=== PATIENT | female | born 1950 | race Caucasian/White ===

== ENCOUNTER 2020-07-07 20:28 | Inpatient (IN) | payer MEDICARE, BC, SELFPAY ==
[2020-07-07 20:43] VITALS: BP 140/78; PULSE 61; RESP 16; TEMP 37; O2SAT 95; BMI 26.4
--- NOTE | 2020-07-07 21:45 | ED_ITS ---
HPI - Psych General Chief Complaint: Anxiety Stated Complaint: SI,ETOH Time Seen by Provider: 07/07/20 21:37 Source: patient Mode of arrival: ambulatory Limitations: no limitations History of Present Illness HPI Narrative: Patient comes emergency room complaining of depression. Patient states that she does not want to go back home. Patient states that she is used to living by herself, now she has family staying with her, states she does not feel like she is at home. Patient complaining of vague SI statements, no specific plans. No HI. Patient denies any active medical problems. Patient states she takes sertraline, states he is compliant with her medications Related Data Allergies Allergy/AdvReac Type Severity Reaction Status Date / Time No Known Allergies Allergy Verified 07/07/20 20:51 [No Known Allergies*] Review of Systems Review of Systems: Constitutional : No Weight loss, No Fever, No Chills, No Night Sweats, No Fatigue, No Malaise ENT/Mouth : No Hearing loss, No Ear Pain, No Nasal Congestion, No Sinus Pain, No Hoarseness, No sore throat, No Rhinorrhea, No Swallowing Difficulty Eyes: No Eye Pain, No Swelling, No Redness, No Foreign Body, No Discharge, No Vision Changes Cardiovascular : No Chest Pain, No SOB, No Dyspnea on Exertion, No Orthopnea, No Edema, No Palpitations Respiratory : No Cough, No Sputum, No Wheezing, No Smoke Exposure, No Dyspnea Gastrointestinal : No Nausea, No Vomiting, No Diarrhea, No Constipation, No a bdominal Pain, No Hematochezia, No Melena Genitourinary : no irregular bleeding, No Dysuria, No Urinary Frequency, No Hematuria, No Urinary Incontinence, No Urgency, No Flank Pain, No Urinary Flow Changes, No Hesitancy Musculoskeletal : No joint pain, No Myalgias, No Joint Swelling Skin : No Skin Lesions, No rash Neuro : No Weakness, No Numbness, No Paresthesias, No Loss of Consciousness, No Dizziness, No Headache Psych : No Anxiety/Panic, complaining of depression, vague SI Heme/Lymph: No Bruising, No Bleeding,No Lymphadenopathy Endocrine : No Polyuria, No Polydipsia, No Temperature Intolerance PMFSH Past Medical History Medical History Alcoholism Depression Hypertension Social History Social History Alcohol intake: current Alcohol intake frequency: other Patient Tobacco Use Status: Never used Tobacco Use of substances other than those prescribed or required for medical reasons: No Advance Directives: No Advance Directives Information Provided: No Physical Exam Vital Signs: Vital Signs: Last Vital Signs Temp 98.6 F 07/07/20 20:43 Pulse 61 07/07/20 20:43 Resp 16 07/07/20 20:43 Pulse Ox 95 07/07/20 20:43 Body Mass Index 26.4 Appearance: Alert. Oriented X3. No acute distress. Eyes: Pupils equal, round and reactive to light. ENT: Pharynx normal. Neck: Normal inspection. Neck supple. No lymph nodes noted. No crepitus CVS: Normal heart rate and rhythm. Pulses normal. Normal S1 and S2 Respiratory: No respiratory distress. Breath sounds normal. No Wheezing. No rales Abdomen: Soft and nontender. No rigidity. No distention. good BS x4 Skin: Skin warm and dry. Normal skin color. Normal skin turgor. Extremities: No lower extremity edema. No lower extremity edema. No Lacerations. No Rash Neuro: Oriented X 3. No motor deficit. No sensory deficit. Moving all extermities. No slurred speech Psych: Normal speech,
[2020-07-08] VITALS (7 sets, daily range): BP systolic 119–138; BP diastolic 46–82; PULSE 60–66; RESP 15–16; TEMP 36.4–38.4; O2SAT 96–99
[2020-07-08 00:51] LABS: Glucose Urine UA NEG (NEG); Leukocyte Esterase Urine 2+ (NEG); Nitrite Urine NEG (NEG); UACC Culture Trigger YES; Urine Blood NEG (NEG); Urine Ketones NEG (NEG); Urine Protein NEG (NEG-TRACE)
[2020-07-08 00:56] LABS: Appearance Urine CLEAR; Color Urine YELLOW
[2020-07-08 00:59] LABS: Bacteria Urine 2+ /LPF; Mucus Urine 2+ /LPF; Squamous Epithelial Cell Urine 1+ /LPF
[2020-07-08 01:12] LABS: Amphetamine Screen Urine Not Detected (Not Detect); Barbiturates, Urine Not Detected (Not Detect); Benzodiazepines Screen Urine Not Detected (Not Detect); Cannabinoid Screen Urine Not Detected (Not Detect); Cocaine Screen Urine Not Detected (Not Detect); Opiate Screen Urine Not Detected (Not Detect); Phencyclidine Screen Urine Not Detected (Not Detect)
--- NOTE | 2020-07-08 02:18 | PC.NURSE ---
HAVING ISSUES WITH COMPUTER FAXING TO N, FAXED VIA FAX MACHINE. AWATING TO BE SEEN BY Marely
--- NOTE | 2020-07-08 03:03 | PC.NURSE ---
Patient just got transferred from main ED, ambulatory with no gait deficit, calm and quiet, med rec completed pending provider's approval, N referaal completed via smart-sheet, confirmation in the chart, denied distress, will continue to monitor.
[2020-07-08 04:41] LABS: COVID-19 Test Negative (Negative)
--- NOTE | 2020-07-08 06:58 | PC.NURSE ---
patient appears in no distress this morning appears to remain asleep at present received report from prior RN
[2020-07-08] MEDS: lisinopriL 10 MG TABLET 30 MG PO (09:22)
[2020-07-08] MEDS: Sertraline HCL 50 MG TABLET PO (09:23)
[2020-07-08] MEDS: amLODIPine Besylate 5 MG TABLET PO (09:23)
[2020-07-08] MEDS: Omeprazole 20 MG CAPSULE.DR PO (09:23)
[2020-07-08] MEDS: Magnesium Oxide 400 MG TABLET PO (09:23)
[2020-07-08] MEDS: hydroCHLOROthiazide 12.5 MG TABLET PO (09:23)
[2020-07-08] MEDS: Donepezil HCl 10 MG TABLET PO (09:24)
[2020-07-08 10:29] LABS: MANUAL DIFF FLAG NO
[2020-07-08 10:34] LABS: Basophils Absolute Auto 0.1 X10*3/uL (0.0-0.2); Basophils Percent Auto 0.8 % (0-2); Eosinophils Percent Auto 0.5 % (0-4); Hematocrit 35.6 % (37-47); Hemoglobin 11.5 g/dl (12.0-16.0); Imm Gran Abs Auto 0.03 X10*3/uL (0.00-0.03); Imm Gran Pct Auto 0.4 % (0.0-0.4); Lymphocytes Absolute Auto 1.1 X10*3/uL (1.2-4.9); Lymphocytes Percent Auto 14.2 % (20-40); Mean Corpuscular HGB Conc 32.3 g/dl (31.0-35.0); Mean Corpuscular Hemoglobin 31.8 pg (27.0-33.0); Mean Corpuscular Volume 98.3 fL (80-98); Mean Platelet Volume 8.5 fL (9.4-12.3); Monocytes Absolute Auto 0.5 X10*3/uL (0.1-1.2); Monocytes Percent Auto 6.8 % (2-11); Neutrophils Absolute Auto 6.2 X10*3/uL (2.0-8.3); Neutrophils Percent Auto 77.3 % (45-73); Platelet Count 324 X10*3/uL (160-400); Red Blood Count 3.62 X10*6/uL (4.20-5.50); Red Cell Distribution Width 12.9 % (11.0-16.0)
[2020-07-08] MEDS: Celecoxib 200 MG CAPSULE PO ×2 (10:50→21:33)
[2020-07-08 11:01] LABS: Alanine Aminotransferase 20 U/L (0-31); Albumin Level 4.2 g/dL (3.5-5.0); Alkaline Phosphatase 115 U/L (39-117); Anion Gap 15 (12-20); Aspartate Amino Transferase 24 U/L (5-31); Bilirubin Direct 0.3 mg/dL (0.0-0.5); Bilirubin Total 0.8 mg/dL (0.0-1.0); Blood Urea Nitrogen 24 mg/dL (9-16); Calcium 9.3 mg/dL (8.4-10.2); Carbon Dioxide 26 mmol/L (22-29); Chloride 105 mmol/L (96-108); Creatinine Clr Calc Pharmacy 63.8; Estimated Glomerular Filt Rate > 60; Glucose Random 97 mg/dL (60-115); Magnesium 1.9 mg/dL (1.6-2.6); Potassium 4.6 mmol/L (3.3-5.1); Sodium 141 mmol/L (135-145); Total Protein 7.1 g/dL (6.5-8.0)
--- NOTE | 2020-07-08 20:47 | PC.NURSE ---
nurse to nurse report given to Angelito milian on . pt has been calm and cooperative, skin pink warm and dry, steady gait. very pleasant.
--- NOTE | 2020-07-09 03:09 | PC.NURSE ---
PT presented to geriatric psych unit with complaints of depression and alcohol abuse. PT stated that her 3 years ago and she has since returned to alcoholism, consuming 4-5 alcoholic beverages each day. PT has been increasingly anxious at home as she is currently living with her son and grandchildren. PT stated that there is a lot of noise in the home and she hasn't been able to sleep well or relax. During admission PT denied any SI/HI. PT stated that her goal for going inpatient was to feel better . Mood and behavior was pleasant and outgoing throughout the admission process.
[2020-07-09 06:00] VITALS: BP 130/60; PULSE 55; RESP 16; TEMP 36.7; O2SAT 96
[2020-07-09] MEDS: Omeprazole 20 MG CAPSULE.DR PO (06:29)
[2020-07-09 07:00] VITALS: BMI 26.4
[2020-07-09 07:53] LABS: Cholesterol 149 mg/dL; HDL Cholesterol 76 mg/dL; LDL Cholesterol Calculated 56 mg/dl; Triglycerides 85 mg/dL
[2020-07-09 08:28] VITALS: BP 142/83; PULSE 83
[2020-07-09] MEDS: lisinopriL 10 MG TABLET 30 MG PO (08:28)
[2020-07-09] MEDS: Sertraline HCL 50 MG TABLET PO (08:28)
[2020-07-09] MEDS: hydroCHLOROthiazide 12.5 MG TABLET PO (08:28)
[2020-07-09] MEDS: Donepezil HCl 10 MG TABLET PO (08:28)
[2020-07-09] MEDS: amLODIPine Besylate 5 MG TABLET PO (08:28)
[2020-07-09] MEDS: Celecoxib 200 MG CAPSULE PO ×2 (08:28→21:13)
[2020-07-09] MEDS: Magnesium Oxide 400 MG TABLET PO (08:28)
[2020-07-09 08:39] LABS: Estimated Average Glucose 103 mg/dL; Hemoglobin A1c % 5.2 %
--- NOTE | 2020-07-09 12:44 | PM.GPSYHP ---
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 She reported that she had alcohol problems for several years and recently, since her son's family moved with her, she started drinking in a daily basis and her mood worsened with depressed mood, anhedonia, lack of energy, feelings of hopelesness and suicidal thoughts. During the intake interview, she admitted depression but she was able to contract for safety. We also discussed her alcohol use disorder, and she was open to try Naltrexone. No active suicidal thoughts, able to contract for safety. Geriatric Psychiatry - ROS Review of Systems ROS Unobtainable: All systems reviewed & are unremarkable except as noted in HPI and below Geriatric Psychiatry - Results Labs CBC & Chem 7: 07/08/20 10:25 07/08/20 10:25 Labs: Laboratory Tests 07/08/20 07/08/20 07/08/20 00:42 00:42 04:19 WBC RBC Hgb Hct MCV MCH MCHC RDW Plt Count MPV Immature Gran % (Auto) Neut % (Auto) Lymph % (Auto) Wilson % (Auto) Eos % (Auto) Baso % (Auto) Lymph # (Auto) Wilson # (Auto) Eos # (Auto) Baso # (Auto) Abs Immat Gran (auto) Absolute Neuts (auto) Absolute Nucleated RBC Nucleated RBC % (auto) Sodium Potassium Chloride Carbon Dioxide Anion Gap BUN Creatinine Estim Creat Clear Calc Estimated GFR Random Glucose Estimat Average Glucose Hemoglobin A1c % Calcium Magnesium Total Bilirubin Direct Bilirubin AST ALT Alkaline Phosphatase Total Protein Albumin Triglycerides Cholesterol LDL Cholesterol, Calc HDL Cholesterol Urine Color YELLOW Urine Appearance CLEAR Urine pH 6.0 Ur Specific [place] 1.020 Urine Protein NEG Urine Glucose (UA) NEG Urine Ketones NEG Urine Blood NEG Urine Nitrite NEG Ur Leukocyte Esterase 2+ H Urine RBC 1-4 Urine WBC 10-14 H Ur Squamous Epith Cells 1+ Urine Bacteria 2+ Hyaline Casts 1-4 Urine Mucus 2+ Urine Opiates Screen Not Detected Ur Barbiturates Screen Not Detected Ur Phencyclidine Scrn Not Detected Ur Amphetamines Screen Not Detected U Benzodiazepines Scrn Not Detected Urine Cocaine Screen Not Detected U Marijuana (THC) Screen Not Detected COVID-19 (KEREN) Negative COVID-19 Clin Com See Note 07/08/20 07/08/20 07/09/20 10:25 10:25 06:45 WBC 8.0 RBC 3.62 L Hgb 11.5 L Hct 35.6 L MCV 98.3 H MCH 31.8 MCHC 32.3 RDW 12.9 Plt Count 324 MPV 8.5 L Immature Gran % (Auto) 0.4 Neut % (Auto) 77.3 H Lymph % (Auto) 14.2 L Wilson % (Auto) 6.8 Eos % (Auto) 0.5 Baso % (Auto) 0.8 Lymph # (Auto) 1.1 L Wilson # (Auto) 0.5 Eos # (Auto) 0.0 Baso # (Auto) 0.1 Abs Immat Gran (auto) 0.03 Absolute Neuts (auto) 6.2 Absolute Nucleated RBC 0.000 Nucleated RBC % (auto) 0.0 Sodium 141 Potassium 4.6 Chloride 105 Carbon Dioxide 26 Anion Gap 15 BUN 24 H Creatinine 0.69 Estim Creat Clear Calc 63.8 Estimated GFR > 60 Random Glucose 97 Estimat Average Glucose 103 Hemoglobin A1c % 5.2 Calcium 9.3 Magnesium 1.9 Total Bilirubin 0.8 Direct Bilirubin 0.3 AST 24 ALT 20 Alkaline Phosphatase 115 Total Protein 7.1 Albumin 4.2 Triglycerides Cholesterol LDL Cholesterol, Calc HDL Cholesterol Urine Color Urine Appearance Urine pH Ur Specific [place] Urine Protein Urine Glucose (UA) Urine Ketones Urine Blood Urine Nitrite Ur Leukocyte Esterase Urine RBC Urine WBC Ur Squamous Epith Cells Urine Bacteria Hyaline Casts Urine Mucus Urine Opiates Screen Ur Barbiturates Screen Ur Phencyclidine Scrn Ur Amphetamines Screen U Benzodiazepines Scrn Urine Cocaine Screen U Marijuana (THC) Screen COVID-19 (KEREN) COVID-19 Clin Com 07/09/20 06:45 WBC RBC Hgb Hct MCV MCH MCHC RDW Plt Count MPV Immature Gran % (Auto) Neut % (Auto) Lymph % (Auto) Wilson % (Auto) Eos % (Auto) Baso % (Auto) Lymph # (Auto) Wilson # (Auto) Eos # (Auto) Baso # (Auto) Abs Immat Gran (auto) Absolute Neuts (auto) Absolute Nucleated RBC Nucleated RBC % (auto) Sodium Potassium Chloride Carbon Dioxide Anion Gap BUN Creatinine Estim Creat Clear Calc Estimated GFR Random Glucose Estimat Average Glucose Hemoglobin A1c % Calcium Magnesium Total Bilirubin Direct Bilirubin AST ALT Alkaline Phosphatase Total Protein Albumin Triglycerides 85 Cholesterol 149 LDL Cholesterol, Calc 56 HDL Cholesterol 76 Urine Color Urine Appearance Urine pH Ur Specific [place] Urine Protein Urine Glucose (UA) Urine Ketones Urine Blood Urine Nitrite Ur Leukocyte Esterase Urine RBC Urine WBC Ur Squamous Epith Cells Urine Bacteria Hyaline Casts Urine Mucus Urine Opiates Screen Ur Barbiturates Screen Ur Phencyclidine Scrn Ur Amphetamines Screen U Benzodiazepines Scrn Urine Cocaine Screen U Marijuana (THC) Screen COVID-19 (KEREN) COVID-19 Clin [facility] Geriatric Psychiatry - [facility] Past Medical History Medical History Alcoholism Depression Hypertension Psychiatric History: Psychopharmacology, Substance Abuse History, History of Trauma & Abuse and History of Hospitalization Psychiatric History Narrative: The patient has never been admitted into the hospital before, she had history of alcohol use disorder, with AA meetings and arecovery counselor. Family History Family history: reviewed and not pertinent Social History Social History Household Members: Children Housing: House Do you presently have visiting nurse or other home services: No Alcohol intake: current Alcohol intake frequency: other Patient Tobacco Use Status: Never used Tobacco Use of substances other than those prescribed or required for medical reasons: No Currently Displaying Signs/Symptoms of Drug Intoxication Withdrawal: No Have you been hit, kicked, punched, or otherwise hurt by someone within the past year? If so, by whom?: No Do you feel safe in your current relationship?: Yes Is there a partner from a previous relationship who is making you feel unsafe now?: No Are you made to feel afraid or neglected: No Spiritual Healthcare Practices: NA Presybeterian Healthcare Practices: Yazidi Cultural Healthcare Practices: NA Advance Directives: No Advance Directives Information Provided: No Do you have thoughts of harming others: None Do you have a plan to hurt others: No Plan Recently lost weight without trying: No How much weight loss: Not applicable Eating poorly because of decreased appetite: No Nutrition screen score: 0 Nutrition Risks: No Nutritional Risk Patient : No : No Poor oral hygiene: No Travel History Ebola Risk: Travel/Contact With Anyone From Affected Area/s: No Has Patient Experienced Ebola Symptoms: No History of recent travel: No Geriatric Psychiatry - Meds Home Medications and Allergies Home Medications Medication Instructions Recorded Confirmed Type amlodipine 1 tab PO DAILY 07/08/20 07/08/20 History celecoxib 1 cap PO BID 07/08/20 07/08/20 History donepezil 1 tab PO DAILY 07/08/20 07/08/20 History hydrochlorothiazide 1 cap PO DAILY 07/08/20 07/08/20 History hydroxyzine HCl 1 tab PO Q8H PRN 07/08/20 07/08/20 History lisinopril 1 tab PO DAILY 07/08/20 07/08/20 History omeprazole 1 cap PO DAILY 07/08/20 07/08/20 History sertraline 1 tab PO DAILY 07/08/20 07/08/20 History trazodone 1 tab PO BEDTIME PRN 07/08/20 07/08/20 History Allergies Allergy/AdvReac Type Severity Reaction Status Date / Time No Known Allergies Allergy Verified 07/07/20 20:51 [No Known Allergies*] Geriatric Psychiatry - Exam Vital Signs and I&O: Vital Signs Temp 98.1 F 07/09/20 06:00 Pulse 83 07/09/20 08:28 Resp 16 07/09/20 06:00 BP 142/83 H 07/09/20 08:28 Pulse Ox 96 07/09/20 06:00 Geriatric Psychiatry - A/P Patient Data Legal status: conditional voluntary Assessment and plan (1) Major depressive disorder: Status: Acute Assessment and Plan: Elderly female with MDD and alcohol use disorder, admitted for exacerbation of depressive symptoms with suicidal ideation. Plan:' Continue antidepressants. (2) Alcohol dependence: Status: Acute Assessment and Plan: Plan: Add Naltrexone 50 mg po qhs
[2020-07-09 18:00] VITALS: BP 140/68; PULSE 80; TEMP 36.8; O2SAT 98
[2020-07-09] MEDS: traZODone HCL 50 MG TABLET PO (21:19)
[2020-07-10 06:00] VITALS: BP 167/68; PULSE 52; RESP 16; TEMP 35.6; O2SAT 99
[2020-07-10] MEDS: Omeprazole 20 MG CAPSULE.DR PO (06:16)
[2020-07-10 09:46] VITALS: BP 117/60; PULSE 60
[2020-07-10] MEDS: amLODIPine Besylate 5 MG TABLET PO (09:46)
[2020-07-10 09:47] VITALS: BP 117/60; PULSE 60
[2020-07-10] MEDS: Magnesium Oxide 400 MG TABLET PO (09:47)
[2020-07-10] MEDS: Sertraline HCL 50 MG TABLET PO (09:47)
[2020-07-10] MEDS: lisinopriL 10 MG TABLET 30 MG PO (09:47)
[2020-07-10] MEDS: Celecoxib 200 MG CAPSULE PO ×2 (09:48→21:22)
[2020-07-10] MEDS: Naltrexone HCl 50 MG TABLET PO (09:48)
[2020-07-10] MEDS: hydroCHLOROthiazide 12.5 MG TABLET PO (09:48)
[2020-07-10] MEDS: Donepezil HCl 10 MG TABLET PO (09:48)
--- NOTE | 2020-07-10 12:15 | HO.PSYCHPN ---
Subjective Subjective Date of Service: 07/10/20 Reason For Visit: SI Interim History: The patient reported improvement of her anxiety and dysphoria. No side effects with Naltrexone Mental Status Exam Mental Status Exam Patient Appearance: Well Grooomed Patient Orientation: Person, Place and Time Level of Consciousness: Awake Patient Behavior: Appropriate Mood Description: Withdrawn Affect Description: Constricted Patient Cognition Impaired: No Ability to Follow Directions: Good Speech Pattern: Clear Memory Description: Intact Hallucinations: None Delusions: Not Present Thought Process: Goal Oriented Thought Content: positive for Intact Judgement: Fair Diagnostics Vital Signs (24Hr): Vital Signs - 24 hr 07/09/20 18:00 07/10/20 06:00 07/10/20 09:46 Temperature 98.3 F 96.0 F L Pulse Rate 80 52 60 Respiratory Rate 16 Blood Pressure 140/68 H 167/68 H 117/60 Pulse Oximetry 98 99 07/10/20 09:47 Temperature Pulse Rate 60 Respiratory Rate Blood Pressure 117/60 Pulse Oximetry Body Mass Index 26.4 Labs Results: 07/08/20 10:25 07/08/20 10:25 Labs: Laboratory Results - last 48 hr 07/09/20 07/09/20 06:45 06:45 Estimat Average Glucose 103 Hemoglobin A1c % 5.2 Triglycerides 85 Cholesterol 149 LDL Cholesterol, Calc 56 HDL Cholesterol 76 Medications Medications Current Medications Generic Name Dose Route Start Last Admin Trade Name Freq PRN Reason Stop Dose Admin Acetaminophen 650 mg 07/08/20 22:05 Acetaminophen 325 Mg Tablet PO Q6H PRN Headache/Pain Mild Scale (1-3) Al Hydroxide/Mg Hydroxide 30 ml 07/08/20 22:05 Magnesium Hydrox/Alum Hydrox 30 Ml Oral.Susp PO Q6H PRN Heartburn/Nausea Amlodipine Besylate 5 mg 07/08/20 09:00 07/10/20 09:46 Amlodipine Besylate 5 Mg Tablet PO 5 mg DAILY DREW Administration Protocol Cefuroxime Axetil 250 mg 07/08/20 12:30 07/09/20 23:53 Cefuroxime Axetil 250 Mg Tablet PO 07/15/20 12:29 250 mg Q12H DREW Administration Celecoxib 200 mg 07/08/20 09:00 07/10/20 09:48 Celecoxib 200 Mg Capsule PO 200 mg BID DREW Administration Donepezil HCl 10 mg 07/08/20 09:00 07/10/20 09:48 Donepezil Hcl 10 Mg Tablet PO 10 mg DAILY DREW Administration Hydrochlorothiazide 12.5 mg 07/08/20 09:00 07/10/20 09:48 Hydrochlorothiazide 12.5 Mg Tablet PO 12.5 mg DAILY DREW Administration Protocol Hydroxyzine HCl 25 mg 07/08/20 08:25 Hydroxyzine Hcl 25 Mg Tablet PO Q8H PRN anxiety Hydroxyzine HCl 25 mg 07/08/20 22:05 Hydroxyzine Hcl 25 Mg Tablet PO BEDTIME PRN Anxiety Lisinopril 30 mg 07/08/20 09:00 07/10/20 09:47 Lisinopril 10 Mg Tablet PO 30 mg DAILY DREW Administration Protocol Magnesium Hydroxide 30 ml 07/08/20 22:05 Milk Of Magnesia 30 Ml Oral.Susp PO DAILY PRN Constipation Magnesium Oxide 400 mg 07/08/20 09:00 07/10/20 09:47 Magnesium Oxide 400 Mg Tablet PO 400 mg DAILY DREW Administration Naltrexone HCl 50 mg 07/10/20 09:00 07/10/20 09:48 Naltrexone Hcl 50 Mg Tablet PO 50 mg DAILY DREW Administration Omeprazole 20 mg 07/08/20 09:00 07/10/20 06:16 Omeprazole 20 Mg Capsule.Dr PO 20 mg DAILY@0630 DREW Administration Sertraline HCl 50 mg 07/08/20 09:00 07/10/20 09:47 Sertraline Hcl 50 Mg Tablet PO 50 mg DAILY DREW Administration Trazodone HCl 50 mg 07/08/20 08:25 07/09/20 21:19 Trazodone Hcl 50 Mg Tablet PO 50 mg BEDTIME PRN Administration Insomnia Trazodone HCl 50 mg 07/08/20 22:05 Trazodone Hcl 50 Mg Tablet PO BEDTIME PRN Insomnia Allergies Allergies Allergy/AdvReac Type Severity Reaction Status Date / Time No Known Allergies Allergy Verified 07/07/20 20:51 [No Known Allergies*] Assessment & Plan Assessment & Plan (1) Major depressive disorder: Status: Acute Code(s): F32.9 - Major depressive disorder, single episode, unspecified Assessment and Plan: Elderly female with MDD and alcohol use disorder, admitted for exacerbation of depressive symptoms with suicidal ideation. Plan:' Continue antidepressants. (2) Alcohol dependence: Status: Acute Code(s): F10.20 - Alcohol dependence, uncomplicated Assessment and Plan: Plan: Add Naltrexone 50 mg po qhs REst the same. LFT on Monday. Greater than 50% of the session was spent on counseling and/or coordination of care Reason for contiued inpatient stay Substantial Risk for: harm to self, rapid decompensation and med/psych decompensation
[2020-07-11 06:00] VITALS: BP 112/59; PULSE 52; RESP 16; TEMP 36.5; O2SAT 96
[2020-07-11] MEDS: Omeprazole 20 MG CAPSULE.DR PO (06:12)
[2020-07-11 08:52] VITALS: BP 131/64; PULSE 57
[2020-07-11] MEDS: lisinopriL 10 MG TABLET 30 MG PO (08:52)
[2020-07-11 08:53] VITALS: BP 131/64; PULSE 57
[2020-07-11] MEDS: amLODIPine Besylate 5 MG TABLET PO (08:53)
[2020-07-11] MEDS: hydroCHLOROthiazide 12.5 MG TABLET PO (08:53)
[2020-07-11] MEDS: Celecoxib 200 MG CAPSULE PO ×2 (08:54→21:06)
[2020-07-11] MEDS: Magnesium Oxide 400 MG TABLET PO (08:54)
[2020-07-11] MEDS: Donepezil HCl 10 MG TABLET PO (08:54)
[2020-07-11] MEDS: Naltrexone HCl 50 MG TABLET PO (08:54)
[2020-07-11] MEDS: Sertraline HCL 50 MG TABLET PO (08:54)
[2020-07-11 18:09] VITALS: BP 111/55; PULSE 61; TEMP 36; O2SAT 97
--- NOTE | 2020-07-11 19:39 | HO.PSYCHPN ---
Subjective Subjective Date of Service: 07/11/20 Reason For Visit: SI Interim History: Divina was sitting in the day room and she had no acute concerns. Staff report that she is doing well overall Medication Compliance: Yes Side effects from medications: No Review of Systems Acute medical concerns: No Medical Review of Systems: unchanged Mental Status Exam Mental Status Exam Patient Appearance: Well Grooomed Patient Orientation: Person, Place and Time Level of Consciousness: Awake Patient Behavior: Appropriate Mood Description: Withdrawn Affect Description: Constricted Patient Cognition Impaired: No Ability to Follow Directions: Good Speech Pattern: Clear Memory Description: Intact Hallucinations: None Delusions: Not Present Thought Process: Goal Oriented Thought Content: positive for Intact, negative for Suicidal Ideation and negative for Homicidal Ideation Judgement: Fair Diagnostics Vital Signs (24Hr): Vital Signs - 24 hr 07/11/20 06:00 07/11/20 08:52 07/11/20 08:53 Temperature 97.7 F Pulse Rate 52 57 57 Respiratory Rate 16 Blood Pressure 112/59 L 131/64 131/64 Pulse Oximetry 96 07/11/20 18:09 Temperature 96.8 F Pulse Rate 61 Respiratory Rate Blood Pressure 111/55 L Pulse Oximetry 97 Body Mass Index 26.4 Labs Results: 07/08/20 10:25 07/08/20 10:25 Medications Medications Current Medications Generic Name Dose Route Start Last Admin Trade Name Petersonq PRN Reason Stop Dose Admin Acetaminophen 650 mg 07/08/20 22:05 Acetaminophen 325 Mg Tablet PO Q6H PRN Headache/Pain Mild Scale (1-3) Al Hydroxide/Mg Hydroxide 30 ml 07/08/20 22:05 Magnesium Hydrox/Alum Hydrox 30 Ml Oral.Susp PO Q6H PRN Heartburn/Nausea Amlodipine Besylate 5 mg 07/08/20 09:00 07/11/20 08:53 Amlodipine Besylate 5 Mg Tablet PO 5 mg DAILY DREW Administration Protocol Cefuroxime Axetil 250 mg 07/08/20 12:30 07/11/20 12:49 Cefuroxime Axetil 250 Mg Tablet PO 07/15/20 12:29 250 mg Q12H DREW Administration Celecoxib 200 mg 07/08/20 09:00 07/11/20 08:54 Celecoxib 200 Mg Capsule PO 200 mg BID DREW Administration Donepezil HCl 10 mg 07/08/20 09:00 07/11/20 08:54 Donepezil Hcl 10 Mg Tablet PO 10 mg DAILY DREW Administration Hydrochlorothiazide 12.5 mg 07/08/20 09:00 07/11/20 08:53 Hydrochlorothiazide 12.5 Mg Tablet PO 12.5 mg DAILY DREW Administration Protocol Hydroxyzine HCl 25 mg 07/08/20 08:25 Hydroxyzine Hcl 25 Mg Tablet PO Q8H PRN anxiety Hydroxyzine HCl 25 mg 07/08/20 22:05 Hydroxyzine Hcl 25 Mg Tablet PO BEDTIME PRN Anxiety Lisinopril 30 mg 07/08/20 09:00 07/11/20 08:52 Lisinopril 10 Mg Tablet PO 30 mg DAILY DREW Administration Protocol Magnesium Hydroxide 30 ml 07/08/20 22:05 Milk Of Magnesia 30 Ml Oral.Susp PO DAILY PRN Constipation Magnesium Oxide 400 mg 07/08/20 09:00 07/11/20 08:54 Magnesium Oxide 400 Mg Tablet PO 400 mg DAILY DREW Administration Naltrexone HCl 50 mg 07/10/20 09:00 07/11/20 08:54 Naltrexone Hcl 50 Mg Tablet PO 50 mg DAILY DREW Administration Omeprazole 20 mg 07/08/20 09:00 07/11/20 06:12 Omeprazole 20 Mg Capsule.Dr PO 20 mg DAILY@0630 DREW Administration Sertraline HCl 50 mg 07/08/20 09:00 07/11/20 08:54 Sertraline Hcl 50 Mg Tablet PO 50 mg DAILY DREW Administration Trazodone HCl 50 mg 07/08/20 08:25 07/09/20 21:19 Trazodone Hcl 50 Mg Tablet PO 50 mg BEDTIME PRN Administration Insomnia Trazodone HCl 50 mg 07/08/20 22:05 Trazodone Hcl 50 Mg Tablet PO BEDTIME PRN Insomnia Allergies Allergies Allergy/AdvReac Type Severity Reaction Status Date / Time No Known Allergies Allergy Verified 07/07/20 20:51 [No Known Allergies*] Assessment & Plan Assessment & Plan (1) Major depressive disorder: Status: Acute Code(s): F32.9 - Major depressive disorder, single episode, unspecified (2) Alcohol dependence: Status: Acute Code(s): F10.20 - Alcohol dependence, uncomplicated Assessment and Plan: Elderly female with MDD and alcohol use disorder, admitted for exacerbation of depressive symptoms with suicidal ideation. Plan:' Continue antidepressants. Plan: Add Naltrexone 50 mg po qhs REst the same. LFT on Monday. Greater than 50% of the session was spent on counseling and/or coordination of care Patient educated on: diagnosis and medication risk/benefits Informed Consent: further education needed Reason for contiued inpatient stay Substantial Risk for: med/psych decompensation
[2020-07-12] MEDS: Omeprazole 20 MG CAPSULE.DR PO (05:40)
[2020-07-12 06:00] VITALS: BP 177/74; PULSE 52; RESP 14; TEMP 36.6; O2SAT 98
[2020-07-12 08:16] VITALS: BP 122/58; PULSE 70; RESP 17; TEMP 36.9; O2SAT 97
[2020-07-12 08:18] VITALS: BP 122/58; PULSE 70
[2020-07-12] MEDS: lisinopriL 10 MG TABLET 30 MG PO (08:18)
[2020-07-12] MEDS: Sertraline HCL 50 MG TABLET PO (08:18)
[2020-07-12 08:19] VITALS: BP 122/58; PULSE 70
[2020-07-12] MEDS: Naltrexone HCl 50 MG TABLET PO (08:19)
[2020-07-12] MEDS: amLODIPine Besylate 5 MG TABLET PO (08:19)
[2020-07-12] MEDS: hydroCHLOROthiazide 12.5 MG TABLET PO (08:19)
[2020-07-12] MEDS: Magnesium Oxide 400 MG TABLET PO (08:19)
[2020-07-12] MEDS: Donepezil HCl 10 MG TABLET PO (08:19)
[2020-07-12] MEDS: Celecoxib 200 MG CAPSULE PO ×2 (08:19→20:32)
--- NOTE | 2020-07-12 18:14 | P.PNPSI_ITS ---
Subjective Subjective Date of Service: 07/12/20 Reason For Visit: SI Interim History: Divina reported that she felt a little odd today, but she was not able to be more specific. It seems that she is noticing that she is taking medication and has perhaps mild side effects. She was otherwise quite content. Medication Compliance: Yes Side effects from medications: No Review of Systems Acute medical concerns: No Medical Review of Systems: unchanged Mental Status Exam Mental Status Exam Patient Appearance: Well Grooomed Patient Orientation: Person, Place and Time Level of Consciousness: Awake Patient Behavior: Appropriate Mood Description: Withdrawn Affect Description: Constricted Patient Cognition Impaired: No Ability to Follow Directions: Good Speech Pattern: Clear Memory Description: Intact Hallucinations: None Delusions: Not Present Thought Process: Goal Oriented Thought Content: positive for Intact, negative for Suicidal Ideation and negative for Homicidal Ideation Judgement: Fair Diagnostics Vital Signs (24Hr): Vital Signs - 24 hr 07/12/20 06:00 07/12/20 08:16 07/12/20 08:18 Temperature 97.8 F 98.4 F Pulse Rate 52 70 70 Respiratory Rate 14 17 Blood Pressure 177/74 H 122/58 L 122/58 L Pulse Oximetry 98 97 07/12/20 08:19 Temperature Pulse Rate 70 Respiratory Rate Blood Pressure 122/58 L Pulse Oximetry Body Mass Index 26.4 Labs Results: 07/08/20 10:25 07/08/20 10:25 Medications Medications Current Medications Generic Name Dose Route Start Last Admin Trade Name Freq PRN Reason Stop Dose Admin Acetaminophen 650 mg 07/08/20 22:05 Acetaminophen 325 Mg Tablet PO Q6H PRN Headache/Pain Mild Scale (1-3) Al Hydroxide/Mg Hydroxide 30 ml 07/08/20 22:05 Magnesium Hydrox/Alum Hydrox 30 Ml Oral.Susp PO Q6H PRN Heartburn/Nausea Amlodipine Besylate 5 mg 07/08/20 09:00 07/12/20 08:19 Amlodipine Besylate 5 Mg Tablet PO 5 mg DAILY DREW Administration Protocol Cefuroxime Axetil 250 mg 07/08/20 12:30 07/12/20 13:42 Cefuroxime Axetil 250 Mg Tablet PO 07/15/20 12:29 250 mg Q12H DREW Administration Celecoxib 200 mg 07/08/20 09:00 07/12/20 08:19 Celecoxib 200 Mg Capsule PO 200 mg BID DREW Administration Donepezil HCl 10 mg 07/08/20 09:00 07/12/20 08:19 Donepezil Hcl 10 Mg Tablet PO 10 mg DAILY DREW Administration Hydrochlorothiazide 12.5 mg 07/08/20 09:00 07/12/20 08:19 Hydrochlorothiazide 12.5 Mg Tablet PO 12.5 mg DAILY DREW Administration Protocol Hydroxyzine HCl 25 mg 07/08/20 08:25 Hydroxyzine Hcl 25 Mg Tablet PO Q8H PRN anxiety Hydroxyzine HCl 25 mg 07/08/20 22:05 Hydroxyzine Hcl 25 Mg Tablet PO BEDTIME PRN Anxiety Lisinopril 30 mg 07/08/20 09:00 07/12/20 08:18 Lisinopril 10 Mg Tablet PO 30 mg DAILY DREW Administration Protocol Magnesium Hydroxide 30 ml 07/08/20 22:05 Milk Of Magnesia 30 Ml Oral.Susp PO DAILY PRN Constipation Magnesium Oxide 400 mg 07/08/20 09:00 07/12/20 08:19 Magnesium Oxide 400 Mg Tablet PO 400 mg DAILY DREW Administration Naltrexone HCl 50 mg 07/10/20 09:00 07/12/20 08:19 Naltrexone Hcl 50 Mg Tablet PO 50 mg DAILY DREW Administration Omeprazole 20 mg 07/08/20 09:00 07/12/20 05:40 Omeprazole 20 Mg Capsule.Dr PO 20 mg DAILY@0630 DREW Administration Sertraline HCl 50 mg 07/08/20 09:00 07/12/20 08:18 Sertraline Hcl 50 Mg Tablet PO 50 mg DAILY DREW Administration Trazodone HCl 50 mg 07/08/20 08:25 07/09/20 21:19 Trazodone Hcl 50 Mg Tablet PO 50 mg BEDTIME PRN Administration Insomnia Trazodone HCl 50 mg 07/08/20 22:05 Trazodone Hcl 50 Mg Tablet PO BEDTIME PRN Insomnia Allergies Allergies Allergy/AdvReac Type Severity Reaction Status Date / Time No Known Allergies Allergy Verified 07/07/20 20:51 [No Known Allergies*] Assessment & Plan Assessment & Plan (1) Major depressive disorder: Status: Acute Code(s): F32.9 - Major depressive disorder, single episode, unspecified (2) Alcohol dependence: Status: Acute Code(s): F10.20 - Alcohol dependence, uncomplicated Assessment and Plan: Elderly female with MDD and alcohol use disorder, admitted for exacerbation of depressive symptoms with suicidal ideation. Plan:' Continue antidepressants. Plan: Add Naltrexone 50 mg po qhs Rest the same. LFT on Monday. No change to the above treatment plan Greater than 50% of the session was spent on counseling and/or coordination of c are Patient educated on: diagnosis and medication risk/benefits Informed Consent: further education needed Reason for contiued inpatient stay Substantial Risk for: inability to function
[2020-07-12 22:09] VITALS: BP 136/62; PULSE 58; RESP 20; TEMP 36.8
[2020-07-13] MEDS: Omeprazole 20 MG CAPSULE.DR PO (05:30)
[2020-07-13 06:00] VITALS: BP 100/57; PULSE 56; TEMP 36.1; O2SAT 95
[2020-07-13 08:10] LABS: Alanine Aminotransferase 13 U/L (0-31); Albumin Level 3.7 g/dL (3.5-5.0); Alkaline Phosphatase 93 U/L (39-117); Aspartate Amino Transferase 18 U/L (5-31); Bilirubin Direct 0.2 mg/dL (0.0-0.5); Bilirubin Total 0.7 mg/dL (0.0-1.0); Total Protein 6.3 g/dL (6.5-8.0)
--- NOTE | 2020-07-13 08:26 | HO.PSYCHPN ---
Subjective Subjective Date of Service: 07/13/20 Reason For Visit: SI Interim History: The patient reported improvement of mood, no side effects. f?u of LFT without any major changes. She is future oriented and motivated for sobriety. Medication Compliance: Yes Side effects from medications: No Mental Status Exam Mental Status Exam Patient Appearance: Well Grooomed and Appropriate Patient Orientation: Person, Place, Time and Situation Level of Consciousness: Awake and Appropriate Patient Behavior: Appropriate Mood Description: Calm and Appropriate Affect Description: Constricted Patient Cognition Impaired: No Ability to Follow Directions: Good Speech Pattern: Clear Memory Description: Intact Hallucinations: None Delusions: Not Present Thought Process: Goal Oriented Thought Content: positive for Intact Judgement: Fair Diagnostics Vital Signs (24Hr): Vital Signs - 24 hr 07/12/20 22:09 07/13/20 06:00 Temperature 98.2 F 97.0 F Pulse Rate 58 56 Respiratory Rate 20 Blood Pressure 136/62 100/57 L Pulse Oximetry 95 Body Mass Index 26.4 Labs Results: 07/08/20 10:25 07/08/20 10:25 Labs: Laboratory Results - last 48 hr 07/13/20 07:37 Total Bilirubin 0.7 Direct Bilirubin 0.2 AST 18 ALT 13 Alkaline Phosphatase 93 Total Protein 6.3 L Albumin 3.7 Medications Medications Current Medications Generic Name Dose Route Start Last Admin Trade Name Petersonq PRN Reason Stop Dose Admin Acetaminophen 650 mg 07/08/20 22:05 Acetaminophen 325 Mg Tablet PO Q6H PRN Headache/Pain Mild Scale (1-3) Al Hydroxide/Mg Hydroxide 30 ml 07/08/20 22:05 Magnesium Hydrox/Alum Hydrox 30 Ml Oral.Susp PO Q6H PRN Heartburn/Nausea Amlodipine Besylate 5 mg 07/08/20 09:00 07/12/20 08:19 Amlodipine Besylate 5 Mg Tablet PO 5 mg DAILY DREW Administration Protocol Cefuroxime Axetil 250 mg 07/08/20 12:30 07/13/20 01:45 Cefuroxime Axetil 250 Mg Tablet PO 07/15/20 12:29 250 mg Q12H DREW Administration Celecoxib 200 mg 07/08/20 09:00 07/12/20 20:32 Celecoxib 200 Mg Capsule PO 200 mg BID DREW Administration Donepezil HCl 10 mg 07/08/20 09:00 07/12/20 08:19 Donepezil Hcl 10 Mg Tablet PO 10 mg DAILY DREW Administration Hydrochlorothiazide 12.5 mg 07/08/20 09:00 07/12/20 08:19 Hydrochlorothiazide 12.5 Mg Tablet PO 12.5 mg DAILY DREW Administration Protocol Hydroxyzine HCl 25 mg 07/08/20 08:25 Hydroxyzine Hcl 25 Mg Tablet PO Q8H PRN anxiety Hydroxyzine HCl 25 mg 07/08/20 22:05 Hydroxyzine Hcl 25 Mg Tablet PO BEDTIME PRN Anxiety Lisinopril 30 mg 07/08/20 09:00 07/12/20 08:18 Lisinopril 10 Mg Tablet PO 30 mg DAILY DREW Administration Protocol Magnesium Hydroxide 30 ml 07/08/20 22:05 Milk Of Magnesia 30 Ml Oral.Susp PO DAILY PRN Constipation Magnesium Oxide 400 mg 07/08/20 09:00 07/12/20 08:19 Magnesium Oxide 400 Mg Tablet PO 400 mg DAILY DREW Administration Naltrexone HCl 50 mg 07/10/20 09:00 07/12/20 08:19 Naltrexone Hcl 50 Mg Tablet PO 50 mg DAILY DREW Administration Omeprazole 20 mg 07/08/20 09:00 07/13/20 05:30 Omeprazole 20 Mg Capsule.Dr PO 20 mg DAILY@0630 DREW Administration Sertraline HCl 50 mg 07/08/20 09:00 07/12/20 08:18 Sertraline Hcl 50 Mg Tablet PO 50 mg DAILY DREW Administration Trazodone HCl 50 mg 07/08/20 08:25 07/09/20 21:19 Trazodone Hcl 50 Mg Tablet PO 50 mg BEDTIME PRN Administration Insomnia Trazodone HCl 50 mg 07/08/20 22:05 Trazodone Hcl 50 Mg Tablet PO BEDTIME PRN Insomnia Allergies Allergies Allergy/AdvReac Type Severity Reaction Status Date / Time No Known Allergies Allergy Verified 07/07/20 20:51 [No Known Allergies*] Assessment & Plan Assessment & Plan (1) Major depressive disorder: Status: Acute Code(s): F32.9 - Major depressive disorder, single episode, unspecified (2) Alcohol dependence: Status: Acute Code(s): F10.20 - Alcohol dependence, uncomplicated Assessment and Plan: Elderly female with MDD and alcohol use disorder, admitted for exacerbation of depressive symptoms with suicidal ideation. Plan:' Continue antidepressants and Naltrexone Discusse with team discharge planning soon No change to the above treatment plan Greater than 50% of the session was spent on counseling and/or coordination of care Reason for contiued inpatient stay Substantial Risk for: inability to function, rapid decompensation and med/psych decompensation
[2020-07-13 08:51] VITALS: BP 100/57; PULSE 60
[2020-07-13] MEDS: lisinopriL 10 MG TABLET 30 MG PO (08:51)
[2020-07-13] MEDS: hydroCHLOROthiazide 12.5 MG TABLET PO (08:51)
[2020-07-13] MEDS: Donepezil HCl 10 MG TABLET PO (08:51)
[2020-07-13] MEDS: Magnesium Oxide 400 MG TABLET PO (08:51)
[2020-07-13] MEDS: amLODIPine Besylate 5 MG TABLET PO (08:51)
[2020-07-13] MEDS: Naltrexone HCl 50 MG TABLET PO (08:51)
[2020-07-13] MEDS: Sertraline HCL 50 MG TABLET PO (08:52)
[2020-07-13] MEDS: Celecoxib 200 MG CAPSULE PO (08:52)
[2020-07-13 18:00] VITALS: BP 128/59; PULSE 55; TEMP 36.7; O2SAT 98
[2020-07-14 06:31] VITALS: BP 135/65; PULSE 55; RESP 18; TEMP 36.8; O2SAT 100
[2020-07-14] MEDS: Omeprazole 20 MG CAPSULE.DR PO (06:56)
[2020-07-14] MEDS: Celecoxib 200 MG CAPSULE PO ×2 (09:05→21:10)
[2020-07-14] MEDS: Naltrexone HCl 50 MG TABLET PO (09:05)
[2020-07-14] MEDS: Magnesium Oxide 400 MG TABLET PO (09:05)
[2020-07-14] MEDS: Donepezil HCl 10 MG TABLET PO (09:05)
[2020-07-14] MEDS: amLODIPine Besylate 5 MG TABLET PO (09:05)
[2020-07-14] MEDS: lisinopriL 10 MG TABLET 30 MG PO (09:05)
[2020-07-14] MEDS: hydroCHLOROthiazide 12.5 MG TABLET PO (09:05)
[2020-07-14] MEDS: Sertraline HCL 50 MG TABLET PO (09:06)
--- NOTE | 2020-07-14 11:08 | HO.PSYCHPN ---
Subjective Subjective Date of Service: 07/14/20 Reason For Visit: SI Interim History: The patient reported feeling better, no side effects with Naltrexone. Since she is not suicidal anymore, we discussed discharge planning Medication Compliance: Yes Side effects from medications: No Attending Groups: Yes Mental Status Exam Mental Status Exam Patient Appearance: Well Grooomed Patient Orientation: Person, Place, Time and Situation Level of Consciousness: Awake and Appropriate Patient Behavior: Appropriate and Cooperative Mood Description: Calm Affect Description: Constricted Patient Cognition Impaired: No Ability to Follow Directions: Good Speech Pattern: Clear Memory Description: Intact Hallucinations: None Delusions: Not Present Thought Process: Goal Oriented Thought Content: positive for Intact (denies suicidal or homicidal thoughts.) Judgement: Fair Diagnostics Vital Signs (24Hr): Vital Signs - 24 hr 07/13/20 18:00 07/14/20 06:31 Temperature 98.0 F 98.2 F Pulse Rate 55 55 Respiratory Rate 18 Blood Pressure 128/59 L 135/65 Pulse Oximetry 98 100 Body Mass Index 26.4 Labs Results: 07/08/20 10:25 07/08/20 10:25 Labs: Laboratory Results - last 48 hr 07/13/20 07:37 Total Bilirubin 0.7 Direct Bilirubin 0.2 AST 18 ALT 13 Alkaline Phosphatase 93 Total Protein 6.3 L Albumin 3.7 Medications Medications Current Medications Generic Name Dose Route Start Last Admin Trade Name Petersonq PRN Reason Stop Dose Admin Acetaminophen 650 mg 07/08/20 22:05 Acetaminophen 325 Mg Tablet PO Q6H PRN Headache/Pain Mild Scale (1-3) Al Hydroxide/Mg Hydroxide 30 ml 07/08/20 22:05 Magnesium Hydrox/Alum Hydrox 30 Ml Oral.Susp PO Q6H PRN Heartburn/Nausea Amlodipine Besylate 5 mg 07/08/20 09:00 07/14/20 09:05 Amlodipine Besylate 5 Mg Tablet PO 5 mg DAILY DREW Administration Protocol Cefuroxime Axetil 250 mg 07/08/20 12:30 07/14/20 07:20 Cefuroxime Axetil 250 Mg Tablet PO 07/15/20 12:29 250 mg Q12H DREW Administration Celecoxib 200 mg 07/08/20 09:00 07/14/20 09:05 Celecoxib 200 Mg Capsule PO 200 mg BID DREW Administration Donepezil HCl 10 mg 07/08/20 09:00 07/14/20 09:05 Donepezil Hcl 10 Mg Tablet PO 10 mg DAILY DREW Administration Hydrochlorothiazide 12.5 mg 07/08/20 09:00 07/14/20 09:05 Hydrochlorothiazide 12.5 Mg Tablet PO 12.5 mg DAILY DREW Administration Protocol Hydroxyzine HCl 25 mg 07/08/20 08:25 Hydroxyzine Hcl 25 Mg Tablet PO Q8H PRN anxiety Hydroxyzine HCl 25 mg 07/08/20 22:05 Hydroxyzine Hcl 25 Mg Tablet PO BEDTIME PRN Anxiety Lisinopril 30 mg 07/08/20 09:00 07/14/20 09:05 Lisinopril 10 Mg Tablet PO 30 mg DAILY DREW Administration Protocol Magnesium Hydroxide 30 ml 07/08/20 22:05 Milk Of Magnesia 30 Ml Oral.Susp PO DAILY PRN Constipation Magnesium Oxide 400 mg 07/08/20 09:00 07/14/20 09:05 Magnesium Oxide 400 Mg Tablet PO 400 mg DAILY DREW Administration Naltrexone HCl 50 mg 07/10/20 09:00 07/14/20 09:05 Naltrexone Hcl 50 Mg Tablet PO 50 mg DAILY DREW Administration Omeprazole 20 mg 07/08/20 09:00 07/14/20 06:56 Omeprazole 20 Mg Capsule.Dr PO 20 mg DAILY@0630 DREW Administration Sertraline HCl 50 mg 07/08/20 09:00 07/14/20 09:06 Sertraline Hcl 50 Mg Tablet PO 50 mg DAILY DREW Administration Trazodone HCl 50 mg 07/08/20 08:25 07/09/20 21:19 Trazodone Hcl 50 Mg Tablet PO 50 mg BEDTIME PRN Administration Insomnia Trazodone HCl 50 mg 07/08/20 22:05 Trazodone Hcl 50 Mg Tablet PO BEDTIME PRN Insomnia Allergies Allergies Allergy/AdvReac Type Severity Reaction Status Date / Time No Known Allergies Allergy Verified 07/07/20 20:51 [No Known Allergies*] Assessment & Plan Assessment & Plan (1) Major depressive disorder: Status: Acute Code(s): F32.9 - Major depressive disorder, single episode, unspecified (2) Alcohol dependence: Status: Acute Code(s): F10.20 - Alcohol dependence, uncomplicated Assessment and Plan: Elderly female with MDD and alcohol use disorder, admitted for exacerbation of depressive symptoms with suicidal ideation. Plan:' Continue antidepressants and Naltrexone Discusse with team discharge planning soon No change to the above treatment plan Greater than 50% of the session was spent on counseling and/or coordination of care Reason for contiued inpatient stay Substantial Risk for: rapid decompensation and med/psych decompensation
[2020-07-15] MEDS: Omeprazole 20 MG CAPSULE.DR PO (05:40)
[2020-07-15 06:00] VITALS: BP 133/64; PULSE 58; RESP 14; TEMP 36.5; O2SAT 98
--- NOTE | 2020-07-15 09:05 | PM.PSYDC ---
DS: Providers Provider Date of Service: 07/15/20 Date of admission: 07/08/20 22:04 Date of discharge: 07/15/20 Primary care physician: Derrell Hurst MD Consults: 07/07/20 21:47 Consult to Crisis Stat Reason for consultation: vague si Attending physician on discharge: Eliot Kirkland DS: Diagnosis Discharge Diagnosis (1) Major depressive disorder: Status: Acute (2) Alcohol dependence: Status: Acute DS: Medications Discharge Medications Home Medications: Home Medications Medication Instructions Recorded Confirmed amlodipine 1 tab PO DAILY 07/08/20 07/08/20 celecoxib 1 cap PO BID 07/08/20 07/08/20 donepezil 1 tab PO DAILY 07/08/20 07/08/20 hydrochlorothiazide 1 cap PO DAILY 07/08/20 07/08/20 hydroxyzine HCl 1 tab PO Q8H PRN 07/08/20 07/08/20 lisinopril 1 tab PO DAILY 07/08/20 07/08/20 omeprazole 1 cap PO DAILY 07/08/20 07/08/20 sertraline 1 tab PO DAILY 07/08/20 07/08/20 trazodone 1 tab PO BEDTIME PRN 07/08/20 07/08/20 Discharge Plan Discharge Patient Disposition: Home, Self-Care Discharge Diagnosis: Major depressive disorder recurrent episode without psychosis. Alcohol use disorder, early remission Referrals: Dr. Arias, [facility] [Other] - 07/21/20 10:30 am Psych Prescriber: Dhaval Ureña) [Other] - 08/13/20 9:00 am Derrell Hurst MD [Primary Care Provider] - 1 Week Discharge Medications: New naltrexone 50 mg Tablet 50 mg PO DAILY 30 Days Qty: 30 RF: 0 cefuroxime axetil 250 mg Tablet 250 mg PO Q12H 10 Days Qty: 20 RF: 0 Continued celecoxib 200 mg capsule 1 cap PO BID 30 Days Qty: 60 RF: 0 donepezil 10 mg tablet 1 tab PO DAILY 30 Days Qty: 30 RF: 0 hydrochlorothiazide 12.5 mg capsule 1 cap PO DAILY 30 Days Qty: 30 RF: 0 Changed amlodipine 5 mg tablet 5 mg PO DAILY 30 Days Qty: 30 RF: 0 lisinopril 30 mg tablet 30 mg PO DAILY 30 Days Qty: 30 RF: 0 omeprazole 20 mg capsule,delayed release(DR/EC) 20 mg PO DAILY 30 Days Qty: 30 RF: 0 sertraline 50 mg tablet 50 mg PO DAILY 30 Days Qty: 30 RF: 0 trazodone 50 mg tablet 50 mg PO BEDTIME PRN (Reason: Insomnia) 30 Days Qty: 30 RF: 0 Discontinued hydroxyzine HCl 25 mg tablet 1 tab PO Q8H PRN (Reason: anxiety) RF: 0 Discharge Orders: Discharge Order (Routine); Ordered 07/15/20 Ordered By: Eliot Kirkland Activity on Discharge: As tolerated Stand Alone Forms: Patient Portal Discharge page Care Plan Goals: See Care Plan Health Concerns: Continue with PCP Plan of Treatment: Continue ttreatment in the community Assessment: Elderly female with MDD and alcohol use disorder, relapsed on alcohol recently with worsening depression. Stable now and safe. Mental Status Exam Mental Status Exam Patient Appearance: Well Grooomed Patient Orientation: Person, Place, Time and Situation Level of Consciousness: Awake and Appropriate Patient Behavior: Appropriate and Cooperative Mood Description: Calm and Appropriate Affect Description: Constricted Patient Cognition Impaired: No Ability to Follow Directions: Good Speech Pattern: Clear Memory Description: Intact Hallucinations: None Delusions: Not Present Thought Process: Goal Oriented Thought Content: positive for Intact (no suicidal or homicidal thoughts) Judgement: Fair Data Data Completed and Pending Completed studies during hospitalization [Text1]: 07/08/20 07/08/20 07/09/20 10:25 10:25 06:45 WBC 8.0 RBC 3.62 L Hgb 11.5 L Hct 35.6 L MCV 98.3 H MCH 31.8 MCHC 32.3 RDW 12.9 Plt Count 324 MPV 8.5 L Immature Gran % (Auto) 0.4 Neut % (Auto) 77.3 H Lymph % (Auto) 14.2 L [place] % (Auto) 6.8 Eos % (Auto) 0.5 Baso % (Auto) 0.8 Lymph # (Auto) 1.1 L [place] # (Auto) 0.5 Eos # (Auto) 0.0 Baso # (Auto) 0.1 Abs Immat Gran (auto) 0.03 Absolute Neuts (auto) 6.2 Absolute Nucleated RBC 0.000 Nucleated RBC % (auto) 0.0 Sodium 141 Potassium 4.6 Chloride 105 Carbon Dioxide 26 Anion Gap 15 BUN 24 H Creatinine 0.69 Estim Creat Clear Calc 63.8 Estimated GFR > 60 Random Glucose 97 Estimat Average Glucose 103 Hemoglobin A1c % 5.2 Calcium 9.3 Magnesium 1.9 Total Bilirubin 0.8 Direct Bilirubin 0.3 AST 24 ALT 20 Alkaline Phosphatase 115 Total Protein 7.1 Albumin 4.2 Triglycerides Cholesterol LDL Cholesterol, Calc HDL Cholesterol 07/09/20 07/13/20 06:45 07:37 WBC RBC Hgb Hct MCV MCH MCHC RDW Plt Count MPV Immature Gran % (Auto) Neut % (Auto) Lymph % (Auto) [place] % (Auto) Eos % (Auto) Baso % (Auto) Lymph # (Auto) [place] # (Auto) Eos # (Auto) Baso # (Auto) Abs Immat Gran (auto) Absolute Neuts (auto) Absolute Nucleated RBC Nucleated RBC % (auto) Sodium Potassium Chloride Carbon Dioxide Anion Gap BUN Creatinine Estim Creat Clear Calc Estimated GFR Random Glucose Estimat Average Glucose Hemoglobin A1c % Calcium Magnesium Total Bilirubin 0.7 Direct Bilirubin 0.2 AST 18 ALT 13 Alkaline Phosphatase 93 Total Protein 6.3 L Albumin 3.7 Triglycerides 85 Cholesterol 149 LDL Cholesterol, Calc 56 HDL Cholesterol 76 07/08/20 Unknown Urine clean catch - Clean Catch Midstream Urine Culture - Final DS: Summary Hospital Course Hospital Course: The patient was initially admitted for depressive symptoms elicited by depressed mood, anhedonia, lack of energy and suicidal ideation. She was also abusing alcohol (she carries the diagnosis of alcohol use disorder) more in the last months since her son and son's family moved with her and she felt overwhelmed. On intake, she was dysphoric but able to contract for safety. We discussed her diagnosis and treatment options, and she agreed to continue her antidepressant and add Naltrexone to target her alcohol cravings. She denied any side effects with the current treatment, she was more visible and she was willing to continue treatment as an outpatient. Her dysphoria improved with no suicidal thoughts. Time spent discussing smoking cessation with patient: 3 to 10 minutes Status at Discharge Functional status at discharge: independent ambulation Overall status at discharge: patient is back to baseline Time Spent with Patient Time attestation: Total time spent providing and/or coordinating discharge services: Time spent: Less than 30 minutes
[2020-07-15] MEDS: Celecoxib 200 MG CAPSULE PO (09:19)
[2020-07-15] MEDS: Sertraline HCL 50 MG TABLET PO (09:19)
[2020-07-15] MEDS: Magnesium Oxide 400 MG TABLET PO (09:19)
[2020-07-15] MEDS: Donepezil HCl 10 MG TABLET PO (09:19)
[2020-07-15] MEDS: Naltrexone HCl 50 MG TABLET PO (09:19)
[2020-07-15 09:20] VITALS: BP 133/64; PULSE 98
[2020-07-15] MEDS: lisinopriL 10 MG TABLET 30 MG PO (09:20)
[2020-07-15] MEDS: hydroCHLOROthiazide 12.5 MG TABLET PO (09:22)
[2020-07-15 09:24] VITALS: BP 133/64; PULSE 58
[2020-07-15] MEDS: amLODIPine Besylate 5 MG TABLET PO (09:24)
== END 2020-07-15 15:00 | disposition home or self-care (01) | DRG 885 ==
LOC: HO.ED 07-08 10:51 → HO.PGERI 07-08 22:16
PROVIDERS: Physician Assistant; Admitting Provider Psychiatry & Neurology Psychiatry; Emergency Provider Emergency Medicine; PCP Internal Medicine; Visit Provider Psychiatry & Neurology Psychiatry
DX: F33.9 Major depressive disorder, recurrent, unspecified (principal); R45.851 Suicidal ideations; N39.0 Urinary tract infection, site not specified; F10.20 Alcohol dependence, uncomplicated; F41.9 Anxiety disorder, unspecified; Z20.822 Contact with and (suspected) exposure to COVID-19; Z79.1 Long term (current) use of non-steroidal anti-inflammatories (NSAID); Z79.899 Other long term (current) drug therapy
CPT/HCPCS: 36415; 80048; 80061; 80076; 80307; 81001; 81003; 83036; 83735; 85025; 87086; 87635; 99285

== ENCOUNTER → 2020-07-21 10:19 | Outpatient (BNVA) | payer BC, MEDICARE, SELFPAY | PROVIDERS: PCP Internal Medicine; Visit Provider Internal Medicine ==

== ENCOUNTER 2020-07-23 17:39 | Emergency (ER) | payer BC, MEDICARE, SELFPAY ==
[2020-07-23 17:51] VITALS: BP 114/59; BP 130/50; PULSE 60; PULSE 84; RESP 16; TEMP 36.6; O2SAT 99; BMI 22.8
--- NOTE | 2020-07-23 19:43 | PC.NURSE ---
Patient's ride at the bedside. Provider (Nargis) aware. Preparing for discharge home with sober ride.
--- NOTE | 2020-07-23 19:46 | MHC.RECOVSUP ---
Recovery support o Current location: [address] [place] [address] o Identified substance use concern: Alcohol <del>-</del> <del>Overdose</del> <del>-</del> <del>Withdrawal</del> <del>-</del> <del>Seeking</del> <del>ATS</del> <del>(detox)</del> - Support ? Intervention: <del>o</del> <del>ATS</del> <del>bed</del> <del>search</del> <del>started/completed/in</del> <del>process</del> <del>o</del> <del>MAT</del> <del>started</del> <del>or</del> <del>to</del> <del>be</del> <del>started</del> o Community resources provided o Harm reduction discussion ? Plan: <del>o</del> <del>Referral</del> <del>to</del> <del>[facility]</del> <del>o</del> <del>Bed</del> <del>search</del> <del>in</del> <del>progress</del> <del>to</del> <del>o</del> <del>Follow</del> <del>up</del> <del>tomorrow</del> <del>o</del> <del>Patient</del> <del>awaiting</del> <del>crisis</del> <del>evaluation</del> <del>o</del> <del>Patient</del> <del>to</del> <del>follow</del> <del>up</del> <del>with</del> <del>[facility]</del> <del>after</del> <del>discharge</del> ? Additional information: I was able to briefly speak with pt was declined wanting to go to detox despite having been stopped by police on numerous occasions for DUI. pt is not on MAT, and she stated that she does not have a mental health dx and she lives alone. I was able to provide her with a list of detox and suggested she calls if she ever decides to want to go.
--- NOTE | 2020-07-24 02:43 | ED.ALCOHOL ---
HPI - Alcohol General Chief Complaint: ETOH/Substance Use Stated Complaint: etoh Time Seen by Provider: 07/23/20 18:15 Source: patient Mode of arrival: EMS Limitations: other (Alcohol intoxication) History of Present Illness HPI narrative: 70-year-old female who presents emergency department for evaluation of acute alcohol intoxication. Patient states that she met a new man and went out to lunch. She states that after lunch she but nips of vodka and drink at least 4. She states that she was sitting in her car enjoying the nice day when police knocked on her window, called an ambulance and had her transported to the emergency department. The patient currently has no complaints. She does admit to drinking alcohol and states that she does not want to talk to a crisis counselor in is not interested in getting into a detox program. She denied fever, chills, chest pain, shortness of breath, abdominal pain, nausea, vomiting, change in bowel movements. Related Data Previous Rx's Medication Instructions Recorded amlodipine 5 mg PO DAILY 30 Days #30 tab 07/15/20 cefuroxime axetil 250 mg PO Q12H 10 Days #20 tab 07/15/20 celecoxib 1 cap PO BID 30 Days #60 cap 07/15/20 donepezil 1 tab PO DAILY 30 Days #30 tab 07/15/20 hydrochlorothiazide 1 cap PO DAILY 30 Days #30 cap 07/15/20 lisinopril 30 mg PO DAILY 30 Days #30 tab 07/15/20 naltrexone 50 mg PO DAILY 30 Days #30 tab 07/15/20 omeprazole 20 mg PO DAILY 30 Days #30 cap 07/15/20 sertraline 50 mg PO DAILY 30 Days #30 tab 07/15/20 trazodone 50 mg PO BEDTIME PRN 30 Days #30 07/15/20 tab folic acid 1 mg tablet 1 mg PO DAILY 30 Days #30 tab 07/22/20 thiamine HCl (vitamin B1) 100 mg 100 mg PO DAILY 30 Days #30 tab 07/22/20 tablet Allergies Allergy/AdvReac Type Severity Reaction Status Date / Time No Known Allergies Allergy Verified 07/21/20 10:37 [No Known Allergies*] Review of Systems Review of Systems: Yes all other systems are reviewed and are negative PMFSH Past Medical History Medical History Alcoholism Cognitive impairment Depression Hypertension Neuropathy Surgical History History of bilateral knee replacement History of rotator cuff surgery Hx of gastric bypass (~2011) Social History Social History Household Members: Children Housing: House Do you presently have visiting nurse or other home services: No Alcohol intake: current Alcohol intake frequency: other Patient Tobacco Use Status: Never used Tobacco Advance Directives: No Advance Directives Information Provided: Yes service: No Sexual orientation: Straight/Heterosexual Physical Exam Vital Signs: Vital Signs: Last Vital Signs Temp 97.8 F 07/23/20 17:51 Pulse 60 07/23/20 17:51 Resp 16 07/23/20 17:51 BP 114/59 L 07/23/20 17:51 Pulse Ox 99 07/23/20 17:51 Body Mass Index 22.8 Const: Other: Awake, alert, pleasant, cooperative, does appear to be intoxicated, strong order of alcohol on her breath. HENMT: Head: Yes normal to inspection, Yes normocephalic and Yes atraumatic Ears: external ears normal General nose exam: Normal external nose present Face and sinus: Yes normal facial exam Mouth: Normal oral and palatal mucosa present Throat: Yes posterior oropharynx normal Eyes: Periorbital: periorbital findings normal Eyelids: Yes eyelids normal Conjunctivae: conjunctivae normal Sclerae: sclerae normal Corneas: corneas normal Pupils: Equal, round and reactive pupils present Direct Ophthalmoscopy: normal light reflex Neck: Neck: Yes full ROM, Yes no lymphadenopathy, Yes no meningeal signs, Yes trachea midline and Yes supple Chest: Chest palpation & inspection: normal inspection of the chest and normal palpation of entire chest wall Resp: Effort & Inspection: normal respiratory effort and able to speak in complete sentences Auscultation: clear to auscultation bilaterally Cardio: Rate: regular rate Rhythm: regular rhythm Heart sounds: S1 normal heart sound present, S2 normal heart sound present and no murmurs GI: Inspection: Yes normal to inspection Palpation (GI): Soft to palpation, nontender, no guarding, not rigid and No hepatosplenomegaly present : General: Yes no CVA tenderness Back/Spine/Pelvis: Back: no CVA tenderness Cervical Spine: normal cervical lordosis Thoracic/Lumbar Spine: thoracic and lumbar spine normal to inspection Skin: Lesions: no lesions Rashes: no rashes Wounds: no wounds Neuro: General: no meningeal signs Cranial nerves: Yes CN's II-XII intact bilaterally and Yes Equal, round and reactive pupils present Cognition (Neuro): normal cognition Motor exam (neuro): 5/5 motor strength present throughout Extrem: General: Yes normal to inspection and Yes full ROM Psych: Appearance: well kempt Mental Status: mental status grossly normal Speech and movement: Normal speech and movement present Attitude: cooperative Course Course Course Narrative: 70-year-old female who was brought to the emergency department for evaluation of alcohol intoxication, she was found in her car by police and was transported by EMS. The patient has no complaints. She does appear to be acutely intoxicated. Patient is not interested in getting into detox and does not want to talk to our crisis counselors. The patient will be kept in the emergency department until she can find a sober ride. Discharge Plan Discharge Clinical Impression: Alcohol intoxication Patient Disposition: Home, Self-Care Instructions: Alcohol Use Disorder (ED) Additional Instructions: You should consider getting some counseling and help with your alcohol use disorder. Follow-up with your doctor in 2 days. Please return to the emergency department if your symptoms get worse or if you develop any symptoms that are concerning to you. Prescriptions: No Action cefuroxime axetil 250 mg Tablet 250 mg PO Q12H 10 Days Qty: 20 RF: 0 naltrexone 50 mg Tablet 50 mg PO DAILY 30 Days Qty: 30 RF: 0 celecoxib 200 mg capsule 1 cap PO BID 30 Days Qty: 60 RF: 0 trazodone 50 mg tablet 50 mg PO BEDTIME PRN (Reason: Insomnia) 30 Days Qty: 30 RF: 0 donepezil 10 mg tablet 1 tab PO DAILY 30 Days Qty: 30 RF: 0 amlodipine 5 mg tablet 5 mg PO DAILY 30 Days Qty: 30 RF: 0 hydrochlorothiazide 12.5 mg capsule 1 cap PO DAILY 30 Days Qty: 30 RF: 0 lisinopril 30 mg tablet 30 mg PO DAILY 30 Days Qty: 30 RF: 0 omeprazole 20 mg capsule,delayed release(DR/EC) 20 mg PO DAILY 30 Days Qty: 30 RF: 0 sertraline 50 mg tablet 50 mg PO DAILY 30 Days Qty: 30 RF: 0 folic acid 1 mg tablet 1 mg PO DAILY 30 Days Qty: 30 RF: 11 thiamine HCl (vitamin B1) 100 mg tablet 100 mg PO DAILY 30 Days Qty: 30 RF: 11 Interventions: ED Discharge Assessment Last Done: 07/23/20 19:46 Discharge Date/Time: 07/23/20 19:48
== END 2020-07-23 19:48 | disposition home or self-care (01) ==
PROVIDERS: Emergency Provider Emergency Medicine Emergency Medical Services; PCP Internal Medicine
DX: F10.129 Alcohol abuse with intoxication, unspecified (principal); I10 Essential (primary) hypertension; Z79.899 Other long term (current) drug therapy
CPT/HCPCS: 99283

== ENCOUNTER → 2020-09-08 15:16 | Outpatient (BNVA) | payer BC, MEDICARE, SELFPAY | PROVIDERS: Visit Provider Internal Medicine ==

== ENCOUNTER → 2020-10-20 13:46 | Outpatient (BNVA) | payer BC, SELFPAY | PROVIDERS: Visit Provider Internal Medicine | DX: F10.20 Alcohol dependence, uncomplicated (principal); Z51.81 Encounter for therapeutic drug level monitoring; Z79.899 Other long term (current) drug therapy | CPT/HCPCS: 80305; 99212 ==

== ENCOUNTER 2020-10-27 10:07 | Outpatient (REF) | payer BC, SELFPAY ==
[2020-10-27 10:57] LABS: Prothrombin Time 10.9 SEC (9.9-13.0)
[2020-10-27 11:11] LABS: Alanine Aminotransferase 18 U/L (0-31); Alkaline Phosphatase 112 U/L (39-117); Aspartate Amino Transferase 19 U/L (5-31); Bilirubin Direct 0.2 mg/dL (0.0-0.5); Bilirubin Total 0.3 mg/dL (0.0-1.0); Total Protein 6.8 g/dL (6.5-8.0)
[2020-11-04 19:06] LABS: FIB-ALT 13 U/L (6-29); FIB-Alpha-2-Macroglobulin 316 mg/dL (106-279); FIB-Apolipoprotein A1 188 mg/dL (101-198); FIB-GGT 10 U/L (3-65); FIB-Haptoglobin 106 mg/dL (43-212); FIB-Total Bilirubin 0.3 mg/dL (0.2-1.2); Liver Fibrosis Score 0.21; Liver Fibrosis Stage F0-F1; Nec Inflam Act Grade A0; Nec Inflam Act Score 0.04
== END 2020-10-27 10:08 | disposition home or self-care (01) ==
LOC: HO.LAB 10:07
PROVIDERS: PCP Internal Medicine; Visit Provider Internal Medicine
DX: F10.20 Alcohol dependence, uncomplicated (principal)
CPT/HCPCS: 36415; 80076; 81596; 85610

== ENCOUNTER → 2020-11-17 11:19 | Outpatient (BNVA) | payer BC, SELFPAY | PROVIDERS: Visit Provider Internal Medicine | DX: F10.20 Alcohol dependence, uncomplicated (principal) | CPT/HCPCS: 80305; 99212 ==

== ENCOUNTER → 2020-12-15 13:51 | Outpatient (BNVA) | payer MEDICARE, BC, SELFPAY | PROVIDERS: Visit Provider Internal Medicine | DX: F10.20 Alcohol dependence, uncomplicated (principal); R41.89 Other symptoms and signs involving cognitive functions and awareness | CPT/HCPCS: 99212 ==

== ENCOUNTER 2022-01-29 01:00 | Emergency (ER) | payer BC, SELFPAY ==
[2022-01-29 01:04] VITALS: BP 138/55; PULSE 67; RESP 18; TEMP 37.1; O2SAT 97; BMI 26.0
--- NOTE | 2022-01-29 01:48 | ED.FALL ---
HPI - Fall General Chief Complaint: Fall Stated Complaint: Fall/Knee Lac/head inj Time Seen by Provider: 01/29/22 01:27 Source: patient Mode of arrival: ambulatory Limitations: no limitations History of Present Illness HPI Narrative: Patient otherwise healthy in stable was walking in the house lost balance and fell forward landed on her left forehead and right knee no loss of consciousness no headache no nausea /vomiting not on any blood thinner patient denies alcohol use sees her shoes got stuck and she fell forward came with laceration of the right knee cap with huge hematoma around it. Superficial abrasion laceration on the left forehead denies any headache or neck pain or any other body pain Related Data Home Medications Medication Instructions Recorded Confirmed magnesium chloride 70 mg 400 mg PO DAILY 12/15/20 (magnesium chloride) tablet,delayed release Previous Rx's Medication Instructions Recorded amlodipine 5 mg tablet 5 mg PO DAILY 30 days #30 tabs 07/15/20 cefuroxime axetil 250 mg tablet 250 mg PO Q12H 10 days #20 tabs 07/15/20 celecoxib 200 mg capsule 1 cap PO BID 30 days #60 caps 07/15/20 donepezil 10 mg tablet 1 tab PO DAILY 30 days #30 tabs 07/15/20 hydrochlorothiazide 12.5 mg capsule 1 cap PO DAILY 30 days #30 caps 07/15/20 lisinopril 30 mg tablet 30 mg PO DAILY 30 days #30 tabs 07/15/20 omeprazole 20 mg capsule,delayed 20 mg PO DAILY 30 days #30 caps 07/15/20 release sertraline 50 mg tablet 50 mg PO DAILY 30 days #30 tabs 07/15/20 trazodone 50 mg tablet 50 mg PO BEDTIME PRN Insomnia 30 07/15/20 days #30 tabs folic acid 1 mg tablet 1 mg PO DAILY 30 days #30 tabs 07/22/20 thiamine HCl (vitamin B1) 100 mg 100 mg PO DAILY 30 days #30 tabs 07/22/20 tablet naltrexone 50 mg tablet 50 mg PO DAILY 30 days #30 tabs 11/17/20 Allergies Allergy/AdvReac Type Severity Reaction Status Date / Time No Known Allergies Allergy Verified 12/15/20 13:58 [No Known Allergies*] Review of Systems Review of Systems: Yes all other systems are reviewed and are negative PMFSH Past Medical History Medical History Alcoholism Cognitive impairment Depression Hypertension Neuropathy Surgical History History of bilateral knee replacement History of rotator cuff surgery Hx of gastric bypass (~2011) Social History Social History Household Members: Family and Children Housing: House Do you presently have visiting nurse or other home services: No Alcohol intake: current Alcohol intake frequency: does not drink Patient Tobacco Use Status: Former Tobacco user Advance Directives: Yes Advance Directives Information Provided: No Advance Directives on File: No service: No Sexual orientation: Straight/Heterosexual Physical Exam Vital Signs: Vital Signs: Last Vital Signs Temp 98.1 F 01/29/22 04:46 Pulse 61 01/29/22 04:46 Resp 12 01/29/22 04:46 BP 128/51 L 01/29/22 04:46 Pulse Ox 94 01/29/22 04:46 O2 Del Method 01/29/22 04:46 BMI result Body Mass Index 26.0 Appearance: Alert. Oriented X3. No acute distress. Eyes: PERRLA, No Nystagmus superficial abrasion laceration left forehead with hematoma ENT: Pharynx normal. Oral Mucosa moist Neck: Normal inspection. Neck supple. CVS: Normal heart rate and rhythm. Pulses normal. Respiratory: No respiratory distress. Equal air entry bilateral, no wheezing/rales/rhonchi Abdomen: Soft and nontender. Bowel sounds are present, no mass palpable, no CVA tenderness Skin: Skin warm and dry. Normal skin color. Normal skin turgor. Extremities: No lower extremity edema. No calf tenderness 6 cm deep laceration right knee with hematoma around it Neuro: Oriented X 3. No motor deficit. No sensory deficit.No cerebellar signs , cranial nerves II-XII intact Extrem: Knee images: 1. 10 cm deep laceration neurovascular intact 2. Moderate size hematoma Procedures Laceration Laceration 1: Site: lower extremity (Right knee) Side (If applicable): right Size (cm): 8 Description: linear Depth: simple, single layer Local Anesthetic: lidocaine 1% Amount of anesthesia used (mL): 15 Skin layer closed with: nylon Size (cm): 4-0 Number of sutures: 10 Technique: simple, interrupted and horizontal mattress Subcutaneous layer closed with: vicryl Size: 3-0 Number of sutures: 6 Technique: simple, interrupted Medical Decision Making Medical Decision Making [facility] Narrative: Patient's CT scan of the head C-spine right knee negative for fracture shows hematoma on the right knee. Patient able to ambulate laceration sutured patient discharged home advised to the come back to ER to recheck the wound in 2 days Lab Data [facility] Lab Attestation statement: I reviewed the patient's lab results. Result Diagrams: 01/29/22 02:23 01/29/22 02:23 Labs: Lab Results 01/29/22 01/29/22 01/29/22 Range/Units 02:23 02:23 02:23 WBC 5.1 (4.8-10.8) X10*3/uL RBC 3.21 L (4.20-5.50) X10*6/uL Hgb 10.0 L (12.0-16.0) g/dl Hct 30.5 L (37.0-47.0) % MCV 95.0 (80.0-98.0) fL MCH 31.2 (27.0-33.0) pg MCHC 32.8 (31.0-35.0) g/dl RDW 14.1 (11.0-16.0) % Plt Count 251 (160-400) X10*3/uL MPV 7.9 L (9.4-12.3) fL Immature Gran % (Auto) 0.4 (0.0-0.4) % Neut % (Auto) 70.3 (45-73) % Lymph % (Auto) 17.7 L (20-40) % [place] % (Auto) 9.4 (2-11) % Eos % (Auto) 1.2 (0-4) % Baso % (Auto) 1.0 (0-2) % Lymph # (Auto) 0.9 L (1.2-4.9) X10*3/uL [place] # (Auto) 0.5 (0.1-1.2) X10*3/uL Eos # (Auto) 0.1 (0.0-0.4) X10*3/uL Baso # (Auto) 0.1 (0.0-0.2) X10*3/uL Abs Immat Gran (auto) 0.02 (0.00-0.03) X10*3/uL Absolute Neuts (auto) 3.6 (2.0-8.3) x10*3/uL Absolute Nucleated RBC 0.000 (0.0-0.012) X10*3/uL Nucleated RBC % (auto) 0.0 (0.0-0.2) /100WBC PT 10.5 (10.0-13.1) SEC INR 0.9 (0.9-1.1) Sodium 136 (135-145) mmol/L Potassium 4.2 (3.3-5.1) mmol/L Chloride 101 (96-108) mmol/L Carbon Dioxide 24 (22-29) mmol/L Anion Gap 15 (12-20) BUN 17 H (9-16) mg/dL Creatinine 0.82 (0.5-1.4) mg/dL Estim Creat Clear Calc 52.5 Estimated GFR > 60 Random Glucose 99 (60-115) mg/dL Calcium 8.8 (8.4-10.2) mg/dL Magnesium 1.7 (1.6-2.6) mg/dL Total Bilirubin 0.3 (0.0-1.0) mg/dL AST 26 (5-31) U/L ALT 18 (0-31) U/L Alkaline Phosphatase 78 (39-117) U/L Total Protein 6.3 L (6.5-8.0) g/dL Albumin 3.8 (3.5-5.0) g/dL Ethyl Alcohol 76 mg/dL Discharge Plan Discharge Clinical Impression: Laceration of knee, Fall Patient Disposition: Home, Self-Care Instructions: Laceration (ED), Fall Prevention (ED) Additional Instructions: Care as advised Mendez wrap to the right knee Come back to ER for wound recheck in 2 days Suture removal in 2 weeks Prescriptions: No Action cefuroxime axetil 250 mg Tablet 250 mg PO Q12H 10 Days Qty: 20 0RF celecoxib 200 mg capsule 1 cap PO BID 30 Days Qty: 60 0RF trazodone 50 mg tablet 50 mg PO BEDTIME PRN (Reason: Insomnia) 30 Days Qty: 30 0RF donepezil 10 mg tablet 1 tab PO DAILY 30 Days Qty: 30 0RF amlodipine 5 mg tablet 5 mg PO DAILY 30 Days Qty: 30 0RF hydrochlorothiazide 12.5 mg capsule 1 cap PO DAILY 30 Days Qty: 30 0RF lisinopril 30 mg tablet 30 mg PO DAILY 30 Days Qty: 30 0RF omeprazole 20 mg capsule,delayed release(DR/EC) 20 mg PO DAILY 30 Days Qty: 30 0RF sertraline 50 mg tablet 50 mg PO DAILY 30 Days Qty: 30 0RF folic acid 1 mg tablet 1 mg PO DAILY 30 Days Qty: 30 11RF thiamine HCl (vitamin B1) 100 mg tablet 100 mg PO DAILY 30 Days Qty: 30 11RF naltrexone 50 mg tablet 50 mg PO DAILY 30 Days Qty: 30 5RF magnesium chloride 70 mg tablet,delayed release (DR/EC) 400 mg PO DAILY Interventions: ED Discharge Assessment Last Done: 01/29/22 05:07 Discharge Date/Time: 01/29/22 05:10
[2022-01-29 02:19] VITALS: BP 143/60; PULSE 63; RESP 16; TEMP 36.8; O2SAT 95
[2022-01-29 02:30] LABS: Basophils Absolute Auto 0.1 X10*3/uL (0.0-0.2); Eosinophils Absolute Auto 0.1 X10*3/uL (0.0-0.4); Eosinophils Percent Auto 1.2 % (0-4); Hematocrit 30.5 % (37.0-47.0); Imm Gran Abs Auto 0.02 X10*3/uL (0.00-0.03); Imm Gran Pct Auto 0.4 % (0.0-0.4); Lymphocytes Absolute Auto 0.9 X10*3/uL (1.2-4.9); Lymphocytes Percent Auto 17.7 % (20-40); MANUAL DIFF FLAG NO; Mean Corpuscular HGB Conc 32.8 g/dl (31.0-35.0); Mean Corpuscular Hemoglobin 31.2 pg (27.0-33.0); Mean Platelet Volume 7.9 fL (9.4-12.3); Monocytes Absolute Auto 0.5 X10*3/uL (0.1-1.2); Monocytes Percent Auto 9.4 % (2-11); Neutrophils Absolute Auto 3.6 x10*3/uL (2.0-8.3); Neutrophils Percent Auto 70.3 % (45-73); Platelet Count 251 X10*3/uL (160-400); Red Blood Count 3.21 X10*6/uL (4.20-5.50); Red Cell Distribution Width 14.1 % (11.0-16.0); White Blood Count 5.1 X10*3/uL (4.8-10.8)
[2022-01-29 02:47] LABS: Alanine Aminotransferase 18 U/L (0-31); Albumin Level 3.8 g/dL (3.5-5.0); Alkaline Phosphatase 78 U/L (39-117); Anion Gap 15 (12-20); Aspartate Amino Transferase 26 U/L (5-31); Bilirubin Total 0.3 mg/dL (0.0-1.0); Blood Urea Nitrogen 17 mg/dL (9-16); Calcium 8.8 mg/dL (8.4-10.2); Carbon Dioxide 24 mmol/L (22-29); Chloride 101 mmol/L (96-108); Creatinine Clr Calc Pharmacy 52.5; Estimated Glomerular Filt Rate > 60; Ethanol 76 mg/dL; Glucose Random 99 mg/dL (60-115); Magnesium 1.7 mg/dL (1.6-2.6); Potassium 4.2 mmol/L (3.3-5.1); Sodium 136 mmol/L (135-145); Total Protein 6.3 g/dL (6.5-8.0)
[2022-01-29 02:48] LABS: INTERNATIONAL NORM RATIO 0.9 (0.9-1.1); Prothrombin Time 10.5 SEC (10.0-13.1)
--- NOTE | 2022-01-29 03:45 | MHC.EDTECH ---
Mendez bandage applied to left knee per providers request. Cleaned up forehead skin tear.
[2022-01-29 04:46] VITALS: BP 128/51; PULSE 61; RESP 12; TEMP 36.7; O2SAT 94
== END 2022-01-29 05:10 | disposition home or self-care (01) ==
PROVIDERS: Emergency Provider Internal Medicine; PCP Internal Medicine
DX: S81.011A Laceration without foreign body, right knee, initial encounter (principal); S00.81XA Abrasion of other part of head, initial encounter; W01.0XXA Fall on same level from slipping, tripping and stumbling without subsequent striking against object, initial encounter; Y93.9 Activity, unspecified; Y92.019 Unspecified place in single-family (private) house as the place of occurrence of the external cause; Y99.9 Unspecified external cause status
CPT/HCPCS: 12034; 36415; 70450; 72125; 73700; 80053; 82077; 83735; 85025; 85610; 99283; 99284

== ENCOUNTER 2022-01-30 12:06 | Emergency (ER) | payer BC, SELFPAY ==
[2022-01-30 12:14] VITALS: BP 152/78; PULSE 80; RESP 16; TEMP 36.7; O2SAT 97; BMI 34.2
--- NOTE | 2022-01-30 12:44 | ED.WOUNDLAC ---
HPI - Wound/Laceration General Chief Complaint: Wound/Laceration Stated Complaint: Suture Removal Time Seen by Provider: 01/30/22 12:18 Source: patient Mode of arrival: ambulatory History of Present Illness HPI narrative: 71-year-old female with a past medical history of ETOH abuse, cognitive impairment, depression, HTN, neuropathy, presenting to the ED for wound check to right knee s/p fall yesterday, patient was evaluated in our ED had internal and external sutures placed. Reports overall symptomatic improvement, denies drainage from area, fever, chills, inability to ambulate. CTs showing hematoma to knee, otherwise unremarkable Onset (ago): day(s) Related Data Home Medications Medication Instructions Recorded Confirmed magnesium chloride 70 mg 400 mg PO DAILY 12/15/20 (magnesium chloride) tablet,delayed release Previous Rx's Medication Instructions Recorded amlodipine 5 mg tablet 5 mg PO DAILY 30 days #30 tabs 07/15/20 cefuroxime axetil 250 mg tablet 250 mg PO Q12H 10 days #20 tabs 07/15/20 celecoxib 200 mg capsule 1 cap PO BID 30 days #60 caps 07/15/20 donepezil 10 mg tablet 1 tab PO DAILY 30 days #30 tabs 07/15/20 hydrochlorothiazide 12.5 mg capsule 1 cap PO DAILY 30 days #30 caps 07/15/20 lisinopril 30 mg tablet 30 mg PO DAILY 30 days #30 tabs 07/15/20 omeprazole 20 mg capsule,delayed 20 mg PO DAILY 30 days #30 caps 07/15/20 release sertraline 50 mg tablet 50 mg PO DAILY 30 days #30 tabs 07/15/20 trazodone 50 mg tablet 50 mg PO BEDTIME PRN Insomnia 30 07/15/20 days #30 tabs folic acid 1 mg tablet 1 mg PO DAILY 30 days #30 tabs 07/22/20 thiamine HCl (vitamin B1) 100 mg 100 mg PO DAILY 30 days #30 tabs 07/22/20 tablet naltrexone 50 mg tablet 50 mg PO DAILY 30 days #30 tabs 11/17/20 bacitracin 500 unit/gram topical 1 appl topical BID #30 grams 01/30/22 ointment Allergies Allergy/AdvReac Type Severity Reaction Status Date / Time No Known Allergies Allergy Verified 12/15/20 13:58 [No Known Allergies*] Review of Systems Review of Systems: Constitutional: No Fever, No Chills ENT/Mouth: No Ear Pain, No Nasal Congestion, No sore throat, No Rhinorrhea, No Swallowing Difficulty Cardiovascular: No Chest Pain, No SOB Respiratory: No Cough, No Sputum, No Wheezing Gastrointestinal: No Nausea, No Vomiting, No Diarrhea, No Constipation, No Abdominal pain Genitourinary: No Dysuria, No Urinary Frequency, No Hematuria, No Flank Pain Musculoskeletal: No joint pain, No Myalgias, No Joint Swelling Skin: + Skin Lesions, No rash Neuro: No Weakness, No Numbness, No Paresthesias Yes all other systems are reviewed and are negative Constitutional: Constitutional: Reports as per [facility] Past Medical History Attestation statement: The following information was validated with the patient. Medical History Alcoholism Cognitive impairment Depression Hypertension Neuropathy Surgical History History of bilateral knee replacement History of rotator cuff surgery Hx of gastric bypass (~2011) Social History Social History Household Members: Family and Children Housing: House Do you presently have visiting nurse or other home services: No Alcohol intake: current Alcohol intake frequency: does not drink Patient Tobacco Use Status: Former Tobacco user Advance Directives: No service: No Sexual orientation: Straight/Heterosexual Physical Exam Vital Signs: Vital Signs: Last Vital Signs Temp 98.1 F 01/30/22 12:14 Pulse 80 01/30/22 12:14 Resp 16 01/30/22 12:14 BP 152/78 H 01/30/22 12:14 Pulse Ox 97 01/30/22 12:14 O2 Del Method 01/30/22 12:14 BMI result Body Mass Index 34.2 Const: General: cooperative, healthy appearing and no acute distress Orientation/consciousness: patient oriented x3 Limitations: no limitations HEENT: Other: Healing ecchymosis to left periorbital area and forehead Head: Yes normal to inspection Ears: hearing grossly normal bilaterally General nose exam: Normal external nose present Face and sinus: Yes normal facial exam Eyes: General: appearance normal, both eyes and all related structures EOM: EOMs intact bilaterally Neck: Neck: Yes normal visual inspection and Yes no meningeal signs Resp: Effort & Inspection: normal respiratory effort and no respiratory distress Cardio: Rate: regular rate Heart sounds: S1 normal heart sound present and S2 normal heart sound present Peripheral pulses: Peripheral pulses 2+ throughout GI: Inspection: Yes normal to inspection Skin: Rashes: no rashes Neuro: General: patient oriented x3, tone normal and no meningeal signs Gait exam (Neuro): Normal gait present Extrem: Other: Right knee with notable wound with 6 sutures intact. No active bleeding/drainage, no surrounding cellulitis or warmth. + ecchymosis/hematoma noted. Neurovascular intact distally. No fluctuance/induration or bogginess Medical Decision Making Medical Decision Making MDM Narrative: 71-year-old female with a past medical history of ETOH abuse, cognitive impairment, depression, HTN, neuropathy, presenting to the ED for wound check to right knee s/p fall yesterday, patient was evaluated in our ED had internal and external sutures placed. On exam vital signs stable, NAD, nontoxic appearing, physical exam as above with appropriately healing wound to right knee. No surrounding cellulitis or active drainage. Ambulating with steady gait. Wound cleaned, dressing reapplied with Mendez wrap Results discussed with patient including worrisome signs and symptoms and strict return precautions, and when to return to the emergency department. They verbalized understanding and feel safe for discharge at this time. Differential Diagnosis Differential Diagnoses: The differential diagnosis associated with the presentation includes Discharge Plan Discharge Clinical Impression: Visit for wound check Patient Disposition: Home, Self-Care Instructions: Laceration (ED) Additional Instructions: Keep dry and clean. You need to return to any emergency department, urgent care, or your PCPs office in 10-14 days for suture removal Apply bacitracin and or Neosporin daily Once sutures are removed apply anti scar cream like Mederma If area begins look infected, is red, there is drainage, streaking, or you have fever please return to the emergency department Prescriptions: New bacitracin 500 unit/gram ointment 1 appl topical BID Qty: 30 0RF No Action cefuroxime axetil 250 mg Tablet 250 mg PO Q12H 10 Days Qty: 20 0RF celecoxib 200 mg capsule 1 cap PO BID 30 Days Qty: 60 0RF trazodone 50 mg tablet 50 mg PO BEDTIME PRN (Reason: Insomnia) 30 Days Qty: 30 0RF donepezil 10 mg tablet 1 tab PO DAILY 30 Days Qty: 30 0RF amlodipine 5 mg tablet 5 mg PO DAILY 30 Days Qty: 30 0RF hydrochlorothiazide 12.5 mg capsule 1 cap PO DAILY 30 Days Qty: 30 0RF lisinopril 30 mg tablet 30 mg PO DAILY 30 Days Qty: 30 0RF omeprazole 20 mg capsule,delayed release(DR/EC) 20 mg PO DAILY 30 Days Qty: 30 0RF sertraline 50 mg tablet 50 mg PO DAILY 30 Days Qty: 30 0RF folic acid 1 mg tablet 1 mg PO DAILY 30 Days Qty: 30 11RF thiamine HCl (vitamin B1) 100 mg tablet 100 mg PO DAILY 30 Days Qty: 30 11RF naltrexone 50 mg tablet 50 mg PO DAILY 30 Days Qty: 30 5RF magnesium chloride 70 mg tablet,delayed release (DR/EC) 400 mg PO DAILY Referrals: Glory Almaguer MD [Primary Care Provider] - 10 days (10-14 days from suture placement for suture removal)
--- NOTE | 2022-01-30 13:07 | PC.NURSE ---
pt a&ox3, ambulating independently with a steady gait, dressing changed by provider/star wrapped, pt denied pain/discomfort, discharge to home.
== END 2022-01-30 13:09 | disposition home or self-care (01) ==
PROVIDERS: Emergency Provider Student in an Organized Health Care Education/Training Program; PCP Internal Medicine
DX: Z48.02 Encounter for removal of sutures (principal); F33.1 Major depressive disorder, recurrent, moderate; Z79.899 Other long term (current) drug therapy
CPT/HCPCS: 99282

== ENCOUNTER 2022-10-06 12:01 | Emergency (ER) | payer BC, SELFPAY ==
--- NOTE | ~2022-10-06 | US_ITS ---
EXAMINATION: US VENOUS ULTRASOUND WITH DOPPLER LOWER EXTREMITY, RIGHT CLINICAL INFORMATION: Right leg swelling COMPARISON: None available. TECHNIQUE: Ultrasound of the deep veins is performed from the hip to the calf with compression sonography and color and pulse Doppler assessment. Spectral analysis with color-flow imaging is performed. FINDINGS: There is normal venous compression and respiratory variation and augmented flow. The visualized common femoral vein, superficial femoral vein, profunda femoral vein, popliteal vein, and the trifurcation region shows no evidence of deep venous thrombosis. There is no significant popliteal fossa cyst. Lymph node noted in the right groin measuring 7 mm in short axis with slight loss of fatty hilum. Soft tissue edema overlying the calf. If the patient's symptoms persist, followup ultrasound in 5 days 7 days might be of value to exclude proximal propagation from a non-visualized calf vein. US/US venous duplex LE RT IMPRESSION: 1. No DVT demonstrated in the right lower extremity. 2. Lymph node noted in the right groin measuring 7 mm in short axis with slight loss of fatty hilum. 3. Soft tissue edema overlying the calf.
--- NOTE | ~2022-10-06 | XR_ITS ---
EXAMINATION: XR TIBIA AND FIBULA, RIGHT CLINICAL INFORMATION: Right leg redness and swelling, rule out osteomyelitis. COMPARISON: None available. TECHNIQUE: AP and lateral views of the right tibia and fibula were obtained. FINDINGS: The patient is status post right knee arthroplasty showing good anatomic alignment and no evidence for hardware malfunction. There is no acute fracture or dislocation. No overt cortical erosive changes are seen. Mild to moderate soft tissue swelling is seen proximally in the calf. XR/XR tibia fibula RT 2V IMPRESSION: 1. Mild moderate soft tissue swelling proximally in the calf without acute underlying osseous abnormality. No overt evidence for osteomyelitis. 2. No hardware abnormality.
[2022-10-06 12:24] VITALS: BP 167/76; PULSE 75; RESP 18; TEMP 36.4; O2SAT 97; BMI 29.3
--- NOTE | 2022-10-06 12:28 | ED.GENADULT ---
HPI - General Adult General Chief complaint: Extremity Problem Stated complaint: R leg pain Time Seen by Provider: 10/06/22 13:26 Source: patient Mode of arrival: ambulatory History of Present Illness HPI narrative: 72-year-old female arrives with known venous insufficiency and reports that she has had right lateral leg discomfort with some swelling and warmth to the area. She reports that she has been started on doxycycline recently and had made an appointment with her primary care provider but decided come into the emergency room for evaluation. She denies any fever, chills, shortness of breath, heart palpitations. Related Data Home Medications Medication Instructions Recorded Confirmed magnesium chloride 70 mg 400 mg PO DAILY 12/15/20 (magnesium chloride) tablet,delayed release Previous Rx's Medication Instructions Recorded amlodipine 5 mg tablet 5 mg PO DAILY 30 days #30 tabs 07/15/20 cefuroxime axetil 250 mg tablet 250 mg PO Q12H 10 days #20 tabs 07/15/20 celecoxib 200 mg capsule 1 cap PO BID 30 days #60 caps 07/15/20 donepezil 10 mg tablet 1 tab PO DAILY 30 days #30 tabs 07/15/20 hydrochlorothiazide 12.5 mg capsule 1 cap PO DAILY 30 days #30 caps 07/15/20 lisinopril 30 mg tablet 30 mg PO DAILY 30 days #30 tabs 07/15/20 omeprazole 20 mg capsule,delayed 20 mg PO DAILY 30 days #30 caps 07/15/20 release sertraline 50 mg tablet 50 mg PO DAILY 30 days #30 tabs 07/15/20 trazodone 50 mg tablet 50 mg PO BEDTIME PRN Insomnia 30 07/15/20 days #30 tabs folic acid 1 mg tablet 1 mg PO DAILY 30 days #30 tabs 07/22/20 thiamine HCl (vitamin B1) 100 mg 100 mg PO DAILY 30 days #30 tabs 07/22/20 tablet naltrexone 50 mg tablet 50 mg PO DAILY 30 days #30 tabs 11/17/20 bacitracin 500 unit/gram topical 1 appl topical BID #30 grams 01/30/22 ointment Allergies Allergy/AdvReac Type Severity Reaction Status Date / Time No Known Allergies Allergy Verified 12/15/20 13:58 [No Known Allergies*] Review of Systems Review of Systems: Pertinent positives and negatives as stated in HPI [facility] Past Medical History Source: nursing notes reviewed Medical History Alcoholism Cognitive impairment Depression Hypertension Neuropathy Surgical History History of bilateral knee replacement History of rotator cuff surgery Hx of gastric bypass (~2011) Social History Social History Household Members: Family and Children Housing: House Do you presently have visiting nurse or other home services: No Alcohol intake: current Alcohol intake frequency: holidays/special occasions only Patient Tobacco Use Status: Former Tobacco user Smoked in Last 30 Days: No Use of substances other than those prescribed or required for medical reasons: No Advance Directives: Yes Advance Directives Information Provided: No Advance Directives on File: No service: No Sexual orientation: Straight/Heterosexual Physical Exam ED Vital Signs: Vital Signs - 24 hr 10/06/22 12:24 Temperature 97.6 F Pulse Rate 75 Respiratory Rate 18 Blood Pressure 167/76 H Pulse Oximetry 97 Oxygen Delivery Method Room Air BMI result Body Mass Index 29.3 VITAL SIGNS: Reviewed. GENERAL: Well developed, well nourished, in no acute distress. HEAD: Normocephalic/atraumatic EYES: PERRLA, EOMI EARS: Ext canals without abnormality LUNGS: Normal breath sounds. No adventitious sounds or accessory muscle use. SpO2<97> CARDIOVASCULAR: Regular rate and rhythm without noted murmurs, no JVD or lower extremity edema. ABDOMEN: Soft, non-tender, non-distended with bowel sounds. MUSCULOSKELETAL: No tenderness, deformities, or effusions noted on gross inspection. EXTREMITIES: No cyanosis, clubbing or edema. RLE: No erythema or induration, there is a mild swelling to the right lateral aspect of the proximal lower leg, no fluctuance noted there are venous insufficiency wounds noted distal to that on the anterior aspect with some clear drainage but they do not appear to be infected. LLE: Patient is currently going to wound care clinic. Erythema and induration noted to the proximal portion of the lower leg with healing wounds. SKIN: Inspection of the skin reveals no rashes NEUROLOGIC: Alert and oriented x 4. Strength and sensation to light touch were grossly intact x 4. Course Course Course Narrative: RME: 72 yold female with pmh of PVD and venous ulcers presents to the ED for right leg swelling, redness, and hardness for the past couple of days. patient states no fever or chills. Right leg is warm to to touch. left leg has chronic venous ulcer and rednass as per patient. left leg is not swollen. labs, US, and xray ordered. Medical Decision Making Medical Decision Making [facility] Narrative: 72-year-old female with venous insufficiency and complaints of possible swelling in the right lower ext, DDX: DVT, infection, the low clinical suspicion for CHF component as patient has no shortness of breath/there is no lower extremity pitting edema and no pulmonary findings. I reviewed all investigations, on hematologic indices these appear to be chronically stable without leukocytosis but there is of mild left shift, normocytic anemia is chronically stable and there is no thrombocytopenia. Coagulation studies are grossly within normal limits. Chemistry indices are grossly within normal limits without electrolyte derangement or ORAL. There is no liver enzyme abnormalities, and although the BNP is elevated patient has no respiratory clinical findings to suggest CHF exacerbation. CRP is within normal limits, but ESR is noted to be mildly elevated but this is likely reflective of her ongoing inflammatory state of poor healing of venous insufficiency leg ulcers to bilateral lower extremities. Ultrasound without evidence of DVT and otherwise my interpretation is in agreement with radiology's impression. X-rays negative for fracture, otherwise my interpretation is in agreement with radiology's impression. My interpretation is that right lower extremity is combination of patient's chronic venous insufficiency with nonhealing leg ulcers and she has already been started on doxycycline and is instructed to follow-up with her primary care doctor. There is no evidence of DVT or bone fracture, inflammatory markers are within normal limits. Patient received an Mendez wrap compression dressing to the right lower extremity to assist in swelling and wound healing. Differential Diagnosis Differential Diagnoses: The differential diagnosis associated with the presentation includes Please see the discussion above Admission/Observation Consideration of admission/observation: Escalation of care including admission/observation considered Please see the discussion above Lab Data [facility] Lab Attestation statement: I reviewed the patient's lab results. Please see the discussion above 10/06/22 12:44 10/06/22 12:44 Labs: Lab Results 10/06/22 10/06/22 10/06/22 Range/Units 12:44 12:44 12:44 WBC 10.3 (4.8-10.8) X10*3/uL RBC 3.70 L (4.20-5.50) X10*6/uL Hgb 11.4 L (12.0-16.0) g/dl Hct 35.0 L (37.0-47.0) % MCV 94.6 (80.0-98.0) fL MCH 30.8 (27.0-33.0) pg MCHC 32.6 (31.0-35.0) g/dl RDW 13.3 (11.0-16.0) % Plt Count 356 D (160-400) X10*3/uL MPV 8.0 L (9.4-12.3) fL Immature Gran % (Auto) 0.4 (0.0-0.4) % Neut % (Auto) 80.6 H (45-73) % Lymph % (Auto) 10.8 L (20-40) % [place] % (Auto) 6.3 (2-11) % Eos % (Auto) 1.1 (0-4) % Baso % (Auto) 0.8 (0-2) % Lymph # (Auto) 1.1 L (1.2-4.9) X10*3/uL [place] # (Auto) 0.7 (0.1-1.2) X10*3/uL Eos # (Auto) 0.1 (0.0-0.4) X10*3/uL Baso # (Auto) 0.1 (0.0-0.2) X10*3/uL Abs Immat Gran (auto) 0.04 H (0.00-0.03) X10*3/uL Absolute Neuts (auto) 8.3 (2.0-8.3) x10*3/uL Absolute Nucleated RBC 0.000 (0.0-0.012) X10*3/uL Nucleated RBC % (auto) 0.0 (0.0-0.2) /100WBC ESR 34 H (0-20) MM/HR PT 10.5 L (11.1-13.3) SEC INR 0.9 (0.9-1.1) APTT 30.9 (26.0-36.4) SEC Sodium (135-145) mmol/L Potassium (3.3-5.1) mmol/L Chloride (96-108) mmol/L Carbon Dioxide (22-29) mmol/L Anion Gap (12-20) BUN (9-16) mg/dL Creatinine (0.5-1.4) mg/dL Estim Creat Clear Calc Estimated GFR Random Glucose (60-115) mg/dL Calcium (8.4-10.2) mg/dL Total Bilirubin (0.0-1.0) mg/dL AST (5-31) U/L ALT (0-31) U/L Alkaline Phosphatase (39-117) U/L C-Reactive Protein (< or = 0.50) mg/dL B-Natriuretic Peptide (<100) pg/mL Total Protein (6.5-8.0) g/dL Albumin (3.5-5.0) g/dL 10/06/22 10/06/22 Range/Units 12:44 12:44 WBC (4.8-10.8) X10*3/uL RBC (4.20-5.50) X10*6/uL Hgb (12.0-16.0) g/dl Hct (37.0-47.0) % MCV (80.0-98.0) fL MCH (27.0-33.0) pg MCHC (31.0-35.0) g/dl RDW (11.0-16.0) % Plt Count (160-400) X10*3/uL MPV (9.4-12.3) fL Immature Gran % (Auto) (0.0-0.4) % Neut % (Auto) (45-73) % Lymph % (Auto) (20-40) % [place] % (Auto) (2-11) % Eos % (Auto) (0-4) % Baso % (Auto) (0-2) % Lymph # (Auto) (1.2-4.9) X10*3/uL [place] # (Auto) (0.1-1.2) X10*3/uL Eos # (Auto) (0.0-0.4) X10*3/uL Baso # (Auto) (0.0-0.2) X10*3/uL Abs Immat Gran (auto) (0.00-0.03) X10*3/uL Absolute Neuts (auto) (2.0-8.3) x10*3/uL Absolute Nucleated RBC (0.0-0.012) X10*3/uL Nucleated RBC % (auto) (0.0-0.2) /100WBC ESR (0-20) MM/HR PT (11.1-13.3) SEC INR (0.9-1.1) APTT (26.0-36.4) SEC Sodium 141 (135-145) mmol/L Potassium 4.7 (3.3-5.1) mmol/L Chloride 103 (96-108) mmol/L Carbon Dioxide 31 H (22-29) mmol/L Anion Gap 12 (12-20) BUN 19 H (9-16) mg/dL Creatinine 0.70 (0.5-1.4) mg/dL Estim Creat Clear Calc 64.2 Estimated GFR > 60 Random Glucose 103 (60-115) mg/dL Calcium 9.7 D (8.4-10.2) mg/dL Total Bilirubin 0.4 (0.0-1.0) mg/dL AST 26 (5-31) U/L ALT 18 (0-31) U/L Alkaline Phosphatase 112 (39-117) U/L C-Reactive Protein 0.22 (< or = 0.50) mg/dL B-Natriuretic Peptide 157 H (<100) pg/mL Total Protein 7.5 (6.5-8.0) g/dL Albumin 4.0 (3.5-5.0) g/dL Radiology Impression Discussion of test interpretation with radiology: I have reviewed the radiologist's reading. Radiologist Impression: Please see the discussion above Chronic Conditions Patient?s care impacted by: Hypertension Discharge Plan Discharge Clinical Impression: Ulcer of extremity due to chronic venous insufficiency, Venous insufficiency Patient Disposition: Home, Self-Care Instructions: Venous Insufficiency (DC), Chronic Wounds (ED) Additional Instructions: 1. Resume all home medications as prescribed. 2. Follow-up with your primary care provider and recommend that you continue with the Mendez wrap explore the possibility of the compression stockings that have a zipper. Return to the ER for any worsening symptoms. Prescriptions: No Action cefuroxime axetil 250 mg Tablet 250 mg PO Q12H 10 Days Qty: 20 0RF celecoxib 200 mg capsule 1 cap PO BID 30 Days Qty: 60 0RF trazodone 50 mg tablet 50 mg PO BEDTIME PRN (Reason: Insomnia) 30 Days Qty: 30 0RF donepezil 10 mg tablet 1 tab PO DAILY 30 Days Qty: 30 0RF amlodipine 5 mg tablet 5 mg PO DAILY 30 Days Qty: 30 0RF hydrochlorothiazide 12.5 mg capsule 1 cap PO DAILY 30 Days Qty: 30 0RF lisinopril 30 mg tablet 30 mg PO DAILY 30 Days Qty: 30 0RF omeprazole 20 mg capsule,delayed release(DR/EC) 20 mg PO DAILY 30 Days Qty: 30 0RF sertraline 50 mg tablet 50 mg PO DAILY 30 Days Qty: 30 0RF bacitracin 500 unit/gram ointment 1 appl topical BID Qty: 30 0RF folic acid 1 mg tablet 1 mg PO DAILY 30 Days Qty: 30 11RF thiamine HCl (vitamin B1) 100 mg tablet 100 mg PO DAILY 30 Days Qty: 30 11RF naltrexone 50 mg tablet 50 mg PO DAILY 30 Days Qty: 30 5RF magnesium chloride 70 mg tablet,delayed release (DR/EC) 400 mg PO DAILY Referrals: Glory Almaguer MD [Primary Care Provider] - Interventions: ED Discharge Assessment Last Done: 10/06/22 15:31 Discharge Date/Time: 10/06/22 15:32
[2022-10-06 12:49] LABS: MANUAL DIFF FLAG NO
[2022-10-06 12:51] LABS: Basophils Absolute Auto 0.1 X10*3/uL (0.0-0.2); Basophils Percent Auto 0.8 % (0-2); Eosinophils Absolute Auto 0.1 X10*3/uL (0.0-0.4); Eosinophils Percent Auto 1.1 % (0-4); Hemoglobin 11.4 g/dl (12.0-16.0); Imm Gran Abs Auto 0.04 X10*3/uL (0.00-0.03); Imm Gran Pct Auto 0.4 % (0.0-0.4); Lymphocytes Absolute Auto 1.1 X10*3/uL (1.2-4.9); Lymphocytes Percent Auto 10.8 % (20-40); Mean Corpuscular HGB Conc 32.6 g/dl (31.0-35.0); Mean Corpuscular Hemoglobin 30.8 pg (27.0-33.0); Mean Corpuscular Volume 94.6 fL (80.0-98.0); Monocytes Absolute Auto 0.7 X10*3/uL (0.1-1.2); Monocytes Percent Auto 6.3 % (2-11); Neutrophils Absolute Auto 8.3 x10*3/uL (2.0-8.3); Neutrophils Percent Auto 80.6 % (45-73); Platelet Count 356 X10*3/uL (160-400); Red Cell Distribution Width 13.3 % (11.0-16.0); White Blood Count 10.3 X10*3/uL (4.8-10.8)
[2022-10-06 12:59] LABS: INTERNATIONAL NORM RATIO 0.9 (0.9-1.1); Prothrombin Time 10.5 SEC (11.1-13.3)
[2022-10-06 13:01] LABS: Partial Thromboplastin Time 30.9 SEC (26.0-36.4)
[2022-10-06 13:05] LABS: Alanine Aminotransferase 18 U/L (0-31); Alkaline Phosphatase 112 U/L (39-117); Anion Gap 12 (12-20); Aspartate Amino Transferase 26 U/L (5-31); Bilirubin Total 0.4 mg/dL (0.0-1.0); Blood Urea Nitrogen 19 mg/dL (9-16); C Reactive Protein 0.22 mg/dL (< or = 0.50); Calcium 9.7 mg/dL (8.4-10.2); Carbon Dioxide 31 mmol/L (22-29); Chloride 103 mmol/L (96-108); Creatinine Clr Calc Pharmacy 64.2; Estimated Glomerular Filt Rate > 60; Glucose Random 103 mg/dL (60-115); Potassium 4.7 mmol/L (3.3-5.1); Sodium 141 mmol/L (135-145); Total Protein 7.5 g/dL (6.5-8.0)
[2022-10-06 13:11] LABS: B Type Natriuretic Peptide 157 pg/mL (<100)
[2022-10-06 14:22] LABS: Erythrocyte Sedimentation Rate 34 MM/HR (0-20)
== END 2022-10-06 15:32 | disposition home or self-care (01) ==
PROVIDERS: Physician Assistant; Emergency Provider Student in an Organized Health Care Education/Training Program; PCP Internal Medicine
DX: I83.218 Varicose veins of right lower extremity with both ulcer of other part of lower extremity and inflammation (principal); M79.604 Pain in right leg; Z79.899 Other long term (current) drug therapy; Z87.891 Personal history of nicotine dependence
CPT/HCPCS: 36415; 73590; 80053; 83880; 85025; 85610; 85652; 85730; 86140; 93971; 99284

== ENCOUNTER 2022-11-11 10:17 | Emergency (ER) | payer BC, SELFPAY ==
[2022-11-11 10:22] VITALS: BP 140/80; PULSE 86; O2SAT 96
[2022-11-11 10:34] VITALS: BP 97/61; PULSE 75; RESP 16; TEMP 36.7; O2SAT 98; BMI 27.3
--- NOTE | 2022-11-11 11:27 | ED.EXTPRO ---
HPI - Extremity Problem General Chief complaint: Extremity Problem Stated complaint: LEG PAIN ULCERS ON BOTH LOWER LEGS Time Seen by Provider: 11/11/22 10:49 Source: patient and old records reviewed Mode of arrival: ambulatory Limitations: no limitations History of Present Illness HPI Narrative: 72 yo female with history of PVD with chronic ulcers on bilateral lower extremities, ETOH dependence on Campral, neuropathy, cognitive impairment who presents to the ER for evaluation of acute on chronic pain in her bilateral lower legs from her ulcers. She states the pain got acutely worse last night in both of her legs where the ulcers are as well as her heels. She is on levofloxacin 750 mg for the last 4 days and has 2 days left. She [facility] with [facility] in [place] and gets debrided weekly, last time was on Monday. She denies any fever, chills. She reports the pain is 10/10 and is limiting her mobility at home. MD Complaint: extremity pain Onset (ago): day(s) Pain Consistency: constant Location: left, right and lower extremity Quality: burning, aching and sharp Radiation: proximal Relieving factors: rest Exacerbating factors: weight bearing, walking and palpation Associated symptoms: denies other symptoms Related Data Home Medications Medication Instructions Recorded Confirmed magnesium chloride 70 mg 400 mg PO DAILY 12/15/20 11/11/22 (magnesium chloride) tablet,delayed release amlodipine 5 mg tablet 10 mg PO DAILY 11/11/22 11/11/22 biotin 1 tab PO DAILY 11/11/22 11/11/22 ferrous sulfate 325 mg (65 mg 325 mg PO DAILY 11/11/22 11/11/22 iron) tablet gabapentin 100 mg capsule 200 mg PO TID 11/11/22 11/11/22 multivitamin 1 tab PO DAILY 11/11/22 11/11/22 Previous Rx's Medication Instructions Recorded celecoxib 200 mg capsule 1 cap PO BID 30 days #60 caps 07/15/20 donepezil 10 mg tablet 1 tab PO DAILY 30 days #30 tabs 07/15/20 hydrochlorothiazide 12.5 mg capsule 1 cap PO DAILY 30 days #30 caps 07/15/20 omeprazole 20 mg capsule,delayed 20 mg PO DAILY 30 days #30 caps 07/15/20 release sertraline 50 mg tablet 50 mg PO DAILY 30 days #30 tabs 07/15/20 Allergies Allergy/AdvReac Type Severity Reaction Status Date / Time No Known Allergies Allergy Verified 12/15/20 13:58 [No Known Allergies*] Review of Systems Review of Systems: Yes all other systems are reviewed and are negative [facility] Past Medical History Medical History Alcoholism Cognitive impairment Depression Hypertension Neuropathy Surgical History History of bilateral knee replacement History of rotator cuff surgery Hx of gastric bypass (~2011) Social History Social History Household Members: Family and Children Housing: House Do you presently have visiting nurse or other home services: No Alcohol intake: current Alcohol intake frequency: holidays/special occasions only Patient Tobacco Use Status: Former Tobacco user Advance Directives: Yes Advance Directives Information Provided: Yes Advance Directives on File: Yes Advance Directives Date on File: 11/11/22 service: No Sexual orientation: Straight/Heterosexual Physical Exam Vital Signs: Vital Signs: Last Vital Signs Temp 98.1 F 11/11/22 10:34 Pulse 77 11/11/22 17:39 Resp 18 11/11/22 17:39 BP 136/53 L 11/11/22 17:39 Pulse Ox 95 11/11/22 17:39 O2 Del Method Room Air 11/11/22 17:39 BMI result Body Mass Index 27.3 Appearance: Alert. Oriented X3. No acute distress. Head: normocephalic, atraumatic. Eyes: Pupils equal, round and reactive to light. ENT: Pharynx normal. No tonsillar swelling or exudate. Neck: Normal inspection. Neck supple. CVS: Normal heart rate and rhythm. Pulses normal. Respiratory: No respiratory distress. Breath sounds normal. Abdomen: Soft and nontender. +BS x4 Skin: Skin warm and dry. Normal skin color. Normal skin turgor. No rashes. Extremities: Neuro/psych: Oriented X 3. Course Reevaluation(s) Reevaluation #1: brief, slight improvement in pain after norco. still unable to safely ambulate. not safe for d/c home alone PT evaluation ordered who is recommending short term rehab for the patient. case management consulted. home meds and PO diet ordered. will continue to monitor. Time: 18:12 Medications Administered Discontinued Medications Generic Name Dose Route Start Last Admin Trade Name Adenike PRN Reason Stop Dose Admin Hydrocodone Bitart/Acetaminophen 1 tab 11/11/22 11:43 11/11/22 11:53 Hydrocodone Bit/Acetam 5/325 Tablet PO 11/11/22 11:44 1 tab ONCE ONE Administration Hydrocodone Bitart/Acetaminophen 1 tab 11/11/22 13:35 11/11/22 13:38 Hydrocodone Bit/Acetam 5/325 Tablet PO 11/11/22 13:36 1 tab ONCE ONE Administration Medical Decision Making Medical Decision Making MDM Narrative: 72 yo female with history of PVD and associated chronic, nonhealing ulcers of bilateral LE here with acutely worsening pain. 2+ periperal pulses. doubt arterial occlusion. She is on levaquin already. no evidence of acute superimposed bacterial infection. WBC 10.9, mild-mod elevation of ESR and CRP. no fevers She has significantly limited mobility due to pain. Physician observation started at 1pm Patient placed in physician observation because patient is awaiting PT team evaluation for the possible need of short term rehab. At the time observation was started patient's vital signs were stable. Patient is alert and oriented. Neuro exam is non-focal. CV: RRR and lungs are clear. Will continue to monitor. Differential Diagnosis Differential Diagnoses: The differential diagnosis associated with the presentation includes acute on chronic pain syndrome, nonhealing vascular ulcers, diabetic ulcers, acute infection of the ulcers, neuropathy, DVT Admission/Observation Consideration of admission/observation: Escalation of care including admission/observation considered Lab Data [facility] Lab Attestation statement: I reviewed the patient's lab results. mild leukocytosis 11/11/22 11:47 11/11/22 11:47 Labs: Lab Results 11/11/22 Range/Units 11:47 WBC 10.9 H (4.8-10.8) X10*3/uL RBC 4.00 L (4.20-5.50) X10*6/uL Hgb 11.8 L (12.0-16.0) g/dl Hct 35.8 L (37.0-47.0) % MCV 89.5 (80.0-98.0) fL MCH 29.5 (27.0-33.0) pg MCHC 33.0 (31.0-35.0) g/dl RDW 12.4 (11.0-16.0) % Plt Count 391 (160-400) X10*3/uL MPV 8.2 L (9.4-12.3) fL Immature Gran % (Auto) 0.4 (0.0-0.4) % Neut % (Auto) 83.8 H (45-73) % Lymph % (Auto) 7.4 L (20-40) % [place] % (Auto) 7.3 (2-11) % Eos % (Auto) 0.5 (0-4) % Baso % (Auto) 0.6 (0-2) % Lymph # (Auto) 0.8 L (1.2-4.9) X10*3/uL [place] # (Auto) 0.8 (0.1-1.2) X10*3/uL Eos # (Auto) 0.1 (0.0-0.4) X10*3/uL Baso # (Auto) 0.1 (0.0-0.2) X10*3/uL Abs Immat Gran (auto) 0.04 H (0.00-0.03) X10*3/uL Absolute Neuts (auto) 9.1 H (2.0-8.3) x10*3/uL Absolute Nucleated RBC 0.000 (0.0-0.012) X10*3/uL Nucleated RBC % (auto) 0.0 (0.0-0.2) /100WBC ESR 44 H (0-20) MM/HR Sodium 137 (135-145) mmol/L Potassium 3.8 (3.3-5.1) mmol/L Chloride 97 (96-108) mmol/L Carbon Dioxide 27 (22-29) mmol/L Anion Gap 17 (12-20) BUN 14 (9-16) mg/dL Creatinine 0.70 (0.5-1.4) mg/dL Estim Creat Clear Calc 59.5 Estimated GFR > 60 Random Glucose 94 (60-115) mg/dL Calcium 9.2 (8.4-10.2) mg/dL Magnesium 1.7 (1.6-2.6) mg/dL Total Bilirubin 0.5 (0.0-1.0) mg/dL Direct Bilirubin 0.2 (0.0-0.5) mg/dL AST 20 (5-31) U/L ALT 13 (0-31) U/L Alkaline Phosphatase 105 (39-117) U/L C-Reactive Protein 0.71 H (< or = 0.50) mg/dL Total Protein 7.3 (6.5-8.0) g/dL Albumin 3.7 (3.5-5.0) g/dL External Record Review External record reviewed: Office record, Outpatient record, Prior outpatient labs and Prior outpatient radiology Tests considered The following testing was considered but not selected: considered DVT and arterial testing but no clinically indicated at this time. Prescription Management I considered prescription management with: Pain Medication and Antibiotic Chronic Conditions Patient?s care impacted by: Other (PVD) Critical Care Time Critical Care Time Critical Care Time: No Discharge Plan Discharge Clinical Impression: Chronic ulcer of right leg, Chronic ulcer of left leg Patient Disposition: Still a Patient Prescriptions: No Action celecoxib 200 mg capsule 1 cap PO BID 30 Days Qty: 60 0RF donepezil 10 mg tablet 1 tab PO DAILY 30 Days Qty: 30 0RF hydrochlorothiazide 12.5 mg capsule 1 cap PO DAILY 30 Days Qty: 30 0RF omeprazole 20 mg capsule,delayed release(DR/EC) 20 mg PO DAILY 30 Days Qty: 30 0RF sertraline 50 mg tablet 50 mg PO DAILY 30 Days Qty: 30 0RF amlodipine 5 mg tablet 10 mg PO DAILY gabapentin 100 mg Capsule 200 mg PO TID multivitamin [Multiple Vitamin] Tablet 1 tab PO DAILY ferrous sulfate 325 mg (65 mg iron) Tablet 325 mg PO DAILY magnesium chloride 70 mg tablet,delayed release (DR/EC) 400 mg PO DAILY
--- NOTE | 2022-11-11 11:54 | PC.NURSE ---
pt medicated per provider order.
[2022-11-11 12:21] LABS: Alanine Aminotransferase 13 U/L (0-31); Albumin Level 3.7 g/dL (3.5-5.0); Alkaline Phosphatase 105 U/L (39-117); Anion Gap 17 (12-20); Aspartate Amino Transferase 20 U/L (5-31); Bilirubin Direct 0.2 mg/dL (0.0-0.5); Bilirubin Total 0.5 mg/dL (0.0-1.0); Blood Urea Nitrogen 14 mg/dL (9-16); C Reactive Protein 0.71 mg/dL (< or = 0.50); Calcium 9.2 mg/dL (8.4-10.2); Carbon Dioxide 27 mmol/L (22-29); Chloride 97 mmol/L (96-108); Creatinine Clr Calc Pharmacy 59.5; Estimated Glomerular Filt Rate > 60; Glucose Random 94 mg/dL (60-115); Magnesium 1.7 mg/dL (1.6-2.6); Potassium 3.8 mmol/L (3.3-5.1); Sodium 137 mmol/L (135-145); Total Protein 7.3 g/dL (6.5-8.0)
--- NOTE | 2022-11-11 13:00 | PC.NURSE ---
this RN and tech removed bandages from bilateral lower extremities that were applied by wound clinic in [place]. provider bedside taking pictures of wounds. wounds now open to room air.
--- NOTE | 2022-11-11 13:14 | PC.NURSE ---
PT currently bedside w/ pt.
[2022-11-11 13:25] VITALS: BP 97/61; PULSE 75; O2SAT 98
--- NOTE | 2022-11-11 13:39 | PC.NURSE ---
pt speaking w/ case management.
--- NOTE | 2022-11-11 14:03 | MHC.CM.PN ---
Received CM consult from CAROLINA Lee. Pt came to ER for BLE pain r/t ulcers, seen at wound clinic in [place] weekly for debridement, last seen on 11/07. Lives in a condo alone, no services, uses walker outside [employer]. Describes difficulty paying for food at times, receives $66/month in food stamps and utilizes food pantry PRN. Will provide resource guide. PCP: Dr. Derrell Hurst at [facility]. HCP updated with pt, [facility] identified as HCP. DP: PT is recommending rehab. Referrals placed, awaiting response. Will require BLS transport. CM will continue to follow.
--- NOTE | 2022-11-11 14:39 | PC.NURSE ---
pt's pain level reassessed. pt states that pain level hasn't decreased since medication administration.
--- NOTE | 2022-11-11 17:08 | PC.NURSE ---
pt currently resting comfortably in no apparent distress. respirations even and unlabored.
[2022-11-11 17:39] VITALS: BP 136/53; PULSE 77; RESP 18; O2SAT 95
--- NOTE | 2022-11-11 18:09 | PHA.MEDREC ---
Pharmacy Consult ? Medication Reconciliation Pharmacy has completed the medication reconciliation.Spoke to patient and verified medication list. Patient seems to adjust her gabapentin dose depends on severity of pain. Patient said she took 400mg this morning (11/11/22) and another 200mg a few hours later due to pain. Direction of gabapentin in med rec is according to patient's pharmacy's direction.
--- NOTE | 2022-11-11 18:11 | PC.NURSE ---
This RN gave report to Jodi PARK in overflow at this time. Transport aware.
--- NOTE | 2022-11-11 18:32 | PC.NURSE ---
PT TRANSFERRED FROM [facility] BED 1 TO OVERFLOW BED 3
--- NOTE | 2022-11-11 19:40 | PC.NURSE ---
Pt requested the tv turned on and lights turned off. Pt resting in bed comfortably. Plan of care ongoing.
[2022-11-11 20:29] VITALS: BP 133/60; PULSE 76; RESP 20; TEMP 36.7; O2SAT 97
--- NOTE | 2022-11-11 20:30 | PC.NURSE ---
Pt ca&ox4 requested pain meds. Pt reports 10/10 leg pain. pt medicated per apr. plan of care ongoing.
[2022-11-11 23:12] VITALS: BP 120/55; PULSE 68; RESP 18; TEMP 36.8; O2SAT 96
--- NOTE | 2022-11-12 05:13 | PC.NURSE ---
Patient c/o of lower abdominal pain, unable to void, bladder scan showed 843ml, ED provider notified, before any intervention patient was able to void on the bedpan, close to 300 in the bedpan more on the bed - unable to measure, patient reports feeling more comfortable and no abdominal pressure. Still c/o of 10/10 pain bilateral legs, PRN medication not available in the pyxis, ED charge nurse notified,
[2022-11-12 06:00] VITALS: BP 140/61; PULSE 69; RESP 18; TEMP 36.5; O2SAT 97
[2022-11-12 14:00] VITALS: BP 138/72; PULSE 65; RESP 18; TEMP 36.7; O2SAT 96
--- NOTE | 2022-11-12 14:41 | MHC.CM.PN ---
CM MET WITH PT AT BEDSIDE TO UPDATE. [facility] CAN FOLLOW THROUGH THE WEEKEND BUT CANNOT OFFER TODAY DUE TO STAFFING. PT IS AGREEABLE TO THIS PLAN AND WILL UPDATE HER FAMILY. NO OTHER AR FACILITIES ARE ABLE TO OFFER AT THIS TIME. PER PT, SHE IS UNABLE TO PP FOR A STR STAY. CM WILL CONTINUE TO FOLLOW FOR ANY CHANGE IN DC PLAN/NEEDS.
--- NOTE | 2022-11-12 19:18 | PC.NURSE ---
This RN assumed care at 191. Patient in bed watching TV at this time, able to make needs known, plan of care ongoing.
--- NOTE | 2022-11-13 01:25 | MHC.EDTECH ---
PATIENT WAS ASSISTED UNTO BED PAL[place]IA ,VOID LG AMOUNT OF URINE .
--- NOTE | 2022-11-13 03:20 | PC.NURSE ---
Patient medicated per APR and was given a warm blanket
[2022-11-13 05:43] VITALS: BP 121/58; PULSE 64; RESP 16; TEMP 36.2; O2SAT 97
[2022-11-13 07:35] VITALS: BP 145/71; PULSE 68; RESP 16; TEMP 36.7; O2SAT 96
--- NOTE | 2022-11-13 08:30 | PC.NURSE ---
report received from overnight RN, first rounds pt offering no complaints. salesforce administrator per APR. Pt c/o pain to her ankles, dressing removed, pt tolerated poorly c/o severe pain to area. Heels elevated on pillows, pt requesting time before new dressing is applied. safety precautions remain in place, call sapp within reach.
--- NOTE | 2022-11-13 11:40 | PC.NURSE ---
assumed care of pt at 1100, pt resting quietly, reporting some improvement in pain after PRN medication this morning, dressing changed by prior RN - clean and intact. pt's feet elevated on pillow. safety precautions in place, call sapp at bedside. pt pending wound consult. no new orders at this time.
[2022-11-13 14:00] VITALS: BP 131/54; PULSE 70; RESP 16; TEMP 36.8; O2SAT 93
--- NOTE | 2022-11-13 15:11 | PC.NURSE ---
pt medicated per APR for 8/10 left foot pain.
--- NOTE | 2022-11-13 17:22 | MHC.EDTECH ---
pt resting watching tv. Call sapp within reach and bed alarm on
[2022-11-14 06:00] VITALS: BP 142/66; PULSE 64; RESP 19; TEMP 36.5; O2SAT 95
[2022-11-14 09:12] VITALS: BP 139/85
[2022-11-14 14:00] VITALS: BP 135/64; PULSE 95; RESP 20; TEMP 36.5; O2SAT 95
--- NOTE | 2022-11-14 15:56 | MHC.CM.ED ---
Addendum entered by Trinh Tillman 11/14/22 15:58: [facility] able [facility] accept patient. Patient agreeable. Original Note: [facility] remains in ER overflow[facility] because they do not feel patient is acute rehab level of care. Met with patient to discuss d/c planning. Patient does not have the means to privately pay for SNF. Patient is agreeable to returning home with [facility] for jail and physical therapy. Patient's sister will transport her home tomorrow. Referral made in [facility] to see which [facility] is able to accept patient. Continue to monitor for d/c needs.
--- NOTE | 2022-11-14 18:05 | PC.NURSE ---
Patient c/o leg pain, has been getting PRN pain medication with good result throughout the day until about 1600 when patient started crying and yelling out c/o of severe pain asking for more pain medication. Msg sent to covering provider with patient's request. Patient has not been getting up stating it is too painful. Had bowel movement using bedpan. Patient was advised that she will be discharged as soon as she can get a ride home. She informed me she will have a ride home tomorrow afternoon, CM notified.
--- NOTE | 2022-11-14 18:08 | PC.NURSE ---
Patient has been c/o that his external catheter keeps falling off, BEEF SPLITTER tried few times to secure it with no good result. Patient was educated on the use of urinal instead. Patient was compliant with medication and meals. Patient refused to get out of bed stating he is too weak to do so. Patient was repositioned in bed when requested.
[2022-11-14 20:33] VITALS: BP 130/53; PULSE 77; RESP 18; TEMP 36.5; O2SAT 95
[2022-11-15 05:18] VITALS: BP 178/54; PULSE 64; RESP 18; TEMP 36.4; O2SAT 97
[2022-11-15 09:30] VITALS: BP 178/54; PULSE 64; O2SAT 97
--- NOTE | 2022-11-15 13:52 | MHC.CM.ED ---
Addendum entered by Trinh Tillman 11/15/22 15:59: Recevied return telephone call from patient's son, Al. Clinical findings, PT eval and preadmission HINN explained. Al verbalized understanding and will wait to hear from [facility] about appeal. Addendum entered by Trinh Tillman 11/15/22 14:06: Received notification from office that patient's son, Anthony is requesting return telephone call. Patient verified it was ok to speak with Anthony. Attempted to speak with Anthony via telephone at [phone]. Left message requesting return telehone call. Original Note: Patient was supposed to d/c home with [facility]. Patient decided she wants to appeal her discharge. Preadmission HINN provided and signed by patient. Patient will call [facility] to appeal. Varsha Garcia aware. Continue to monitor for d/c needs.
[2022-11-15 13:55] VITALS: BP 119/56; PULSE 64; RESP 16; TEMP 36.7; O2SAT 94
--- NOTE | 2022-11-15 15:19 | HO.WOUND ---
Wound Consult - Initial 72yr old female admitted to [facility] for Bilateral Leg pain with known and documented PVD. Pt reports she follows with [facility] weekly for treatment - she is unable to recall the current treatments they are using - she recalls Zinc and a Blue dressing suspect hydropherablue - see H&P for detailed history. Wound Location: Bilateral Lower Legs Wound Etiology: Venous Wounds - Secondary to PVD Wound Bed: Left Lower Leg: marbled wound bed with red moist tissue and yellow slough - no odor noted with moderate amount of yellow clear drainage Right Lower Leg: clustered wound beds - superior site clean pink moist tissue inferior site with dry lifting scab. No drainage noted no odor noted. Periwound with pink blanchable tissue dry scaling epidermal layers and Hemosiderin staining. No induration no fluctuance and no warmth noted - no s/s of infection at this time. Goals of care - Left: Hydrofiber for exudate management and moist wound healing Right: Xeroform for moist wound healing Topical Recommendations: Left Leg: Cleanse with saline, apply Triad to periwound cover wound bed with Durafiber AG, cover with ABD pad, gauze wrap. Change Daily. Right Leg: Cleanse with saline. Apply double layer xeroform, cover over with ABD pad, gauze wrap. Change Daily Continue follow up with your [facility] for continued care at time of discharge. TT to provider with topical recommendations listed above.
[2022-11-15 21:54] VITALS: BP 114/53; PULSE 60; RESP 18; TEMP 36.2; O2SAT 95
[2022-11-15 22:00] VITALS: RESP 18
[2022-11-16 06:15] VITALS: BP 180/59; PULSE 55; RESP 18; TEMP 36.7; O2SAT 100
--- NOTE | 2022-11-16 09:03 | PC.NURSE ---
Pt is alert/oriented. Reports decreased pain level to 8/10 s/o meds given on prior shift. Dsg to b/l legs intact. Pt continues to state she feels unsafe to be discharged as she has trouble ambulating at his time. Pending CM dispo. Ate breakfast. Assisted to bedpan x 2
--- NOTE | 2022-11-16 12:28 | MHC.EDTECH ---
Assisted pt with bedpan.
--- NOTE | 2022-11-16 13:54 | PC.NURSE ---
Dsg change completed per wound care recommendations. Pt yelling out in pain after dsg changes, medicated as charted. Repositioned with additional pillows.
[2022-11-16 14:00] VITALS: BP 162/90; PULSE 67; RESP 20; TEMP 36.3; O2SAT 95
--- NOTE | 2022-11-16 17:41 | MHC.EDTECH ---
Took patient off bed almanza. Changed bed pad. Repositioned patient.
--- NOTE | 2022-11-16 17:48 | PC.NURSE ---
Pt reports more comfortable now and last PRN. Ate dinner, cleaned and repositioned again. Call sapp within reach
[2022-11-16] MEDS: Gabapentin 100 MG CAPSULE 200 MG PO (20:12)
[2022-11-16] MEDS: Docusate Sodium 100 MG CAPSULE PO (20:12)
[2022-11-16] MEDS: HYDROcodone Bit/Acetam 5/325 TABLET 1 TAB PO (20:24)
--- NOTE | 2022-11-16 20:25 | PC.NURSE ---
Pt medicated per apr. Pt ca&ox3, no signs of distress. Plan of care ongoing.
[2022-11-16 20:58] VITALS: BP 137/87; PULSE 106; RESP 18; TEMP 36.1; O2SAT 95
[2022-11-16 21:05] VITALS: BP 143/53; PULSE 61; RESP 16; TEMP 36.5; O2SAT 95
--- NOTE | 2022-11-16 21:38 | MHC.EDTECH ---
Brought patient a pitcher of ice water.
--- NOTE | 2022-11-16 23:40 | PC.NURSE ---
Pt a&o, watching tv. Pt repositioned in bed for comfort. Plan of care ongoing.
[2022-11-16] MEDS: LORazepam 1 MG TABLET PO (23:48)
[2022-11-17] MEDS: Omeprazole 20 MG CAPSULE.DR PO (06:23)
--- NOTE | 2022-11-17 06:30 | PC.NURSE ---
Pt medicated per apr. Plan of care ongoing.
[2022-11-17 07:24] VITALS: BP 144/75; PULSE 62; TEMP 36.4; O2SAT 95
[2022-11-17] MEDS: Ferrous Sulfate 324 MG TABLET.DR PO (07:57)
[2022-11-17] MEDS: Donepezil HCl 10 MG TABLET PO (07:57)
[2022-11-17] MEDS: HYDROcodone Bit/Acetam 5/325 TABLET 1 TAB PO (07:57)
[2022-11-17] MEDS: Multivitamin TABLET 1 TAB PO (07:57)
[2022-11-17] MEDS: amLODIPine Besylate 10 MG TABLET PO (07:57)
[2022-11-17] MEDS: Magnesium Oxide 400 MG TABLET PO (07:57)
[2022-11-17] MEDS: Gabapentin 100 MG CAPSULE 200 MG PO (07:57)
[2022-11-17] MEDS: Docusate Sodium 100 MG CAPSULE PO (07:57)
[2022-11-17] MEDS: Sertraline HCL 50 MG TABLET PO (07:57)
--- NOTE | 2022-11-17 09:30 | MHC.CM.ED ---
Patient remains in ER overflow. Received notification from [employer] that patient's appeal was denied and patient will be self pay as of noon today. Spoke with patient via telephone. Patient very upset because she thought she won her appeal. T/W verified appeal was denied and patient would be self pay as of noon today. [facility] has already been arranged for patient. Patient very upset and states she doesn't know how she will get home. T/W offered to arrange BLS transportation. Patient declined. Patient is unsure if she will be able to get her sister to transport her. T/W explained it was only 915am and hopefully her sister would be available by 12pm. Other explained private pay options if she was to remain in the ER or private pay options for short term rehab. Patient hung up on T/W. Voicemail left for patient's son, Al, explaining denial and start of private pay. Continue to monitor for d/c needs.
--- NOTE | 2022-11-17 10:28 | PC.NURSE ---
report recieved from overnight RN, media center specialist per APR. Pt with one episode of incontinence and also assisted to bedpan. C/o pain to her legs, medicated per APR with some effect per pt. Pt due to discharge today, discharge education given, pt verbalized understanding. Pt states sister will pick her up. Safety precautions remain in place, call sapp within reach.
== END 2022-11-17 11:41 | disposition home or self-care (01) ==
PROVIDERS: Physician Assistant; Emergency Provider Emergency Medicine; PCP Internal Medicine
DX: L97.829 Non-pressure chronic ulcer of other part of left lower leg with unspecified severity (principal); L97.819 Non-pressure chronic ulcer of other part of right lower leg with unspecified severity; M79.605 Pain in left leg; M79.604 Pain in right leg; R41.89 Other symptoms and signs involving cognitive functions and awareness; F32.9 Major depressive disorder, single episode, unspecified; Z87.891 Personal history of nicotine dependence; Z79.899 Other long term (current) drug therapy
CPT/HCPCS: 36415; 80048; 80076; 83735; 85025; 85652; 86140; 97162; 97530; 99285

== ENCOUNTER 2023-06-23 13:42 | Emergency (ER) | payer BC, SELFPAY ==
--- NOTE | ~2023-06-23 | CT_ITS ---
EXAMINATION: CT HEAD WITHOUT CONTRAST CT CERVICAL SPINE WITHOUT CONTRAST CLINICAL INFORMATION: Head trauma. Neck trauma. COMPARISON: CT head and cervical spine January 29, 2022 TECHNIQUE: Imaging was performed from the skull base to vertex without intravenous administration of contrast. In addition, helical noncontrast CT imaging was acquired through the cervical spine and source images were reviewed along with axial reconstructions and sagittal and coronal MPRs. [This CT examination was performed using dose optimization techniques as appropriate, variously including the following: *Automated exposure control *Adjustment of mA and/or kV according to patient size (this includes techniques or standardized protocols for targeted exams where dose is matched to indication/reason for exam; i.e. extremities or head) *Use of iterative reconstruction technique] DLP: 964 mGy-cm FINDINGS: HEAD: No intracranial mass, hemorrhage, or midline shift is visualized. There is generalized global volume loss. There is mild prominence of the ventricles and the sulci . There are vascular calcifications of the internal carotid arteries bilaterally. No extra-axial collections are identified. The paranasal sinuses and mastoid air cells are well aerated. CERVICAL SPINE: [place] artifact through the neck and lower cervical spine from right shoulder orthopedic prosthesis. There is no evidence of acute cervical spine fracture. Vertebral bodies remain normal in height. Cervical vertebrae have normal alignment. There is advanced multilevel degenerative spondylosis of the cervical spine with disc height narrowing and endplate spurs and facet joint arthrosis Redemonstration of the 1.5 cm hypodense left lobe thyroid nodule which remains unchanged since CAT scan January 29, 2022. Nonemergent thyroid ultrasound recommended if not already performed. CT/CT cervical spine wo IV con IMPRESSION: 1. No acute intracranial pathology. 2. No CT evidence of acute cervical spine fracture or traumatic subluxation. 3. Redemonstration of the 1.5 cm hypodense left lobe thyroid nodule which remains unchanged since CAT scan January 29, 2022. Nonemergent thyroid ultrasound recommended if not already performed.
--- NOTE | ~2023-06-23 | CT_ITS ---
EXAMINATION: CT HEAD WITHOUT CONTRAST CT CERVICAL SPINE WITHOUT CONTRAST CLINICAL INFORMATION: Head trauma. Neck trauma. COMPARISON: CT head and cervical spine January 29, 2022 TECHNIQUE: Imaging was performed from the skull base to vertex without intravenous administration of contrast. In addition, helical noncontrast CT imaging was acquired through the cervical spine and source images were reviewed along with axial reconstructions and sagittal and coronal MPRs. [This CT examination was performed using dose optimization techniques as appropriate, variously including the following: *Automated exposure control *Adjustment of mA and/or kV according to patient size (this includes techniques or standardized protocols for targeted exams where dose is matched to indication/reason for exam; i.e. extremities or head) *Use of iterative reconstruction technique] DLP: 964 mGy-cm FINDINGS: HEAD: No intracranial mass, hemorrhage, or midline shift is visualized. There is generalized global volume loss. There is mild prominence of the ventricles and the sulci . There are vascular calcifications of the internal carotid arteries bilaterally. No extra-axial collections are identified. The paranasal sinuses and mastoid air cells are well aerated. CERVICAL SPINE: [place] artifact through the neck and lower cervical spine from right shoulder orthopedic prosthesis. There is no evidence of acute cervical spine fracture. Vertebral bodies remain normal in height. Cervical vertebrae have normal alignment. There is advanced multilevel degenerative spondylosis of the cervical spine with disc height narrowing and endplate spurs and facet joint arthrosis Redemonstration of the 1.5 cm hypodense left lobe thyroid nodule which remains unchanged since CAT scan January 29, 2022. Nonemergent thyroid ultrasound recommended if not already performed. CT/CT head/brain wo IV con IMPRESSION: 1. No acute intracranial pathology. 2. No CT evidence of acute cervical spine fracture or traumatic subluxation. 3. Redemonstration of the 1.5 cm hypodense left lobe thyroid nodule which remains unchanged since CAT scan January 29, 2022. Nonemergent thyroid ultrasound recommended if not already performed.
--- NOTE | 2023-06-23 13:52 | ECG_ITS ---
Test Reason : FALL Blood Pressure : / mmHG Vent. Rate : 052 BPM Atrial Rate : 052 BPM P-R Int : 170 ms QRS Dur : 086 ms QT Int : 462 ms P-R-T Axes : 001 050 -20 degrees QTc Int : 429 ms Sinus bradycardia Abnormal QRS-T angle, consider primary T wave abnormality Abnormal ECG When compared with ECG of 06-NOV-2016 17:22, ST no longer elevated in Inferior leads T wave inversion now evident in Inferior leads Nonspecific T wave abnormality no longer evident in Lateral leads Referred By: Tracie Sheikh Electronically Signed By:KOKO BRADLEY MD
[2023-06-23 14:03] VITALS: BP 172/68; PULSE 52; RESP 16; TEMP 36.8; O2SAT 96; BMI 30.9
--- NOTE | 2023-06-23 14:19 | ED_ITS ---
HPI - Alcohol General Chief Complaint: Fall Stated Complaint: ETOH Time Seen by Provider: 06/23/23 13:47 Source: patient and old records reviewed Mode of arrival: EMS Limitations: no limitations History of Present Illness HPI narrative: 73 yo female with PMH of ETOH abuse, depression, cognitive impairment, neuropathy, HTN, chronic lower extremity ulcers and non healing wounds on LLE treated by [facility] here with c/o recurrent falls today no headstrike or LOC but admits to ETOH use. MD complaint: alcohol intoxication (falls) Last drink: Hours (ago) Chronic alcohol use: Yes Previous visits for alcohol intoxication: Yes Recent trauma: Yes Associated symptoms: other (states she falls and cannot get up) Treatments prior to arrival: none Related Data Home Medications ?Medication ?Instructions ?Recorded ?Confirmed magnesium chloride 70 mg 400 mg PO DAILY 12/15/20 11/11/22 (magnesium chloride) tablet,delayed release amlodipine 5 mg tablet 10 mg PO DAILY 11/11/22 11/11/22 biotin 1 tab PO DAILY 11/11/22 11/11/22 ferrous sulfate 325 mg (65 mg 325 mg PO DAILY 11/11/22 11/11/22 iron) tablet gabapentin 100 mg capsule 200 mg PO TID 11/11/22 11/11/22 multivitamin 1 tab PO DAILY 11/11/22 11/11/22 Previous Rx's ?Medication ?Instructions ?Recorded celecoxib 200 mg capsule 1 cap PO BID 30 days #60 caps 07/15/20 donepezil 10 mg tablet 1 tab PO DAILY 30 days #30 tabs 07/15/20 hydrochlorothiazide 12.5 mg capsule 1 cap PO DAILY 30 days #30 caps 07/15/20 omeprazole 20 mg capsule,delayed 20 mg PO DAILY 30 days #30 caps 07/15/20 release sertraline 50 mg tablet 50 mg PO DAILY 30 days #30 tabs 07/15/20 oxycodone-acetaminophen 5 mg-325 1 tab PO Q8H PRN severe pain 11/17/22 mg tablet (Percocet) (scale score 7-10) #9 tabs Allergies Allergy/AdvReac Type Severity Reaction Status Date / Time No Known Allergies Allergy Verified 06/23/23 14:11 [No Known Allergies*] Review of Systems 2 Review of Systems: Constitutional : No Fever, No Chills, No Fatigue ENT/Mouth : No sore throat, No Rhinorrhea Eyes: No Eye Pain, No Swelling, No Redness Cardiovascular : No Chest Pain, No SOB, No Dyspnea on Exertion Respiratory : No Cough, No Sputum Gastrointestinal : No Nausea, No Vomiting, No Diarrhea, No abdominal Pain Genitourinary : No Dysuria, No Urinary Frequency, No Hematuria, Musculoskeletal : No joint pain, No Myalgias, No Joint Swelling Skin : No Skin Lesions, No rash Neuro : No Weakness, No Numbness, No Dizziness, no Headache Psych : No Anxiety/Panic, No Depression All other systems reviewed and are negative [facility] Past Medical History Attestation statement: The following information was validated with the patient. Source: old records reviewed Medical History Neuropathy Cognitive impairment Hypertension Depression Alcoholism Surgical History History of rotator cuff surgery History of bilateral knee replacement Hx of gastric bypass (~2011) Social History Social History Household Members: Family and Children Housing: House Do you presently have visiting nurse or other home services: No Alcohol intake: current Alcohol intake frequency: holidays/special occasions only Comment: pt going to [place] [id number] psy unit Patient Tobacco Use Status: Former Tobacco user Advance Directives: Yes Advance Directives on File: Yes Advance Directives Date on File: 11/11/22 Do you have a plan to hurt others: No Plan service: No Sexual orientation: Straight/Heterosexual Physical Exam ED Vital Signs: Vital Signs - 24 hr 06/23/23 14:03 Temperature 98.2 F Pulse Rate 52 Respiratory Rate 16 Blood Pressure 172/68 H Pulse Oximetry 96 Oxygen Delivery Method Room Air BMI result Body Mass Index 30.9 Appearance: Alert. Oriented X3. No acute distress. ETOH odor slurred speech Eyes: Pupils equal, round and reactive to light. ENT: Pharynx normal. atraumatic Neck: Normal inspection. Neck supple. CVS: Normal heart rate and rhythm. Pulses normal. Respiratory: No respiratory distress. Breath sounds normal. Abdomen: Soft and nontender. Skin: Skin warm and dry. Normal skin color. Normal skin turgor. Extremities: 1+ pitting bilateral LE, LLE wrapped in dressings Neuro: Oriented X 3. No motor deficit. No sensory deficit. Course Course Course Narrative: signed out to Dr. Werner pending metabolization and CT scan reads Medical Decision Making Medical Decision Making [facility] Narrative: 73 yo female with PMH of ETOH abuse, depression, cognitive impairment, neuropathy, HTN, chronic lower extremity ulcers and non healing wounds on LLE treated by [facility] here with c/o ETOH use today and recurrent falls denies trauma but states she just cannot walk well today. At this time labs, CT scans ordered, will allow metabolize to freedom. Differential Diagnosis Differential Diagnoses: The differential diagnosis associated with the presentation includes ETOH intoxication, falls Admission/Observation Consideration of admission/observation: Escalation of care including admission/observation considered observe until clinically sober Lab Data [facility] Lab Attestation statement: I reviewed the patient's lab results. 06/23/23 14:39 06/23/23 14:39 Labs: Lab Results 06/23/23 Range/Units 14:39 WBC 5.6 (4.8-10.8) X10*3/uL RBC 3.72 L (4.20-5.50) X10*6/uL Hgb 11.8 L (12.0-16.0) g/dl Hct 35.5 L (37.0-47.0) % MCV 95.4 (80.0-98.0) fL MCH 31.7 (27.0-33.0) pg MCHC 33.2 (31.0-35.0) g/dl RDW 13.9 (11.0-16.0) % Plt Count 318 (160-400) X10*3/uL MPV 8.3 L (9.4-12.3) fL Immature Gran % (Auto) 0.4 (0.0-0.4) % Neut % (Auto) 61.3 (45-73) % Lymph % (Auto) 29.6 (20-40) % [place] % (Auto) 5.7 (2-11) % Eos % (Auto) 1.4 (0-4) % Baso % (Auto) 1.6 (0-2) % Lymph # (Auto) 1.7 (1.2-4.9) X10*3/uL [place] # (Auto) 0.3 (0.1-1.2) X10*3/uL Eos # (Auto) 0.1 (0.0-0.4) X10*3/uL Baso # (Auto) 0.1 (0.0-0.2) X10*3/uL Abs Immat Gran (auto) 0.02 (0.00-0.03) X10*3/uL Absolute Neuts (auto) 3.4 (2.0-8.3) x10*3/uL Absolute Nucleated RBC 0.000 (0.0-0.012) X10*3/uL Nucleated RBC % (auto) 0.0 (0.0-0.2) /100WBC Sodium 145 (135-145) mmol/L Potassium 3.8 (3.3-5.1) mmol/L Chloride 111 H (96-108) mmol/L Carbon Dioxide 23 (22-29) mmol/L Anion Gap 15 (12-20) BUN 19 H (9-16) mg/dL Creatinine 0.70 (0.5-1.4) mg/dL Estim Creat Clear Calc 72.8 Estimated GFR > 60 Random Glucose 89 (60-115) mg/dL Calcium 8.6 D (8.4-10.2) mg/dL Magnesium 2.0 (1.6-2.6) mg/dL Total Bilirubin 0.2 (0.0-1.0) mg/dL Direct Bilirubin < 0.2 (0.0-0.5) mg/dL AST 31 (5-31) U/L ALT 18 (0-31) U/L Alkaline Phosphatase 100 (39-117) U/L Total Protein 7.7 (6.5-8.0) g/dL Albumin 4.0 (3.5-5.0) g/dL Ethyl Alcohol 285 mg/dL Independent Interpretation I performed an independent interpretation of an: CT Scan Independent Historian Clinical information obtained from an independent historian. History obtained from or confirmed by: EMS External Record Review External record reviewed: Inpatient record Discharge Plan Discharge Clinical Impression: At high risk for falls Alcohol dependence Qualifiers: Substance use status: with intoxication Complication of substance-induced condition: with unspecified complication Qualified Code(s): F10.229 - Alcohol dependence with intoxication, unspecified Patient Disposition: Still a Patient Instructions: Fall Prevention (ED), Alcohol Dependence (ED) Prescriptions: No Action celecoxib 200 mg capsule 1 cap PO BID 30 Days Qty: 60 0RF donepezil 10 mg tablet 1 tab PO DAILY 30 Days Qty: 30 0RF hydrochlorothiazide 12.5 mg capsule 1 cap PO DAILY 30 Days Qty: 30 0RF omeprazole 20 mg capsule,delayed release(DR/EC) 20 mg PO DAILY 30 Days Qty: 30 0RF sertraline 50 mg tablet 50 mg PO DAILY 30 Days Qty: 30 0RF amlodipine 5 mg tablet 10 mg PO DAILY gabapentin 100 mg Capsule 200 mg PO TID multivitamin [Multiple Vitamin] Tablet 1 tab PO DAILY ferrous sulfate 325 mg (65 mg iron) Tablet 325 mg PO DAILY biotin 1 tab PO DAILY oxycodone-acetaminophen [Percocet] 5-325 mg tablet 1 tab PO Q8H PRN (Reason: severe pain (scale score 7-10)) Qty: 9 0RF Rx Instructions: Partial Fill upon patient request. magnesium chloride 70 mg tablet,delayed release (DR/EC) 400 mg PO DAILY Print Language: Uruguayan
[2023-06-23 14:42] LABS: MANUAL DIFF FLAG NO
[2023-06-23 14:45] LABS: Basophils Absolute Auto 0.1 X10*3/uL (0.0-0.2); Basophils Percent Auto 1.6 % (0-2); Eosinophils Absolute Auto 0.1 X10*3/uL (0.0-0.4); Eosinophils Percent Auto 1.4 % (0-4); Hematocrit 35.5 % (37.0-47.0); Hemoglobin 11.8 g/dl (12.0-16.0); Imm Gran Abs Auto 0.02 X10*3/uL (0.00-0.03); Imm Gran Pct Auto 0.4 % (0.0-0.4); Lymphocytes Absolute Auto 1.7 X10*3/uL (1.2-4.9); Lymphocytes Percent Auto 29.6 % (20-40); Mean Corpuscular HGB Conc 33.2 g/dl (31.0-35.0); Mean Corpuscular Hemoglobin 31.7 pg (27.0-33.0); Mean Corpuscular Volume 95.4 fL (80.0-98.0); Mean Platelet Volume 8.3 fL (9.4-12.3); Monocytes Absolute Auto 0.3 X10*3/uL (0.1-1.2); Monocytes Percent Auto 5.7 % (2-11); Neutrophils Absolute Auto 3.4 x10*3/uL (2.0-8.3); Neutrophils Percent Auto 61.3 % (45-73); Platelet Count 318 X10*3/uL (160-400); Red Blood Count 3.72 X10*6/uL (4.20-5.50); Red Cell Distribution Width 13.9 % (11.0-16.0); White Blood Count 5.6 X10*3/uL (4.8-10.8)
[2023-06-23 15:00] LABS: Alanine Aminotransferase 18 U/L (0-31); Alkaline Phosphatase 100 U/L (39-117); Anion Gap 15 (12-20); Aspartate Amino Transferase 31 U/L (5-31); Bilirubin Direct < 0.2 mg/dL (0.0-0.5); Bilirubin Total 0.2 mg/dL (0.0-1.0); Blood Urea Nitrogen 19 mg/dL (9-16); Calcium 8.6 mg/dL (8.4-10.2); Carbon Dioxide 23 mmol/L (22-29); Chloride 111 mmol/L (96-108); Creatinine Clr Calc Pharmacy 72.8; Estimated Glomerular Filt Rate > 60; Ethanol 285 mg/dL; Glucose Random 89 mg/dL (60-115); Potassium 3.8 mmol/L (3.3-5.1); Sodium 145 mmol/L (135-145); Total Protein 7.7 g/dL (6.5-8.0)
--- NOTE | 2023-06-23 16:36 | PC.NURSE ---
states she usually ambulates at home with a walker, ambulated to the bathroom with one assist. patient incontinent of urine, provided with new fatoumata pants and mesh undergarment/pad. ambulated back to bed, resting quietly at this time on the phone. awaiting dispo
[2023-06-23 17:55] VITALS: BP 159/55; PULSE 66; RESP 18; TEMP 36.7; O2SAT 97
[2023-06-23 18:25] VITALS: BP 159/55; PULSE 66; RESP 16; TEMP 36.7; O2SAT 97
== END 2023-06-23 18:26 | disposition home or self-care (01) ==
PROVIDERS: Emergency Provider Emergency Medicine; PCP Internal Medicine
DX: F10.229 Alcohol dependence with intoxication, unspecified (principal); Z91.81 History of falling; I10 Essential (primary) hypertension; G31.84 Mild cognitive impairment of uncertain or unknown etiology; F32.A Depression, unspecified; Z79.899 Other long term (current) drug therapy
CPT/HCPCS: 36415; 70450; 72125; 80048; 80076; 80307; 83735; 85025; 93005; 99283; 99284

== ENCOUNTER → 2023-06-23 13:52 | Outpatient (BNV) | payer BC, MEDICARE, SELFPAY | PROVIDERS: Emergency Provider Emergency Medicine; PCP Internal Medicine; Visit Provider Internal Medicine Cardiovascular Disease | DX: R94.31 Abnormal electrocardiogram [ECG] [EKG] (principal) | CPT/HCPCS: 93010 ==

== ENCOUNTER 2023-11-16 11:31 | Outpatient (REF) | payer MEDICARE, SELFPAY ==
--- NOTE | ~2023-11-16 | US_ITS ---
EXAMINATION: US TRIPLEX LOWER EXTREMITY, LEFT CLINICAL INFORMATION: Left leg edema. Evaluate for deep vein thrombosis. COMPARISON: None available. TECHNIQUE: Color-flow triplex imaging with spectral analysis and compression Doppler were performed on the left lower extremity. FINDINGS: Respiratory variation, normal compression and augmented flow are noted throughout the left lower extremity. The visualized common femoral vein, superficial femoral vein, profunda femoral vein, popliteal vein and midcalf peroneal and posterior tibial venous segments show no evidence of deep venous thrombosis. There is no Swann's cyst. US/US venous duplex LE LT IMPRESSION: No evidence of deep venous thrombosis involving the left lower extremity. Electronically signed by: Shree Khan MD 11/16/2023 12:47 PM EDT
== END 2023-11-16 11:32 | disposition home or self-care (01) ==
LOC: HO.US 11:31
PROVIDERS: PCP Internal Medicine; Visit Provider Surgery
DX: R60.0 Localized edema (principal)
CPT/HCPCS: 93971

== ENCOUNTER 2023-11-29 10:11 | Outpatient (REF) | payer BC, SELFPAY ==
--- NOTE | ~2023-11-29 | US_ITS ---
EXAMINATION: US NONINVASIVE ASSESSMENT OF THE LEFT LOWER EXTREMITY WITH ARTERIAL DUPLEX CLINICAL INFORMATION: Left leg PAD COMPARISON: None available. TECHNIQUE: Duplex Doppler techniques with waveform analysis and measurement of velocities in the common femoral, profunda femoris, superficial femoral, popliteal and tibial arteries were performed. In addition, ankle pulse volume recordings, ankle pressure measurements and ankle brachial indices were obtained of the left lower extremity arterial system. The study was performed only at rest. FINDINGS: NONINVASIVE ASSESSMENT OF THE ARTERIES OF BILATERAL LOWER EXTREMITIES: LEFT LOWER EXTREMITY DUPLEX ULTRASOUND: Common femoral artery: 131 cm/s. Diastolic flow reversal: Present Profunda femoris artery: 89 cm/s. Diastolic flow reversal: Absent Superficial femoral artery (proximal): 107 cm/s. Diastolic flow reversal: Present Superficial femoral artery (mid): 106 cm/s. Diastolic flow reversal: Present Superficial femoral artery (distal): 108 cm/s. Diastolic flow reversal: Present Popliteal artery: 120 cm/s Diastolic flow reversal: Present Posterior tibial artery: 99 cm/s Diastolic flow reversal: Absent Prominent left inguinal lymph nodes US/US arterial duplex LE LT IMPRESSION: No significant plaque or stenosis. Electronically signed by: Cade Benton MD 12/07/2023 11:59 AM EDT
== END 2023-11-29 10:12 | disposition home or self-care (01) ==
LOC: HO.US 10:11
PROVIDERS: PCP Internal Medicine; Visit Provider Radiology Vascular & Interventional Radiology
DX: I73.9 Peripheral vascular disease, unspecified (principal)
CPT/HCPCS: 93926

== ENCOUNTER 2023-12-06 10:07 | Inpatient (IN) | payer MEDICARE, BC, SELFPAY ==
--- NOTE | ~2023-12-06 | US_ITS ---
EXAMINATION: US TRIPLEX LOWER EXTREMITY, LEFT CLINICAL INFORMATION: Left leg pain COMPARISON: November 16, 2023. TECHNIQUE: Color-flow triplex imaging with spectral analysis and compression Doppler were performed on the left lower extremity. FINDINGS: Respiratory variation, normal compression and augmented flow are noted throughout the left lower extremity. The visualized common femoral vein, superficial femoral vein, profunda femoral vein, popliteal vein and midcalf peroneal and posterior tibial venous segments show no evidence of deep venous thrombosis. There is no Swann's cyst. Calf edema seen. There is a left groin node at 1.1 x 0.8 cm. US/US venous duplex LE IMPRESSION: No evidence of deep venous thrombosis involving the left lower extremity. Electronically signed by: Joseph Colón MD 12/06/2023 01:54 PM EDT
[2023-12-06 10:26] VITALS: BP 175/75; PULSE 73; RESP 17; TEMP 36.9; O2SAT 96; BMI 29.7
[2023-12-06 10:59] LABS: MANUAL DIFF FLAG NO
[2023-12-06 11:12] LABS: Basophils Absolute Auto 0.1 X10*3/uL (0.0-0.2); Basophils Percent Auto 1.1 % (0-2); Eosinophils Percent Auto 0.5 % (0-4); Hematocrit 32.6 % (37.0-47.0); Hemoglobin 10.9 g/dl (12.0-16.0); Imm Gran Abs Auto 0.03 X10*3/uL (0.00-0.03); Imm Gran Pct Auto 0.3 % (0.0-0.4); Lymphocytes Absolute Auto 0.7 X10*3/uL (1.2-4.9); Lymphocytes Percent Auto 8.2 % (20-40); Mean Corpuscular HGB Conc 33.4 g/dl (31.0-35.0); Mean Corpuscular Hemoglobin 31.3 pg (27.0-33.0); Mean Corpuscular Volume 93.7 fL (80.0-98.0); Mean Platelet Volume 8.1 fL (9.4-12.3); Monocytes Absolute Auto 0.7 X10*3/uL (0.1-1.2); Monocytes Percent Auto 7.7 % (2-11); Neutrophils Absolute Auto 7.2 x10*3/uL (2.0-8.3); Neutrophils Percent Auto 82.2 % (45-73); Platelet Count 356 X10*3/uL (160-400); Red Blood Count 3.48 X10*6/uL (4.20-5.50); Red Cell Distribution Width 14.1 % (11.0-16.0); White Blood Count 8.8 X10*3/uL (4.8-10.8)
[2023-12-06 11:15] LABS: Lactic Acid 1.2 mmol/L (0.5-2.0)
[2023-12-06 11:20] LABS: Anion Gap 14 (12-20); Blood Urea Nitrogen 15 mg/dL (9-16); Calcium 9.4 mg/dL (8.4-10.2); Carbon Dioxide 26 mmol/L (22-29); Chloride 96 mmol/L (96-108); Estimated Glomerular Filt Rate > 60; Glucose Random 105 mg/dL (60-115); Potassium 4.3 mmol/L (3.3-5.1); Sodium 132 mmol/L (135-145)
--- NOTE | 2023-12-06 12:18 | ED.SKABFB ---
HPI - Skin/Abscess/Foreign Bdy General Chief complaint: Skin/Abscess/Foreign Body Stated complaint: l leg pain Time Seen by Provider: 12/06/23 12:12 History of Present Illness HPI narrative: Patient is a 73-year-old female presents today with having chronic wounds to the left lower extremity been followed by the wound care nurse in clinic. Seen today by the wound care nurse. Noted to have an increase in redness to the leg. Also noted fever at home of up to 101. There is no coughing no congestion or upper respiratory symptoms. No urinary symptoms. Patient was sent in for further evaluation. Related Data Home Medications ?Medication ?Instructions ?Recorded ?Confirmed magnesium chloride 70 mg 400 mg PO DAILY 12/15/20 12/06/23 (magnesium chloride) tablet,delayed release amlodipine 5 mg tablet 10 mg PO DAILY 11/11/22 12/06/23 ferrous sulfate 325 mg (65 mg 325 mg PO DAILY 11/11/22 12/06/23 iron) tablet multivitamin 1 tab PO DAILY 11/11/22 12/06/23 betamethasone dipropionate 0.05 % 1 appl topical DAILY PRN Itching 12/06/23 12/06/23 topical cream calcium carbonate 600 mg-vitamin 1 tab PO DAILY 12/06/23 12/06/23 D3 5 mcg (200 unit) tablet hydroxyzine HCl 25 mg tablet 25 mg PO DAILY PRN anxiety 12/06/23 12/06/23 lisinopril 5 mg tablet 5 mg PO DAILY 12/06/23 12/06/23 Previous Rx's ?Medication ?Instructions ?Recorded donepezil 10 mg tablet 1 tab PO DAILY 30 days #30 tabs 07/15/20 hydrochlorothiazide 12.5 mg capsule 1 cap PO DAILY 30 days #30 caps 07/15/20 omeprazole 20 mg capsule,delayed 20 mg PO DAILY 30 days #30 caps 07/15/20 release sertraline 50 mg tablet 50 mg PO DAILY 30 days #30 tabs 07/15/20 Allergies Allergy/AdvReac Type Severity Reaction Status Date / Time No Known Allergies Allergy Verified 12/06/23 10:35 [No Known Allergies*] Review of Systems Review of Systems: Positive redness swelling to the left lower extremity Yes all other systems are reviewed and are negative PMFSH Past Medical History Attestation statement: The following information was validated with the patient. Medical History Neuropathy Cognitive impairment Hypertension Depression Alcoholism Surgical History History of rotator cuff surgery History of bilateral knee replacement Hx of gastric bypass (~2011) Social History Social History Household Members: Family and Children Housing: House Do you presently have visiting nurse or other home services: No Alcohol intake: current Alcohol intake frequency: holidays/special occasions only Comment: pt going to [place] [id number] psy unit Patient Tobacco Use Status: Former Tobacco user Smoked in Last 30 Days: No Use of substances other than those prescribed or required for medical reasons: No Advance Directives: Yes Advance Directives on File: Yes Advance Directives Date on File: 11/11/22 Do you have a plan to hurt others: No Plan service: No Sexual orientation: Straight/Heterosexual Physical Exam Vital Signs: Vital Signs: Last Vital Signs Temp 98.5 F 12/06/23 12:38 Pulse 81 12/06/23 12:38 Resp 16 12/06/23 12:38 BP 164/67 H 12/06/23 12:38 Pulse Ox 93 12/06/23 12:38 O2 Del Method Room Air 12/06/23 12:38 BMI result Body Mass Index 29.7 Appearance: Alert. Oriented X3. No acute distress. Eyes: Pupils equal, round and reactive to light. ENT: Pharynx normal. Neck: Normal inspection. Neck supple. No lymph nodes noted. No crepitus CVS: Normal heart rate and rhythm. Pulses normal. Normal S1 and S2 Respiratory: No respiratory distress. Breath sounds normal. No Wheezing. No rales Abdomen: Soft and nontender. No rigidity. No distention. good BS x4 Skin: Skin warm and dry. Normal skin color. Normal skin turgor. Extremities: Positive redness to the left lower extremity. Warm to touch which is circumferential at the level of the distal leg just above the ankle there is 2 ulcers that seems to be healing. No pain on movement of the ankle. Distal pulses intact although there is clear edema noted in the left lower extremity Neuro: Oriented X 3. No motor deficit. No sensory deficit. Moving all extermities. No slurred speech Medications Administered Generic Name Dose Route Start Last Admin Trade Name Freq PRN Reason Stop Dose Admin Acetaminophen 650 mg 12/06/23 15:04 12/06/23 19:17 Acetaminophen 325 Mg Tablet PO 650 mg Q6H PRN Administration Pain, Mild (Pain Scale 1-3), fever or headache Enoxaparin Sodium 40 mg 12/06/23 15:15 12/06/23 15:29 Enoxaparin Sodium 40 Mg/0.4 Ml Syringe SUBCUT 40 mg Q24H DREW Administration Doxycycline Hyclate 100 mg/ 250 mls @ 166.67 mls/hr 12/06/23 19:00 12/06/23 19:16 Sodium Chloride IV 166.67 mls/hr Q12H DREW Administration Sodium Chloride 3 ml 12/06/23 16:00 12/06/23 15:30 0.9 % Sodium Chloride Flush 3 Ml Syringe IVFLUSH 3 ml QSHIFT DREW Administration Discontinued Medications Generic Name Dose Route Start Last Admin Trade Name Freq PRN Reason Stop Dose Admin Cefazolin Sodium 1 gm 12/06/23 12:19 12/06/23 12:35 Cefazolin Sodium 1 Gm Vial IVPUSH 12/06/23 12:20 1 gm ONCE ONE Administration Medical Decision Making Medical Decision Making [facility] Narrative: Patient likely have cellulitis of the left leg. Lactate was normal white count is normal but patient had fever. Been followed on an outpatient basis gotten much worse. Will require admission for further evaluation. Differential Diagnosis Differential Diagnoses: The differential diagnosis associated with the presentation includes Cellulitis, DVT Admission/Observation Consideration of admission/observation: Escalation of care including admission/observation considered Consult Healthcare Provider Management of the patient was discussed with: Hospitalist Lab Data [facility] Lab Attestation statement: I reviewed the patient's lab results. 12/06/23 10:52 12/06/23 10:52 Labs: Lab Results 12/06/23 12/06/23 Range/Units 10:52 12:31 WBC 8.8 (4.8-10.8) X10*3/uL RBC 3.48 L (4.20-5.50) X10*6/uL Hgb 10.9 L (12.0-16.0) g/dl Hct 32.6 L (37.0-47.0) % MCV 93.7 (80.0-98.0) fL MCH 31.3 (27.0-33.0) pg MCHC 33.4 (31.0-35.0) g/dl RDW 14.1 (11.0-16.0) % Plt Count 356 (160-400) X10*3/uL MPV 8.1 L (9.4-12.3) fL Immature Gran % (Auto) 0.3 (0.0-0.4) % Neut % (Auto) 82.2 H (45-73) % Lymph % (Auto) 8.2 L (20-40) % [place] % (Auto) 7.7 (2-11) % Eos % (Auto) 0.5 (0-4) % Baso % (Auto) 1.1 (0-2) % Lymph # (Auto) 0.7 L (1.2-4.9) X10*3/uL [place] # (Auto) 0.7 (0.1-1.2) X10*3/uL Eos # (Auto) 0.0 (0.0-0.4) X10*3/uL Baso # (Auto) 0.1 (0.0-0.2) X10*3/uL Abs Immat Gran (auto) 0.03 (0.00-0.03) X10*3/uL Absolute Neuts (auto) 7.2 (2.0-8.3) x10*3/uL Absolute Nucleated RBC 0.000 (0.0-0.012) X10*3/uL Nucleated RBC % (auto) 0.0 (0.0-0.2) /100WBC Sodium 132 L (135-145) mmol/L Potassium 4.3 (3.3-5.1) mmol/L Chloride 96 (96-108) mmol/L Carbon Dioxide 26 (22-29) mmol/L Anion Gap 14 (12-20) BUN 15 (9-16) mg/dL Creatinine 0.70 (0.5-1.4) mg/dL Estim Creat Clear Calc 61.0 Estimated GFR > 60 Random Glucose 105 (60-115) mg/dL Lactic Acid 1.2 1.3 (0.5-2.0) mmol/L Calcium 9.4 D (8.4-10.2) mg/dL External Record Review External record reviewed: Inpatient record Chronic Conditions History of chronic wounds on the leg. History of alcohol use Social Determinants Patient?s care significantly limited by Social Determinants of Health including: Problems related to primary support group Discharge Plan Discharge Clinical Impression: Cellulitis Patient Disposition: Admitted As Inpatient Print Language: Kyrgyz
[2023-12-06] MEDS: ceFAZolin Sodium 1 GM VIAL IVPUSH ×2 (12:35→21:02)
[2023-12-06 12:38] VITALS: BP 164/67; PULSE 81; RESP 16; TEMP 36.9; O2SAT 93
--- NOTE | 2023-12-06 12:39 | PC.NURSE ---
vss and up to date aside from being slightly hypertensive. 20gIV placed in the left AC - labs obtained/sent to lab. abx administered per provider order. no sob/wob noted. respirations even/unlabored. plan of care ongoing. call sapp placed within reach.
--- NOTE | 2023-12-06 12:51 | PC.NURSE ---
ultrasound being completed at this time. plan of care ongoing.
[2023-12-06 12:56] LABS: Lactic Acid 1.3 mmol/L (0.5-2.0)
--- NOTE | 2023-12-06 14:44 | PC.NURSE ---
report given to XAVIER Resendiz in overflow. transport notified/aware at this time.
--- NOTE | 2023-12-06 15:07 | PHA.MEDREC ---
Addendum entered by Virginia Sanford RPh 12/06/23 15:19: Reviewed by [facility] Original Note: Pharmacy Consult ? Medication Reconciliation Pharmacy has completed the medication reconciliation. Confirmed medications with patient. Patient stated she ran out of refills of the Celecoxib 200mg tab a few months ago and has been waiting for the Dr to fill it. She also confirmed she is still taking Hydrochlorothiazide 12.5mg tab 1 daily and states she is taking it consistently and ran out this past week, looking in claims I couldn't find that medication and I called patient pharmacy to confirm and they state she has not filled that in any of their locations since 10/2022. She also confirmed she is still taking Hydroxyzine 25mg tabs once daily as needed for her anxiety and states it only one tab daily not TID and looking in claims that was last filled 08/28 for 30 days and that matched what her pharmacy has in their claims. She could not remember taking her morning medications this morning but states she took all her medications yesterday.
--- NOTE | 2023-12-06 15:12 | PM.IMHP ---
History of Present Illness Date of Service: 12/06/23 Chief Complaint: Cellulitis, open wounds A 73 years old lady with PMH of alcohol abuse, neuropathy, depression and Hx chronic ulceration in LEs presenting from Wound care clinic for worsening ulcer and cellulitis. The patient reports having bilateral lower extremities open wounds for 1.5 years now. the right leg ulcer healed but left leg one did not and has been getting worse with more drainage and increase surrounding erythema. Today she was noted to be febrile at 101 at home with increase pain and redness in her LLE. Will be admitted for further evaluation and treatment. Review of Systems Review of Systems: LLE pain and drainage Yes all other systems are reviewed and are negative [facility] Medical History Neuropathy Cognitive impairment Hypertension Depression Alcoholism Surgical History History of rotator cuff surgery History of bilateral knee replacement Hx of gastric bypass (~2011) Social History Household Members: Family and Children Housing: House Do you presently have visiting nurse or other home services: No Alcohol intake: current Alcohol intake frequency: holidays/special occasions only Comment: pt going to [place] [id number] [place] unit Patient Tobacco Use Status: Former Tobacco user Smoked in Last 30 Days: No Use of substances other than those prescribed or required for medical reasons: No Advance Directives: Yes Advance Directives on File: Yes Advance Directives Date on File: 11/11/22 Do you have a plan to hurt others: No Plan service: No Sexual orientation: Straight/Heterosexual Meds Allergies Allergy/AdvReac Type Severity Reaction Status Date / Time No Known Allergies Allergy Verified 12/06/23 10:35 [No Known Allergies*] Active Medications: Current Medications Acetaminophen (Acetaminophen 325 Mg Tablet) 650 mg PO Q6H PRN PRN Reason: Pain, Mild (Pain Scale 1-3), fever or headache Amlodipine Besylate (Amlodipine Besylate 10 Mg Tablet) 10 mg PO DAILY [facility]; Protocol Calcium Carbonate (Calcium Carbonate 750 Mg Tab.Chew) 750 mg PO Q4H PRN PRN Reason: Heartburn Cefazolin Sodium (Cefazolin Sodium 1 Gm Vial) 1 gm IVPUSH Q8H [facility] Donepezil HCl (Donepezil Hcl 10 Mg Tablet) 10 mg PO DAILY [facility] Enoxaparin Sodium (Enoxaparin Sodium 40 Mg/0.4 Ml Syringe) 40 mg SUBCUT Q24H [facility] Hydrochlorothiazide (Hydrochlorothiazide 12.5 Mg Tablet) 12.5 mg PO DAILY [facility]; Protocol Hydroxyzine HCl (Hydroxyzine Hcl 25 Mg Tablet) 25 mg PO DAILY PRN PRN Reason: anxiety Doxycycline Hyclate 100 mg/ (Sodium Chloride) 250 mls @ 166.67 mls/hr IV Q12H [facility] Lisinopril (Lisinopril 5 Mg Tablet) 5 mg PO DAILY [facility]; Protocol Magnesium Hydroxide (Milk Of Magnesia 30 Ml Oral.Susp) 30 ml PO DAILY PRN PRN Reason: Constipation Melatonin (Melatonin 3 Mg Tablet) 6 mg PO BEDTIME PRN PRN Reason: Insomnia Multivitamins/Vitamin C (Multivitamin Tablet) 1 tab PO DAILY [facility] Non-Formulary Medication (Ferrous Sulfate) 325 mg PO DAILY [facility] Omeprazole (Omeprazole 20 Mg Capsule.Dr) 20 mg PO DAILY [facility] Ondansetron HCl (Ondansetron Hcl 4 Mg/2 Ml Vial) 4 mg IVPUSH Q8H PRN PRN Reason: Nausea and Vomiting Sertraline HCl (Sertraline Hcl 50 Mg Tablet) 50 mg PO DAILY [facility] Sodium Chloride (0.9 % Sodium Chloride Flush 3 Ml Syringe) 3 ml IVFLUSH QSHIFT [facility] Home Medications ?Medication ?Instructions ?Recorded ?Confirmed ?Last Taken ?Type magnesium chloride 70 mg 400 mg PO DAILY 12/15/20 12/06/23 1 Day Ago History (magnesium chloride) ~12/05/23 tablet,delayed release amlodipine 5 mg tablet 10 mg PO DAILY 11/11/22 12/06/23 1 Day Ago History ~12/05/23 ferrous sulfate 325 mg (65 mg 325 mg PO DAILY 11/11/22 12/06/23 1 Day Ago History iron) tablet ~12/05/23 multivitamin 1 tab PO DAILY 11/11/22 12/06/23 1 Day Ago History ~12/05/23 betamethasone dipropionate 0.05 % 1 appl topical DAILY PRN Itching 12/06/23 12/06/23 Unknown History topical cream calcium carbonate 600 mg-vitamin 1 tab PO DAILY 12/06/23 12/06/23 Unknown History D3 5 mcg (200 unit) tablet hydroxyzine HCl 25 mg tablet 25 mg PO DAILY PRN anxiety 12/06/23 12/06/23 1 Day Ago History ~12/05/23 lisinopril 5 mg tablet 5 mg PO DAILY 12/06/23 12/06/23 1 Day Ago History ~12/05/23 Physical Exam Vital Signs and Narrative: Vital Signs: Last Vital Signs Temp 98.5 F 12/06/23 12:38 Pulse 81 12/06/23 12:38 Resp 16 12/06/23 12:38 BP 164/67 H 12/06/23 12:38 Pulse Ox 93 12/06/23 12:38 O2 Del Method Room Air 12/06/23 12:38 BMI result Body Mass Index 29.7 Const: Other: Constitutional : Awake, interactive, not in distress Neck : Normal inspection, Supple Cardiovascular : RRR, no JVP, no lower extremity edema Respiratory : good bilateral air entry, no crackles, wheezes or rhonchi Gastrointestinal: soft, lax, Normal bowel sounds, Non tender Skin : Warm, Dry, LLE erythema and tenderness with mild edema, has 2 ulcers draining clear secretions, distal pulses can be felt Neurological : Alert & oriented x3, No focal deficit Results Labs 12/06/23 10:52 12/06/23 10:52 Labs: Laboratory Results - last 24 hr 12/06/23 12/06/23 10:52 12:31 MCV 93.7 MCH 31.3 MCHC 33.4 RDW 14.1 Plt Count 356 MPV 8.1 L Immature Gran % (Auto) 0.3 Neut % (Auto) 82.2 H Lymph % (Auto) 8.2 L [place] % (Auto) 7.7 Eos % (Auto) 0.5 Baso % (Auto) 1.1 Lymph # (Auto) 0.7 L [place] # (Auto) 0.7 Eos # (Auto) 0.0 Baso # (Auto) 0.1 Abs Immat Gran (auto) 0.03 Absolute Neuts (auto) 7.2 Absolute Nucleated RBC 0.000 Nucleated RBC % (auto) 0.0 Anion Gap 14 Estim Creat Clear Calc 61.0 Estimated GFR > 60 Random Glucose 105 Lactic Acid 1.2 1.3 Calcium 9.4 D Imaging Radiologist's Impressions: Impressions Venous Duplex 12/06/23 12:46 IMPRESSION: No evidence of deep venous thrombosis involving the left lower extremity. Electronically signed by: Joseph Colón MD 12/06/2023 01:54 PM EDT RP Assessment and Plan (1) Cellulitis: Status: Acute (2) Ulcer of lower extremity: Status: Acute Plan A 73 years old lady with PMH of alcohol abuse, neuropathy, depression and Hx chronic ulceration in LEs presenting from Wound care clinic for worsening ulcer and cellulitis. LLE cellulitis with open ulcers Not septic Doppler US negative for DVT Pending cultures MRSA screen Start Doxycycline and Cefazolin Vascular surgery eval Hx Alcohol abuse CIWA protocol HTN Amlodipine, Lisinopril and HCT GERD Omeprazole DVT PPx Lovenox The patient will need 2 overnight hospital stay for treatment of LLE cellulitis with IV antibiotics pending surgical evaluation Quality Stroke Does the patient have a stroke diagnosis?: No VTE Prior VTE?: No VTE Risk Level:: Medical - moderate - high VTE Device Contraindication: Treatment Not Indicated VTE Drug Contraindication: N/A - Med Ordered
[2023-12-06] MEDS: Enoxaparin Sodium 40 MG/0.4 ML SYRINGE SUBCUT (15:29)
[2023-12-06] MEDS: 0.9 % Sodium Chloride Flush 3 ML SYRINGE IVFLUSH (15:30)
[2023-12-06] MEDS: Doxycycline Hyclate 100 MG in 0.9 % Sodium Chloride 250 ML 166.67 MG IV (19:16)
[2023-12-06] MEDS: Acetaminophen 325 MG TABLET 650 MG PO (19:17)
[2023-12-06] MEDS: hydrOXYzine HCL 25 MG TABLET PO (21:02)
[2023-12-06] MEDS: Melatonin 3 MG TABLET 6 MG PO (21:02)
[2023-12-06 21:17] VITALS: BP 162/68; PULSE 74; RESP 20; TEMP 37.2; O2SAT 92
--- NOTE | 2023-12-07 00:06 | PC.NURSE ---
pt asleep at this time
[2023-12-07] MEDS: 0.9 % Sodium Chloride Flush 3 ML SYRINGE IVFLUSH ×3 (00:31→21:21)
[2023-12-07 00:37] VITALS: BP 167/71; PULSE 60; RESP 16; TEMP 36.9; O2SAT 97
[2023-12-07] MEDS: ceFAZolin Sodium 1 GM VIAL IVPUSH ×3 (05:28→19:45)
[2023-12-07] MEDS: Acetaminophen 325 MG TABLET 650 MG PO (05:28)
[2023-12-07 05:31] VITALS: BP 196/84; PULSE 70; RESP 16; TEMP 36.8; O2SAT 94
[2023-12-07] MEDS: Omeprazole 20 MG CAPSULE.DR PO (05:33)
[2023-12-07 05:55] LABS: Hematocrit 34.9 % (37.0-47.0); Hemoglobin 11.7 g/dl (12.0-16.0); Mean Corpuscular HGB Conc 33.5 g/dl (31.0-35.0); Mean Corpuscular Hemoglobin 31.8 pg (27.0-33.0); Mean Corpuscular Volume 94.8 fL (80.0-98.0); Mean Platelet Volume 8.3 fL (9.4-12.3); Platelet Count 318 X10*3/uL (160-400); Red Blood Count 3.68 X10*6/uL (4.20-5.50); Red Cell Distribution Width 14.1 % (11.0-16.0); White Blood Count 6.2 X10*3/uL (4.8-10.8)
[2023-12-07 06:11] LABS: Anion Gap 16 (12-20); Blood Urea Nitrogen 16 mg/dL (9-16); Calcium 9.2 mg/dL (8.4-10.2); Carbon Dioxide 25 mmol/L (22-29); Chloride 101 mmol/L (96-108); Creatinine Clr Calc Pharmacy 61.9; Estimated Glomerular Filt Rate > 60; Glucose Random 124 mg/dL (60-115); Potassium 4.9 mmol/L (3.3-5.1); Sodium 137 mmol/L (135-145)
[2023-12-07] MEDS: Ketorolac Tromethamine 30 MG/ML VIAL IVPUSH (06:26)
[2023-12-07] MEDS: Doxycycline Hyclate 100 MG in 0.9 % Sodium Chloride 250 ML 166.67 MG IV ×2 (06:27→19:43)
[2023-12-07] MEDS: amLODIPine Besylate 10 MG TABLET PO (07:43)
[2023-12-07] MEDS: Ferrous Sulfate 324 MG TABLET.DR PO (07:43)
[2023-12-07] MEDS: Sertraline HCL 50 MG TABLET PO (07:43)
[2023-12-07] MEDS: lisinopriL 5 MG TABLET PO (07:43)
[2023-12-07] MEDS: Multivitamin TABLET 1 TAB PO (07:44)
[2023-12-07] MEDS: Donepezil HCl 10 MG TABLET PO (07:44)
[2023-12-07 08:00] VITALS: BP 172/80; PULSE 70; RESP 16; TEMP 37; O2SAT 97
--- NOTE | 2023-12-07 08:00 | PC.NURSE ---
pt took meds whole. Report given to XAVIER Mcduffie on s3
[2023-12-07 08:40] VITALS: BP 183/79; PULSE 57; RESP 20; TEMP 36.5; O2SAT 91
[2023-12-07 10:00] VITALS: BMI 25.6
[2023-12-07] MEDS: oxyCODONE HCl Immed Release 5 MG TABLET PO ×2 (10:02→21:20)
[2023-12-07] MEDS: hydroCHLOROthiazide 12.5 MG TABLET PO (10:03)
[2023-12-07 11:20] LABS: MRSA Nasal PCR NEGATIVE (Negative); SA Nasal PCR NEGATIVE (Negative)
--- NOTE | 2023-12-07 12:42 | P.CONGS_ITS ---
<Statement entered by Iftikhar Hernandez MD - 12/07/23 14:01> I have seen and evaluated the patient and agree with history, findings, assessment and plan documented by Cydney Capellan PA-c. Patient has previous established care with Dr. Dean. She can follow up with us as an outpatient if she desires to change vascular care. Thank you for allowing us to participate in her care. History of Present Illness Consult details Consult date: 12/07/23 Narrative: We are consulted for Divina, a pleasant 73-year-old female patient, presenting with left lower extremity cellulitis and open ulcers that she states has been going on for a year and a half now. She is followed by [place] [facility], where she goes weekly. She has a history of right lower extremity wounds as well but states they have healed, but after an extensive period of time. She states her left lower extremity is painful and very warm to the touch. She states she is followed by [facility] and has recently had an ultrasound on the at our facility, where she states ?they found nothing. She also had a venous duplex on the of this month which revealed no DVT. She is a nonsmoker and a nondiabetic. She does have a history of alcohol use disorder. Review of Systems 2 Constitutional: Constitutional: Reports as per HPI and Denies weakness ENT: Reports Normal hearing present and Denies dizziness Cardiovascular: Cardiovascular: Reports as per HPI, Denies chest pain, Denies chest pain at rest, Denies chest pain with activity, Denies dyspnea and Denies dyspnea on exertion Respiratory: Respiratory: Reports as per HPI, Denies cough, Denies dyspnea and Denies dyspnea on exertion Gastrointestinal: Gastrointestinal: Reports as per HPI, Denies abdominal pain, Denies nausea and Denies vomiting Musculoskeletal: Musculoskeletal: Denies numbness Integumentary/Breasts: Skin/Breast: Reports as per HPI, Denies erythema and Denies wounds Neurologic: Reports Normal hearing present, Denies dizziness, Denies numbness, Denies Sensory deficit (Neuro) and Denies weakness Psychiatric: Psychiatric: Reports no additional psychiatric complaints Endocrine: Endocrine: Reports no additional endocrine complaints [facility] Past Medical History Medical History Neuropathy Cognitive impairment Hypertension Depression Alcoholism Surgical History Surgical History History of rotator cuff surgery History of bilateral knee replacement Hx of gastric bypass (~2011) Social History Social History Household Members: None Housing: Condominium Do you presently have visiting nurse or other home services: Yes Alcohol intake: current Alcohol intake frequency: holidays/special occasions only Comment: pt going to [place] [id number] [place] unit Patient Tobacco Use Status: Former Tobacco user Smoked in Last 30 Days: No Use of substances other than those prescribed or required for medical reasons: No Have you been hit, kicked, punched, or otherwise hurt by someone within the past year? If so, by whom?: No Do you feel safe in your current relationship?: Yes Is there a partner from a previous relationship who is making you feel unsafe now?: No Are you made to feel afraid or neglected: No Advance Directives: Yes Advance Directives on File: Yes Advance Directives Date on File: 11/11/22 Do you have a plan to hurt others: No Plan Recently lost weight without trying: No Nutrition Risks: No Nutritional Risk Patient : No : No Poor oral hygiene: No service: No Sexual orientation: Straight/Heterosexual Meds Allergies Allergy/AdvReac Type Severity Reaction Status Date / Time No Known Allergies Allergy Verified 12/06/23 10:35 [No Known Allergies*] Active Medications: Current Medications Acetaminophen (Acetaminophen 325 Mg Tablet) 650 mg PO Q6H PRN PRN Reason: Pain, Mild (Pain Scale 1-3), fever or headache Last Admin: 12/07/23 05:28 Dose: 650 mg Amlodipine Besylate (Amlodipine Besylate 10 Mg Tablet) 10 mg PO DAILY [facility]; Protocol Last Admin: 12/07/23 07:43 Dose: 10 mg Calcium Carbonate (Calcium Carbonate 750 Mg Tab.Chew) 750 mg PO Q4H PRN PRN Reason: Heartburn Cefazolin Sodium (Cefazolin Sodium 1 Gm Vial) 1 gm IVPUSH Q8H [facility] Last Admin: 12/07/23 05:28 Dose: 1 gm Donepezil HCl (Donepezil Hcl 10 Mg Tablet) 10 mg PO DAILY [facility] Last Admin: 12/07/23 07:44 Dose: 10 mg Enoxaparin Sodium (Enoxaparin Sodium 40 Mg/0.4 Ml Syringe) 40 mg SUBCUT Q24H [facility] Last Admin: 12/06/23 15:29 Dose: 40 mg Ferrous Sulfate (Ferrous Sulfate 324 Mg Tablet.) 324 mg PO DAILY [facility] Last Admin: 12/07/23 07:43 Dose: 324 mg Hydrochlorothiazide (Hydrochlorothiazide 12.5 Mg Tablet) 12.5 mg PO DAILY [facility]; Protocol Last Admin: 12/07/23 10:03 Dose: 12.5 mg Hydroxyzine HCl (Hydroxyzine Hcl 25 Mg Tablet) 25 mg PO DAILY PRN PRN Reason: anxiety Last Admin: 12/06/23 21:02 Dose: 25 mg Doxycycline Hyclate 100 mg/ (Sodium Chloride) 250 mls @ 166.67 mls/hr IV Q12H [facility] Last Infusion: 12/07/23 08:00 Dose: Infused Lisinopril (Lisinopril 5 Mg Tablet) 5 mg PO DAILY [facility]; Protocol Last Admin: 12/07/23 07:43 Dose: 5 mg Magnesium Hydroxide (Milk Of Magnesia 30 Ml Oral.Susp) 30 ml PO DAILY PRN PRN Reason: Constipation Melatonin (Melatonin 3 Mg Tablet) 6 mg PO BEDTIME PRN PRN Reason: Insomnia Last Admin: 12/06/23 21:02 Dose: 6 mg Multivitamins/Vitamin C (Multivitamin Tablet) 1 tab PO DAILY [facility] Last Admin: 12/07/23 07:44 Dose: 1 tab Omeprazole (Omeprazole 20 Mg Capsule.) 20 mg PO DAILY@0630 [facility] Last Admin: 12/07/23 05:33 Dose: 20 mg Ondansetron HCl (Ondansetron Hcl 4 Mg/2 Ml Vial) 4 mg IVPUSH Q8H PRN PRN Reason: Nausea and Vomiting Sertraline HCl (Sertraline Hcl 50 Mg Tablet) 50 mg PO DAILY [facility] Last Admin: 12/07/23 07:43 Dose: 50 mg Sodium Chloride (0.9 % Sodium Chloride Flush 3 Ml Syringe) 3 ml IVFLUSH QSHIFT [facility] Last Admin: 12/07/23 07:44 Dose: Not Given Home Medications ?Medication ?Instructions ?Recorded ?Confirmed ?Last Taken ?Type magnesium chloride 70 mg 400 mg PO DAILY 12/15/20 12/06/23 1 Day Ago History (magnesium chloride) ~12/05/23 tablet,delayed release amlodipine 5 mg tablet 10 mg PO DAILY 11/11/22 12/06/23 1 Day Ago History ~12/05/23 ferrous sulfate 325 mg (65 mg 325 mg PO DAILY 11/11/22 12/06/23 1 Day Ago History iron) tablet ~12/05/23 multivitamin 1 tab PO DAILY 11/11/22 12/06/23 1 Day Ago History ~12/05/23 betamethasone dipropionate 0.05 % 1 appl topical DAILY PRN Itching 12/06/23 12/06/23 Unknown History topical cream calcium carbonate 600 mg-vitamin 1 tab PO DAILY 12/06/23 12/06/23 Unknown History D3 5 mcg (200 unit) tablet hydroxyzine HCl 25 mg tablet 25 mg PO DAILY PRN anxiety 12/06/23 12/06/23 1 Day Ago History ~12/05/23 lisinopril 5 mg tablet 5 mg PO DAILY 12/06/23 12/06/23 1 Day Ago History ~12/05/23 Physical Exam 2 Vital Signs: Vital Signs: Last Vital Signs Temp 97.7 F 12/07/23 08:40 Pulse 57 12/07/23 08:40 Resp 20 12/07/23 08:40 BP 183/79 H 12/07/23 08:40 Pulse Ox 91 L 12/07/23 08:40 O2 Del Method Room Air 12/07/23 08:40 BMI result Body Mass Index 25.6 Const: General: comfortable and no acute distress O rientation/consciousness: patient oriented x3 HEENT: Ears: hearing grossly normal bilaterally Resp: Effort & Inspection: normal respiratory effort and able to speak in complete sentences Auscultation: clear to auscultation bilaterally Cardio: Rate: regular rate Rhythm: regular rhythm Heart sounds: S1 normal heart sound present and S2 normal heart sound present Bruits: no abdominal aortic bruits, no carotid bruits, no femoral bruits and no renal bruits GI: Palpation (GI): No Abdominal aortic bruit present Neuro: General: patient oriented x3 Cranial nerves: Yes Normal hearing present Sensory Exam: No Sensory deficit (Neuro) Extrem: Other: Left lower extremity: Erythema extending from just below the knee to the toes with swelling and pain. Wound is wrapped up with Kerlix, did not take down. Palpable DP pulses. Right lower extremity: Venous stasis dermatitis changes, no wounds noted. Palpable DP pulses. CEAP: C - 6 E - primary A - superficial P - reflux Results Labs 12/07/23 05:43 12/07/23 05:43 Labs: Abnormal lab results 12/07/23 Range/Units 05:43 RBC 3.68 L (4.20-5.50) X10*6/uL Hgb 11.7 L (12.0-16.0) g/dl Hct 34.9 L (37.0-47.0) % MPV 8.3 L (9.4-12.3) fL Random Glucose 124 H (60-115) mg/dL Short CBC 12/07/23 Range/Units 05:43 WBC 6.2 (4.8-10.8) X10*3/uL Hgb 11.7 L (12.0-16.0) g/dl Hct 34.9 L (37.0-47.0) % Plt Count 318 (160-400) X10*3/uL BMP 12/07/23 05:43 Sodium 137 Potassium 4.9 Chloride 101 Carbon Dioxide 25 BUN 16 Creatinine 0.69 Calcium 9.2 All other labs normal. Assessment and Plan (1) Ulcer of lower extremity: Qualifiers: Laterality: left Non-pressure ulcer stage: with fat layer exposed Q ualified Code(s): L97.922 - Non-pressure chronic ulcer of unspecified part of left lower leg with fat layer exposed Status: Acute Plan We are consulted for Divina, a pleasant 73 year female, for ongoing bilateral lower extremity swelling, pain, and ulcers on the left lower extremity. She has a history of ulcers in the right lower extremity which have now healed. She is being followed by wound care once weekly. She has had an arterial duplex which was negative. She has also had several venous duplexes this month which were also negative for any DVTs. She established care at [facility] with Dr. Dean earlier this month; however, due to closer proximity she will be switching to us. We suggest continue with the wound care as recommended by the wound care clinic. Also continue antibiotics for the cellulitis. At this point, there is no acute surgical intervention needed. We will have her follow up with us outpatient. We will continue to follow. Thank you for the consult. There are any questions or concerns, please do not hesitate to reach out to us. Procedures Date of Service Date of Service: 12/07/23
--- NOTE | 2023-12-07 12:59 | MHC.CM.PN ---
CM MET WITH PT AT BEDSIDE. PT LIVES ALONE WITH CAT. USES ROLLATOR FOR LONG DISTANCE AND HAS MODIFIED BR. PT IS ACTIVE WITH [facility] FOR SN AND HAS SERVICES WITH [facility] 3X/WK. ACTIVE WITH [facility] 1X/WK +HCP ON FILE PCP DR. CHAVEZ DP: HOME WITH RESUMPTION OF SERVICES. PT WILL NEED [facility] SHUTTLE ON DC. CM WILL CONTINUE TO FOLLOW FOR ANY CHANGE TO DC PLAN/NEEDS.
--- NOTE | 2023-12-07 13:44 | HO.PM.IMPN ---
Subjective Subjective Date of Service: 12/07/23 Interval History: seen and evaluated feels better overall pain and erythema improving Review of Systems Review of Systems: Yes all other systems are reviewed and are negative Physical Exam Vital Signs: Vital Signs: Last Vital Signs Temp 97.7 F 12/07/23 08:40 Pulse 57 12/07/23 08:40 Resp 20 12/07/23 08:40 BP 183/79 H 12/07/23 08:40 Pulse Ox 91 L 12/07/23 08:40 O2 Del Method Room Air 12/07/23 08:40 BMI result Body Mass Index 25.6 Const: Other: Constitutional : Awake, interactive, not in distress Neck : Normal inspection, Supple Cardiovascular : RRR, no JVP, no lower extremity edema Respiratory : good bilateral air entry, no crackles, wheezes or rhonchi Gastrointestinal: soft, lax, Normal bowel sounds, Non tender Skin : Warm, Dry, LLE erythema and tenderness with mild edema, has 2 ulcers draining clear secretions, distal pulses can be felt Neurological : Alert & oriented x3, No focal deficit Objective Data Active Medications Acetaminophen (Acetaminophen 325 Mg Tablet) 650 mg PO Q6H PRN PRN Reason: Pain, Mild (Pain Scale 1-3), fever or headache Last Admin: 12/07/23 05:28 Dose: 650 mg Documented By: HELIO Amlodipine Besylate (Amlodipine Besylate 10 Mg Tablet) 10 mg PO DAILY [facility]; Protocol Last Admin: 12/07/23 07:43 Dose: 10 mg Documented By: MARS Calcium Carbonate (Calcium Carbonate 750 Mg Tab.Chew) 750 mg PO Q4H PRN PRN Reason: Heartburn Cefazolin Sodium (Cefazolin Sodium 1 Gm Vial) 1 gm IVPUSH Q8H [facility] Last Admin: 12/07/23 05:28 Dose: 1 gm Documented By: HELIO Donepezil HCl (Donepezil Hcl 10 Mg Tablet) 10 mg PO DAILY [facility] Last Admin: 12/07/23 07:44 Dose: 10 mg Documented By: MARS Enoxaparin Sodium (Enoxaparin Sodium 40 Mg/0.4 Ml Syringe) 40 mg SUBCUT Q24H [facility] Last Admin: 12/06/23 15:29 Dose: 40 mg Documented By: JOSE LUIS Ferrous Sulfate (Ferrous Sulfate 324 Mg Tablet.) 324 mg PO DAILY [facility] Last Admin: 12/07/23 07:43 Dose: 324 mg Documented By: MARS Hydrochlorothiazide (Hydrochlorothiazide 12.5 Mg Tablet) 12.5 mg PO DAILY [facility]; Protocol Last Admin: 12/07/23 10:03 Dose: 12.5 mg Documented By: DABCarol Hydroxyzine HCl (Hydroxyzine Hcl 25 Mg Tablet) 25 mg PO DAILY PRN PRN Reason: anxiety Last Admin: 12/06/23 21:02 Dose: 25 mg Documented By: HELIO Doxycycline Hyclate 100 mg/ (Sodium Chloride) 250 mls @ 166.67 mls/hr IV Q12H [facility] Last Infusion: 12/07/23 08:00 Dose: Infused Documented By: MARS Lisinopril (Lisinopril 5 Mg Tablet) 5 mg PO DAILY [facility]; Protocol Last Admin: 12/07/23 07:43 Dose: 5 mg Documented By: MARS Magnesium Hydroxide (Milk Of Magnesia 30 Ml Oral.Susp) 30 ml PO DAILY PRN PRN Reason: Constipation Melatonin (Melatonin 3 Mg Tablet) 6 mg PO BEDTIME PRN PRN Reason: Insomnia Last Admin: 12/06/23 21:02 Dose: 6 mg Documented By: HELIO Multivitamins/Vitamin C (Multivitamin Tablet) 1 tab PO DAILY [facility] Last Admin: 12/07/23 07:44 Dose: 1 tab Documented By: MARS Omeprazole (Omeprazole 20 Mg Capsule.) 20 mg PO DAILY@0630 [facility] Last Admin: 12/07/23 05:33 Dose: 20 mg Documented By: HELIO Ondansetron HCl (Ondansetron Hcl 4 Mg/2 Ml Vial) 4 mg IVPUSH Q8H PRN PRN Reason: Nausea and Vomiting Sertraline HCl (Sertraline Hcl 50 Mg Tablet) 50 mg PO DAILY [facility] Last Admin: 12/07/23 07:43 Dose: 50 mg Documented By: MARS Sodium Chloride (0.9 % Sodium Chloride Flush 3 Ml Syringe) 3 ml IVFLUSH QSHIFT [facility] Last Admin: 12/07/23 07:44 Dose: Not Given Documented By: MARS Non-Admin Reason: IV Running Labs 12/07/23 05:43 12/07/23 05:43 Labs: Laboratory Results - last 24 hr 12/06/23 12/07/23 22:14 05:43 MCV 94.8 MCH 31.8 MCHC 33.5 RDW 14.1 Plt Count 318 MPV 8.3 L Absolute Nucleated RBC 0.000 Nucleated RBC % (auto) 0.0 Anion Gap 16 Estim Creat Clear Calc 61.9 Estimated GFR > 60 Random Glucose 124 H Calcium 9.2 Nasal Screen MRSA (PCR) NEGATIVE Nasal S. aureus Screen NEGATIVE Nasal MRSA/S.aureus Interp SEE NOTE Microbiology Microbiology Results: Microbiology 12/06/23 10:52 Blood Culture - Preliminary Blood - Venous No growth after 24 hours. 12/06/23 10:52 Blood Culture - Preliminary Blood - Venous No growth after 24 hours. Assessment and Plan (1) Cellulitis: Status: Acute (2) Ulcer of lower extremity: Status: Acute Plan A 73 years old lady with PMH of alcohol abuse, neuropathy, depression and Hx chronic ulceration in LEs presenting from Wound care clinic for worsening ulcer and cellulitis. LLE cellulitis with open ulcers Not septic Doppler US negative for DVT Pending cultures MRSA screen continue Doxycycline and Cefazolin Vascular surgery rec outpatient follow up for arterial studies , continue antibiotics Hx Alcohol abuse CIWA protocol HTN Amlodipine, Lisinopril and HCT GERD Omeprazole DVT PPx Lovenox The patient will need overnight hospital stay for treatment of LLE cellulitis with IV antibiotics pending surgical evaluation Quality Stroke Does the patient have a stroke diagnosis?: No VTE Prior VTE?: No VTE Risk Level:: Medical - moderate - high VTE Device Contraindication: Treatment Not Indicated VTE Drug Contraindication: N/A - Med Ordered
[2023-12-07] MEDS: Enoxaparin Sodium 40 MG/0.4 ML SYRINGE SUBCUT (14:40)
--- NOTE | 2023-12-07 15:22 | HO.SKINPHOTO ---
Location:LLE Category: vascular ulcer w cellulitis external aspect Location:LLE Category:vascular ulcer w cellulitis. internal aspect
[2023-12-07 15:53] VITALS: BMI 25.6
[2023-12-07 16:00] VITALS: BP 160/70; PULSE 65; RESP 16; TEMP 37; O2SAT 94
[2023-12-07 20:00] VITALS: BP 146/63; PULSE 63; RESP 14; TEMP 37.1; O2SAT 95
[2023-12-07] MEDS: Melatonin 3 MG TABLET 6 MG PO (21:19)
[2023-12-07] MEDS: hydrOXYzine HCL 25 MG TABLET PO (21:19)
[2023-12-08 02:33] VITALS: BP 148/70; PULSE 63; RESP 16; TEMP 36.6; O2SAT 94
[2023-12-08] MEDS: ceFAZolin Sodium 1 GM VIAL IVPUSH ×2 (04:19→11:16)
[2023-12-08] MEDS: Doxycycline Hyclate 100 MG in 0.9 % Sodium Chloride 250 ML 166.67 MG IV (06:09)
[2023-12-08] MEDS: Omeprazole 20 MG CAPSULE.DR PO (06:09)
[2023-12-08 07:47] VITALS: BP 149/67; PULSE 58; RESP 19; TEMP 37; O2SAT 95
[2023-12-08 08:41] VITALS: BP 149/67
[2023-12-08] MEDS: amLODIPine Besylate 10 MG TABLET PO (08:41)
[2023-12-08] MEDS: Donepezil HCl 10 MG TABLET PO (08:43)
[2023-12-08] MEDS: Ferrous Sulfate 324 MG TABLET.DR PO (08:43)
[2023-12-08 08:44] VITALS: BP 149/67
[2023-12-08] MEDS: hydroCHLOROthiazide 12.5 MG TABLET PO (08:44)
[2023-12-08 08:45] VITALS: BP 149/67
[2023-12-08] MEDS: lisinopriL 5 MG TABLET PO (08:45)
[2023-12-08] MEDS: Multivitamin TABLET 1 TAB PO (08:46)
[2023-12-08] MEDS: Sertraline HCL 50 MG TABLET PO (08:47)
--- NOTE | 2023-12-08 11:14 | MHC.CM.PN ---
Patient medically cleared for dc home w/ resumption of [facility]POINT[facility] and [facility] services. Will be transported home via [facility] shuttle. RN aware.
--- NOTE | 2023-12-08 11:48 | P.DS_ITS ---
DS: Providers Provider Date of Service: 12/08/23 Date of admission: 12/06/23 15:04 Date of discharge: 12/08/23 Primary care physician: Derrell Hurst MD Consults: 12/06/23 15:04 Consult to Vascular Surgery Routine Consulting Provider: [facility] Reason for consultation: non-healing Ulcers LLE with cellulitis 12/07/23 15:46 Consult to Wound Care Routine Reason for consultation: vascular ulceration LLE DS: Diagnosis Discharge Diagnosis (1) Cellulitis: Status: Acute (2) Ulcer of lower extremity: Status: Acute DS: Summary Hospital Course Hospital Course: Admission note HPI A 73 years old lady with PMH of alcohol abuse, neuropathy, depression and Hx chronic ulceration in LEs presenting from Wound care clinic for worsening ulcer and cellulitis. The patient reports having bilateral lower extremities open wounds for 1.5 years now. the right leg ulcer healed but left leg one did not and has been getting worse with more drainage and increase surrounding erythema. Today she was noted to be febrile at 101 at home with increase pain and redness in her LLE. Will be admitted for further evaluation and treatment. Hospital course The patient was left lower extremity cellulitis with open ulcers that was treated with IV antibiotics of Doxyucycline and Cefazolin with good response over the course of hospital stay as erythema and pain improved significantly. Doppler US negative for DVT and blood cultures remained negative. Evaluated by Vascular surgery who recommended outpatient follow up for further studies after treating the infection. will be dischaged home on Doxycycline and Augmentin for 1 more week and followed by VNA for wound care and wound care clinic visit. Discharge plan Continue antibiotics for 1 more week Wound care at home Follow with Vascular team as outpatient; Dr Hernandez Left Leg: Cleanse with saline, apply Triad to periwound cover wound bed with Durafiber AG, cover with ABD pad, gauze wrap. Change every 1-2 days as possible. Time Attestation Discharge Coordination Time (in mins): 38 Quality: Safe Use of Opioids Does Pt have an Active Cancer Diagnosis on the Problem List?: No Quality: Stroke Does the patient have a stroke diagnosis?: No Physical Exam Vital Signs: Vital Signs: Last Vital Signs Temp 98.6 F 12/08/23 07:47 Pulse 58 12/08/23 07:47 Resp 19 12/08/23 07:47 BP 149/67 H 12/08/23 08:45 Pulse Ox 95 12/08/23 07:47 O2 Del Method Room Air 12/08/23 07:47 BMI result Body Mass Index 25.6 Const: Other: Constitutional : Awake, interactive, not in distress Neck : Normal inspection, Supple Cardiovascular : RRR, no JVP, no lower extremity edema Respiratory : good bilateral air entry, no crackles, wheezes or rhonchi Gastrointestinal: soft, lax, Normal bowel sounds, Non tender Skin : Warm, Dry, LLE erythema and tendernessresolving with decreased, has 2 ulcers draining clear secretions covered with dressing, distal pulses can be felt Neurological : Alert & oriented x3, No focal deficit DS: Data Data Completed and Pending Labs on day of discharge: Preliminary micro results at discharge 12/06/23 10:52 Blood Culture - Preliminary Blood - Venous No growth after 24 hours. 12/06/23 10:52 Blood Culture - Preliminary Blood - Venous No growth after 24 hours. Imaging Chest x-ray: Radiologist's impression: ITS Impressions Venous Duplex 12/06/23 12:46 IMPRESSION: No evidence of deep venous thrombosis involving the left lower extremity. Electronically signed by: Joseph Colón MD 12/06/2023 01:54 PM EDT RP Discharge Plan Discharge Anticipated Discharge Date/Time: 12/08/23 11:28 Patient Disposition: Home Health Service Discharge Diagnosis: Cellulitis , open ulcers Peripheral vascular disease Referrals: [facility] [Outside] - 3-5 Days (resume services) [facility] [Outside] - 1 Week (Call wound clinic to schedule follow up) Derrell Hurst MD [Primary Care Provider] - 1 Week Discharge Medications: New doxycycline monohydrate 100 mg capsule 100 mg PO BID Qty: 14 0RF amoxicillin-pot clavulanate 875-125 mg tablet 1 tab PO BID Qty: 14 0RF oxycodone 5 mg tablet 5 mg PO Q6H PRN (Reason: pain (scale score 7-10)) Qty: 20 0RF Rx Instructions: Partial Fill upon patient request. Continued donepezil 10 mg tablet 1 tab PO DAILY 30 Days Qty: 30 0RF hydrochlorothiazide 12.5 mg capsule 1 cap PO DAILY 30 Days Qty: 30 0RF omeprazole 20 mg capsule,delayed release(DR/EC) 20 mg PO DAILY 30 Days Qty: 30 0RF sertraline 50 mg tablet 50 mg PO DAILY 30 Days Qty: 30 0RF lisinopril 5 mg tablet 5 mg PO DAILY hydroxyzine HCl 25 mg tablet 25 mg PO DAILY PRN (Reason: anxiety) betamethasone dipropionate 0.05 % cream 1 appl topical DAILY PRN (Reason: Itching) calcium carbonate-vitamin D3 600 mg-5 mcg (200 unit) Tablet 1 tab PO DAILY amlodipine 5 mg tablet 10 mg PO DAILY multivitamin Tablet 1 tab PO DAILY ferrous sulfate 325 mg (65 mg iron) Tablet 325 mg PO DAILY magnesium chloride 70 mg tablet,delayed release (DR/EC) 400 mg PO DAILY Discharge Orders: Discharge Order (Routine); Ordered 12/08/23 Ordered By: Estevan Jackson Diet: Advance to usual diet Activity on Discharge: As tolerated Stand Alone Forms: Patient Portal Discharge page Print Language: Chinese Care Plan Goals: Continue antibiotics for 1 more week Wound care at home Follow with Vascular team as outpatient; Dr Hernandez Health Concerns: Cellulitis Plan of Treatment: Antibiotics Assessment: as above
--- NOTE | 2023-12-08 12:10 | HO.VASCPN ---
Subjective Subjective Date of Service: 12/08/23 Interval history: Divina is doing well today. She is eating, sleeping and drinking well. She is getting discharged home today. She states her leg feels a little bit better. She denies any fevers, chills, and body aches. Physical Exam Vital Signs: Vital Signs: Last Vital Signs Temp 98.6 F 12/08/23 07:47 Pulse 58 12/08/23 07:47 Resp 19 12/08/23 07:47 BP 149/67 H 12/08/23 08:45 Pulse Ox 95 12/08/23 07:47 O2 Del Method Room Air 12/08/23 07:47 BMI result Body Mass Index 25.6 Const: General: comfortable and no acute distress Orientation/consciousness: patient oriented x3 HEENT: Ears: hearing grossly normal bilaterally Resp: Effort & Inspection: normal respiratory effort and able to speak in complete sentences Auscultation: clear to auscultation bilaterally Cardio: Rate: regular rate Rhythm: regular rhythm Heart sounds: S1 normal heart sound present and S2 normal heart sound present Bruits: no abdominal aortic bruits, no carotid bruits, no femoral bruits and no renal bruits GI: Palpation (GI): No Abdominal aortic bruit present Neuro: General: patient oriented x3 Cranial nerves: Yes CN's II-XII intact bilaterally Extrem: Other: Left lower extremity: Wound is wrapped up with Kerlix, we did not take it down. The surrounding areas are less erythematous. Palpable DP pulses. Progress Note: A&P Assessment and plan (1) Ulcer of lower extremity: Status: Acute Plan Divina is doing much better and will be getting discharged today. She will continue on antibiotics for the next week. She does have VNA services at home which was once a week but it may increase to 3 times a week per patient. She does have her wound care follow up next Monday. She states she would like to follow up with us and not Dr. Dean, so we will reach out to her with a follow up appointment after discharge. We discussed continuing dressing changes and keeping the area clean and dry. Thank you for the consult. There are any questions or concerns, please do not hesitate to reach out to us. Time Spent With Patient Time: Total time managing care of this patient today __25__ minutes. Procedures Date of Service Date of Service: 12/08/23 Quality Stroke Does the patient have a stroke diagnosis?: No VTE Prior VTE?: No VTE Risk Level:: Medical - moderate - high VTE Device Contraindication: Treatment Not Indicated VTE Drug Contraindication: N/A - Med Ordered
== END 2023-12-08 12:21 | disposition home health service (06) | DRG 603 ==
LOC: HO.ED 15:18 → HO.EDOVER 22:05 → HO.S3 12-07 07:25
PROVIDERS: Admitting Provider Student in an Organized Health Care Education/Training Program; Emergency Provider Emergency Medicine Emergency Medical Services; PCP Internal Medicine; Visit Provider Student in an Organized Health Care Education/Training Program
DX: L03.116 Cellulitis of left lower limb (principal); L97.929 Non-pressure chronic ulcer of unspecified part of left lower leg with unspecified severity; I10 Essential (primary) hypertension; K21.9 Gastro-esophageal reflux disease without esophagitis; I87.2 Venous insufficiency (chronic) (peripheral); G62.9 Polyneuropathy, unspecified; F10.21 Alcohol dependence, in remission; Z79.899 Other long term (current) drug therapy
CPT/HCPCS: 36415; 80048; 83605; 85025; 85027; 87040; 87640; 87641; 93971; 99285; J0690; J1650; J1885

== ENCOUNTER → 2023-12-06 10:46 | Outpatient (BNV) | payer BC, SELFPAY | PROVIDERS: Emergency Provider Emergency Medicine Emergency Medical Services; PCP Internal Medicine; Visit Provider Student in an Organized Health Care Education/Training Program | DX: L97.922 Non-pressure chronic ulcer of unspecified part of left lower leg with fat layer exposed (principal); L03.116 Cellulitis of left lower limb | CPT/HCPCS: 99223; 99232; 99239 ==

== ENCOUNTER → 2023-12-06 15:04 | Outpatient (BNV) | payer MEDICARE, BC, SELFPAY | PROVIDERS: Admitting Provider Student in an Organized Health Care Education/Training Program; Emergency Provider Emergency Medicine Emergency Medical Services; PCP Internal Medicine; Visit Provider Physician Assistant Surgical | DX: L97.922 Non-pressure chronic ulcer of unspecified part of left lower leg with fat layer exposed (principal) | CPT/HCPCS: 99222; 99232 ==

== ENCOUNTER 2024-01-02 14:14 | Outpatient (AMB) | payer MEDICARE, BC, SELFPAY ==
--- NOTE | 2024-01-02 14:18 | MHC.OFFVIS ---
Intake Visit Reasons: Hospital Follow up non-healing ulcers/cellulitis Intake Note: Patient presents for hospital follow up. Patient states she has had an ulcer on her left leg that has not healed in almost 2 years. Patient goes to wound care weekly. Changing to biweekly. Upon removing bandages , patient had a half dollar sized amount of yellow/bloody discharge, odorous and flaky. Allergies No Known Allergies [No Known Allergies*] Allergy (Verified 01/02/24 14:23) HPI HPI Hospital Follow up non-healing ulcers/cellulitis: Details: Divina, a pleasant 73-year-old female patient, is presenting for follow-up from a hospitalization for nonhealing wound ulcers in her left lower extremity as well as cellulitis. She states she has been going on for over 3 years now this 1 particularly over 1-1/2 years. She sees [place] wound care initially every week, this has been changed to every 2 weeks. She does have VNA services the come to her house 3 times a week for dressing changes. She does endorse significant pain to the area. She is frustrated because no one is able to give her pain medications for this. She was sent home with 1 week of more of antibiotics and has completed them. [facility] Medical History Ulcer of lower extremity Neuropathy Cognitive impairment Hypertension Depression Alcoholism Surgical History History of rotator cuff surgery History of bilateral knee replacement Hx of gastric bypass (~2011) Social History Household Members: None Housing: Condominium Do you presently have visiting nurse or other home services: Yes Alcohol intake: current Alcohol intake frequency: holidays/special occasions only Comment: pt going to [place] [id number] psy unit Patient Tobacco Use Status: Former Tobacco user Advance Directives Date on File: 11/11/22 service: No Sexual orientation: Straight/Heterosexual Review of Systems Const Reports as per HPI and Denies weakness ENT Reports Normal hearing present and Denies dizziness Card Reports as per HPI, Denies chest pain, Denies chest pain at rest, Denies chest pain with activity, Denies dyspnea and Denies dyspnea on exertion Resp Reports as per HPI, Denies cough, Denies dyspnea and Denies dyspnea on exertion GI Reports as per HPI, Denies abdominal pain, Denies nausea and Denies vomiting Musc Denies numbness Skin/Breast Reports as per HPI, Denies erythema and Denies wounds Neuro Reports Normal hearing present, Denies dizziness, Denies numbness, Denies Sensory deficit (Neuro) and Denies weakness Psych Reports no additional complaints Endo Reports no additional complaints Physical Exam Const General: healthy appearing and no acute distress Orientation/consciousness: patient oriented x3 HEENT Head: Yes normal to inspection Ears: hearing grossly normal bilaterally Mouth: Normal oral and palatal mucosa present Resp Effort & Inspection: normal respiratory effort and able to speak in complete sentences Auscultation: clear to auscultation bilaterally Cardio Jugular venous distension: no JVD Rate: regular rate Rhythm: regular rhythm Heart sounds: S1 normal heart sound present and S2 normal heart sound present Bruits: no abdominal aortic bruits, no carotid bruits, no femoral bruits and no renal bruits Peripheral pulses: Peripheral pulses 2+ throughout GI Inspection: Yes normal to inspection Palpation (GI): No Abdominal aortic bruit present Skin General skin exam: no rashes or lesions noted Wounds: no wounds Hair: normal Neuro General: patient oriented x3 Cranial nerves: Yes Normal hearing present Cognition (Neuro): normal cognition Gait exam (Neuro): Normal gait present Motor exam (neuro): 5/5 motor strength present throughout Sensory Exam: No Sensory deficit (Neuro) Extrem Other: Left lower extremity wound: Periwound is pink. Triad is in the surrounding area of the wound. Erythema has lessened in the lower extremity. She does have discoloration noted from mid tolliver to her ankles. Plus two peripheral edema noted. Wound bed reveals pink granulation tissue. General: Yes normal to inspection, Yes full ROM, Yes capillary refill normal and Yes normal gait Assessment & Plan Assessment & Plan (1) Nonhealing ulcer of left lower extremity: Code(s): L97.929 - Non-pressure chronic ulcer of unspecified part of left lower leg with unspecified severity Category: Medical Plan: Jana is presenting today as a follow up to recent hospitalization for a nonhealing left lower extremity ulcer. She has had multiple imaging over the last couple of months with Dr. Dean including a rule out DVT as well as arterial duplex which was negative. She continues to endorse frustrations about the wounds not healing. She is also frustrated because she is having significant pain and no one has been able to give her any pain medications, including her PCP. We discussed that we do not do pain medications here but we will refer her to pain management. We discussed to continue with the current wound care treatment including triad around the wound, alginate dressing on the wound itself, covering with 4x4s and ABD pad, then Kerlix wrap. We have ordered venous insufficiency ultrasound to rule out any possible venous insufficiency to prevent healing. We will have her follow up with us once the ultrasound is completed. There are any questions or concerns, please do not hesitate to reach out to us. Orders: Orders US venous duplex LE BI 1 Week L97.929 - Non-pressure chronic ulcer of unspecified part of left lower leg with unspecified severity Referrals Pain Management Referral L97.929 - Non-pressure chronic ulcer of unspecified part of left lower leg with unspecified severity Coding Level of Care Code Est Pt Level 4 (49063) Diagnoses Nonhealing ulcer of left lower extremity L97.929 Comment Wound care, review of hospital records and diagnostics
== END 2024-01-02 14:48 | disposition home or self-care (01) ==
PROVIDERS: PCP Internal Medicine; Visit Provider Physician Assistant Surgical
DX: L97.929 Non-pressure chronic ulcer of unspecified part of left lower leg with unspecified severity (principal)
CPT/HCPCS: 99214

== ENCOUNTER → 2024-01-02 14:14 | Outpatient (BNVA) | payer MEDICARE, BC, SELFPAY | PROVIDERS: PCP Internal Medicine; Visit Provider Physician Assistant Surgical | DX: L97.929 Non-pressure chronic ulcer of unspecified part of left lower leg with unspecified severity (principal) | CPT/HCPCS: 99212 ==

== ENCOUNTER 2024-01-18 08:40 | Outpatient (AMB) | payer MEDICARE, BC, SELFPAY ==
--- OUTSIDE RECORDS SUMMARY | 2024-01-18 08:55 | XMS_ITS | Continuity of Care Document ---
Author Organization [facility] Address [address] [place] [address] Phone Care Team Providers Care Director Of Health Care Marketing Name Role Phone Parminder MELGAR, RASHAWN, JORDAN, [...] Providers Copied on Encounter [facility], [address] [place] [address] Dr Freeman [address], [id number], [place] tel:[phone] CVR - [place] No Information 4 Parminder MELGAR, RVT, VI Paulino. [address], [address], [place], [id number] , [place]. tel:[phone] Office/Outpt E&M Established 15 Mins [facility], [address] [place] [address] Dr Freeman [address], [id number], [place] tel:[phone] CVR - [facility] Chronic venous htn w oth comp of bilateral low extrmNon-pressu re chronic ulcer of left ankle with unsp severity 3 Aleks MELGAR FACS T [facility] Amber Barber. [address], [place] [address], [place], [address], [place]. [phone] Referring Provider: Amber Fink MD FACS T [facility], [facility], [facility] [address] [facility] Suite [facility], [place], [address]. tel:[phone] Office/Outpt E&M Established 15 Mins [facility], [address] [place] [address] Dr Freeman [address], [id number], [place] tel:[phone] CVR - [facility] Postproc hemor/hemtom of skin, subcu following oth procedureChroni c venous htn w oth comp of bilateral low extrm 3 Kiana Bradley . [address], [address], [facility] [place], [id number] , [place]. tel:[phone] Referring Provider: Amber Fink MD FACS RVT [facility], [address] [place] [address] [address], [place], [address]. tel:[phone] [facility], [address] [place] [address] Dr Freeman [address], [id number], [place] tel:[phone] CVR - [facility] Encntr for f/u exam aft trtmt for cond oth than malig neoplmVenous insufficiency (chronic) (peripheral) 3 Aleks MELGAR FACS RVT [facility] Amber Barber. [address], [address], [facility] [place] [place], [address], [place]. [phone] Referring Provider: Amber Fink MD FACS RVT [facility], [facility], [facility] [address], [facility] [place] [place], [address]. 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 [address], [address], [facility] [place], [place], [id number] , [place]. tel:[phone] Referring Provider: Amber Fink MD FACS RVT [facility], [facility], [facility] [address], [facility] [place] [place], [address]. tel:[phone] [facility], [address] [place] [address] [address], [place], [id number], [place] tel:[phone] [place] - [place] Venous insufficiency (chronic) (peripheral) 3 Aleks MELGAR FACS RVT VI Amber Barber. [facility], [facility] [address], [address], [place], [address], [place]. [phone] Referring Provider: Amber Fink MD FACS RVT RP, [facility] [address] [facility] [address], [facility] [place] [place], [address]. tel:[phone] [facility], [address] [place] [address] [address], [id number], [place] tel:[phone] [place] - [place] Venous insufficiency (chronic) (peripheral) 3 Aleks MELGAR FACS RVT VI Amber Barber. [address], [address], [facility] [place], [address], [place]. tel:[phone] Referring Provider: Amber Fink MD FACS [facility] RP, [address] [place] [address] [address], [place], [address]. tel:[phone] Office/Outpt E&M Established 15 Mins [facility], [address] [place] [address] Dr [address], [place], [id number], [place] tel:[phone] CVR - [facility] Encounter for other preprocedural examination 3 Aleks MELGAR FACS RVT [facility] Amber Sunil. [address] [place] [address], [address], [facility] [place], [address], [place]. tel:[phone] Referring Provider: Amber Fink MD FACS RVT RP, [address] [place] [address] Suite [facility], [place], [address]. tel:[phone] Office/Outpt E&M Established 25 Mins [facility], [address] [place] [address] Dr [address], [place], [id number], [place] tel:[phone] CVR - [facility] Chronic venous htn w inflammation of bilateral low extrm 3 Aleks MELGAR FACS RVT [facility] Amber Sunil. [address] [place] [address], Suite [facility], [facility] [place] [place], [address], [place]. [phone] Referring Provider: Amber Fink MD FACS RVT [facility], [address] [place] [address] Suite [facility], [place], [address]. tel:[phone] [place] [facility], [address] [place] [address] Dr [address], [place], [id number], [place] tel:[phone] CVR - [facility] Non-pressure chronic ulcer of left calf w fat layer exposedChronic venous htn w ulcer and inflam of bilateral low extrm Fe 3 Aleks MELGAR FACS RVT [facility] Amber Sunil. [facility], [facility] [address] [facility], [address], [place], [address], [place]. [phone] Referring Provider: Amber Fink MD FACS RVT RP, [address] [place] [address] Suite [facility], [place], [address]. tel:[phone] Office/Outpt E&M Established 15 Mins [facility], [address] [place] [address] [address], [place], [id number], tel:[phone] CV[place] - [place] Body mass index (BMI) 27.0-27.9, adultChronic venous hypertension w/o comp of bilateral low extrmNon-pressu re chronic ulcer of left calf with unsp severityVaricos e veins of right lower extremity w ulcer of unsp siteChronic venous hypertension w/o comp of r low extremNon-press ure chronic ulcer of right calf with unsp severity 3 Aleks MELGAR FACS T JORDAN Barber. [address] [place] [address], [place] [address], [place], [address], [place]. tel:[phone] Referring Provider: Amber Fink MD, FACS [facility], [address] [place] [address], [place], [address]. tel:[phone] [facility], [address] [place] [address] [address], [place], [id number], [place] tel:[phone] CV[place] - [place] Venous insufficiency (chronic) (peripheral) 3 Aleks MELGAR FACS Kristy Barber. [address] [place] [address], [place], [address], [place]. tel:[phone] Referring Provider: Amber Fink MD FACS [facility], [address] [place] [address], [place], [address]. tel:[phone] Office/Outpt E&M Established 15 Mins [facility], [address] [place] [address] [address], [place], [id number], [place] tel:[phone] CVR - [place] Body mass index (BMI) 26.0-26.9, adultChronic venous htn w inflammation of bilateral low extrmCramp and spasmType 2 diabetes mellitus without complications 3 Aleks MELGAR FACS Kristy Barber. [address] [place] [address], [place] [address], [place], [address], [place]. tel:[phone] Referring Provider: Amber Fink MD FACS RVT VI, [address], [facility] [place], [address]. tel:[phone] Family History Family Member Type Diagnosis Age At Onset No Information Payers Payer name Insurance type Covered alliance party ID Authoriza tion(s) No Information Social [...]
[2024-01-18 09:24] VITALS: BP 138/91; PULSE 92; O2SAT 96
--- NOTE | 2024-01-18 09:24 | A.OFFVIS_ITS ---
Vital Signs 01/18/24 09:24 Weight 138 lb BP 138/91 H Blood Pressure Location Lt brachial Position Sitting Pulse 92 Pulse Source Pulse Oximeter Pulse Oximetry (%) 96 Oxygen Delivery Method Room Air Intake Visit Reasons: Non-pressure chronic ulcer/ Lt leg Allergies No Known Allergies [No Known Allergies*] Allergy (Verified 01/18/24 09:25) Medication List - Last Reconciled 01/18/24 by Haritha Rosa, [employer]ER amoxicillin-pot clavulanate 875-125 mg 1 tab PO BID betamethasone dipropionate 0.05% 1 appl topical DAILY PRN calcium carbonate-vitamin D3 600 mg-5 mcg (200 unit) 1 tab PO DAILY donepezil 1 tab PO DAILY 30 days doxycycline monohydrate 100 mg PO BID ferrous sulfate 325 mg PO DAILY hydrochlorothiazide 1 cap PO DAILY 30 days hydroxyzine HCl 25 mg PO DAILY PRN lisinopril 10 mg PO DAILY magnesium chloride 400 mg PO DAILY multivitamin 1 tab PO DAILY omeprazole 20 mg PO DAILY 30 days oxycodone 5 mg PO Q6H PRN sertraline 50 mg PO DAILY 30 days HPI Comments Details: Divina is very pleasant 73 years old female who presents in my office with complains on pain in the left lower extremity. She reports that pain is related to stasis ulcer on the lateral as well as medial surface of the ankle. She reports that this ulcer exists for 2 years. She reports pain in this lower extremity 10/10 today. She reports that she is having dressing changes every other day by visiting nurses. She reported that she never tried hyperbaric oxygen to treat this wound. She never tried Unna boot to treat this wound. She was referred to Dr. Hernandez and now she is scheduled for CT scan of the lower extremity venous images to decide if any surgical intervention will help her condition. Because of her pain she can not sleep normally, can not do activities of daily living, she can take care of herself, she can not function normally. He is retired individual. The most severe pain during the day and night she reports less severe pain in the afternoon as 6/10. In terms of tissue damage he reports her pain as pulsing, throbbing, pounding, tiring, exhausting, sickening and suffocating, fearful fried full terrifying, she had prolonged history of treatment of this wounds with our wound care center. She had some images including ultrasound evaluating vascular beds of the left lower extremity. Her primary care physician prescribes her oxycodone 5 mg q.d. and she reports that this medication does not help her pain. Her past medical history significant for hypertension alcohol addiction, she was under care of Dr. Rosenda Arias in 2020 for alcohol addiction, she was on naltrexone however due to poor adherence to the schedules and due to urine drug screen positive for oxycodone she was discharged. She continues to drink up to a glass of vodka a day, she denies other recreational drugs. Other past medical history includes arthritis and history of gastric bypass. Surgical history significant for in 81 appendectomy in 89 total knee replacement in 2018 and rotator cuff surgery in 2019 as well as gastric bypass surgery. She stopped smoking cigarettes 24 years ago she drinks coffee and caffeinated beverages per cups of coffee a day she denies other recreational drugs. [facility] Medical History Ulcer of lower extremity Neuropathy Cognitive impairment Hypertension Depression Alcoholism Surgical History History of rotator cuff surgery History of bilateral knee replacement Hx of gastric bypass (~2011) Social History Household Members: None Housing: Condominium Do you presently have visiting nurse or other home services: Yes Alcohol intake: current Alcohol intake frequency: holidays/special occasions only Comment: pt going to [place] [id number] psy unit Patient Tobacco Use Status: Former Tobacco user Advance Directives Date on File: 11/11/22 service: No Sexual orientation: Straight/Heterosexual Review of Systems Const Reports as per HPI and Denies weakness ENT Reports Normal hearing present Card Denies chest pain, Denies chest pain at rest, Denies chest pain with activity, Denies dyspnea and Denies dyspnea on exertion Resp Denies cough, Denies dyspnea and Denies dyspnea on exertion GI Denies abdominal pain Skin/Breast Reports as per HPI, Denies erythema and Denies wounds Neuro Reports Normal hearing present, Denies Abnormal speech present, Denies confusion, Denies Sensory deficit (Neuro) and Denies weakness Psych Reports no additional complaints and Denies confusion Endo Reports no additional complaints Physical Exam Vital Signs: Last Vital Signs Pulse 92 01/18/24 09:24 BP 138/91 H 01/18/24 09:24 Pulse Ox 96 01/18/24 09:24 Oxygen Delivery Method Room Air 01/18/24 09:24 Const General: no acute distress; No confusion Orientation/consciousness: patient oriented x3 and No confusion Eyes General: appearance normal, both eyes and all related structures Pupils: Equal, round and reactive pupils present EOM: EOMs intact bilaterally Neck Neck: Yes full ROM Chest Chest palpation & inspection: normal inspection of the chest Resp Effort & Inspection: normal respiratory effort, able to speak in complete sentences, normal respiratory pattern, no audible wheezes and no cough Cardio Jugular venous distension: no JVD GI Inspection: Yes normal to inspection Neuro General: patient oriented x3, gait normal and No confusion Cranial nerves: Yes CN's II-XII intact bilaterally, Yes Equal, round and reactive pupils present, Yes Normal hearing present and Yes Ability to bilaterally elevate shoulders present Speech: No Abnormal speech present Gait exam (Neuro): Normal gait present Motor exam (neuro): 5/5 motor strength present throughout Sensory Exam: No Sensory deficit (Neuro) Extrem General: No pedal edema Psych Speech and movement: Normal speech and movement present Affect: normal affect Attitude: cooperative Thought process: Normal thought process present Thought content: Normal thought content present Insight: Good insight present (Psych) Judgement: Good judgement present (Psych) Assessment & Plan Assessment & Plan (1) Alcohol dependence: Code(s): F10.20 - Alcohol dependence, uncomplicated Category: Medical Qualifiers: Complication of substance-induced condition: with unspecified complication Substance use status: with intoxication Qualified Code(s): F10.229 - Alcohol dependence with intoxication, unspecified (2) Chronic pain syndrome: Code(s): G89.4 - Chronic pain syndrome Category: Medical Plan This patient is chronic alcoholic and continues to drink about a glass of vodka a day. She tried treatment for sobriety with Dr. Arias. She was discharged from the treatment secondary to non adherence to the regimens and presence of opioids in the urine. She therefore is very poor candidate for the chronic opioid therapy. She is prescribed minimal doses of the opioid by her primary care physician oxycodone 5 mg q.d. I offered this patient to start on gabapentin 300 mg t.i.d. to help her pain. I also discussed with her possibility of starting her on Celebrex with escalation of the doses . However for this medication I need a clearance from bariatric surgery office. I requested the patient to provide me bariatric surgery clearance note next time she is in my office in a we will start her on Celebrex and attempts escalating the medication until side effects are seen or until maximum pain relief effect is done. Next appointment with me in 2 months. Medications: New gabapentin 300 mg PO TID 30 days 90 caps 8RF Coding Level of Care Code New Pt Level 3 (06762) Diagnoses Alcohol dependence F10.229 Complication of substance-induced condition: with unspecified complication Substance use status: with intoxication Chronic pain syndrome G89.4
== END 2024-01-18 10:39 | disposition home or self-care (01) ==
PROVIDERS: PCP Internal Medicine; Visit Provider Anesthesiology
DX: F10.229 Alcohol dependence with intoxication, unspecified (principal); G89.4 Chronic pain syndrome
CPT/HCPCS: 99203

== ENCOUNTER → 2024-01-18 08:40 | Outpatient (BNVA) | payer MEDICARE, BC, SELFPAY | PROVIDERS: PCP Internal Medicine; Visit Provider Anesthesiology | DX: F10.229 Alcohol dependence with intoxication, unspecified (principal); G89.4 Chronic pain syndrome | CPT/HCPCS: 99202 ==

== ENCOUNTER 2024-01-26 12:25 | Outpatient (REF) | payer MEDICARE, BC, SELFPAY ==
--- NOTE | ~2024-01-26 | US_ITS ---
EXAMINATION: US LOWER EXTREMITY VENOUS (REFLUX EXAM), BILATERAL CLINICAL INFORMATION: Non-pressure chronic ulcer of left lower extremity. COMPARISON: Prior venous ultrasound examinations, most recently 12/06/2023. TECHNIQUE: Color flow triplex imaging and compression Doppler was performed to evaluate both the deep and the superficial systems bilaterally. To evaluate the superficial system, the examination was performed in the upright position. Color-flow Doppler ultrasound and compression ultrasound were utilized. In addition, maneuvers were utilized to demonstrate reflux. FINDINGS: 1. DEEP VENOUS ULTRASOUND OF THE RIGHT LOWER EXTREMITY: Common Femoral Vein: Compressible, normal respiratory variation and augmented flow. Femoral Vein: Compressible, normal color flow and augmentation. Popliteal Vein: Compressible, normal augmentation. Deep Reflux: There is no evidence of reflux in the deep system in either the common femoral vein, superficial femoral or the popliteal vein. There is no evidence of a Swann's cyst. 2. SUPERFICIAL ULTRASOUND WITH DOPPLER OF RIGHT LOWER EXTREMITY: GREAT SAPHENOUS VEIN: Saphenofemoral Junction: 0.6 cm; Reflux: 0 ms Proximal Thigh: 0.5 cm; Reflux: 0 ms Mid Thigh: Not visualized Distal Thigh: Not visualized At Knee: Not visualized Proximal Calf: Not visualized Mid Calf: Not visualized Distal Calf: 0.2 cm; Reflux: 0 ms DUPLICATED MEDIAL GREAT SAPHENOUS VEIN: Diameter: None imaged Reflux: NA DUPLICATED LATERAL GREAT SAPHENOUS VEIN: Location: Saphenofemoral Junction Diameter: 0.4 cm Reflux: 0 ms SMALL SAPHENOUS VEIN: Saphenopopliteal Junction: 0.2 cm; Reflux: 0 ms Proximal: 0.2 cm; Reflux: 0 ms Distal: 0.2 cm; Reflux: 0 ms VEIN OF GIACOMINI: Size: NA Reflux: NA PERFORATORS: Location: Mid thigh Size: 0.1 cm Reflux: 0 ms Location: Distal thigh Size: 0.1 cm Reflux: 0 ms Location: At knee Size: 0.1 cm Reflux: 0 ms Location: Distal calf Size: 0.2 cm Reflux: 0 ms VARICOSITIES: Location: None imaged. Size: NA Reflux: NA 3. DEEP VENOUS ULTRASOUND OF THE LEFT LOWER EXTREMITY: Common Femoral Vein: Compressible, normal respiratory variation and augmented flow. Femoral Vein: Compressible, normal color flow and augmentation. Popliteal Vein: Compressible, normal augmentation. Deep Reflux: There is no evidence of reflux in the deep system in either the common femoral vein, superficial femoral or the popliteal vein. There is no evidence of a Swann's cyst. 4. SUPERFICIAL ULTRASOUND WITH DOPPLER OF LEFT LOWER EXTREMITY: GREAT SAPHENOUS VEIN: Saphenofemoral Junction: 0.6 cm; Reflux: 0 ms Proximal Thigh: 0.4 cm; Reflux: 0 ms Mid Thigh: Not seen Distal Thigh: Not seen At Knee: Not seen Proximal Calf: Not seen Mid Calf: Not seen Distal Calf: Not seen DUPLICATED MEDIAL GREAT SAPHENOUS VEIN: Diameter: None imaged Reflux: NA DUPLICATED LATERAL GREAT SAPHENOUS VEIN: Diameter: None imaged. Reflux: NA SMALL SAPHENOUS VEIN: Saphenopopliteal Junction: 0.2 cm; Reflux: 0 ms Proximal: 0.2 cm; Reflux: 0 ms Distal: 0.2 cm; Reflux: 0 ms VEIN OF GIACOMINI: Size: 0.2 cm Reflux: 0 ms PERFORATORS: Location: Proximal thigh Size: 0.1 cm Reflux: 0 ms Location: Distal thigh Size: 0.2 cm Reflux: 0 ms VARICOSITIES: Location: Proximal calf Size: 0.3 cm Reflux: 0 ms Location: Distal calf Size: 0.4 cm Reflux: 0 ms US/US venous duplex LE BI IMPRESSION: Right: No hemodynamically significant reflux is seen within the right lower extremity. Left: No hemodynamically significant reflux is seen within the left lower extremity. Electronically signed by: Raul Caceres MD 03/06/2024 05:01 PM [facility]
== END 2024-01-26 12:26 | disposition home or self-care (01) ==
LOC: HO.US 12:25
PROVIDERS: PCP Internal Medicine; Visit Provider Physician Assistant Surgical
DX: L97.929 Non-pressure chronic ulcer of unspecified part of left lower leg with unspecified severity (principal)
CPT/HCPCS: 93970

== ENCOUNTER 2024-02-02 17:58 | Emergency (ER) | payer MEDICARE, BC, SELFPAY ==
--- NOTE | ~2024-02-02 | XR_ITS ---
CLINICAL HISTORY: infection 3 view left ankle Comparison: None Findings: Soft tissue swelling is nonspecific multiple multifocal opacities concerning for superficial soft tissue foreign bodies and/or retained bandage related opacities. Remodeling of the imaged ankle with dedtjnzj-hh-zmugff osteoarthritis. Low bone mineralization suggested. No bony destructive changes of the advanced osteoarthritis. Effusion and soft tissue swelling is nonspecific including imaged ankle and imaged foot. No displaced fracture. No dislocation. Lucencies of the medial malleolus appear old with sclerosis adjacent. IMPRESSION: 1. Soft tissue swelling with effusion of the ankle. 2. Superficial opacities concern for foreign bodies and/or retained bandage of the superficial soft tissues. 3. Squigbil-ln-hrrpzj osteoarthritis of the imaged ankle. This document has been electronically signed by: Dilshad Orellana MD on 02/02/2024 20:40:04
--- NOTE | ~2024-02-02 | XR_ITS ---
CLINICAL HISTORY: infection 2 view left tibia-fibula Comparison: None Findings No definite hardware loosening of the partially imaged left knee arthroplasty. No displaced fracture of the imaged tibia or imaged fibula. Moderate to severe osteoarthritis of the imaged ankle. Superficial opacities concerning for foreign bodies particularly involving the distal soft tissues. Proximal soft tissue swelling as can be seen with cellulitis and venous stasis. No definite bony destructive changes of the advanced osteomyelitis at this time. IMPRESSION: 1. Soft tissue swelling with likely cellulitis. 2. No definite hardware loosening of the left knee arthroplasty in the [id number]. This document has been electronically signed by: Dilshad Orellana MD on 02/02/2024 20:41:00
[2024-02-02 18:15] VITALS: BP 160/78; BP 170/90; PULSE 82; PULSE 90; RESP 16; TEMP 36.7; O2SAT 96; O2SAT 98; BMI 29.6
--- NOTE | 2024-02-02 19:43 | ED_ITS ---
HPI - Wound/Laceration General Chief Complaint: Wound/Laceration Stated Complaint: ulcers in L ankle, swelling from ankle to knee Time Seen by Provider: 02/02/24 19:19 Source: patient Limitations: no limitations History of Present Illness ED Provider: Debbie Montemayor PA-C HPI narrative: 73-year-old female with a history of alcohol abuse, chronic nonhealing ulcer of left lower extremity, chronic pain admits pain management, depression, cognitive impairment, presents with left lower extremity pain. States she developed acute onset discomfort today. She saw wound care this morning, the wound was assessed and dressed. Denies fever. Patient states she uses gabapentin for her discomfort, she states ?this is the only thing they give me, it does not work?. Patient states she drinks 5 vodka drinks a day, denies prior withdrawal symptoms. Related Data Home Medications ?Medication ?Instructions ?Recorded ?Confirmed magnesium chloride 70 mg 400 mg PO DAILY 12/15/20 01/18/24 (magnesium chloride) tablet,delayed release ferrous sulfate 325 mg (65 mg 325 mg PO DAILY 11/11/22 01/18/24 iron) tablet multivitamin 1 tab PO DAILY 11/11/22 01/18/24 betamethasone dipropionate 0.05 % 1 appl topical DAILY PRN Itching 12/06/23 01/18/24 topical cream calcium 600 mg (as 1 tab PO DAILY 12/06/23 01/18/24 carbonate)-vitamin D3 5 mcg (200 unit) tablet hydroxyzine HCl 25 mg tablet 25 mg PO DAILY PRN anxiety 12/06/23 01/18/24 lisinopril 5 mg tablet 10 mg PO DAILY 01/02/24 01/18/24 Previous Rx's ?Medication ?Instructions ?Recorded donepezil 10 mg tablet 1 tab PO DAILY 30 days #30 tabs 07/15/20 hydrochlorothiazide 12.5 mg capsule 1 cap PO DAILY 30 days #30 caps 07/15/20 omeprazole 20 mg capsule,delayed 20 mg PO DAILY 30 days #30 caps 07/15/20 release sertraline 50 mg tablet 50 mg PO DAILY 30 days #30 tabs 07/15/20 amoxicillin 875 mg-potassium 1 tab PO BID #14 tabs 12/08/23 clavulanate 125 mg tablet doxycycline monohydrate 100 mg 100 mg PO BID #14 caps 12/08/23 capsule oxycodone 5 mg tablet 5 mg PO Q6H PRN pain (scale score 12/08/23 7-10) #20 tabs gabapentin 300 mg capsule 300 mg PO TID 30 days #90 caps 01/19/24 doxycycline hyclate 100 mg capsule 100 mg PO BID #14 caps 02/02/24 Allergies Allergy/AdvReac Type Severity Reaction Status Date / Time No Known Allergies Allergy Verified 02/02/24 18:20 [No Known Allergies*] Review of Systems 2 Review of Systems: Yes all other systems are reviewed and are negative Constitutional: Constitutional: Denies fatigue and Denies fever(s) Cardiovascular: Cardiovascular: Denies chest pain and Denies dyspnea Respiratory: Respiratory: Denies cough and Denies dyspnea Gastrointestinal: Gastrointestinal: Denies abdominal pain, Denies nausea and Denies vomiting Musculoskeletal: Musculoskeletal: Reports arthralgias, Reports joint swelling, Denies numbness and Denies tingling Neurologic: Denies numbness and Denies tingling Endocrine: Endocrine: Denies fatigue PMFSH Past Medical History Attestation statement: The following information was validated with the patient. Medical History Ulcer of lower extremity Neuropathy Cognitive impairment Hypertension Depression Alcoholism Surgical History History of rotator cuff surgery History of bilateral knee replacement Hx of gastric bypass (~2011) Social History Social History Household Members: None Housing: Condominium Do you presently have visiting nurse or other home services: Yes Alcohol intake: current Alcohol intake frequency: holidays/special occasions only Comment: pt going to [place] [id number] psy unit Patient Tobacco Use Status: Former Tobacco user Advance Directives: Yes Advance Directives on File: Yes Advance Directives Date on File: 11/11/22 service: No Sexual orientation: Straight/Heterosexual Physical Exam 2 Vital Signs: Vital Signs: Last Vital Signs Temp 98.6 F 02/02/24 20:17 Pulse 86 02/02/24 20:17 Resp 22 H 02/02/24 20:17 BP 171/75 H 02/02/24 20:52 Pulse Ox 95 02/02/24 20:17 O2 Del Method Room Air 02/02/24 20:17 BMI result Body Mass Index 29.6 Const: Other: Awake, pretending to cry, but yet there are no tears. With distraction and asking the patient questions, she will stop this behavior and speak normally, then resume her ?crying?. Orientation/consciousness: patient oriented x3 Resp: Effort & Inspection: normal respiratory effort Cardio: Other: both lower extremities the skin is thickened, dry with hyperpigmentation suggestive of peripheral vascular disease/venous insufficiency. There is a large erythematous ulceration medial left lower extremity, covered with an ointment. There was no purulence from the site. Skin: Other: Warm dry no rash Neuro: General: patient oriented x3, no focal motor deficits and CN's II-XI intact bilaterally Psych: Other: Dramatic, we will be cooperative with distraction Course Reevaluation(s) Reevaluation #1: We will be placing the patient on doxy, she can continue to follow up with Wound Care, there was nothing acute about her ongoing ulceration today. I also explained to the patient that the reason why she is on gabapentin alone is for her ongoing alcohol abuse, it would not be safe to place her on an opiate. I told her she needs to continue her care with wound care and pain management. Time: 22:04 Medications Administered Discontinued Medications Generic Name Dose Route Start Last Admin Trade Name Adenike PRN Reason Stop Dose Admin Hydrochlorothiazide 50 mg 02/02/24 20:28 02/02/24 20:52 Hydrochlorothiazide 50 Mg Tablet PO 02/02/24 20:29 50 mg ONCE ONE Administration Protocol Lisinopril 10 mg 02/02/24 20:28 02/02/24 20:35 Lisinopril 10 Mg Tablet PO 02/02/24 20:29 10 mg ONCE ONE Administration Protocol Morphine Sulfate 4 mg 02/02/24 19:43 02/02/24 20:26 Morphine Sulfate 4 Mg/Ml Cartridge IVPUSH 02/02/24 19:44 4 mg ONCE ONE Administration Protocol Ondansetron HCl 4 mg 02/02/24 19:43 02/02/24 20:26 Ondansetron Hcl 4 Mg/2 Ml Vial IVPUSH 02/02/24 19:44 4 mg ONCE ONE Administration Medical Decision Making Medical Decision Making MDM Narrative: 73-year-old female with a history of alcohol abuse, chronic nonhealing ulcer of left lower extremity, chronic pain admits pain management, depression, cognitive impairment, presents with left lower extremity pain. States she developed acute onset discomfort today. She saw wound care this morning, the wound was assessed and dressed. Denies fever. Patient states she uses gabapentin for her discomfort, she states ?this is the only thing they give me, it does not work?. Patient states she drinks 5 vodka drinks a day, denies prior withdrawal symptoms. Problem: Chronic wound, cognitive impairment, chronic pain, alcohol abuse History: Per patient I have considered the following differential diagnoses: Medication seeking behavior, alcohol intoxication, osteomyelitis, cellulitis, purulent cellulitis Plan: Screening labs including inflammatory markers were obtained from triage. I am adding an x-ray of tib-fib in addition to the ankle x-ray that is pending. I will objectively treat her discomfort, while of the diagnostics are pending to rule in for an acute process. We will be giving a 1 time dose of morphine. I am suspicious she may be intoxicated, I am adding a serum ethanol. I am also suspicious for medication seeking behaviors given the behavior I have exhibited with her false tears. We will also place a CIWA scale in the event that the patient requires admission. To note, and chart reviewed the patient was just placed on Augmentin and completed the course the 28 of January. I have independently reviewed the following tests: Labs: No leukocytosis, not anemic, no electrolyte abnormality, ESR 49 barely elevated, CRP not elevated, ethanol 167 X-ray tib-fib:MPRESSION: 1. Soft tissue swelling with likely cellulitis. 2. No definite hardware loosening of the left knee arthroplasty in the [id number]. This document has been electronically signed by: Dilshad Orellana MD on 02/02/2024 20:41:00 X-ray ankle: IMPRESSION: 1. Soft tissue swelling with effusion of the ankle. 2. Superficial opacities concern for foreign bodies and/or retained bandage of the superficial soft tissues. 3. Aaztphef-ng-ygitsa osteoarthritis of the imaged ankle. This document has been electronically signed by: Dilshad Orellana MD on 02/02/2024 20:40:04 Lab Data 02/02/24 19:45 02/02/24 19:45 Labs: Lab Results 02/02/24 Range/Units 19:45 WBC 7.8 (4.8-10.8) X10*3/uL RBC 3.59 L (4.20-5.50) X10*6/uL Hgb 11.7 L (12.0-16.0) g/dl Hct 34.8 L (37.0-47.0) % MCV 96.9 (80.0-98.0) fL MCH 32.6 (27.0-33.0) pg MCHC 33.6 (31.0-35.0) g/dl RDW 14.1 (11.0-16.0) % Plt Count 437 H D (160-400) X10*3/uL MPV 8.4 L (9.4-12.3) fL Immature Gran % (Auto) 0.4 (0.0-0.4) % Neut % (Auto) 70.6 (45-73) % Lymph % (Auto) 20.7 (20-40) % [place] % (Auto) 6.5 (2-11) % Eos % (Auto) 0.9 (0-4) % Baso % (Auto) 0.9 (0-2) % Lymph # (Auto) 1.6 (1.2-4.9) X10*3/uL [place] # (Auto) 0.5 (0.1-1.2) X10*3/uL Eos # (Auto) 0.1 (0.0-0.4) X10*3/uL Baso # (Auto) 0.1 (0.0-0.2) X10*3/uL Abs Immat Gran (auto) 0.03 (0.00-0.03) X10*3/uL Absolute Neuts (auto) 5.5 (2.0-8.3) x10*3/uL Absolute Nucleated RBC 0.000 (0.0-0.012) X10*3/uL Nucleated RBC % (auto) 0.0 (0.0-0.2) /100WBC ESR 49 H (0-20) MM/HR Sodium 143 (135-145) mmol/L Potassium 3.9 D (3.3-5.1) mmol/L Chloride 106 (96-108) mmol/L Carbon Dioxide 23 (22-29) mmol/L Anion Gap 18 (12-20) BUN 14 (9-16) mg/dL Creatinine 0.64 (0.5-1.4) mg/dL Estim Creat Clear Calc 69.4 Estimated GFR > 60 Random Glucose 86 (60-115) mg/dL Lactic Acid 1.5 (0.5-2.0) mmol/L Calcium 8.9 (8.4-10.2) mg/dL Magnesium 1.6 (1.6-2.6) mg/dL Total Bilirubin 0.2 (0.0-1.0) mg/dL AST 32 H (5-31) U/L ALT 22 (0-31) U/L Alkaline Phosphatase 83 (39-117) U/L C-Reactive Protein 0.44 (< or = 0.50) mg/dL Total Protein 7.9 (6.5-8.0) g/dL Albumin 4.0 (3.5-5.0) g/dL Ethyl Alcohol 167 mg/dL Discharge Plan Discharge Clinical Impression: Nonhealing ulcer of left lower extremity, Chronic pain syndrome, Drug-seeking behavior Patient Disposition: Home, Self-Care Additional Instructions: All of your screening labs were normal, there were no acute abnormalities with the x-rays. Your chronic wound is at baseline, with the acute on chronic cellulitis. We are place you on a course of doxycycline. You need to continue following up with your wound care service and pain management. Prescriptions: New doxycycline hyclate 100 mg capsule 100 mg PO BID Qty: 14 0RF No Action gabapentin 300 mg capsule 300 mg PO TID 30 Days Qty: 90 8RF donepezil 10 mg tablet 1 tab PO DAILY 30 Days Qty: 30 0RF hydrochlorothiazide 12.5 mg capsule 1 cap PO DAILY 30 Days Qty: 30 0RF omeprazole 20 mg capsule,delayed release(DR/EC) 20 mg PO DAILY 30 Days Qty: 30 0RF sertraline 50 mg tablet 50 mg PO DAILY 30 Days Qty: 30 0RF hydroxyzine HCl 25 mg tablet 25 mg PO DAILY PRN (Reason: anxiety) betamethasone dipropionate 0.05 % cream 1 appl topical DAILY PRN (Reason: Itching) calcium carbonate-vitamin D3 600 mg-5 mcg (200 unit) Tablet 1 tab PO DAILY doxycycline monohydrate 100 mg capsule 100 mg PO BID Qty: 14 0RF amoxicillin-pot clavulanate 875-125 mg tablet 1 tab PO BID Qty: 14 0RF oxycodone 5 mg tablet 5 mg PO Q6H PRN (Reason: pain (scale score 7-10)) Qty: 20 0RF Rx Instructions: Partial Fill upon patient request. lisinopril 5 mg tablet 10 mg PO DAILY multivitamin Tablet 1 tab PO DAILY ferrous sulfate 325 mg (65 mg iron) Tablet 325 mg PO DAILY magnesium chloride 70 mg tablet,delayed release (DR/EC) 400 mg PO DAILY Print Language: Irish
[2024-02-02 19:57] LABS: MANUAL DIFF FLAG NO
[2024-02-02 20:00] LABS: Basophils Absolute Auto 0.1 X10*3/uL (0.0-0.2); Basophils Percent Auto 0.9 % (0-2); Eosinophils Absolute Auto 0.1 X10*3/uL (0.0-0.4); Eosinophils Percent Auto 0.9 % (0-4); Hematocrit 34.8 % (37.0-47.0); Hemoglobin 11.7 g/dl (12.0-16.0); Imm Gran Abs Auto 0.03 X10*3/uL (0.00-0.03); Imm Gran Pct Auto 0.4 % (0.0-0.4); Lymphocytes Absolute Auto 1.6 X10*3/uL (1.2-4.9); Lymphocytes Percent Auto 20.7 % (20-40); Mean Corpuscular HGB Conc 33.6 g/dl (31.0-35.0); Mean Corpuscular Hemoglobin 32.6 pg (27.0-33.0); Mean Corpuscular Volume 96.9 fL (80.0-98.0); Mean Platelet Volume 8.4 fL (9.4-12.3); Monocytes Absolute Auto 0.5 X10*3/uL (0.1-1.2); Monocytes Percent Auto 6.5 % (2-11); Neutrophils Absolute Auto 5.5 x10*3/uL (2.0-8.3); Neutrophils Percent Auto 70.6 % (45-73); Platelet Count 437 X10*3/uL (160-400); Red Blood Count 3.59 X10*6/uL (4.20-5.50); Red Cell Distribution Width 14.1 % (11.0-16.0); White Blood Count 7.8 X10*3/uL (4.8-10.8)
[2024-02-02 20:14] LABS: Lactic Acid 1.5 mmol/L (0.5-2.0); Magnesium 1.6 mg/dL (1.6-2.6)
[2024-02-02 20:15] LABS: Alanine Aminotransferase 22 U/L (0-31); Alkaline Phosphatase 83 U/L (39-117); Anion Gap 18 (12-20); Aspartate Amino Transferase 32 U/L (5-31); Bilirubin Total 0.2 mg/dL (0.0-1.0); Blood Urea Nitrogen 14 mg/dL (9-16); C Reactive Protein 0.44 mg/dL (< or = 0.50); Calcium 8.9 mg/dL (8.4-10.2); Carbon Dioxide 23 mmol/L (22-29); Chloride 106 mmol/L (96-108); Creatinine Clr Calc Pharmacy 69.4; Estimated Glomerular Filt Rate > 60; Glucose Random 86 mg/dL (60-115); Potassium 3.9 mmol/L (3.3-5.1); Sodium 143 mmol/L (135-145); Total Protein 7.9 g/dL (6.5-8.0)
[2024-02-02 20:17] VITALS: BP 180/90; PULSE 86; RESP 22; TEMP 37; O2SAT 95
[2024-02-02] MEDS: ondansetron HCL 4 MG/2 ML VIAL IVPUSH (20:26)
[2024-02-02] MEDS: Morphine Sulfate 4 MG/ML CARTRIDGE IVPUSH (20:26)
[2024-02-02 20:35] VITALS: BP 182/76
[2024-02-02] MEDS: lisinopriL 10 MG TABLET PO (20:35)
--- NOTE | 2024-02-02 20:37 | PC.NURSE ---
PT doesn't want sister to know she is here. state sister is her power of research attorney and she will disown her if she finds out she is here.
[2024-02-02 20:39] LABS: Ethanol 167 mg/dL
[2024-02-02 20:52] VITALS: BP 171/75
[2024-02-02] MEDS: hydroCHLOROthiazide 50 MG TABLET PO (20:52)
[2024-02-02 20:58] LABS: Erythrocyte Sedimentation Rate 49 MM/HR (0-20)
--- NOTE | 2024-02-02 20:58 | PC.NURSE ---
PT a/ox4, reporting 10/10 Left lower leg pain. pt has a large wound to her left calf/ankle area that has been going on for two years. PT reports she often loses sleep at night from the pain. [facility] today. PT endorses daily drinking5 vodka drinks a day. PT crying loudly but when talking with tw, she is softly spoken and appears comfortable. PT medicated as per MAR- for pain, nausea and hypertension . CIWA 1. Plan of care ongoing
[2024-02-02 23:07] VITALS: BP 164/70; PULSE 83; RESP 20; TEMP 36.9; O2SAT 94
[2024-02-02] MEDS: Doxycycline Monohydrate 100 MG CAPSULE PO (23:15)
[2024-02-02 23:18] VITALS: BP 164/70; PULSE 83; RESP 20; TEMP 36.9; O2SAT 94
== END 2024-02-02 23:33 | disposition home or self-care (01) ==
PROVIDERS: Physician Assistant Medical; Emergency Provider Emergency Medicine; PCP Internal Medicine
DX: L97.929 Non-pressure chronic ulcer of unspecified part of left lower leg with unspecified severity (principal); G89.4 Chronic pain syndrome; M79.605 Pain in left leg; F10.129 Alcohol abuse with intoxication, unspecified; Y90.6 Blood alcohol level of 120-199 mg/100 ml; Z87.891 Personal history of nicotine dependence; Z79.899 Other long term (current) drug therapy; Z71.41 Alcohol abuse counseling and surveillance of alcoholic
CPT/HCPCS: 36415; 73590; 73610; 80053; 80307; 83605; 83735; 85025; 85652; 86140; 87040; 96374; 96375; 99283; 99284; J2270; J2405

== ENCOUNTER → 2024-02-02 19:21 | Outpatient (BNV) | payer MEDICARE, BC, SELFPAY | PROVIDERS: Emergency Provider Emergency Medicine; PCP Internal Medicine; Visit Provider Radiology Neuroradiology | DX: M25.472 Effusion, left ankle (principal); R22.42 Localized swelling, mass and lump, left lower limb | CPT/HCPCS: 73590; 73610 ==

== ENCOUNTER 2024-02-06 09:14 | Outpatient (AMB) | payer MEDICARE, BC, SELFPAY ==
--- NOTE | 2024-02-06 09:26 | MHC.OFFVIS ---
Intake Visit Reasons: follow up US w/ wound Intake Note: follow up US 01/26/24 w/ non-healing ulcers on her left Leg. Pt states she was in the ED last [place] night for increased LE pain. They gave her an Abx, states she does go to pain [facility]ane. Pt has woundcare 1 x per week and VNA twice per week. Pt states they are using triad cream on the wound Accompanied by: Self / Same As Patient Allergies No Known Allergies [No Known Allergies*] Allergy (Verified 02/06/24 09:32) HPI HPI follow up US w/ wound: Details: Divina is presenting today for a follow up to an ongoing left lower extremity wound as well as venous insufficiency ultrasound, performed on 01/26/2024. She continues to endorse significant pain at the site of the wound. She does see the wound care clinic at [facility] once a week, she has VNA services at home twice a week, and she is followed by pain management. She states she has had this wound for 2-3 years now and it has not gotten any better. She does have a wound care clinic appointment after this appointment today. [facility] Medical History Ulcer of lower extremity Neuropathy Cognitive impairment Hypertension Depression Alcoholism Surgical History History of rotator cuff surgery History of bilateral knee replacement Hx of gastric bypass (~2011) Social History Household Members: None Housing: Condominium Do you presently have visiting nurse or other home services: Yes Alcohol intake: current Alcohol intake frequency: holidays/special occasions only Comment: pt going to [place] [id number] psy unit Patient Tobacco Use Status: Former Tobacco user Advance Directives Date on File: 11/11/22 service: No Sexual orientation: Straight/Heterosexual Review of Systems Const Reports as per HPI and Denies weakness ENT Reports Normal hearing present and Denies dizziness Card Reports as per HPI, Denies chest pain, Denies chest pain at rest, Denies chest pain with activity, Denies dyspnea and Denies dyspnea on exertion Resp Reports as per HPI, Denies cough, Denies dyspnea and Denies dyspnea on exertion GI Reports as per HPI, Denies abdominal pain, Denies nausea and Denies vomiting Musc Denies numbness Skin/Breast Reports as per HPI, Denies erythema and Denies wounds Neuro Reports Normal hearing present, Denies dizziness, Denies numbness, Denies Sensory deficit (Neuro) and Denies weakness Psych Reports no additional complaints Endo Reports no additional complaints Physical Exam Const General: healthy appearing and no acute distress Orientation/consciousness: patient oriented x3 HEENT Head: Yes normal to inspection Ears: hearing grossly normal bilaterally Mouth: Normal oral and palatal mucosa present Resp Effort & Inspection: normal respiratory effort and able to speak in complete sentences Auscultation: clear to auscultation bilaterally Cardio Jugular venous distension: no JVD Rate: regular rate Rhythm: regular rhythm Heart sounds: S1 normal heart sound present and S2 normal heart sound present Bruits: no abdominal aortic bruits, no carotid bruits, no femoral bruits and no renal bruits Peripheral pulses: Peripheral pulses 2+ throughout GI Inspection: Yes normal to inspection Palpation (GI): No Abdominal aortic bruit present Skin General skin exam: no rashes or lesions noted Wounds: no wounds Hair: normal Neuro General: patient oriented x3 Cranial nerves: Yes Normal hearing present Cognition (Neuro): normal cognition Gait exam (Neuro): Normal gait present Motor exam (neuro): 5/5 motor strength present throughout Sensory Exam: No Sensory deficit (Neuro) Extrem Other: Left lower extremity: dressing not taken down this morning due to appt at [facility] after this appt. +2 edema noted. Right foot appears erythematous/discolored. General: Yes normal to inspection, Yes full ROM, Yes capillary refill normal and Yes normal gait Results Reviewed Results Reviewed: Brief summary of venous insufficiency testing is as follows: right great saphenous vein: negative right small saphenous vein: negative right accessory vein: none present left great saphenous vein: negative left small saphenous vein: negative left accessory vein: none present Please note there is no evidence of any venous aneurysms or significant tortuosity RLE: not seen below mid-thigh (has hx of vein procedures in past). Assessment & Plan Assessment & Plan (1) Nonhealing ulcer of left lower extremity: Code(s): L97.929 - Non-pressure chronic ulcer of unspecified part of left lower leg with unspecified severity Category: Medical Qualifiers: Non-pressure ulcer stage: with fat layer exposed Qualified Code(s): L97.922 - Non-pressure chronic ulcer of unspecified part of left lower leg with fat layer exposed Plan: Divina is presenting today for a follow up to her venous insufficiency ultrasound, performed on 01/26/2024. There was no venous insufficiency found. She does continue with wound care once a week at [facility], she has VNA services twice a week at home, and she is followed by [facility] pain management. She endorses that she continues with increased pain of her lower extremity at the site of the wound. She is frustrated that the wound has not been healing and that no one appears to be doing anything for her. She states she will likely seek out wound care at [facility], she has a upcoming appointment with them. We discussed we could see her at our Wound Care Clinic, but that is only once a month. We discussed that she can reach out to us at any point and we would put her on our schedule for the wound care clinic. We discussed at this point there is no vascular surgical intervention and that we will follow her as needed. We discussed continuing with elevating her legs as well as physical activity. If there are any questions or concerns, please do not hesitate to reach out to us. Coding Level of Care Code Est Pt Level 4 (25264) Diagnoses Nonhealing ulcer of left lower extremity with fat layer exposed L97.922 Non-pressure ulcer stage: with fat layer exposed Comment Review of venous insufficiency ultrasound
== END 2024-02-06 10:05 | disposition home or self-care (01) ==
PROVIDERS: PCP Internal Medicine; Visit Provider Physician Assistant Surgical
DX: L97.922 Non-pressure chronic ulcer of unspecified part of left lower leg with fat layer exposed (principal)
CPT/HCPCS: 99214

== ENCOUNTER → 2024-02-06 09:14 | Outpatient (BNVA) | payer MEDICARE, BC, SELFPAY | PROVIDERS: PCP Internal Medicine; Visit Provider Physician Assistant Surgical | DX: L97.922 Non-pressure chronic ulcer of unspecified part of left lower leg with fat layer exposed (principal) | CPT/HCPCS: 99212 ==

== ENCOUNTER 2024-02-14 13:35 | Outpatient (AMB) | payer MEDICARE, BC, SELFPAY ==
--- OUTSIDE RECORDS SUMMARY | 2024-02-14 13:38 | XMS_ITS | Clinical Summary ---
Author Organization Unknown Care Team Providers Care Warhead Maintenance Specialist Name Role Phone DEMARCO MELGAR, TONY Unavailable Unavailab charly DEL CID RN, AMOS Unavailable Unavailable Payers Payer Name Policy Type Policy Number Effective Date Expira tion Date MEDICARE - NGS [place] - PDGM [id number] SELF PAY Problems Condition Name Condition Details Condition Category Status Onset Date Resolution Date Last Treatment Date Treating Clinician Comments ENCOUNTER FOR CHANGE OR REMOVAL OF NONSURG WOUND DRESSING Active 02-06 00:00: 00 TYPE 2 DIABETES W DIABETIC PERIPHERAL ANGIOPATH W/O GANGRENE Active 02-06 00:00: 00 VENOUS INSUFFICIENC Y (CHRONIC) (PERIPHERAL) Active 02-06 00:00: 00 NON-PRESSURE 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 Active 02-06 00:00: 00 ASYMPTOMATIC VARICOSE VEINS OF RIGHT LOWER EXTREMITY Active 02-06 00:00: 00 TYPE 2 DIABETES MELLITUS WITH DIABETIC CATARACT Active 02-06 00:00: 00 TYPE 2 DIABETES MELLITUS WITH DIABETIC POLYNEUROPAT HY Active 02-06 00:00: 00 SJOGREN SYNDROME, UNSPECIFIED Active 02-06 00:00: 00 MORBID (SEVERE) OBESITY DUE TO EXCESS CALORIES Active 02-06 00:00: 00 BODY MASS INDEX [BMI] 23.0-23.9, ADULT Active 02-06 00:00: 00 UNSPECIFIED DEMENTIA, MILD, WITH ANXIETY Active 02-06 00:00: 00 UNSPECIFIED DEMENTIA, MILD, WITH MOOD DISTURBANCE Active 02-06 00:00: 00 DEPRESSION, UNSPECIFIED Active 02-06 00:00: 00 ANEMIA, UNSPECIFIED Active 02-06 00:00: 00 NONRHEUMATIC AORTIC (VALVE) STENOSIS Active 02-06 00:00: 00 ACTINIC KERATOSIS Active 02-06 00:00: 00 ESSENTIAL (PRIMARY) HYPERTENSION Active 02-06 00:00: 00 PERSONAL HISTORY OF OTHER MALIGNANT NEOPLASM OF SKIN Active 02-06 00:00: 00 PRESENCE OF ARTIFICIAL KNEE JOINT, BILATERAL Active 02-06 00:00: 00 PERSONAL HISTORY OF NICOTINE DEPENDENCE Active 02-06 00:00: 00 Allergies, Adverse Reactions, Alerts Allergy Name Allergy Type Status Severity Reaction(s) Onset Date Inactive Date Treating Clinician Comments RELAFEN Propensity to adverse reactions Active 02-09 15:12: 29 PREDNISONE Propensity to adverse reactions Active 02-09 15:12: 00 Medications Ordered Medication Name Filled Medication Name Start Date Stop Date Current Medication? Ordering Clinician Indication Dosage Frequency Signature (SIG) Comments Components levofloxaci n 750 mg tablet 2022-02 00:00: 00 11-14 23:59 :00 No [id number] Per instruc tions EVERY DAY FOR 7 DAYS Per instructio ns EVERY DAY FOR 7 DAYS (route: oral) Med Classific ation: Anti-Infe ctive Agents hydrochloro thiazide 12.5 mg capsule 10-28 00:00: 00 02-09 23:59 :00 No [id number] Per instruc tions EVERY Per instructio ns EVERY (route: oral) Med Classific ation: Cardiovas cular Therapy Agents gabapentin 100 mg capsule 10-17 00:00: 00 08-06 23:59 :00 No [id number] Per instruc tions THREE TIMES A DAY Per instructio ns THREE TIMES A DAY (route: oral) Med Classific ation: Central Nervous System Agents hydrocodone 5 mg-acetamin ophen 300 mg tablet 2022-02 00:00: 00 02-09 00:00 :00 No [id number] 1-2 tablet NEEDED 1-2 tablet NEEDED (route: oral) Med Classific ation: Analgesic , Anti-infl ammatory or Antipyret ic amlodipine 10 mg tablet 02-09 00:00: 00 12-19 23:59 :00 No [id number] 1 tablet DAILY 1 tablet DAILY (route: oral) Med Classific ation: Cardiovas cular Therapy Agents Celebrex 200 mg capsule 02-09 00:00: 00 12-24 23:59 :00 No [id number] 1 capsule DAILY 1 capsule DAILY (route: oral) Med Classific ation: Analgesic , Anti-infl ammatory or Antipyret ic cyanocobala min (vit B-12) 1,000 mcg tablet 02-09 00:00: 00 Yes [id number] 1 tablet DAILY 1 tablet DAILY (route: oral) Med Classific ation: Electroly te Balance-N utritiona l Products donepezil 10 mg tablet 02-09 00:00: 00 Yes [id number] 1 tablet DAILY 1 tablet DAILY (route: oral) Med Classific ation: Cognitive Disorder Therapy magnesium 250 mg tablet 02-09 00:00: 00 Yes [id number] 1 tablet DAILY 1 tablet DAILY (route: oral) Med Classific ation: Electroly te Balance-N utritiona l Products multivitami n tablet 02-09 00:00: 00 Yes [id number] 1 tablet DAILY 1 tablet DAILY (route: oral) Med Classific ation: Electroly te Balance-N utritiona l Products omeprazole 20 mg capsule,del ayed release 02-09 00:00: 00 Yes [id number] 1 capsule DAILY 1 capsule DAILY (route: oral) Med Classific ation: Gastroint estinal Therapy Agents oxycodone 5 mg tablet 02-09 00:00: 00 Yes [id number] 1 tablet EVERY 8 HOURS 1 tablet EVERY 8 HOURS (route: oral) Med Classific ation: Analgesic , Anti-infl ammatory or Antipyret ic sertraline 50 mg tablet 02-09 00:00: 00 08-06 23:59 :00 No [id number] 1 tablet DAILY 1 tablet DAILY (route: oral) Med Classific ation: Central Nervous System Agents trazodone 50 mg tablet 02-09 00:00: 00 Yes [id number] 25 mg BEDTIME 25 mg BEDTIME (route: oral) Med Classific ation: Central Nervous System Agents sertraline 100 mg tablet - 00:00: 00 Yes [id number] 1 tablet DAILY 1 tablet DAILY (route: oral) Med Classific ation: Central Nervous System Agents lisinopril 5 mg tablet 7-14 00:00: 00 12-24 23:59 :00 No [id number] 1 tablet DAILY 1 tablet DAILY (route: oral) Med Classific ation: Cardiovas cular Therapy Agents betamethaso ne valerate 0.1 % topical cream 2023-02 0- 00:00: 00 Yes [id number] Per instruc tions 2 TIMES A WEEK Per instructio ns 2 TIMES A WEEK (route: topical) Med Classific ation: Dermatolo gical amoxicillin 875 mg-potassiu m clavulanate 125 mg tablet 2023-02 00:00: 00 12-15 23:59 :00 No [id number] 1 tablet 2 TIMES DAILY 1 tablet 2 TIMES DAILY (route: oral) Med Classific ation: Anti-Infe ctive Agents doxycycline monohydrate 100 mg capsule 2023-02 00:00: 00 12-15 23:59 :00 No [id number] 1 capsule 2 TIMES DAILY 1 capsule 2 TIMES DAILY (route: oral) Med Classific ation: Anti-Infe ctive Agents lisinopril 10 mg tablet 2023-02 00:00: 00 Yes [id number] 1 tablet DAILY 1 tablet DAILY (route: oral) Med Classific ation: Cardiovas cular Therapy Agents Augmentin 500 mg-125 mg tablet 2023-02-17 00:00: 00 01-29 23:59 :00 No [id number] 1 tablet EVERY 12 HOURS 1 tablet EVERY 12 HOURS (route: oral) Med Classific ation: Anti-Infe ctive Agents gabapentin 100 mg capsule 2023-02-13 00:00: 00 Yes [id number] 1 capsule 3 TIMES DAILY 1 capsule 3 TIMES DAILY (route: oral) Med Classific ation: Central Nervous System Agents Vital Signs Vital Name Observation Time Observation Value Commen ts Temperature 2024 08:12:00.000 97.6 [degF] Temperature 2024-02-08 09:26:00.000 98.3 [degF] Temperature 2024-02-05 16:03:00.000 98 [degF] Pulse 2024 08:12:00.000 92 /min Pulse 2024-02-08 09:26:00.000 93 /min Pulse 2024-02-05 16:03:00.000 70 /min O2 Saturation (%) 2024 08:12:00.000 98 % O2 Saturation (%) 2024-02-08 09:26:00.000 95 % O2 Saturation (%) 2024-02-05 16:03:00.000 97 % Respirations 2024-02-08 09:26:00.000 16 /min Respirations 2024-02-05 16:03:00.000 18 /min Systolic Blood Pressure 2024 08:12:00.000 152 mm [Hg] Systolic Blood Pressure 2024-02-08 09:26:00.000 112 mm [Hg] Systolic Blood Pressure 2024-02-05 16:03:00.000 134 mm [Hg] Diastolic Blood Pressure 2024 08:12:00.000 70 mm [Hg] Diastolic Blood Pressure 2024-02-08 09::00.000 78 mm [Hg] Diastolic Blood Pressure 2024-02-05 16:03:00.000 74 mm [Hg] Plan of Treatment Planned Activity Planned Date Details Comments Future Scheduled Test SKILLED NU RSE TO EVALUATE PATIENT, IDENTIFY PRIMARY AND CO-MORBID CONDITIONS CODED PER CODING GUIDELINES, AND DEVELOP PATIENT SPECIFIC PLAN OF CARE THAT INCLUDES PATIENT GOAL FOR HOME HEALTH. [code = SKILLED NURSE TO EVALUATE PATIENT, IDENTIFY PRIMARY AND CO-MORBID CONDITIONS CODED PER CODING GUIDELINES, AND DEVELOP PATIENT SPECIFIC PLAN OF CARE THAT INCLUDES PATIENT GOAL FOR HOME HEALTH.] Future Scheduled Test SKILLED NU RSE TO REVIEW PATIENT MEDICATIONS. INSTRUCT PATIENT/CAREGIVER ON MONITORING OF EFFECTIVENESS, ADVERSE DRUG REACTIONS, SIDE EFFECTS OF ALL MEDICATIONS (PRESCRIPTION/-OTC), AND HOW AND WHEN TO REPORT PROBLEMS. [code = SKILLED NURSE TO REVIEW PATIENT MEDICATIONS. INSTRUCT PATIENT/CAREGIVER ON MONITORING OF EFFECTIVENESS, ADVERSE DRUG REACTIONS, SIDE EFFECTS OF ALL MEDICATIONS (PRESCRIPTION/-OTC), AND HOW AND WHEN TO REPORT PROBLEMS. ] Future Scheduled Test SKILLED NU RSE TO ASSESS ANXIETY AND PROVIDE ASSISTANCE TO PATIENT FOR UNDERSTANDING AND MANAGEMENT OF FEELINGS. [code = SKILLED NURSE TO ASSESS ANXIETY AND PROVIDE ASSISTANCE TO PATIENT FOR UNDERSTANDING AND MANAGEMENT OF FEELINGS.] Future Scheduled Test NEED FOR S KILLED TEACHING AND INTERVENTION RELATED TO NON PRESSURE ULCER TO L LOWER EXTREMITY PER WOUND CLINIC CLEANSE WITH NORMAL SALINE PAT DRY APPLY TRIAD CREAM COVER WITH DRY CLEAN DSG THEN TUBI OVEN HEATER HELPER 3X/WEEK BY OR THE CLINIC AND PRN WHEN LOOSE OR SOILED WOUND CARE WILL BE PERFORMED BY TRAINED CAREGIVER ON DAYS WHEN SKILLED NURSE IS NOT SCHEDULED FOR A VISIT. DISCONTINUE WOUND CARE/SUPPLIES ONCE WOUND IS HEALED. [code = NEED FOR SKILLED TEACHING AND INTERVENTION RELATED TO NON PRESSURE ULCER TO L LOWER EXTREMITY PER WOUND CLINIC CLEANSE WITH NORMAL SALINE PAT DRY APPLY TRIAD CREAM COVER WITH DRY CLEAN DSG THEN TUBI OVEN HEATER HELPER 3X/WEEK BY OR THE CLINIC AND PRN WHEN LOOSE OR SOILED WOUND CARE WILL BE PERFORMED BY TRAINED CAREGIVER ON DAYS WHEN SKILLED NURSE IS NOT SCHEDULED FOR A VISIT. DISCONTINUE WOUND CARE/SUPPLIES ONCE WOUND IS HEALED.] Future Scheduled Test SKILLED NU RSE TO PERFORM AND RECORD BLOOD SUGAR READING PRN FOR SIGNS AND SYMPTOMS OF HYPO/HYPERGLYCEMIA. [code = SKILLED NURSE TO PERFORM AND RECORD BLOOD SUGAR READING PRN FOR SIGNS AND SYMPTOMS OF HYPO/HYPERGLYCEMIA.] Future Scheduled Test SKILLED NU RSE FOR O/A AND SKILLED TEACHING IN MANAGEMENT OF VARICOSE VEINS CIRCULATORY/VASCULAR DISEASE. [code = SKILLED NURSE FOR O/A AND SKILLED TEACHING IN MANAGEMENT OF VARICOSE VEINS CIRCULATORY/VASCULAR DISEASE.] Future Scheduled Test SKILLED NU RSE TO PROVIDE TEACHING ON SIGNS AND SYMPTOMS AND MANAGEMENT OF HYPERTENSION. [code = SKILLED NURSE TO PROVIDE TEACHING ON SIGNS AND SYMPTOMS AND MANAGEMENT OF HYPERTENSION.] Future Scheduled Test SKILLED NU RSE FOR OBSERVATION AND ASSESSMENT TO IDENTIFY CHANGES ASSOCIATED WITH DEMENTIA AND TEACHING RELATED TO SAFETY MEASURES TO PREVENT INJURY, ELOPEMENT RISKS, BEHAVIOR CHANGES, ACTIVITIES, AND ENVIRONMENTAL CHANGES ALL SECONDARY TO IMPAIRED COGNITIVE STATUS. [code = SKILLED NURSE FOR OBSERVATION AND ASSESSMENT TO IDENTIFY CHANGES ASSOCIATED WITH DEMENTIA AND TEACHING RELATED TO SAFETY MEASURES TO PREVENT INJURY, ELOPEMENT RISKS, BEHAVIOR CHANGES, ACTIVITIES, AND ENVIRONMENTAL CHANGES ALL SECONDARY TO IMPAIRED COGNITIVE STATUS. ] Future Scheduled Test SKILLED NU RSE FOR O/A AND SKILLED TEACHING RELATED TO SIGNS AND SYMPTOMS AND MANAGEMENT OF ANEMIA. [code = SKILLED NURSE FOR O/A AND SKILLED TEACHING RELATED TO SIGNS AND SYMPTOMS AND MANAGEMENT OF ANEMIA.] Future Scheduled Test SKILLED NU RSE FOR O/A AND TEACHING OF DIABETIC MANAGEMENT INCLUDING BLOOD SUGAR MONITORING/USE OF GLUCOMETER, DIABETIC DIET, LOWER EXTREMITY SKIN INSPECTION, PROPER SKIN/FOOT CARE, AND SIGNS AND SYMPTOMS HYPO/HYPERGLYCEMIA TO REPORT. [code = SKILLED NURSE FOR O/A AND TEACHING OF DIABETIC MANAGEMENT INCLUDING BLOOD SUGAR MONITORING/USE OF GLUCOMETER, DIABETIC DIET, LOWER EXTREMITY SKIN INSPECTION, PROPER SKIN/FOOT CARE, AND SIGNS AND SYMPTOMS HYPO/HYPERGLYCEMIA TO REPORT.] Future Scheduled Test PATIENT [place]FT[place] S A RISK OF HOSPITALIZATION AND ED USE. SKILLED NURSE TO ESTABLISH SUPPORT MEASURES TO MINIMIZE RISK OF HOSPITALIZATION AND ED USE, AND INSTRUCT PATIENT/CAREGIVER ON METHODS TO REDUCE AVOIDABLE HOSPITALIZATION AND ED USE. [code = PATIENT HAS A RISK OF HOSPITALIZATION AND ED USE. SKILLED NURSE TO ESTABLISH SUPPORT MEASURES TO MINIMIZE RISK OF HOSPITALIZATION AND ED USE, AND INSTRUCT PATIENT/CAREGIVER ON METHODS TO REDUCE AVOIDABLE HOSPITALIZATION AND ED USE.] Future Scheduled Test SKILLED NU RSE TO PROVIDE INSTRUCTION TO PATIENT/CAREGIVER RELATED TO DISCHARGE PLANNING. [code = SKILLED NURSE TO PROVIDE INSTRUCTION TO PATIENT/CAREGIVER RELATED TO DISCHARGE PLANNING.] Future Scheduled Test SKILLED NU RSE TO PERFORM ENVIRONMENTAL SAFETY RISK ASSESSMENT AND FALL RISK ASSESSMENT AND PROVIDE INSTRUCTION TO IMPLEMENT ENVIRONMENTAL SAFETY AND FALL PREVENTION STRATEGIES THROUGHOUT THE CERTIFICATION PERIOD. SKILLED NURSE WILL MAINTAIN SITUATIONAL AWARENESS AND WILL NOTIFY CLINICAL OPHTHALMIC ASST AND PHYSICIAN/PROVIDER WITH ANY CHANGE IN CONDITION. [code = SKILLED NURSE TO PERFORM ENVIRONMENTAL SAFETY RISK ASSESSMENT AND FALL RISK ASSESSMENT AND PROVIDE INSTRUCTION TO IMPLEMENT ENVIRONMENTAL SAFETY AND FALL PREVENTION STRATEGIES THROUGHOUT THE CERTIFICATION PERIOD. SKILLED NURSE WILL MAINTAIN SITUATIONAL AWARENESS AND WILL NOTIFY CLINICAL OPHTHALMIC ASST AND PHYSICIAN/PROVIDER WITH ANY CHANGE IN CONDITION.] Future Scheduled Test SKILLED NU RSE FOR OBSERVATION AND ASSESSMENT OF PATIENTS PAIN LEVEL AND EFFECTIVENESS OF PAIN MANAGEMENT REGIMEN. SKILLED NURSE TO INSTRUCT PATIENT/CAREGIVER REGARDING PHARMACOLOGIC AND NON-PHARMACOLOGIC PAIN CONTROL MEASURES. SKILLED NURSE TO REPORT TO PHYSICIAN IF PAIN IS UNCONTROLLED WITH CURRENT PAIN MANAGEMENT REGIMEN. [code = SKILLED NURSE FOR OBSERVATION AND ASSESSMENT OF PATIENTS PAIN LEVEL AND EFFECTIVENESS OF PAIN MANAGEMENT REGIMEN. SKILLED NURSE TO INSTRUCT PATIENT/CAREGIVER REGARDING PHARMACOLOGIC AND NON-PHARMACOLOGIC PAIN CONTROL MEASURES. SKILLED NURSE TO REPORT TO PHYSICIAN IF PAIN IS UNCONTROLLED WITH CURRENT PAIN MANAGEMENT REGIMEN.] Future Scheduled Test SKILLED NU RSE TO ASSESS PATIENT'S SKIN INTEGRITY AND INSTRUCT PATIENT/CAREGIVER ON MEASURES TO PREVENT PRESSURE ULCERS. [code = SKILLED NURSE TO ASSESS PATIENT'S SKIN INTEGRITY AND INSTRUCT PATIENT/CAREGIVER ON MEASURES TO PREVENT PRESSURE ULCERS.] Future Scheduled Test SKILLED NU RSE TO PROVIDE ASSESSMENT AND TEACHING/REINFORCEMENT OF MANAGEMENT OF DEPRESSION INCLUDING DISEASE PROCESS, MEDICATION MANAGEMENT, COPING SKILLS AND IDENTIFY CHANGES ASSOCIATED WITH DEPRESSIVE DISORDERS FOR EARLY INTERVENTION. [code = SKILLED NURSE TO PROVIDE ASSESSMENT AND TEACHING/REINFORCEMENT OF MANAGEMENT OF DEPRESSION INCLUDING DISEASE PROCESS, MEDICATION MANAGEMENT, COPING SKILLS AND IDENTIFY CHANGES ASSOCIATED WITH DEPRESSIVE DISORDERS FOR EARLY INTERVENTION. ] Future Scheduled Test SKILLED NU RSE TO INSTRUCT PATIENT/CAREGIVER ON S/S OF NEUROPATHY AND METHODS TO MANAGE. [code = SKILLED NURSE TO INSTRUCT PATIENT/CAREGIVER ON S/S OF NEUROPATHY AND METHODS TO MANAGE.] Goal 2023-04-06 Patient Goal - WOUNDS TO HEA L Goal 2023-12-09 Patient Goal - WOUNDS TO HEA L Goal Patient Goal - WOUNDS TO HEA L Goal 2023-06-05 Patient Goal - WOUNDS TO HEA L Goal 2023-08-07 Patient Goal - WOUNDS TO HEA L Goal 2023-10-02 Patient Goal - WOUNDS TO HEA L Goal 2023-12-04 Patient Goal - WOUNDS TO HEA L Goal 2024-02-02 Patient Goal - WOUNDS TO HEA L Goal Provider Goal - A PLAN OF CARE WILL BE ESTABLISHED THAT MEETS PATIENT'S SNF NEEDS AND INCLUDES PATIENT GOAL FOR HOME HEALTH. Goal Provider Goal - PATIENT/CAREGIVER WILL VERBALIZE UNDERSTANDING OF EDUCATION PROVIDED ON MEDICATIONS BY THE END OF THE CERTIFICATION PERIOD. Goal Provider Goal - SYMPTOMS OF ANXIETY ARE IDENTIFIED AND INTERVENTIONS INITIATED TO ENABLE PATIENT TO UNDERSTAND AND MANAGE FEELINGS THROUGHOUT EPISODE. Goal Provider Goal - WOUND CARE WILL BE COMPLETED AND PATIENT WILL HAVE IMPROVED WOUND STATUS EVIDENCED BY NO SIGNS AND SYMPTOMS OF INFECTION, DECREASED WOUND SIZE, AND/OR NO COMPLICATIONS BY THE END OF THE CERTIFICATION PERIOD. Goal Provider Goal - BLOOD SUGAR READING WILL BE OBTAINED ORDERED THROUGHOUT CERTIFICATION PERIOD. Goal Provider Goal - PATIENT/CAREGIVER WILL VERBALIZE/DEMONSTRATE THE ABILITY TO MANAGE CIRCULATORY DISEASE PROCESS AND EXACERBATIONS WILL BE IDENTIFIED FOR EARLY INTERVENTION THROUGHOUT THE CERTIFICATION PERIOD. Goal Provider Goal - PATIENT/CAREGIVER WILL VERBALIZE SIGNS AND SYMPTOMS OF HYPERTENSION AND WILL BE ABLE TO DEMONSTRATE ABILITY TO MANAGE EXACERBATION BY END OF THE EPISODE. Goal Provider Goal - PATIENT/CAREGIVER WILL VERBALIZE /DEMONSTRATE APPROPRIATE ENVIRONMENTAL/SAFETY MODIFICATIONS IN RESPONSE TO BEHAVIOR/COGNITIVE CHANGES ASSOCIATED WITH DEMENTIA DIAGNOSIS THROUGHOUT THE CERTIFICATION PERIOD. Goal Provider Goal - PATIENT/CARGIVER WILL VERBALIZE UNDERSTANDING OF ANEMIA INCLUDING SIGNS AND SYMPTOMS, MANAGEMENT OF COMPLICATIONS, AND PRESCRIBED TREATMENT REGIMEN BY END OF EPISODE. Goal Provider Goal - PATIENT/CAREGIVER WILL VERBALIZE/DEMONSTRATE KNOWLEDGE OF DIABETIC MANAGEMENT. CHANGES IN DIABETIC STATUS WILL BE IDENTIFIED AND REPORTED TO PHYSICIAN FOR PROMPT INTERVENTION THROUGHOUT THE CERTIFICATION PERIOD. Goal Provider Goal - PATIENT WILL HAVE SUPPORT MEASURES ESTABLISHED TO PREVENT HOSPITALIZATION AND ED USE AND PATIENT/CAREGIVER WILL VERBALIZE/DEMONSTRATE METHODS TO REDUCE AVOIDABLE HOSPITALIZATION AND ED USE BY END OF EPISODE. Goal Provider Goal - PATIENT/CAREGIVER WILL VERBALIZE UNDERSTANDING OF DISCHARGE PLANNING INSTRUCTIONS BY DATE OF DISCHARGE. Goal Provider Goal - PATIENT/CAREGIVER WILL VERBALIZE/DEMONSTRATE EFFECTIVE ENVIRONMENTAL SAFETY AND FALL PREVENTION STRATEGIES, WILL REMAIN SAFE IN THE COMMUNITY, AND WILL BE FREE OF DANGER TO SELF AND OTHERS THROUGHOUT THE CERTIFICATION PERIOD. Goal Provider Goal - PATIENT/CAREGIVER WILL DEMONSTRATE UNDERSTANDING OF PHARMACOLOGIC AND NONPHARMACOLOGIC PAIN CONTROL MEASURES AND PATIENT WILL HAVE IMPROVEMENT IN PAIN INTERFERING WITH ACTIVITY EVIDENCED BY PAIN CONTROLLED AT LEVEL OF 7 OR LESS BY END OF CERTIFICATION PERIOD. Goal Provider Goal - PATIENT/CAREGIVER WILL VERBALIZE UNDERSTANDING OF PRESSURE ULCER PREVENTION BY END OF THE EPISODE. Goal Provider Goal - PATIENT/CAREGIVER WILL VERBALIZE/DEMONSTRATE UNDERSTANDING OF THE MANAGEMENT OF DEPRESSION THROUGHOUT THE CERTIFICATION PERIOD AND SYMPTOMS ARE IDENTIFIED AND MANAGED TO MAINTAIN PATIENT SAFETY IN THE HOME. Goal Provider Goal - PATIENT/CAREGIVER WILL VERBALIZE S/S OF NEUROPATHY AND METHODS TO MANAGE BY END OF CERTIFICATION PERIOD. Progress Notes Progress Notes <paragraph>[Visit Date: 2024 by DEISY CARRERA LPN]:</paragraph><paragraph>SNV FEB 09 ABNORMAL VITALS: WITHIN PARAMETERS FALLS: NO FALLS MEDICATION CHANGES: NO CHANGES OBSERVATION AND ASSESSMENT PROVIDED: PT ALERT ORIENTED COOPERATIVE DURING VISIT. PT COMPLAINS OF PAIN LLE, GABAPENTIN PT REPORTS IS NOT WORKING, HAS APPT WITH PAIN CLINIC NEXT WEEK. PT SOAKED FOOT/WOUND IN WATER YESTERDAY B/C IT WAS SO ITCHY , REVIEWED INFECTION PREVENTION PROTOCOLS AT [facility] WITH PT. PERIWOUND IS RED, PT STATES HAS ONE MORE DAY OF DOXY LEFT, ENCOURAGED TO COMPLETE REGIMEN, PT WILL TAKE ABX WITH AM MEDS MEDS NOT TAKEN YET. VSS, LS CLEAR, +1 EDEMA LEFT CALF. WOUND CARE PROVIDED. WOUND STALLED. MODERATE AMT OF SEROUS DRAINAGE. PT TOLERATED WELL. NO ISSUE WITH BOWELS OR BLADDER. APPETITE ADEQUATE. EDUCATION: OFFLOADING, INFECTION PREVENTION. INTERVENTIONS NEEDED AT NEXT VISIT: WOUNDCARE, ASSESSMENT NEXT MD APPOINTMENT: 02/13 WOUND CLINIC PT AND CAREGIVER INSTRUCTED TO CALL [facility] WITH ANY QUESTIONS OR CONCERNS AND/OR CHANGES IN CONDITION, STATE UNDERSTANDING</paragraph> <paragraph>[Visit Date: 2024 by HUBER GILMAN RN]:</paragraph><paragraph>SNV MM/DD ABNORMAL VITALS: NONE FALLS: NONE REPORTED PHYSICAL ASSESSMENT FINDINGS: ALERT AND ORIENTED. SPEAKING IN FULL SENTENCES. STEADY GAIT WITH USE OF WALKER. LLE WOUNDS DOCUMENTED IN DISLA. WOUND CARE PROVIDED. VITAL SIGNS STABLE. MURMUR ON EXAM CONSISTENT WITH KNOWN AORTIC STENOSIS. IRREGULAR HEART RHYTHM NOTED ON EXAM, REPRESENTS CHANGE FROM BASELINE. CONTACTED PCP AND LEFT MESSAGE TO NOTIFY OF FINDING. MEDICATION CHANGES: NONE EDUCATION: (EDUCATION PROVIDED AT VISIT, HOW EDUCATION WAS RECEIVED, LEVEL OF UNDERSTANDING AND ANY REINFORCEMENT NEEDED AT SUBSEQUENT VISITS, AND RETENTION OF EDUCATION RECEIVED AT PREVIOUS VISIT(S)) INTERVENTIONS NEEDED AT NEXT VISIT: WOUND CARE COMMUNICATION WITH MD: CONTACTED MD AND LEFT MESSAGE WITH MOBILE LOUNGE DRIVER TO NOTIFY PCP DR. CHAVEZ OF IRREGULAR HEART RHYTHM NEXT MD APPOINTMENT: WOUND CARE APPT NEXT WEEK. PCP VISIT SCHEDULED IN APRIL. PT AND CAREGIVER INSTRUCTED TO CALL [facility] WITH ANY QUESTIONS OR CONCERNS AND/OR CHANGES IN CONDITION, STATE UNDERSTANDING ORDERED MORE TRIAD CREAM THROUGH MEDLINE, TO BE SENT TO PT DIRECTLY</paragraph> Encounters Start Date/Time End Date/Time Encounter Type Admission Type Attending [facility] Facility Care Department Encounter ID Discharge Date Discharge Status Discharge Condition Discharge Reason Percent Goals Met 2023-02-09 00:00:00 2024-04-03 00:00:00 Outpatient RECERTIFIC ATION [facility] [id number] 15.15
--- OUTSIDE RECORDS SUMMARY | 2024-02-14 13:38 | XMS_ITS | Continuity of Care Document ---
Author Organization [facility] oration [facility] Address [address] [place] [id number] Phone Care Team Providers Care Telecom Coordinator Name Role Phone Parminder MELGAR, RASHAWN, JORDAN, [...] Providers Copied on Encounter [facility], [address] [place] [address] Dr Freeman [address], [id number], [place] tel:[phone] [facility] - [place] No Information 4 Parminder MELGAR, RVT, VI Paulino. [address], [address], [place], [id number] , [place]. tel:[phone] Office/Outpt E&M Established 15 Mins [facility], [address] [place] [address] Dr Freeman [address], [id number], [place] tel:[phone] CVR - [facility] Chronic venous htn w oth comp of bilateral low extrmNon-pressu re chronic ulcer of left ankle with unsp severity 3 Aleks MELGAR FACS T [facility] Amber Barber. [address], [place] [address], [place], [address], [place]. [phone] Referring Provider: Amber Fink MD FACS T [facility], [facility] [facility] [address] Suite [facility], [place], [address]. tel:[phone] Office/Outpt E&M Established 15 Mins [facility], [address] [place] [address] Dr Freeman [address], [id number], [place] tel:[phone] CVR - [facility] Postproc hemor/hemtom of skin, subcu following oth procedureChroni c venous htn w oth comp of bilateral low extrm 3 Kiana Bradley . [address], [address], [facility] [place], [id number] , [place]. tel:[phone] Referring Provider: Amber Fink MD FACS RVT [facility], [address] [place] [address] [address], [place], [address]. tel:[phone] [facility], [address] [place] [address] Dr Freeman [address], [id number], [place] tel:[phone] CVR - [facility] Encntr for f/u exam aft trtmt for cond oth than malig neoplmVenous insufficiency (chronic) (peripheral) 3 Aleks MELGAR FACS [facility] Amber Barber. [address], [address], [facility] [place], [address], [place]. [phone] Referring Provider: Amber Fink MD FACS RVT [facility], [facility] [address], [facility] [place], [address]. 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 [address], [address], [facility] [place], [place], [id number] , [place]. tel:[phone] Referring Provider: Amber Fink MD FACS RVT [facility], [facility] [address], [place], [address]. tel:[phone] [facility], [address] [place] [address] [address], [place], [id number], [place] tel:[phone] [facility] [place] Venous insufficiency (chronic) (peripheral) 3 Aleks MELGAR FACS RVT VI Amber Barber. [facility] [address] [facility], [address], [place], [address], [place]. [phone] Referring Provider: Amber Fink MD FACS RVT RP, [facility] [facility] [address] [facility] [address], [place] [place], [address]. tel:[phone] [facility], [address] [place] [address] [address], [id number], [place] tel:[phone] [facility] - [place] Venous insufficiency (chronic) (peripheral) 3 Aleks MELGAR FACS RVT VI Amber Barber. [address], [address], [facility] [place], [address], [place]. tel:[phone] Referring Provider: Amber Fink MD FACS RVT RP, [address] [place] [address] [address], [place], [address]. tel:[phone] Office/Outpt E&M Established 15 Mins [facility], [address] [place] [address] Dr [address], [place], [id number], [place] tel:[phone] CVR - [facility] Encounter for other preprocedural examination 3 Aleks MELGAR FACS RVT [facility]I Amber Sunil. [address] [place] [address], [address], [facility] [place], [address], [place]. tel:[phone] Referring Provider: Amber Fink MD FACS RVT RP, [address] [place] [address] Suite [facility], [place], [address]. tel:[phone] Office/Outpt E&M Established 25 Mins [facility], [address] [place] [address] Dr [address], [place], [id number], [place] tel:[phone] CVR - [facility] Chronic venous htn w inflammation of bilateral low extrm 3 Aleks MELGAR FACS RVT [facility] Amber Sunil. [address] [place] [address], Suite [facility], [facility] [place], [address], [place]. [phone] Referring Provider: Amber Fink MD FACS RVT [facility], [address] [place] [address] Suite [facility], [place], [address]. tel:[phone] [facility], [address] [place] [address] Dr [address], [place], [id number], [place] tel:[phone] CVR - [facility] Non-pressure chronic ulcer of left calf w fat layer exposedChronic venous htn w ulcer and inflam of bilateral low extrm Fe 3 Aleks MELGAR FACS RVT [facility] Amber Sunil. [facility]0 [facility], [address], [place], [address], [place]. [phone] Referring Provider: Amber Fink MD FACS RVT RP, [address] [place] [address] Suite [facility], [place], [address]. tel:[phone] Office/Outpt E&M Established 15 Mins [facility], [address] [place] [address] [address], [place], [id number], tel:[phone] [facility] - [place] Body mass index (BMI) 27.0-27.9, adultChronic venous hypertension w/o comp of bilateral low extrmNon-pressu re chronic ulcer of left calf with unsp severityVaricos e veins of right lower extremity w ulcer of unsp siteChronic venous hypertension w/o comp of r low extremNon-press ure chronic ulcer of right calf with unsp severity 3 Aleks MELGAR FACS T JORDAN Barber. [address] [place] [address], [place] [address], [place], [address], [place]. tel:[phone] Referring Provider: Amber Fink MD, FACS [facility], [address] [place] [address], [place], [address]. tel:[phone] [facility], [address] [place] [address] [address], [place], [id number], [place] tel:[phone] [facility] - [place] Venous insufficiency (chronic) (peripheral) 3 Aleks MELGAR FACS Kristy Barber. [address] [place] [address], [place], [address], [place]. tel:[phone] Referring Provider: Amber Fink MD FACS [facility], [address] [place] [address], [place], [address]. tel:[phone] Office/Outpt E&M Established 15 Mins [facility], [address] [place] [address] [address], [place], [id number], [place] tel:[phone] [facility] - [place] Body mass index (BMI) 26.0-26.9, adultChronic venous htn w inflammation of bilateral low extrmCramp and spasmType 2 diabetes mellitus without complications 3 Aleks MELGAR FACS Kristy Barber. [address] [place] [address], [place] [address], [place], [address], [place]. tel:[phone] Referring Provider: Amber Fink MD FACS RVT VI, [address], [facility] [place], [address]. tel:[phone] Family History Family Member Type Diagnosis Age [...]
--- NOTE | 2024-02-14 13:39 | MHC.OFFVIS ---
Vital Signs 02/14/24 13:40 Height 5 ft 1 in Weight 143 lb BMI 27.0 BP 146/70 H Blood Pressure Location Lt brachial Position Sitting Respiration 15 Pulse 62 Pulse Source Pulse Oximeter Pulse Oximetry (%) 93 Oxygen Delivery Method Room Air Intake Visit Reasons: Follow Up Re: Gabapentin, Ongoing Pain in (L) Leg Allergies No Known Allergies [No Known Allergies*] Allergy (Verified 02/14/24 13:41) Medication List - Last Reconciled 02/14/24 by Minoo Wyatt LPN amoxicillin-pot clavulanate 500-125 mg 1 tab PO BID betamethasone dipropionate 0.05% 1 appl topical DAILY PRN calcium carbonate-vitamin D3 600 mg-5 mcg (200 unit) 1 tab PO DAILY donepezil 1 tab PO DAILY 30 days ferrous sulfate 325 mg PO DAILY gabapentin 300 mg PO TID 30 days hydrochlorothiazide 1 cap PO DAILY 30 days hydroxyzine HCl 25 mg PO DAILY PRN lisinopril 10 mg PO DAILY magnesium chloride 400 mg PO DAILY multivitamin 1 tab PO DAILY omeprazole 20 mg PO DAILY 30 days oxycodone 5 mg PO Q6H PRN sertraline 100 mg PO DAILY HPI Comments Details: Divina is back in my office with request to increase gabapentin doses. Last time she was evaluated in this office with complains on pain in the left lower extremity where there is nonhealing ulcers. She went to Dr. Hernandez and no vascular insufficiency was found. Patient currently receiving gabapentin 300 t.i.d.. She denies side effects of the medication. She reports moderate pain improvement with gabapentin. She requests me to increase the dose. I will increase the dose of the medication to 400 mg t.i.d.. Prior: Pain in the left lower extremity related to nonhealing ulcer on the lateral as well as medial surface of the ankle for the past 2 years. she is having dressing changes every other day by visiting nurses. She never tried hyperbaric oxygen to treat this wound. She never tried Unna boot to treat this wound. She was referred to Dr. Hernandez and now she is scheduled for CT scan of the lower extremity venous images to decide if any surgical intervention will help her condition.Her primary care physician prescribes her oxycodone 5 mg q.d. and she reports that this medication does not help her pain. Her past medical history significant for hypertension alcohol addiction, she was under care of Dr. Rosenda Arias in 2020 for alcohol addiction, she was on naltrexone however due to poor adherence to the schedules and due to urine drug screen positive for oxycodone she was discharged. She continues to drink up to a glass of vodka a day, she denies other recreational drugs. Other past medical history includes arthritis and history of gastric bypass. Surgical history significant for in 82 appendectomy in 91 total knee replacement in 2019 and rotator cuff surgery in 2019 as well as gastric bypass surgery. [facility] Medical History Ulcer of lower extremity Neuropathy Cognitive impairment Hypertension Depression Alcoholism Surgical History History of rotator cuff surgery History of bilateral knee replacement Hx of gastric bypass (~2011) Social History Household Members: None Housing: Condominium Do you presently have visiting nurse or other home services: Yes Alcohol intake: current Alcohol intake frequency: holidays/special occasions only Comment: pt going to [place] [address] psy unit Patient Tobacco Use Status: Former Tobacco user Advance Directives Date on File: 11/11/22 service: No Sexual orientation: Straight/Heterosexual Review of Systems Const All systems reviewed & are unremarkable except as noted in HPI and below ENT Reports Normal hearing present Neuro Reports Normal hearing present, Denies Abnormal speech present, Denies confusion and Denies Sensory deficit (Neuro) Psych Denies confusion Physical Exam Vital Signs: Last Vital Signs Pulse 62 02/14/24 13:40 Resp 15 02/14/24 13:40 BP 146/70 H 02/14/24 13:40 Pulse Ox 93 02/14/24 13:40 Oxygen Delivery Method Room Air 02/14/24 13:40 BMI result Body Mass Index 27.0 Const General: no acute distress; No confusion Orientation/consciousness: patient oriented x3 and No confusion Eyes General: appearance normal, both eyes and all related structures Pupils: Equal, round and reactive pupils present EOM: EOMs intact bilaterally Neck Neck: Yes full ROM Chest Chest palpation & inspection: normal inspection of the chest Resp Effort & Inspection: normal respiratory effort, able to speak in complete sentences, normal respiratory pattern, no audible wheezes and no cough Cardio Jugular venous distension: no JVD GI Inspection: Yes normal to inspection Neuro General: patient oriented x3, gait normal and No confusion Cranial nerves: Yes CN's II-XII intact bilaterally, Yes Equal, round and reactive pupils present, Yes Normal hearing present and Yes Ability to bilaterally elevate shoulders present Speech: No Abnormal speech present Gait exam (Neuro): Normal gait present Motor exam (neuro): 5/5 motor strength present throughout Sensory Exam: No Sensory deficit (Neuro) Extrem General: No pedal edema Psych Speech and movement: Normal speech and movement present Affect: normal affect Attitude: cooperative Thought process: Normal thought process present Thought content: Normal thought content present Insight: Good insight present (Psych) Judgement: Good judgement present (Psych) Assessment & Plan Assessment & Plan (1) Alcohol dependence: Code(s): F10.20 - Alcohol dependence, uncomplicated Category: Medical Qualifiers: Complication of substance-induced condition: with unspecified complication Substance use status: with intoxication Qualified Code(s): F10.229 - Alcohol dependence with intoxication, unspecified (2) Chronic pain syndrome: Code(s): G89.4 - Chronic pain syndrome Category: Medical Plan This patient is chronic alcoholic and continues to drink about a glass of vodka a day. She tried treatment for sobriety with Dr. Arias. She was discharged from the treatment secondary to non adherence to the regimens and presence of opioids in the urine. She therefore is very poor candidate for the chronic opioid therapy. She is prescribed minimal doses of the opioid by her primary care physician oxycodone 5 mg q.d. she reported no pain improvement. I started her on gabapentin 300 mg last time on her. She reports minimal to moderate pain improvement without side effects. She requests the escalation of the dose. I will increase the gabapentin to 400 mg t.i.d.. Next appointment as needed. Medications: New gabapentin 400 mg PO TID 30 days 90 caps 8RF Discontinued gabapentin Discontinued Reason: Doctor's Order 300 mg PO TID 30 days 90 caps 8RF Coding Level of Care Code Est Pt Level 3 (55546) Diagnoses Alcohol dependence F10.229 Complication of substance-induced condition: with unspecified complication Substance use status: with intoxication Chronic pain syndrome G89.4
[2024-02-14 13:40] VITALS: BP 146/70; PULSE 62; RESP 15; O2SAT 93; BMI 27.0
== END 2024-02-14 14:04 | disposition home or self-care (01) ==
PROVIDERS: PCP Internal Medicine; Visit Provider Anesthesiology
DX: F10.229 Alcohol dependence with intoxication, unspecified (principal); G89.4 Chronic pain syndrome
CPT/HCPCS: 99213

== ENCOUNTER → 2024-02-14 13:35 | Outpatient (BNVA) | payer MEDICARE, BC, SELFPAY | PROVIDERS: PCP Internal Medicine; Visit Provider Anesthesiology | DX: F10.229 Alcohol dependence with intoxication, unspecified (principal); G89.4 Chronic pain syndrome; Z79.899 Other long term (current) drug therapy; Z79.891 Long term (current) use of opiate analgesic | CPT/HCPCS: 99212 ==

== ENCOUNTER 2024-02-15 10:45 | Outpatient (RCR) | payer BC, MEDICARE, SELFPAY | END 2024-04-01 13:45 | disposition other institution (70) | LOC: HO.WCC 10:45 | PROVIDERS: PCP Internal Medicine; Visit Provider Surgery | DX: I87.312 Chronic venous hypertension (idiopathic) with ulcer of left lower extremity (principal); L97.822 Non-pressure chronic ulcer of other part of left lower leg with fat layer exposed; L24.9 Irritant contact dermatitis, unspecified cause | CPT/HCPCS: 11042; 11045; 97597; 97598; 97602; 99212; 99213 ==

== ENCOUNTER 2024-03-28 09:49 | Outpatient (AMB) | payer MEDICARE, BC, SELFPAY ==
[2024-03-28 09:52] VITALS: BP 161/71; PULSE 68; O2SAT 96; BMI 28.3
--- NOTE | 2024-03-28 09:52 | MHC.OFFVIS ---
Vital Signs 03/28/24 09:52 Height 5 ft 1 in Weight 150 lb BMI 28.3 BP 161/71 H Blood Pressure Location Lt brachial Position Sitting Pulse 68 Pulse Source Pulse Oximeter Pulse Oximetry (%) 96 Oxygen Delivery Method Room Air Intake Visit Reasons: Leg pain FU Allergies No Known Allergies [No Known Allergies*] Allergy (Verified 03/28/24 09:53) HPI Comments Details: Divina is back in my office again with complains on severe pain in the left lower extremity. She reports that wounds are not healed. She continues to were the dressing on her left ankle and there is seeping exudate coming through the dressing. She reports pain today 4/10. However she stated that yesterday her pain was so severe she was screaming because of the pain. Unfortunately gabapentin is the only medication which moderately helps her pain. Opioids would be contraindicated for this patient see as below. With the presence of infected open wound any neuromodulation would be contraindicated for this patient. Ideally hyperbaric oxygenation would be possible option to heal her wounds on the left lower extremity. However her insurance would not cover the cost of this procedure. We agreed that I will increase her gabapentin to 600 mg t.i.d.. Prior: Pain in the left lower extremity related to nonhealing ulcer on the lateral as well as medial surface of the ankle for the past 2 years. she is having dressing changes every other day by visiting nurses. She never tried hyperbaric oxygen to treat this wound. She never tried Unna boot to treat this wound. She was referred to Dr. Hernandez and now she is scheduled for CT scan of the lower extremity venous images to decide if any surgical intervention will help her condition.Her primary care physician prescribes her oxycodone 5 mg q.d. and she reports that this medication does not help her pain. Her past medical history significant for hypertension alcohol addiction, she was under care of Dr. Rosenda Arias in 2020 for alcohol addiction, she was on naltrexone however due to poor adherence to the schedules and due to urine drug screen positive for oxycodone she was discharged. She continues to drink up to a glass of vodka a day, she denies other recreational drugs. Other past medical history includes arthritis and history of gastric bypass. Surgical history significant for in 82 appendectomy in 91 total knee replacement in 2018 and rotator cuff surgery in 2019 as well as gastric bypass surgery. [facility] Medical History Ulcer of lower extremity Neuropathy Cognitive impairment Hypertension Depression Alcoholism Surgical History History of rotator cuff surgery History of bilateral knee replacement Hx of gastric bypass (~2011) Social History Household Members: None Housing: Condominium Do you presently have visiting nurse or other home services: Yes Alcohol intake: current Alcohol intake frequency: holidays/special occasions only Comment: pt going to [place] [id number] psy unit Patient Tobacco Use Status: Former Tobacco user Advance Directives Date on File: 11/11/22 service: No Sexual orientation: Straight/Heterosexual Review of Systems Const All systems reviewed & are unremarkable except as noted in HPI and below ENT Reports Normal hearing present Neuro Reports Normal hearing present, Denies Abnormal speech present, Denies confusion and Denies Sensory deficit (Neuro) Psych Denies confusion Physical Exam Vital Signs: Last Vital Signs Pulse 68 03/28/24 09:52 BP 161/71 H 03/28/24 09:52 Pulse Ox 96 03/28/24 09:52 Oxygen Delivery Method Room Air 03/28/24 09:52 BMI result Body Mass Index 28.3 Const General: no acute distress; No confusion Orientation/consciousness: patient oriented x3 and No confusion Eyes General: appearance normal, both eyes and all related structures Pupils: Equal, round and reactive pupils present EOM: EOMs intact bilaterally Neck Neck: Yes full ROM Chest Chest palpation & inspection: normal inspection of the chest Resp Effort & Inspection: normal respiratory effort, able to speak in complete sentences, normal respiratory pattern, no audible wheezes and no cough Cardio Jugular venous distension: no JVD GI Inspection: Yes normal to inspection Neuro General: patient oriented x3, gait normal and No confusion Cranial nerves: Yes CN's II-XII intact bilaterally, Yes Equal, round and reactive pupils present, Yes Normal hearing present and Yes Ability to bilaterally elevate shoulders present Speech: No Abnormal speech present Gait exam (Neuro): Normal gait present Motor exam (neuro): 5/5 motor strength present throughout Sensory Exam: No Sensory deficit (Neuro) Extrem General: No pedal edema Psych Speech and movement: Normal speech and movement present Affect: normal affect Attitude: cooperative Thought process: Normal thought process present Thought content: Normal thought content present Insight: Good insight present (Psych) Judgement: Good judgement present (Psych) Assessment & Plan Assessment & Plan (1) Alcohol dependence: Code(s): F10.20 - Alcohol dependence, uncomplicated Category: Medical Qualifiers: Complication of substance-induced condition: with unspecified complication Substance use status: with intoxication Qualified Code(s): F10.229 - Alcohol dependence with intoxication, unspecified (2) Chronic pain syndrome: Code(s): G89.4 - Chronic pain syndrome Category: Medical Plan This patient is chronic alcoholic and continues to drink about a glass of vodka a day. She tried treatment for sobriety with Dr. Arias. She was discharged from the treatment secondary to non adherence to the regimens and presence of opioids in the urine. She therefore is very poor candidate for the chronic opioid therapy. She denies side effects of gabapentin. I will increase gabapentin to 600 mg t.i.d.. Hyperbaric oxygenation would be a good idea to try for this patient however her insurance company most likely will not cover the cost of this procedure. Medications: New gabapentin 600 mg PO TID 90 tabs 8RF 30 days Discontinued gabapentin Discontinued Reason: Doctor's Order 400 mg PO TID 30 days 90 caps 8RF Coding Level of Care Code Est Pt Level 3 (66361) Diagnoses Alcohol dependence F10.229 Complication of substance-induced condition: with unspecified complication Substance use status: with intoxication Chronic pain syndrome G89.4
--- OUTSIDE RECORDS SUMMARY | 2024-03-28 10:38 | XMS_ITS | Encounter Summary ---
Author Organization [facility] Address [address] [place] [address] Care Team Providers Care Cane Flume Chute Operator Name Role Phone Josette Crandall MD Primary Care Provider [phone] [facility], Pcp Primary Care Provider [facility] Encounter Details Date Type Department Care Team Description 05/16/2023 Stone Driller Helper Report Medical Records [address] [place] [address] Adrian Mott Social History Tobacco Use Types Packs/Day Years Used Date Smoking Tobacco: Former Smokeless Tobacco: Never Comments:27 years Alcohol Use Standard Drinks/Week Comments No 0 (1 standard drink = 0.6 oz pur e alcohol) Sex Assigned at Date Recorded Not on file Job Start Date Occupation Industry Not on file Not on file Not on file documented as of this encounter Plan of Treatment Not on file documented as of this encounter Visit Diagnoses Not on filedocumented in this encounter Care Teams Cane Flume Chute Operator Relationship Specialty Start Date End Date Josette Crandall MD [address] [place], [place] [id number] PCP - General Internal Medicine 03/29/23 07/25/23 [facility], Pcp [address] [place], [place] [id number] PCP - General Internal Medicine 07/26/23 documented as of this encounter
--- OUTSIDE RECORDS SUMMARY | 2024-03-28 10:38 | XMS_ITS | Encounter Summary ---
Author Organization [facility] Address [address] [place] [address] Care Team Providers Care Home Care Companion Name Role Phone Josette Crandall MD Primary Care Provider [phone] [facility], Pcp Primary Care Provider Unavailabl e Reason for Visit * Reason Onset Date Comments TEST RESULTS 03/29/2023 Encounter Details Date Type Department Care Team Description 03/29/2023 Telephone Adult Medicine [address] [address] Josette Crandall MD [address] [place] [id number] TEST RESULTS Social History Tobacco Use Types Packs/Day Years Used Date Smoking Tobacco: Former Smokeless Tobacco: Never Comments:27 years Alcohol Use Standard Drinks/Week Comments No 0 (1 standard drink = 0.6 oz pur e alcohol) Sex Assigned at Date Recorded Not on file Job Start Date Occupation Industry Not on file Not on file Not on file documented as of this encounter Miscellaneous Notes * Telephone Encounter - Keeley Squires M.A. - 03/29/2023 2:26 PM EST I tried calling pt back, a male answered and advised me that pt was not in at this time In reviewed medical record there is a urine result done at [facility] labs 03/27/23 result states labswere ordered by Dr. Hurst Please clearify with pt who ordered these labs * Telephone Encounter - Marylin Daniel - 03/29/2023 2:15 PM EST Caller requesting call back from provider: Is the caller the patient? YES If caller is not the patient, what is the callers name? N/A Callers relationship to patient? N/A If person calling is not the patient themselves, is there a verbal release in FYI or permanent comments for this person: YES Reason for call back: Patient says she had urine sample dropped off last week and is looking for results Caller offered to speak with the nurse for assistance: YES Response: Patient offered to speak with nurse for assistance and patient agreed. Message forwardedto nurse. documented in this encounter Plan of Treatment Not on file documented as of this encounter Visit Diagnoses Not on filedocumented in this encounter Care Teams Home Care Companion Relationship Specialty Start Date End Date Josette Crandall MD [address] [place] [address] PCP - General Internal Medicine 03/29/23 07/25/23 [facility], [address] [place] [address] PCP - General Internal Medicine 07/26/23 documented as of this encounter
--- OUTSIDE RECORDS SUMMARY | 2024-03-28 10:38 | XMS_ITS | Encounter Summary ---
Author Organization [facility] Address [address] [place] [address] Care Team Providers Care Finish Carpenter Name Role Phone Community, Pcp Primary Care Provider Josette Bowser MD Primary Care Provider [phone] [facility], Pcp Primary Care Provider Jamar leigh Encounter Details Date Type Department Care Team Description 11/07/2022 Blender Conveyor Operator Report Medical Records [address] [place] [address] Abstract, Provider Social History Tobacco Use Types Packs/Day Years [...] on filedocumented in this encounter Care Teams Finish Carpenter Relationship Specialty Start Date End Date Community, Pcp PCP - General Internal Medicine 09/16/22 03/28/23 Josette Crandall MD [address] [place] [address] PCP - General Internal Medicine 03/29/23 07/25/23 [facility], Pcp PCP - General Internal Medicine 07/26/23 documented as of this encounter
--- OUTSIDE RECORDS SUMMARY | 2024-03-28 10:38 | XMS_ITS | Encounter Summary ---
Author Organization [facility] Address [address] [place] [address] Care Team Providers Care Catering And Events Manager Name Role Phone Derrell Hurst MD Primary Care Provider Derrell Schulte MD Primary Care Provider Glory Ho MD Primary Care Prov ider [facility], Pcp Primary Care Provider Josette Bowser MD Primary Care Provider [phone] [facility], Pcp Primary Care Provider Jamar leigh Encounter Details Date Type Department Care Team Description 08/24/2018 Hospital Medical Records [address] [place], [place] [id number] Chanel Crandall Social History Tobacco Use Types Packs/Day Years [...] on filedocumented in this encounter Care Teams Catering And Events Manager Relationship Specialty Start Date End Date Derrell Hurst MD PCP - General 10/03/07 06/24/21 Derrell Hurst MD PCP - General Internal Medicine 06/25/21 09/05/21 Glory Almaguer MD [address] [place] [address] PCP - General Internal Medicine 09/06/21 09/15/22 [facility], Pcp [address] [place] [address] PCP - General Internal Medicine 09/16/22 03/28/23 Josette Crandall MD [address] [place] [address] PCP - General Internal Medicine 03/29/23 07/25/23 [facility], Pcp [address] [place] [address] PCP - General Internal Medicine 07/26/23 documented as of this encounter
--- OUTSIDE RECORDS SUMMARY | 2024-03-28 10:38 | XMS_ITS | Encounter Summary ---
Author Organization [facility] Address [address] [place] [address] Care Team Providers Care Management Coordinator Name Role Phone Josette Crandall MD Primary Care Provider [phone] [facility], Pcp [facility] Encounter Details Date Type Department Care Team Description 04/09/2023 Home Health Certification Medical Records [address] [place] [address] Adrian Mott Social History Tobacco Use Types [...] on filedocumented in this encounter Care Teams Management Coordinator Relationship Specialty Start Date End Date Josette Crandall MD [address] [place] [phone] PCP - General Internal Medicine 03/29/23 07/25/23 [facility], Pcp [address] [place], [place] [phone] PCP - General Internal Medicine 07/26/23 documented as of this encounter
--- OUTSIDE RECORDS SUMMARY | 2024-03-28 10:38 | XMS_ITS | Encounter Summary ---
Author Organization [facility] Address [address] [place] [address] Care Team Providers Care Health Promotion Coordinator Name Role Phone Derrell Hurst MD Primary Care Provider Derrell Schulte MD Primary Care Provider Glory Ho MD Primary Care Prov ider [facility], Pcp Primary Care Provider Josette Bowser MD Primary Care Provider [phone] [facility], Pcp Primary Care Provider Jamar leigh Encounter Details Date Type Department Care Team Description 01/16/2020 Framework Developer Report Medical Records [address] [place] [address] Social History Tobacco Use Types Packs/Day Years Used Date Smoking Tobacco: Former Smokeless Tobacco: Never Comments:27 years Alcohol Use Standard Drinks/Week Comments No 0 (1 standard drink = 0.6 oz pur e alcohol) Sex Assigned at Date Recorded Not on file Job Start Date Occupation Industry Not on file Not on file Not on file COVID-19 Exposure Response Date Recorded In the last month, have you been in contact with someone who was confirmed or suspected to have Coronavirus / COVID-19? No / Unsure 01/13/2020 8:59 AM EST documented as of this encounter Plan of Treatment Not on file documented as of this encounter Visit Diagnoses Not on filedocumented in this encounter Care Teams Health Promotion Coordinator Relationship Specialty Start Date End Date Derrell Hurst MD PCP - General 10/03/07 06/24/21 Derrell Hurts MD PCP - General Internal Medicine 06/25/21 09/05/21 Glory Almaguer MD [address] [place] [address] PCP - General Internal Medicine 09/06/21 09/15/22 [facility], Pcp [address] [place] [address] PCP - General Internal Medicine 09/16/22 03/28/23 Josette Crandall MD [address] [place], [place] [phone] PCP - General Internal Medicine 03/29/23 07/25/23 [facility], Pcp [address] [place] [address] PCP - General Internal Medicine 07/26/23 documented as of this encounter
--- OUTSIDE RECORDS SUMMARY | 2024-03-28 10:38 | XMS_ITS | Encounter Summary ---
Author Organization [facility] Address [address] [place] [address] Care Team Providers Care Environmental Projects Advisor Name Role Phone [facility], Pcp Primary Care Provider Josette Bowser MD Primary Care Provider [phone] [facility], Pcp Primary Care Provider Jamar leigh Encounter Details Date Type Department Care Team Description 01/04/2023 Barrel Cleaner Report Medical Records [address] [place] [address] Abstract, Provider Social History Tobacco Use Types [...] on filedocumented in this encounter Care Teams Environmental Projects Advisor Relationship Specialty Start Date End Date Community, Pcp PCP - General Internal Medicine 09/16/22 03/28/23 Josette Crandall MD [address] [place] [address] PCP - General Internal Medicine 03/29/23 07/25/23 [facility], Pcp PCP - General Internal Medicine 07/26/23 documented as of this encounter
--- OUTSIDE RECORDS SUMMARY | 2024-03-28 10:38 | XMS_ITS | Encounter Summary ---
Author Organization [facility] Address [address] [place] [address] Care Team Providers Care Alarm Service Technician Name Role Phone Derrell Hurst MD Primary Care Provider Derrell Schulte MD Primary Care Provider Glory Ho MD Primary Care Prov ider [facility], Pcp Primary Care Provider Josette Bowser MD Primary Care Provider [phone] [facility], Pcp Primary Care Provider Jamar leigh Encounter Details Date Type Department Care Team Description 05/28/2018 Hospital Medical Records [address] [place] [address] Social History Tobacco Use Types Packs/Day Years [...] on filedocumented in this encounter Care Teams Alarm Service Technician Relationship Specialty Start Date End Date Derrell Hurst MD PCP - General 10/03/07 06/24/21 Derrell Hurst MD PCP - General Internal Medicine 06/25/21 09/05/21 Glory Almaguer MD [address] [place], [place] [phone] PCP - General Internal Medicine 09/06/21 09/15/22 [facility], Pcp [address] [place] [address] PCP - General Internal Medicine 09/16/22 03/28/23 Josette Crandall MD [address] [place] [address] PCP - General Internal Medicine 03/29/23 07/25/23 [facility], Pcp [address] [place] [address] PCP - General Internal Medicine 07/26/23 documented as of this encounter
--- OUTSIDE RECORDS SUMMARY | 2024-03-28 10:38 | XMS_ITS | Encounter Summary ---
Author Organization [facility] Address [address] [place] [address] Care Team Providers Care Plant Operations Manager Name Role Phone Derrell Hurst MD Primary Care Provider Derrell Schulte MD Primary Care Provider Glory Ho MD Primary Care Prov ider [facility], Pcp Primary Care Provider UnavailJosette Klein MD Primary Care Provider [phone] [facility], Pcp Primary Care Provider Unavaillashay e Encounter Details Date Type Department Care Team Description 06/04/2018 Refill Adult Medicine [address] [id number] Derrell Hurst MD Social History Tobacco Use Types Packs/Day Years [...] on filedocumented in this encounter Care Teams Plant Operations Manager Relationship Specialty Start Date End Date Derrell Hurst MD PCP - General 10/03/07 06/24/21 Derrell Hurst MD PCP - General Internal Medicine 06/25/21 09/05/21 Glory Almaguer MD [address] [place] [phone] PCP - General Internal Medicine 09/06/21 09/15/22 [facility], Pcp [address] [place] [address] PCP - General Internal Medicine 09/16/22 03/28/23 Josette Crandall MD [address] [place] [address] PCP - General Internal Medicine 03/29/23 07/25/23 [facility], Pcp [address] [place] [address] PCP - General Internal Medicine 07/26/23 documented as of this encounter
--- OUTSIDE RECORDS SUMMARY | 2024-03-28 10:38 | XMS_ITS | Encounter Summary ---
Author Organization [facility] Address [address] [place] [address] Care Team Providers Care Regulatory Compliance Coordinator Name Role Phone Derrell Hurst MD Primary Care Provider Derrell Schulte MD Primary Care Provider Glory Ho MD Primary Care Prov ider [facility], Pcp Primary Care Provider Josette Bowser MD Primary Care Provider [phone] [facility], Pcp Primary Care Provider Jamar leigh Encounter Details Date Type Department Care Team Description 05/30/2018 Hospital Medical Records [address] [place] [address] Dilshad Gaona MD Social History Tobacco Use Types Packs/Day [...] on filedocumented in this encounter Care Teams Regulatory Compliance Coordinator Relationship Specialty Start Date End Date Derrell Hurst MD PCP - General 10/03/07 06/24/21 Derrell Hurst MD PCP - General Internal Medicine 06/25/21 09/05/21 Glory Almaguer MD [address] [place] [address] PCP - General Internal Medicine 09/06/21 09/15/22 [facility], Pcp [address] [place] [address] PCP - General Internal Medicine 09/16/22 03/28/23 Josette Crandall MD [address] [place] [address] PCP - General Internal Medicine 03/29/23 07/25/23 [facility], Pcp [address] [place] [address] PCP - General Internal Medicine 07/26/23 documented as of this encounter
--- OUTSIDE RECORDS SUMMARY | 2024-03-28 10:38 | XMS_ITS | Encounter Summary ---
Author Organization [facility] Address [address] [place] [address] Care Team Providers Care Line Supply Name Role Phone Community, Pcp Primary Care Provider Josette Bowser MD Primary Care Provider [phone] [facility], Pcp Primary Care Provider Jamar leigh Encounter Details Date Type Department Care Team Description 10/31/2022 Director Biologics Report Medical Records [address] [place] [address] Abstract, Provider Social History Tobacco Use Types [...] on filedocumented in this encounter Care Teams Line Supply Relationship Specialty Start Date End Date Community, Pcp PCP - General Internal Medicine 09/16/22 03/28/23 Josette Crandall MD [address] [place] [address] PCP - General Internal Medicine 03/29/23 07/25/23 [facility], Pcp PCP - General Internal Medicine 07/26/23 documented as of this encounter
--- OUTSIDE RECORDS SUMMARY | 2024-03-28 10:38 | XMS_ITS | Encounter Summary ---
Author Organization [facility] Address [address] [place] [address] Care Team Providers Care Shop Tech Name Role Phone Josette Crandall MD Primary Care Provider [facility], Pcp Primary Care Provider [facility] Encounter Details Date Type Department Care Team Description 04/13/2023 Marine Surveyor Report Medical Records [address] [place] [address] Social History Tobacco Use Types Packs/Day Years [...] on filedocumented in this encounter Care Teams Shop Tech Relationship Specialty Start Date End Date Josette Crandall MD [address] [place] [address] PCP - General Internal Medicine 03/29/23 07/25/23 [facility], Pcp [address] [place] [address] PCP - General Internal Medicine 07/26/23 documented as of this encounter
--- OUTSIDE RECORDS SUMMARY | 2024-03-28 10:38 | XMS_ITS | Encounter Summary ---
Author Organization [facility] Address [address] [place] [address] Care Team Providers Care Stem Crusher Name Role Phone Derrell Hurst MD Primary Care Provider eDrrell Schulte MD Primary Care Provider Glory Ho MD Primary Care Prov ider [facility], Pcp Primary Care Provider Josette Bowser MD Primary Care Provider [phone] [facility], Pcp Primary Care Provider Jamar leigh Encounter Details Date Type Department Care Team Description 07/19/2018 Curriculum Assistant Report Medical Records [address] [place], [place] [id number] Jose Nazario MD Social History Tobacco Use Types Packs/Day [...] on filedocumented in this encounter Care Teams Stem Crusher Relationship Specialty Start Date End Date Derrell Hurst MD PCP - General 10/03/07 06/24/21 Derrell Hurst MD PCP - General Internal Medicine 06/25/21 09/05/21 Glory Almaguer MD [address] [place] [address] PCP - General Internal Medicine 09/06/21 09/15/22 [facility], Pcp [address] [place] [address] PCP - General Internal Medicine 09/16/22 03/28/23 Josette Crandall MD [address] [place] [address] PCP - General Internal Medicine 03/29/23 07/25/23 [facility], Pcp [address] [place] [address] PCP - General Internal Medicine 07/26/23 documented as of this encounter
--- OUTSIDE RECORDS SUMMARY | 2024-03-28 10:39 | XMS_ITS | Encounter Summary ---
Author Organization [facility] Address [address] [place] [address] Care Team Providers Care Research Archaeologist Name Role Phone Derrell Hurst MD Primary Care Provider Derrell Schulte MD Primary Care Provider Glory Ho MD Primary Care Prov ider [facility], Pcp Primary Care Provider Josette Bowser MD Primary Care Provider [phone] [facility], Pcp Primary Care Provider Jamar leigh Encounter Details Date Type Department Care Team Description 12/04/2019 Home Health Certification Medical Records [address] [place] [address] Abstract, Provider Social History Tobacco Use Types [...] have Coronavirus / COVID-19? No / Unsure 11/27/2019 1:58 PM EDT documented as of this encounter Plan of Treatment Not on file documented as of this encounter Visit Diagnoses Not on filedocumented in this encounter Care Teams Research Archaeologist Relationship Specialty Start Date End Date Derrell Hurst MD PCP - General 10/03/07 06/24/21 Derrell Hurst MD PCP - General Internal Medicine 06/25/21 09/05/21 Glory Almaguer MD [address] [place] [address] PCP - General Internal Medicine 09/06/21 09/15/22 [facility], Pcp [address] [place] [address] PCP - General Internal Medicine 09/16/22 03/28/23 Josette Crandall MD [address] [place], [place] [phone] PCP - General Internal Medicine 03/29/23 07/25/23 [facility], Pcp [address] [place] [address] PCP - General Internal Medicine 07/26/23 documented as of this encounter
--- OUTSIDE RECORDS SUMMARY | 2024-03-28 10:39 | XMS_ITS | Encounter Summary ---
Author Organization [facility] Address [address] [place] [address] Care Team Providers Care Technology Administrator Name Role Phone Derrell Hurst MD Primary Care Provider Derrell Schulte MD Primary Care Provider Glory oH MD Primary Care Prov ider [facility], Pcp Primary Care Provider Josette Bowser MD Primary Care Provider [phone] [facility], Pcp Primary Care Provider Jamar leigh Encounter Details Date Type Department Care Team Description 10/18/2018 Liner Inserter Report Medical Records [address] [place], [place] [phone] Adria Thornton Social History Tobacco Use Types Packs/Day Years [...] on filedocumented in this encounter Care Teams Technology Administrator Relationship Specialty Start Date End Date Derrell Hurst MD PCP - General 10/03/07 06/24/21 Derrell Hurst MD PCP - General Internal Medicine 06/25/21 09/05/21 Glory Almaguer MD [address] [place] [address] PCP - General Internal Medicine 09/06/21 09/15/22 [facility], Pcp [address] [place] [address] PCP - General Internal Medicine 09/16/22 03/28/23 Josette Crandall MD [address] [place] [address] PCP - General Internal Medicine 03/29/23 07/25/23 [facility], Pcp [address] [place], [place] [phone] PCP - General Internal Medicine 07/26/23 documented as of this encounter
--- OUTSIDE RECORDS SUMMARY | 2024-03-28 10:39 | XMS_ITS | Encounter Summary ---
Author Organization [facility] Address [address] [place] [address] Care Team Providers Care Cyber Defense Incident Responder Name Role Phone Derrell Hurst MD Primary Care Provider Derrell Schulte MD Primary Care Provider Glory Ho MD Primary Care Prov ider [facility], Pcp Primary Care Provider Unavailabl e Josette Crandall MD Primary Care Provider [phone] [facility], Pcp Primary Care Provider Unavailabl e Reason for Visit * Reason Onset Date Comments REFERRAL 07/12/2018 Encounter Details Date Type Department Care Team Description 07/12/2018 Telephone Vascular Surgery - [address] [place] [phone] Natanael José MD REFERRAL Social History Tobacco Use Types Packs/Day Years [...] encounter Miscellaneous Notes * Telephone Encounter - Laura Bailey - 07/30/2018 2:[address] Sutton office and they gave an appointment if 10.15 @ 3:30. All iinformation was fax over in 07.30 to s office Patient was called and appointment was given * Telephone Encounter - Elisabeth aCrter - 07/30/2018 1:44 PM EDT Pt Is wondering if there was a appt Scheduled with dr hooper * Telephone Encounter - Loretta Dillon M.A. - 07/12/2018 10:23 AM EDT PT HAS BLUE CROSS OF [place], LOOKING FOR AN APPT TO DR VANN. WE DON'T TAKE THIS INSURANCE FOR SPECIALPROCEDURES documented in this encounter Plan of Treatment Not on file documented as of this encounter Visit Diagnoses Not on filedocumented in this encounter Care Teams Cyber Defense Incident Responder Relationship Specialty Start Date End Date Derrell Hurst MD PCP - General 10/03/07 06/24/21 Derrell Hurst MD PCP - General Internal Medicine 06/25/21 09/05/21 Glory Almaguer MD [address] [place] [address] PCP - General Internal Medicine 09/06/21 09/15/22 [facility], Pcp [address] [place] [address] PCP - General Internal Medicine 09/16/22 03/28/23 Josette Crandall MD [address] [place] [address] PCP - General Internal Medicine 03/29/23 07/25/23 [facility], Pcp [address] [place] [address] PCP - General Internal Medicine 07/26/23 documented as of this encounter
--- OUTSIDE RECORDS SUMMARY | 2024-03-28 10:39 | XMS_ITS | Encounter Summary ---
Author Organization [facility] Address [address] [place] [address] Care Team Providers Care Soil Expert Name Role Phone Derrell Hurst MD Primary Care Provider Derrell Schulte MD Primary Care Provider Glory Ho MD Primary Care Prov ider [facility], Pcp Primary Care Provider UnavailJosette Klein MD Primary Care Provider [phone] [facility], Pcp Primary Care Provider Jamar e Encounter Details Date Type Department Care Team Description 10/28/2019 Oncology Technician Report Medical Records [address] [place] [address] Yvonne Fink MD Social History Tobacco Use Types Packs/Day [...] have Coronavirus / COVID-19? No / Unsure 10/21/2019 1:50 PM EDT documented as of this encounter Plan of Treatment Not on file documented as of this encounter Visit Diagnoses Not on filedocumented in this encounter Care Teams Soil Expert Relationship Specialty Start Date End Date Derrell Hurst MD PCP - General 10/03/07 06/24/21 Derrell Hurst MD PCP - General Internal Medicine 06/25/21 09/05/21 Glory Almaguer MD [address] [place] [address] PCP - General Internal Medicine 09/06/21 09/15/22 [facility], Pcp [address] [place] [address] PCP - General Internal Medicine 09/16/22 03/28/23 Josette Crandall MD [address] [place] [address] PCP - General Internal Medicine 03/29/23 07/25/23 [facility], Pcp [address] [place] [address] PCP - General Internal Medicine 07/26/23 documented as of this encounter
--- OUTSIDE RECORDS SUMMARY | 2024-03-28 10:39 | XMS_ITS | Encounter Summary ---
Author Organization [facility] Address [address] [place] [address] Care Team Providers Care Contract Manager Name Role Phone Derrell Hurst MD Primary Care Provider Derrell Schulte MD Primary Care Provider Glory Ho MD Primary Care Prov ider [facility], Pcp Primary Care Provider Josette Bowser MD Primary Care Provider [phone] [facility], Pcp Primary Care Provider Jamar leigh Encounter Details Date Type Department Care Team Description 11/22/2019 [facility] Medical Records [address] [place] [address] Social History Tobacco Use Types Packs/Day Years [...] have Coronavirus / COVID-19? No / Unsure 11/14/2019 9:14 AM EDT documented as of this encounter Plan of Treatment Not on file documented as of this encounter Visit Diagnoses Not on filedocumented in this encounter Care Teams Contract Manager Relationship Specialty Start Date End Date Derrell Hurst MD PCP - General 10/03/07 06/24/21 Derrell Hurst MD PCP - General Internal Medicine 06/25/21 09/05/21 Glory Almaguer MD [address] [place] [address] PCP - General Internal Medicine 09/06/21 09/15/22 [facility], Pcp [address] [place] [address] PCP - General Internal Medicine 09/16/22 03/28/23 Josette Crandall MD [address] [place], [place] [id number] PCP - General Internal Medicine 03/29/23 07/25/23 [facility], Pcp [address] [place] [address] PCP - General Internal Medicine 07/26/23 documented as of this encounter
--- OUTSIDE RECORDS SUMMARY | 2024-03-28 10:39 | XMS_ITS | Encounter Summary ---
Author Organization [facility] Address [address] [place] [address] Care Team Providers Care Client Service Manager Name Role Phone Derrell Hurst MD Primary Care Provider Derrell Schulte MD Primary Care Provider Glory Ho MD Primary Care Prov ider [facility], Pcp Primary Care Provider Unavailabl e Josette Crandall MD Primary Care Provider [phone] [facility], Pcp Primary Care Provider Unavailabl e Reason for Visit * Reason Onset Date Comments TEST RESULTS 01/24/2018 Encounter Details Date Type Department Care Team Description 01/24/2018 Telephone General Surgery - [address] [place] [address] Corinne Enrique MD [address] [place] [address] [id number] TEST RESULTS Social History Tobacco Use Types [...] encounter Miscellaneous Notes * Telephone Encounter - Araceli Emanuel M.A. - 01/24/2018 4:57 PM EST Araceli called pt and L/M about result note documented in this encounter Plan of Treatment Not on file documented as of this encounter Visit Diagnoses Not on filedocumented in this encounter Care Teams Client Service Manager Relationship Specialty Start Date End Date Derrell Hurst MD PCP - General 10/03/07 06/24/21 Derrell Hurst MD PCP - General Internal Medicine 06/25/21 09/05/21 Glory Almaguer MD [address] [place] [address] PCP - General Internal Medicine 09/06/21 09/15/22 [facility], Pcp [address] [place] [address] PCP - General Internal Medicine 09/16/22 03/28/23 Josette Crandall MD [address] [place] [address] PCP - General Internal Medicine 03/29/23 07/25/23 [facility], Pcp [address] [place] [address] PCP - General Internal Medicine 07/26/23 documented as of this encounter
--- OUTSIDE RECORDS SUMMARY | 2024-03-28 10:39 | XMS_ITS | Clinical Summary ---
Author Organization [facility] it Address [address] [place] [address] Care Team Providers Care Width Stripper Name Role Phone Josette Crandall MD Primary Care Provider [phone] Allergies Active Allergy Reactions Criticality Noted Date Comments Nabumetone 10/09/2007 Prednisone 10/09/2007 Could not sleep when took 20 years ago, tried dose within last two months x 5 days and tolerated ok Medications amLODIPine (NORVASC) 10 mg tablet Take 1 tablet (10 mg total) by mouth 1 (one) time each day. 09/05/2022 Active hydrOXYzine HCL (ATARAX) 25 mg tablet Take 1 tablet (25 mg total) by mouth every 8 (eight) hours if needed. 07/07/2022 Active celecoxib (CeleBREX) 200 mg capsule TAKE ONE CAPSULE BY MOUTH TWICE A DAY NEEDED FOR PAIN 07/07/2022 Active cephalexin (KEFLEX) 500 mg capsule Take 1 Capsule by mouth 3 times daily (with meals). 03/11/2022 Active hydroCHLOROthia zide (MICROZIDE) 12.5 mg capsule Take 1 capsule (12.5 mg total) by mouth 1 (one) time each day in the morning. 12/07/2021 Active omeprazole (PriLOSEC) [address] capsule Take 1 capsule (20 mg total) by mouth 1 (one) time each day. 11/01/2021 Active sertraline (ZOLOFT) 100 mg tablet Take 1 tablet (100 mg total) by mouth 1 (one) time each day in the morning. 09/17/2021 Active ferrous sulfate, dried 160 mg (50 mg iron) tablet extended release Take 50 mg by mouth daily. Take on empty stomach 03/17/2021 Active donepeziL (ARICEPT) 10 mg tablet Take 1 tablet (10 mg total) by mouth at bedtime. 11/16/2020 Active ondansetron (ZOFRAN) 4 mg tablet Take 1 tablet (4 mg total) by mouth every 8 (eight) hours if needed. 10/31/2019 Active biotin 5 mg capsule Take by mouth 1 (one) time each day. Active multivitamin (Daily Multi-Vitamin) tablet Take 1 tablet by mouth daily. 1 tablet daily Active ferrous sulfate (IRON ORAL) Take 1 tablet by mouth daily. 1 tablet daily Active acetaminophen (TYLENOL 8 HOUR) 650 mg 8 hr tablet Take 650 mg by mouth every morning. Active Active Problems Problem Noted Date Diagnosed Date Alcoholism 10/13/2020 Overview (02/09/2024): Multiple admission in past. Follows with Dr. Mendenhall at on Naltraxone. 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 thomas Vitiligo 10/06/2008 Degenerative arthritis of knee 10/09/2007 Essential hypertension, benign 10/09/2007 Type 2 diabetes mellitus with vascular disease 0 10/09/2007 Encounters Date Type Department Care Team Description 02/08/[address] [address] Josette Crandall MD abnormal heart rythem ; vna 01/14/2024 Telephone Adult [address] [address] Phyllis Smith [place] faxed order ([facility] order #[id number]) 01/05/2024 Telephone Adult [address] [address] Phyllis Smith [place] faxed order ([facility] order#[id number]) 01/05/2024 Telephone Adult [address] [address] Josette Crandall MD VNA Order ([facility]/Order #[id number]) 01/02/2024 Telephone Adult [address] [address] Josette Crandall MD VNA Orders ([facility]/Order #[id number]) from Last 3 Months Immunizations Name Administration Dates Next Due Influenza trivalent, 0.5mL ( Fluad) 65yo and older 11/15/2021,10/23/2020,10/19/2019,10/16,10/20/2017,12/05/2016,01/04/2016 ,01/31/2014,11/06/2011,10/26/2009,05/2008 Influenza trivalent, 0.5mL, preservative free (Fluarix; FluLaval; Fluzone) ages 6mo and older (Afluria) 3 years and older 10/17/2019,11/24/2007 Influenza, Unspecified 10/20/2017,2016,11/04/2014,11/10 Pfizer (ages 12 & older) Biv alent, COVID-19 10/27/2021 Pneumococcal Conjugate Vacci ne, 7 Valent 06/16/2017 Pneumococcal conjugate 13 va lent (Prevnar 13, PCV13) 2mo and older 12/05/2016,11/05/2016 Pneumococcal polysaccharide 23 valent (Pneumovax 23) 2yo and older 12/22/2017 Td Tetanus diptheria (Tdvax) 7yo and older 11/07/2018,11/06/2016 Tdap Tetanus diptheria acell ular pertussis (Boostrix; Adacel) 7yo and older 10/06/2008 Zoster recombinant (Shingrix ) 19yo and older 08/18/2017,06/16/2017 Surgical History Surgery Date Site/Laterality Comments OTHER SURGICAL HISTORY PROCEDURE: REPAIR FEMORAL HERNIA OTHER SURGICAL HISTORY PROCEDURE: HISTORICAL EAR SURGERY; COMMENT: acoustic neuroma APPENDECTOMY PROCEDURE: HISTORICAL APPENDECTOMY TUBAL LIGATION PROCEDURE: HISTORICAL TUBAL LIGATION GASTRIC BYPASS 02/11/2011 PROCEDURE: [place] GASTRIC RSTCV W/BYP W/SM INT RCNSTJ LIMIT ABSRPJ; COMMENT: Dr. estrada SECTION PROCEDURE: HISTORICAL DELIVERY TOTAL KNEE ARTHROPLASTY 03/2018 Right PROCEDURE: [place] ARTHRP KNE CONDYLE&PLATU MEDIAL&LAT COMPARTMENTS OTHER SURGICAL HISTORY PROCEDURE: HISTORICAL CA BASAL CELL; COMMENT: BCC 08/21 right clavicle (nodular) 09/18 left tolliver (nodular, ulcerated) OTHER SURGICAL HISTORY PROCEDURE: HISTORICAL SQUAMOUS CELL CA; COMMENT: SCC 09/24 right tolliver (well-differentiated, invasive) 01/20 right tolliver (well-differentiated, keratoacanthoma type) Medical History Medical History Date Comments Essential hypertension, benign 10/09/2007 D X:Essential hypertension, benign Degenerative arthritis of knee 10/09/2007 D X:Degenerative arthritis of knee Historical Medical DX 10/09/2007 DX:Tubal l igation Acoustic neuroma ([facility]/HCC) 10/06/2008 DX:Ac oustic neuroma ([facility]) History of squamous cell carcinoma 01/27/2015 DX:History of squamous cell carcinoma; COMMENT: SCC 09/24 right tolliver (well-differentiated, invasive) 01/20 right tolliver (well-differentiated, keratoacanthoma type) History of basal cell carcinoma DX:History of basal cell carcinoma; COMMENT: BCC 08/21 right clavicle (nodular) 09/18 left tolliver (nodular, ulcerated) History of actinic keratoses DX: History of actinic keratoses Alcoholism (CMS/HCC) 10/13/2020 DX:Alcoholi sm ([facility]); COMMENT: Multiple admission in past. Follows with Dr. Mendenhall at on Naltraxone. Cataracts, bilateral 01/31/2014 DX:Cataract s, bilateral Covid-19 02/03/2020 DX:COVID-19 Heart murmur 08/29/2018 DX:Heart murmur; COMMENT: Mild aortic insufficiency, trace mitral regurgitation, trace to mild tricuspid regirgitation per echo on 09/07/18 Leg edema 10/26/2009 DX:Leg edema; CO MMENT: With chronic stasis dermatitis Major depressive disorder 06/11/2019 DX:[place] or depressive disorder; COMMENT: Admitted 07/08/20-07/15/20 [facility] w/ suicidal ideation Peripheral vascular disease, unspecified ([facility]) 06/11/2019 DX:Peripheral vascular disea se, unspecified ([facility]) S/P gastric bypass 02/28/2011 DX:S/P gastri c bypass 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 No diabetes Breast cancer Mother dx'd age 58 Other: 86, question diabetes Mother dx'd age 58 Colon cancer Neg Hx Ovarian cancer Neg Hx Relation Name Status Comments Father Mother dx'd age 58 Social History Tobacco Use Types Packs/Day Years Used Date Smoking Tobacco: Former Smokeless Tobacco: Never Alcohol Use Standard Drinks/Week Comments No 0 (1 standard drink = 0.6 oz pur e alcohol) Comments Unknown Sex and Gender Information Value Date Recorded Sex Assigned at Not on file Legal Sex Female 5:46 AM EST Gender Identity Not on file Sexual Orientation Not on file Obstetrics History Last Filed Vital Signs Vital Sign Reading Time Taken Comments Blood Pressure 163/78 03/29/2022 8:36 AM EST Pulse 84 03/29/2022 8:36 AM EST Temperature - - Respiratory Rate - - Oxygen Saturation - - Inhaled Oxygen Concentration - - Weight 64.4 kg (142 lb) 03/29/2022 8:36 AM EST Height 154.9 cm (5' 1 ) 03/11/2022 4:05 PM EST Body Mass Index 26.83 03/11/2022 4:05 PM EST Plan of Treatment Health Maintenance Due Date Last Done Comments Diabetes: Annual Foot Exam 1959 Diabetes: Annual Retina Eye Exam 1959 Diabetes: Annual GFR (Glomerular Filtration Rate) 05/20/2021 05/20/2020 Depression Screening 01/15/2022 Falls Risk Assessment 01/15/2022 Osteoporosis Screening (Bone Density Screening) 01/15/2022 Social Influencers of Health Screening 01/15/2022 Hypertension/CHF/CAD Annual BMP Blood Test 01/16/2022 05/20/2020 Diabetes: Annual Urine Albumin-Creatinine Ratio (uACR) 01/22/2022 05/20/2020 Diabetes: Blood Sugar Control Test (HGBA1C) 01/22/2022 05/20/2020 COVID-19 Vaccine ( season) 2023 10/27/2021, 02/08/2021, 04/30/2020 Influenza Vaccine (#1) 2023 , 10/23/2020, 10/19/2019, Additional history exists RSV Immunization Patients 60+ Years Old (1 - 1-dose 75+ series) 02/11/2024 Cholesterol Screening (Lipid Panel) 05/20/2025 05/20/2020 DTaP,Tdap,and Td Vaccines (4 - Td or Tdap) 11/07/2028 11/07/2018, 11/06/2016, 10/06/2008 Colorectal Cancer Screening: Colonoscopy 08/12/2029 08/13/2019 Hepatitis C Screening Completed 08/02/2012 Zoster Vaccines Completed 08/18/2017, 06/16/2017 Pneumococcal Vaccine: 50+ Years Completed 12/22/2017, 12/05/2016, 11/05/2016 Breast Cancer Screening Discontinued 05/04/19, 04/23/2020, 01/24/2019, Additional history exists HIB Vaccines Aged Out No longer eligi ble based on patient's age to complete this topic HPV Vaccines Aged Out No longer eligi ble based on patient's age to complete this topic Hepatitis A Vaccines Aged Out No long er eligible based on patient's age to complete this topic Hepatitis B Vaccines Aged Out No long er eligible based on patient's age to complete this topic IPV Vaccines Aged Out No longer eligi ble based on patient's age to complete this topic MMR Vaccines Aged Out No longer eligi ble based on patient's age to complete this topic Meningococcal ACWY Vaccine Aged Out N o longer eligible based on patient's age to complete this topic Meningococcal B Vacine Aged Out No lo nger eligible based on patient's age to complete this topic RSV Immunization Patients Under 20 months Aged Out No longer eligible based on patient's age to complete this topic Varicella Vaccines Aged Out No longer eligible based on patient's age to complete this topic Procedures Procedure Name Priority Date/Time Associated Diagnosis Comments SCREENING MAMMOGRAPHY BI 2-VIEW BREAST INC CAD Routine 05/03/2021 5:41 PM EDT Encounter for screening mammogram for malignant neoplasm of breast URINE ALBUMIN CREATININE RATIO Routine 05/20/2020 ANNUAL BMP BLOOD TEST Routine 05/20/2020 HEMOGLOBIN A1C Routine 05/20/2020 LIPID PANEL Routine 05/20/2020 COLONOSCOPY Routine 08/13/2019 HEPATITIS C SCREENING Routine 08/02/2012 from Last 3 Months or Most Recently Relevant to Health Maintenance Results * SCREENING MAMMOGRAPHY BI 2-VIEW BREAST INC CAD (05/03/2021 5:41 PM EDT) Anatomical Region Laterality Modality Radiographic Radha ging 04/23/2020 3:13 PM EDT Narrative 05/04/2021 12:55 PM EDT This is a summary report. The complete report is available in the patient's medical record. If you cannot access the medical record, please contact the sending organization for a detailed fax or copy. BILATERAL 2D and 3D DIGITAL SCREENING MAMMOGRAM History: Routine screening. ??No current breast complaints. ??Family history of breast cancer in mother Comparison: Multiple priors dating back to 01/19/2017 Technique: Bilateral full-field digital 2D and 3D mammography was performed using standard CC and MLO projections CAD was used to evaluate this mammogram. Findings: Density: ??There are scattered areas of fibroglandular density-B RIGHT: No suspicious masses, groups of microcalcification or areas of architectural distortion identified. Stable typically benign parenchymal asymmetries LEFT: No suspicious masses, groups of microcalcifications or areas of architectural distortion identified. Stable typically benign parenchymal asymmetries IMPRESSION: : 1. ??No mammographic evidence of malignancy. BI-RADS Category 2 benign findings Recommendation: Routine annual screening mammography is recommended Procedure Note Dulce Mccracken MD - 01/25/2022 This is a summary report. The complete report is available in thepatient's medical record. If you cannot access the medical record, pleasecontact the sending organization for a detailed fax or copy. BILATERAL 2D and 3D DIGITAL SCREENING MAMMOGRAM History: Routine screening. No current breast complaints. Family historyof breast cancer in mother Comparison: Multiple priors dating back to 01/19/2017 Technique: Bilateral full-field digital 2D and 3D mammography wasperformed using standard CC and MLO projections CAD was used to evaluate this mammogram. Findings: Density: There are scattered areas of fibroglandular density-B RIGHT: No suspicious masses, groups of microcalcification or areas ofarchitectural distortion identified. Stable typically benign parenchymalasymmetries LEFT: No suspicious masses, groups of microcalcifications or areas ofarchitectural distortion identified. Stable typically benign parenchymalasymmetries IMPRESSION: : 1. No mammographic evidence of malignancy. BI-RADS Category 2 benign findings Recommendation: Routine annual screening mammography is recommended Derrell Hurst MD IMG XR PROCEDURES Final Resul t * Urine Albumin Creatinine Ratio (05/20/2020) Urine Albumin Creatinine Ratio Abstracted Historical Provider [facility] Final Result * Annual BMP Blood Test (05/20/2020) Annual BMP Blood Test Abstracted Historical Provider [facility] Final Result * Hemoglobin A1c (05/20/2020) [facility] Hemoglobin A1C 5.4 <=6.5 % Blood Venous blood specimen / Unknown Historical Provider LAB BLOOD ORDERABLES Della l Result * Lipid panel (05/20/2020) [facility] LDL/HDL Ratio 2 0 - 4 Triglycerides 53 0 - 150 mg/dL Cholesterol 143 0 - 200 mg/dL HDL 93 >=40 mg/dL LDL Cholesterol 40 0 - 100 mg/dL Blood Venous blood specimen / Unknown [facility] Provider LAB BLOOD ORDERABLES Della l Result * Colonoscopy (08/13/2019) [facility] Colonoscopy No Interpretation , Abstracted Anatomical Region Laterality Modality Other [facility] Provider HEALTH MAINTENANCE Final Result * Hepatitis C Screening (08/02/2012) [facility] Hepatitis C Screening Abstracted [facility] Provider HEALTH MAINTENANCE Final Result from Last 3 Months or Most Recently Relevant to Health Maintenance Care Teams Width Stripper Relationship Specialty Start Date End Date Josette Crandall MD [address] [place] [address] PCP - General 03/29/23
--- OUTSIDE RECORDS SUMMARY | 2024-03-28 10:39 | XMS_ITS | Encounter Summary ---
Author Organization [facility] Address [address] [place] [address] Care Team Providers Care Materials And Corrosion Engineer Name Role Phone Derrell Hurst MD Primary Care Provider Derrell Schulte MD Primary Care Provider Glory Ho MD Primary Care Prov ider [facility], Pcp Primary Care Provider Josette Bowser MD Primary Care Provider [phone] [facility], Pcp Primary Care Provider Jamar leigh Encounter Details Date Type Department Care Team Description 10/16/2018 Back Tufter Report Medical Records [address] [place], [place] [id number] Sunil Fink Social History Tobacco Use Types Packs/Day Years [...] on filedocumented in this encounter Care Teams Materials And Corrosion Engineer Relationship Specialty Start Date End Date Derrell Hurst MD PCP - General 10/03/07 06/24/21 Derrell Hurst MD PCP - General Internal Medicine 06/25/21 09/05/21 Glory Almaguer MD [address] [place] [address] PCP - General Internal Medicine 09/06/21 09/15/22 [facility], Pcp [address] [place] [address] PCP - General Internal Medicine 09/16/22 03/28/23 Josette Crandall MD [address] [place] [address] PCP - General Internal Medicine 03/29/23 07/25/23 [facility], Pcp [address] [place] [address] PCP - General Internal Medicine 07/26/23 documented as of this encounter
--- OUTSIDE RECORDS SUMMARY | 2024-03-28 10:39 | XMS_ITS | Encounter Summary ---
Author Organization [facility] Address [address] [place] [address] Care Team Providers Care As400 Consultant Name Role Phone Glory Almaguer MD Primary Care Prov ider [facility], Pcp Primary Care Provider Unavailabl e Josette Crandall MD Primary Care Provider [phone] [facility], Pcp Primary Care Provider Unavailabl e Encounter Details Date Type Department Care Team Description 08/15/2022 School Cafeteria Head Cook Report Medical Records [address] [place] [address] Abstract, Provider Social History Tobacco Use Types [...] on filedocumented in this encounter Care Teams As400 Consultant Relationship Specialty Start Date End Date Glory Almaguer MD [address] [place] [address] PCP - General Internal Medicine 09/06/21 09/15/22 [facility], Pcp [address] [place] [address] PCP - General Internal Medicine 09/16/22 03/28/23 Josette Crandall MD [address] [place] [address] [phone] PCP - General Internal Medicine 03/29/23 07/25/23 [facility], [address] [address] PCP - General Internal Medicine 07/26/23 documented as of this encounter
--- OUTSIDE RECORDS SUMMARY | 2024-03-28 10:39 | XMS_ITS | Encounter Summary ---
Author Organization [facility] Address [address] [place] [address] Care Team Providers Care Pumper Head Name Role Phone Glory Almaguer MD Primary Care Prov ider [facility], Pcp Primary Care Provider Unavailabl e Josette Crandall MD Primary Care Provider [phone] [facility], Pcp Primary Care Provider Unavailabl e Encounter Details Date Type Department Care Team Description 05/23/2022 Chief Minister Report Medical Records [address] [place] [address] Abstract, Provider Social History Tobacco Use Types [...] on filedocumented in this encounter Care Teams Pumper Head Relationship Specialty Start Date End Date Glory Almaguer MD [address] [place] [address] PCP - General Internal Medicine 09/06/21 09/15/22 [facility], Pcp [address] [place] [address] PCP - General Internal Medicine 09/16/22 03/28/23 Josette Crandall MD [address] [place] [address] [phone] PCP - General Internal Medicine 03/29/23 07/25/23 [facility], [address] [address] PCP - General Internal Medicine 07/26/23 documented as of this encounter
--- OUTSIDE RECORDS SUMMARY | 2024-03-28 10:39 | XMS_ITS | Encounter Summary ---
Author Organization [facility] Address [address] [place] [address] Care Team Providers Care Steam Presser Name Role Phone Derrell Hurst MD Primary Care Provider Derrell Schulte MD Primary Care Provider Glory Ho MD Primary Care Prov ider [facility], Pcp Primary Care Provider Josette Bowser MD Primary Care Provider [facility], Pcp Primary Care Provider Jamar leigh Encounter Details Date Type Department Care Team Description 02/25/2014 Olericulturist Report Medical Records [address] [place] [address] Clyde Covington MD Social History Tobacco Use Types Packs/Day [...] on filedocumented in this encounter Care Teams Steam Presser Relationship Specialty Start Date End Date Derrell Hurst MD PCP - General 10/03/07 06/24/21 Derrell Hurst MD PCP - General Internal Medicine 06/25/21 09/05/21 Glory Almaguer MD [address] [place] [address] PCP - General Internal Medicine 09/06/21 09/15/22 [facility], Pcp [address] [place] [phone] PCP - General Internal Medicine 09/16/22 03/28/23 Josette Crandall MD [address] [place] [phone] PCP - General Internal Medicine 03/29/23 07/25/23 [facility], Pcp [address] [place], [place] [phone] PCP - General Internal Medicine 07/26/23 documented as of this encounter
--- OUTSIDE RECORDS SUMMARY | 2024-03-28 10:39 | XMS_ITS | Encounter Summary ---
Author Organization [facility] Address [address] [place] [address] Care Team Providers Care Chemical Operations Specialist Name Role Phone Derrell Hurst MD Primary Care Provider Derrell Schulte MD Primary Care Provider Glory Ho MD Primary Care Prov ider [facility], Pcp Primary Care Provider Unavailabl e Josette Crandall MD Primary Care Provider [phone] [facility], Pcp Primary Care Provider Unavailabl e Reason for Visit * Reason Onset Date Comments Faxed Order 12/03/2019 Encounter Details Date Type Department Care Team Description 12/03/[address] [address] Derrell Hurst MD Faxed Order Social History Tobacco Use Types Packs/Day Years [...] PM EDT documented as of this encounter Miscellaneous Notes * Telephone Encounter - Martha Oneill - 12/03/2019 1:05 PM EDT Fax orders from [facility], please sign and fax back. documented in this encounter Plan of Treatment Not on file documented as of this encounter Visit Diagnoses Not on filedocumented in this encounter Care Teams Chemical Operations Specialist Relationship Specialty Start Date End Date Derrell Hurst MD PCP - General 10/03/07 06/24/21 Derrell Hurst MD PCP - General Internal Medicine 06/25/21 09/05/21 Glory Almaguer MD [address] [place] [address] PCP - General Internal Medicine 09/06/21 09/15/22 [facility], Pcp [address] [place] [address] PCP - General Internal Medicine 09/16/22 03/28/23 Josette Crandall MD [address] [place] [address] PCP - General Internal Medicine 03/29/23 07/25/23 [facility], Pcp [address] [place] [address] PCP - General Internal Medicine 07/26/23 documented as of this encounter
--- OUTSIDE RECORDS SUMMARY | 2024-03-28 10:39 | XMS_ITS | Encounter Summary ---
Author Organization [facility] Address [address] [place] [address] Care Team Providers Care Drug Abuse Resistance Education Officer Name Role Phone Derrell Hurst MD Primary Care Provider Derrell Schulte MD Primary Care Provider Glory Ho MD Primary Care Prov ider [facility], Pcp Primary Care Provider UnavailJosette Klein MD Primary Care Provider [facility], Pcp Primary Care Provider Unavaillashay e Encounter Details Date Type Department Care Team Description 02/03/2020 Orders Only Medicine/Pediatrics - [address] [phone] Derrell Hurst MD Social History Tobacco Use [...] on filedocumented in this encounter Care Teams Drug Abuse Resistance Education Officer Relationship Specialty Start Date End Date Derrell Hurst MD PCP - General 10/03/07 06/24/21 Derrell Hurst MD PCP - General Internal Medicine 06/25/21 09/05/21 Glory Almaguer MD [address] [place] [address] PCP - General Internal Medicine 09/06/21 09/15/22 [facility], Pcp [address] [place] [address] PCP - General Internal Medicine 09/16/22 03/28/23 Josette Crandall MD [address] [place] [address] PCP - General Internal Medicine 03/29/23 07/25/23 [facility], Pcp [address] [place] [address] PCP - General Internal Medicine 07/26/23 documented as of this encounter
--- OUTSIDE RECORDS SUMMARY | 2024-03-28 10:39 | XMS_ITS | Encounter Summary ---
Author Organization [facility] Address [address] [place] [address] Care Team Providers Care Emergency Medicine Nurse Practitioner Name Role Phone Derrell Hurst MD Primary Care Provider Derrell Schulte MD Primary Care Provider Glory Ho MD Primary Care Prov ider [facility], Pcp Primary Care Provider Josette Bowser MD Primary Care Provider [phone] [facility], Pcp Primary Care Provider Jamar leigh Encounter Details Date Type Department Care Team Description 04/05/2018 Hospital Medical Records [address] [place] [address] Dilshad Gaona MD Social History Tobacco Use [...] on filedocumented in this encounter Care Teams Emergency Medicine Nurse Practitioner Relationship Specialty Start Date End Date Derrell Hurst MD PCP - General 10/03/07 06/24/21 Derrell Hurst MD PCP - General Internal Medicine 06/25/21 09/05/21 Glory Almaguer MD [address] [place] [address] PCP - General Internal Medicine 09/06/21 09/15/22 [facility], Pcp [address] [place] [address] PCP - General Internal Medicine 09/16/22 03/28/23 Josette Crandall MD [address] [place] [address] PCP - General Internal Medicine 03/29/23 07/25/23 [facility], Pcp [address] [place] [address] PCP - General Internal Medicine 07/26/23 documented as of this encounter
--- OUTSIDE RECORDS SUMMARY | 2024-03-28 10:39 | XMS_ITS | Encounter Summary ---
Author Organization [facility] Address [address] [place] [address] Care Team Providers Care Checkroom Attendant Name Role Phone Derrell Hurst MD Primary Care Provider Derrell Schulte MD Primary Care Provider Glory Ho MD Primary Care Prov ider [facility], Pcp Primary Care Provider UnavailJosette Klein MD Primary Care Provider [phone] [facility], Pcp Primary Care Provider Jamar leigh Encounter Details Date Type Department Care Team Description 11/25/2019 Walk In Clinic Visit Medical Records [address] [place], [place] [phone] [place] [phone] Social History Tobacco Use Types Packs/Day Years [...] on filedocumented in this encounter Care Teams Checkroom Attendant Relationship Specialty Start Date End Date Derrell Hurst MD PCP - General 10/03/07 06/24/21 Derrell Hurst MD PCP - General Internal Medicine 06/25/21 09/05/21 Glory Almaguer MD [address] [place], [place] [phone] PCP - General Internal Medicine 09/06/21 09/15/22 [facility], Pcp [address] [place] [address] PCP - General Internal Medicine 09/16/22 03/28/23 Josette Crandall MD [address] [place], [place] [phone] PCP - General Internal Medicine 03/29/23 07/25/23 [facility], Pcp [address] [place], [place] [phone] PCP - General Internal Medicine 07/26/23 documented as of this encounter
--- OUTSIDE RECORDS SUMMARY | 2024-03-28 10:39 | XMS_ITS | Encounter Summary ---
Author Organization [facility] Address [address] [place] [address] Care Team Providers Care Raw Shellfish Preparer Name Role Phone Derrell Hurst MD Primary Care Provider Derrell Schulte MD Primary Care Provider Glory Ho MD Primary Care Prov ider [facility], Pcp Primary Care Provider Unavailabl e Josette Crandall MD Primary Care Provider [phone] [facility], Pcp Primary Care Provider Unavailabl e Reason for Visit * Reason Onset Date Comments Testing 12/31/2019 Encounter Details Date Type Department Care Team Description 12/31/2019 Telephone Radiology - [address] [address] Loretta Yanes PA-C [address] [place] [address] Testing Social History Tobacco Use Types Packs/Day Years [...] have Coronavirus / COVID-19? No / Unsure 12/27/2019 8:53 AM EST documented as of this encounter Miscellaneous Notes * Telephone Encounter - Loretta Yanes PA-C - 12/31/2019 3:20 PM EST All set. Was not aware we needed a new order when first test was nondiagnostic. Thanks for sending my way * Telephone Encounter - Sindhu Olsen Essence - 12/31/2019 3:00 PM EST This patient called to book a follow-up bx for her thyroid but I do not have an order for this. Didyou want to order this? documented in this encounter Plan of Treatment Not on file documented as of this encounter Results * SONO GUIDE NEEDLE BIOPSY (01/13/2020 9:27 AM EST) 01/13/2020 3:06 PM EST Addenda Addendum by Mare Ny MD on 01/17/2020 3:05 PM EST Addendum: Cytopathology: THYROID, LEFT MID POLE (FINE NEEDLE ASPIRATION WITH CELL BLOCK): ?? - BETHESDA SYSTEM CLASSIFICATION: BENIGN. ? ?? -DESCRIPTION: ?FOLLICULAR CELLS PRESENT IN A MIXED MACRO-MICROFOLLICULAR PATTERN, WITH COLLOID, MOST CONSISTENT WITH HYPERPLASTIC FOLLICULAR NODULE. The benign results were communicated by telephone at 3:02 PM on 01/17/2020. Narrative [facility] - 01/13/2020 3:09 PM EST Ultrasound-guided fine-needle aspiration left thyroid nodule HISTORY: Repeat biopsy. ??Nondiagnostic/a spine/acellular specimen on previous biopsy of 12/27/2019. Prior: Thyroid ultrasound 11/28/2019. TECHNIQUE: Informed consent was obtained from the patient. ??Potential complications including bleeding, infection and inadequate sampling were discussed with the patient. Skin overlying the left side of the neck was anesthetized with topical anesthesia spray. Skin overlying the left-sided neck was prepped with BETADINE. Under ultrasound guidance, 3 passes with 3 separate 27-gauge needles were made into the dominant nodule in the lower pole of the left lobe of the thyroid gland. ??Several droplets of bloody material were obtained. ??ThinPrep slides were prepared. ??All 3 needles were rinsed in preservative solution. The patient tolerated the procedure well without any immediate complications. The patient will be notified by telephone when the cytopathology results become available for review. Procedure Note Mare Ny MD - 01/13/2020 Ultrasound-guided fine-needle aspiration left thyroid nodule HISTORY: Repeat biopsy. Nondiagnostic/a spine/acellular specimen onprevious biopsy of 12/27/2019. Prior: Thyroid ultrasound 11/28/2019. TECHNIQUE: Informed consent was obtained from the patient. Potentialcomplications including bleeding, infection and inadequate sampling were discussed with thepatient. Skin overlying the left side of the neck was anesthetized with topicalanesthesia spray. Skin overlying the left-sided neck was prepped with BETADINE. Under ultrasound guidance, 3 passes with 3 separate 27-gauge needles weremade into the dominant nodule in the lower pole of the left lobe of the thyroid gland.Several droplets of bloody material were obtained. ThinPrep slides were prepared. All 3needles were rinsed in preservative solution. The patient tolerated the procedure well without any immediatecomplications. The patient will be notified by telephone when the cytopathology resultsbecome available for review. Loretta Yanes PA-C [facility] documented in this encounter Visit Diagnoses Diagnosis Thyroid nodule- Primary Nontoxic uninodular goiter Thyroid nodule Nontoxic uninodular goiter documented in this encounter Care Teams Raw Shellfish Preparer Relationship Specialty Start Date End Date Derrell Hurst MD PCP - General 10/03/07 06/24/21 Derrell Hurst MD PCP - General Internal Medicine 06/25/21 09/05/21 Glory Almaguer MD [address] [place] [address] PCP - General Internal Medicine 09/06/21 09/15/22 [facility], Pcp [address] [place] [address] PCP - General Internal Medicine 09/16/22 03/28/23 Josette Crandall MD [address] [place], [place] [phone] PCP - General Internal Medicine 03/29/23 07/25/23 [facility], Pcp [address] [place] [address] [place] [address] PCP - General Internal Medicine 07/26/23 documented as of this encounter
--- OUTSIDE RECORDS SUMMARY | 2024-03-28 10:39 | XMS_ITS | Encounter Summary ---
Author Organization [facility] Address [address] [place] [address] Care Team Providers Care Digital Sales Director Name Role Phone Glory Almaguer MD Primary Care Prov ider [facility], Pcp Primary Care Provider Unavailabl e Josette Crandall MD Primary Care Provider [facility], Pcp Primary Care Provider Unavailabl e Reason for Visit * Reason Onset Date Comments hospital follow up 02/01/2022 Encounter Details Date Type Department Care Team Description 02/01/2022 Telephone Adult Medicine [address] [address] Glory Almaguer MD [address] [place] [address] [phone] hospital follow up Social History Tobacco Use Types Packs/Day Years [...] encounter Miscellaneous Notes * Telephone Encounter - Petty Henderson - 02/01/2022 3:28 PM EST Called and left vm to return call. BSR once pt returns call, please advise their is no appt available within time frame to remove sutures. Pt can return to ER/Urgent care to have sutures removed and can keep upcoming appt to f/u. * Telephone Encounter - Gabe Esquivel - 02/01/2022 12:30 PM EST Hospital follow up appointment needed Hospital patient was treated at: [facility] Was this only an ER visit or was the patient admitted to the hospital? ER visit only Date of visit if ER visit only: 01/28/2022 If patient was admitted what was the date of discharge? N/A Reason/diagnosis for visit or stay: Fall (not 10+ feet in the air) with bruising and stitches in right leg that need to be removed in 2 days if possible When was the patient told to follow up? As soon as possible. Was visit or stay related to an injury? YES If yes, what was the date of injury (DOI)? 01/28/2022 If yes, was the injury due to N/A documented in this encounter Plan of Treatment Not on file documented as of this encounter Visit Diagnoses Not on filedocumented in this encounter Care Teams Digital Sales Director Relationship Specialty Start Date End Date Glory Almaguer MD [address] [place], [place] [phone] PCP - General Internal Medicine 09/06/21 09/15/22 [facility], Pcp [address] [place] [address] PCP - General Internal Medicine 09/16/22 03/28/23 Josette Crandall MD [address] [place] [address] PCP - General Internal Medicine 03/29/23 07/25/23 [facility], Pcp [address] [place] [address] PCP - General Internal Medicine 07/26/23 documented as of this encounter
--- OUTSIDE RECORDS SUMMARY | 2024-03-28 10:39 | XMS_ITS | Encounter Summary ---
Author Organization [facility] Address [address] [place] [address] Care Team Providers Care Assurance Services Manager Health Care Name Role Phone Derrell Hurst MD Primary Care Provider Derrell Schulte MD Primary Care Provider Glory Ho MD Primary Care Prov ider [facility], Pcp Primary Care Provider Josette Bowser MD Primary Care Provider [phone] [facility], Pcp Primary Care Provider Jamar leigh Encounter Details Date Type Department Care Team Description 10/10/2018 Hospital Medical Records [address] [place] [address] Pascual Johnson MD Social History Tobacco Use Types Packs/Day [...] on filedocumented in this encounter Care Teams Assurance Services Manager Health Care Relationship Specialty Start Date End Date Derrell Hurst MD PCP - General 10/03/07 06/24/21 Derrell Hurst MD PCP - General Internal Medicine 06/25/21 09/05/21 Glory Almaguer MD [address] [place] [address] PCP - General Internal Medicine 09/06/21 09/15/22 [facility], Pcp [address] [place] [address] PCP - General Internal Medicine 09/16/22 03/28/23 Josette Crandall MD [address] [place] [address] PCP - General Internal Medicine 03/29/23 07/25/23 [facility], Pcp [address] [place], [place] [phone] PCP - General Internal Medicine 07/26/23 documented as of this encounter
--- OUTSIDE RECORDS SUMMARY | 2024-03-28 10:39 | XMS_ITS | Encounter Summary ---
Author Organization [facility] Address [address] [place] [address] Care Team Providers Care Process Assistant Name Role Phone Derrell Hurst MD Primary Care Provider Derrell Schulte MD Primary Care Provider Glory Ho MD Primary Care Prov ider [facility], Pcp Primary Care Provider Josette Bowser MD Primary Care Provider [phone] [facility], Pcp Primary Care Provider Jamar leigh Encounter Details Date Type Department Care Team Description 07/08/2020 [facility] Medical Records [address] [place] [address] Eliot Larson MD Social History Tobacco Use Types Packs/Day [...] have Coronavirus / COVID-19? No / Unsure 06/10/2020 2:54 PM EDT documented as of this encounter Plan of Treatment Not on file documented as of this encounter Visit Diagnoses Not on filedocumented in this encounter Care Teams Process Assistant Relationship Specialty Start Date End Date Derrell Hurst MD PCP - General 10/03/07 06/24/21 Derrell Hurst MD PCP - General Internal Medicine 06/25/21 09/05/21 Glory Almaguer MD [address] [place] [address] PCP - General Internal Medicine 09/06/21 09/15/22 [facility], Pcp [address] [place] [address] PCP - General Internal Medicine 09/16/22 03/28/23 Josette Crandall MD [address] [place] [address] PCP - General Internal Medicine 03/29/23 07/25/23 [facility], Pcp [address] [place] [address] PCP - General Internal Medicine 07/26/23 documented as of this encounter
--- OUTSIDE RECORDS SUMMARY | 2024-03-28 10:39 | XMS_ITS | Encounter Summary ---
Author Organization [facility] Address [address] [place] [address] Care Team Providers Care Cannery Worker Name Role Phone Derrell Hurst MD Primary Care Provider Derrell Schulte MD Primary Care Provider Glory Ho MD Primary Care Prov ider [facility], Pcp Primary Care Provider Josette Bowser MD Primary Care Provider [phone] [facility], Pcp Primary Care Provider Jamar leigh Encounter Details Date Type Department Care Team Description 05/10/2018 Global Marketing Manager Report Medical Records [address] [place], [place] [phone] Jose Nazario MD Social History Tobacco Use [...] on filedocumented in this encounter Care Teams Cannery Worker Relationship Specialty Start Date End Date Derrell Hurst MD PCP - General 10/03/07 06/24/21 Derrell Hurst MD PCP - General Internal Medicine 06/25/21 09/05/21 Glory Almaguer MD [address] [place] [address] PCP - General Internal Medicine 09/06/21 09/15/22 [facility], Pcp [address] [place] [address] PCP - General Internal Medicine 09/16/22 03/28/23 Josette Crandall MD [address] [place] [address] PCP - General Internal Medicine 03/29/23 07/25/23 [facility], Pcp [address] [place] [address] PCP - General Internal Medicine 07/26/23 documented as of this encounter
--- OUTSIDE RECORDS SUMMARY | 2024-03-28 10:39 | XMS_ITS | Encounter Summary ---
Author Organization [facility] Address [address] [place] [address] Care Team Providers Care Porcelain Enameling Supervisor Name Role Phone Derrell Hurst MD Primary Care Provider Derrell Schulte MD Primary Care Provider Glory Ho MD Primary Care Prov ider [facility], Pcp Primary Care Provider Unavailabl e Josette Crandall MD Primary Care Provider [phone] [facility], Pcp Primary Care Provider Unavailabl e Reason for Visit * Reason Comments E-prescribe Rx Request Encounter Details Date Type Department Care Team Description 12/24/2019 Refill Adult Medicine [address] [address] Derrell Hurst MD E-prescribe Rx Request Social History Tobacco Use Types Packs/Day Years [...] Telephone Encounter - Keeley Squires M.A. - 12/25/2019 12:19 PM EST Lab Results Component Value Date NA 138 11/27/2019 K 4.0 11/27/2019 CO2 29 11/27/2019 CL 100 11/27/2019 BUN 14 11/27/2019 CREAT 0.51 11/27/2019 GLU 77 11/27/2019 CA 9.5 11/27/2019 GFR > 60 11/27/2019 Last appt 12/13/19 * Telephone Encounter - Diana Pierre - 12/25/2019 7:09 AM EST Patient would like script to be: E-PRESCRIBED/FAXED TO PHARMACY WHEN WAS THE PATIENT'S LAST APPOINTMENT IN ADULT MEDICINE? 12/13/2019 WHEN WAS THE LAST TIME THE PATIENT SAW THEIR PCP? Same as above Does patient have an upcoming appointment? No-patient refused appointment, will call back to book appointment (THE MEDICATION REQUESTED IS ON THE MED LIST ABOVE) All of the medications requested were on the CURRENT MEDS list Did you check the Pharmacy information above?: YES Patient wants: 30 -day supply Is this a mail order prescription request ? NO If the refill is from a FAXED refill request what is the RX # listed on the fax? N/A Patients current insurance carrier is: [place]: [place] POS / Plan: FEP STANDARD $25 / Product Type: PPO [id number] documented in this encounter Plan of Treatment Not on file documented as of this encounter Visit Diagnoses Not on filedocumented in this encounter Care Teams Porcelain Enameling Supervisor Relationship Specialty Start Date End Date Derrell Hurst MD PCP - General 10/03/07 06/24/21 Derrell Hurst MD PCP - General Internal Medicine 06/25/21 09/05/21 Glory Almaguer MD [address] [place] [address] PCP - General Internal Medicine 09/06/21 09/15/22 [facility], Pcp [address] [place] [address] PCP - General Internal Medicine 09/16/22 03/28/23 Josette Crandall MD [address] [place] [address] PCP - General Internal Medicine 03/29/23 07/25/23 [facility], Pcp [address] [place] [address] PCP - General Internal Medicine 07/26/23 documented as of this encounter
--- OUTSIDE RECORDS SUMMARY | 2024-03-28 10:39 | XMS_ITS | Encounter Summary ---
Author Organization [facility] Address [address] [place] [address] Care Team Providers Care Preparation Operator Name Role Phone [facility], Pcp Primary Care Provider Josette Bowser MD Primary Care Provider [phone] [facility], Pcp Primary Care Provider Jamar leigh Encounter Details Date Type Department Care Team Description 02/09/2023 Getterer Report Medical Records [address] [place] [address] Lamont Cardoso Social History Tobacco Use Types Packs/Day Years [...] on filedocumented in this encounter Care Teams Preparation Operator Relationship Specialty Start Date End Date [facility], Pcp PCP - General Internal Medicine 09/16/22 03/28/23 Josette Crandall MD [address] [place] [address] PCP - General Internal Medicine 03/29/23 07/25/23 [facility]cp PCP - General Internal Medicine 07/26/23 documented as of this encounter
--- OUTSIDE RECORDS SUMMARY | 2024-03-28 10:39 | XMS_ITS | Encounter Summary ---
Author Organization [facility] Address [address] [place] [address] Care Team Providers Care Tip Printer Name Role Phone Derrell Hurst MD Primary Care Provider Derrell Schulte MD Primary Care Provider Glory Ho MD Primary Care Prov ider [facility], Pcp Primary Care Provider Josette Bowser MD Primary Care Provider [phone] [facility], Pcp Primary Care Provider Jamar leigh Encounter Details Date Type Department Care Team Description 11/20/2019 [facility] Medical Records [address] [place] [address] Scot Beyer Social History Tobacco Use Types Packs/Day Years [...] on filedocumented in this encounter Care Teams Tip Printer Relationship Specialty Start Date End Date Derrell Hurst MD PCP - General 10/03/07 06/24/21 Derrell Hurst MD PCP - General Internal Medicine 06/25/21 09/05/21 Glory Almaguer MD [address] [place] [address] PCP - General Internal Medicine 09/06/21 09/15/22 [facility], Pcp [address] [place] [address] PCP - General Internal Medicine 09/16/22 03/28/23 Josette Crandall MD [address] [place], [place] [phone] PCP - General Internal Medicine 03/29/23 07/25/23 [facility], Pcp [address] [place] [address] PCP - General Internal Medicine 07/26/23 documented as of this encounter
--- OUTSIDE RECORDS SUMMARY | 2024-03-28 10:39 | XMS_ITS | Encounter Summary ---
Author Organization [facility] Address [address] [place] [address] Care Team Providers Care Lead Radiologic Technologist Name Role Phone Community, Pcp Primary Care Provider Josette Bowser MD Primary Care Provider [phone] [facility], Pcp Primary Care Provider Jamar leigh Encounter Details Date Type Department Care Team Description 02/14/2023 Hot Baller Report Medical Records [address] [place] [address] Abstract, Provider Social History Tobacco Use Types [...] on filedocumented in this encounter Care Teams Lead Radiologic Technologist Relationship Specialty Start Date End Date Community, Pcp PCP - General Internal Medicine 09/16/22 03/28/23 Josette Crandall MD [address] [place] [address] PCP - General Internal Medicine 03/29/23 07/25/23 Community, Pcp PCP - General Internal Medicine 07/26/23 documented as of this encounter
--- OUTSIDE RECORDS SUMMARY | 2024-03-28 10:39 | XMS_ITS | Encounter Summary ---
Author Organization [facility] Address [address] [place] [address] Care Team Providers Care Brewing Director Name Role Phone Glory Almaguer MD Primary Care Prov ider [facility], Pcp Primary Care Provider Unavailabl e Josette Crandall MD Primary Care Provider [phone] [facility], Pcp Primary Care Provider Unavailabl e Encounter Details Date Type Department Care Team Description 05/23/2022 Supply Assistant Report Medical Records [address] [place] [address] Lamont Cardoso Social History Tobacco Use Types [...] on filedocumented in this encounter Care Teams Brewing Director Relationship Specialty Start Date End Date Glory Almaguer MD [address] [place], [place] [id number] PCP - General Internal Medicine 09/06/21 09/15/22 [facility], Pcp [address] [place], [place] [id number] PCP - General Internal Medicine 09/16/22 03/28/23 Josette Crandall MD [address] [place], [place] [id number] PCP - General Internal Medicine 03/29/23 07/25/23 [facility], Pcp [address] [place] [address] [place] [id number] PCP - General Internal Medicine 07/26/23 documented as of this encounter
--- OUTSIDE RECORDS SUMMARY | 2024-03-28 10:39 | XMS_ITS | Encounter Summary ---
Author Organization [facility] Address [address] [place] [address] Care Team Providers Care Director Of Premium Seat Sales Name Role Phone Derrell Hurst MD Primary Care Provider Derrell Schulte MD Primary Care Provider Glory Ho MD Primary Care Prov ider [facility], Pcp Primary Care Provider Unavailabl e Josette Crandall MD Primary Care Provider [phone] [facility], Pcp Primary Care Provider Unavailabl e Reason for Visit * Reason Comments E-prescribe Rx Request Encounter Details Date Type Department Care Team Description 09/25/2019 Refill Adult Medicine [address] [address] Derrell Hurst MD E-prescribe Rx Request Social [...] encounter Miscellaneous Notes * Telephone Encounter - Caleb Feng M.A. - 09/26/2019 4:43 PM EDT Faxed to pharmacy * Telephone Encounter - Vicky Squires M.A. - 09/26/2019 4:10 PM EDT Last office visit 08/29/19 Lab Results Component Value Date CHOL 176 01/24/2019 LDL 34 01/24/2019 HDL 134 01/24/2019 TRIG 42 01/24/2019 SGOT 32 01/24/2019 SGPT 31 01/24/2019 * Telephone Encounter - Jaciel Hicks - 09/25/2019 8:23 AM EDT Patient would like script to be: E-PRESCRIBED/FAXED TO PHARMACY WHEN WAS THE PATIENT'S LAST APPOINTMENT IN ADULT MEDICINE? 08/29/2019 WHEN WAS THE LAST TIME THE PATIENT SAW THEIR PCP? 07/15/2019 Does patient have an upcoming appointment? No-patient refused appointment, will call back to book appointment (THE MEDICATION REQUESTED IS ON THE MED LIST ABOVE) All of the medications requested were on the CURRENT MEDS list Did you check the Pharmacy information above?: YES Patient wants: 90 -day supply Is this a mail order prescription request ? NO If the refill is from a FAXED refill request what is the RX # listed on the fax? N/A Patients current insurance carrier is: Pay[place]: [employer] POS / Plan: FEP STANDARD $25 / Product Type: PPO [id number] documented in this encounter Plan of Treatment Not on file documented as of this encounter Visit Diagnoses Not on filedocumented in this encounter Care Teams Director Of Premium Seat Sales Relationship Specialty Start Date End Date Derrell Hurst MD PCP - General 10/03/07 06/24/21 Derrell Hurst MD PCP - General Internal Medicine 06/25/21 09/05/21 Glory Almaguer MD [address] [place] [address] PCP - General Internal Medicine 09/06/21 09/15/22 [facility], Pcp [address] [place] [address] PCP - General Internal Medicine 09/16/22 03/28/23 Josette Crandall MD [address] [place], [place] [id number] PCP - General Internal Medicine 03/29/23 07/25/23 [facility], Pcp [address] [place] [address] PCP - General Internal Medicine 07/26/23 documented as of this encounter
--- OUTSIDE RECORDS SUMMARY | 2024-03-28 10:39 | XMS_ITS | Encounter Summary ---
Author Organization [facility] Address [address] [place] [address] Care Team Providers Care Ceramic Design Engineer Name Role Phone Glory Almaguer MD Primary Care Prov ider [facility], Pcp Primary Care Provider Unavailabl e Josette Crandall MD Primary Care Provider [phone] [facility], Pcp Primary Care Provider Unavailabl e Reason for Visit * Reason Onset Date Comments TEST RESULTS 02/03/2022 Bone density not completed previous Encounter Details Date Type Department Care Team Description 02/03/2022 Telephone Adult Medicine [address] [address] Glory Almaguer MD [address] [place] [id number] TEST RESULTS (Bone density not completed previous) Social History Tobacco Use Types Packs/Day Years [...] encounter Miscellaneous Notes * Telephone Encounter - Glory Johnson MD - 02/03/2022 12:18 PM EST Will discuss in upcoming visit. * Telephone Encounter - Varsha Cuevas - 02/03/2022 11:23 AM EST Previously ordered bone density 10/13/2020 not completed, as patient has a follow up with you in Feb,may we d/c and to be discussed at visit with potential new order? documented in this encounter Plan of Treatment Not on file documented as of this encounter Visit Diagnoses Not on filedocumented in this encounter Care Teams Ceramic Design Engineer Relationship Specialty Start Date End Date Glory Almaguer MD [address] [place] [id number] PCP - General Internal Medicine 09/06/21 09/15/22 [facility], Pcp [address] [place] [id number] PCP - General Internal Medicine 09/16/22 03/28/23 Josette Crandall MD [address] [place] [id number] PCP - General Internal Medicine 03/29/23 07/25/23 [facility], Pcp [address] [place] [id number] PCP - General Internal Medicine 07/26/23 documented as of this encounter
--- OUTSIDE RECORDS SUMMARY | 2024-03-28 10:39 | XMS_ITS ---
Author Organization [facility] Address [address] [place] [address] Care Team Providers Care Gas Collection System Operator Name Role Phone Natali MELGAR, Candace Tillman Primary Care Provider Deloris Acuna Unavailable [phone] Maurice Viviana Unavailable [phone] Allergies No Known Allergies REASON FOR VISIT At Risk Footcare, Painful Nail(s) aggrevated by shoes and causing difficulty standing/walking. Medications Medication SIG (Take, Route, Frequency, Duration) Notes Start Date End Date Status amLODIPine Besylate 10 MG Oral for 90 Days Active Celecoxib 200 MG Oral for 30 Days Not-Taking Sertraline HCl 50 MG Oral for 30 Days Active hydroCHLOROthiazide 12.5 MG TAKE ONE CAP MAMIE BY MOUTH EVERY MORNING Oral for 90 Days Active Doxycycline Monohydrate 100 MG Oral for 80 Days Unknown Omeprazole 20 MG Oral for 90 Days Active Multivitamin - 1 tablet Orally Once a day Active Donezepil HCl-10 mg Active Iron Active Magnesium Active Lisinopril 5 MG 1 tablet Orally Once a day Active Biotin Active B12 Active Social History Tobacco Use: Social History Observation Description Date Details (start date - stop date) Former Smoker NA - NA Tobacco Use/Smoking Question Answer Notes Are you a: former smoker Additional Findings: Tobacco Non-User Current no n-smoker Alcohol Screen Question Answer Notes Did you have a drink containing alcohol in the p ast year? No Points 0 Interpretation Negative Tobacco use other than smoking: Question Answer Notes Are you an other tobacco user? No Vital Signs Height 5ft in 11/10/2023 Weight 139 lbs 11/10/2023 BMI 27.14 kg/m2 11/10/2023 Encounters Encounter Location Date Provider Diagnosis [facility] [address] [place] [address] 11/10/2023 Viviana Richards Atherosclerosis of paiute-shoshone artery of both lower extremities, with unspecified presence of clinical manifestation I70.203 ; Tinea unguium B35.1 ; Pain in right toe(s) M79.674 ; Pain in left toe(s) M79.675 ; Other hammer toe(s) (acquired), right foot M20.41 and Other hammer toe(s) (acquired), left foot M20.42 Assessments Encounter Date Diagnosis (ICD Code) Assessment Notes Treatment Notes Treatment Clinical Notes Section Notes 11/10/2023 Atherosclerosis of pa[place]shosh[place] artery of both lower extremities, with unspecified presence of clinical manifestation (ICD-10 - I70.203) 11/10/2023 Tinea unguium (ICD-10 - B35.1) 11/10/2023 Pain in right toe(s) (ICD-10 - M79.674) 11/10/2023 Pain in left toe(s) (ICD-10 - M79.675) 11/10/2023 Other hammer toe(s) (acquired), right foot (ICD-10 - M20.41) 11/10/2023 Other hammer toe(s) (acquired), left foot (ICD-10 - M20.42) Plan Of Treatment Next Appt Details Follow Up: 2 Months, Reason: Provider Name:Vivianahan timmosn, 04/23/2024 10:00:00 AM, [address] [place], [address], Procedure Notes * Category Sub-Category Detail Notes Debride Nail 6-10 Nail debridement Nail debridem ent performed extensively to reduce/remove overall nail length, girth, thickness, subungual debris, and necrotic tissue, by manual and electrical means through the use of a nail nipper and/or dremel, to more viable healthy nail plate or bed tissue 1-5. Silver nitrate used for any petechial bleeding as necessary. Patient chooses, no pharmaceutical tx (42466) Keratoma Treatment Parring or Cutting o f Benign Hyperkeratotic Lesion(s) (-56) 2-4 Lesions - The Benign hyperkeratotic lesions, as described above were pared, and/or cut utilizing a sterile 15 blade, tissue nippers, and/or dremel - 18370 Progress Notes * Divina KEANE MDOB:[birth year] (73 yo F)Acc No.[id number]:11/10/2023 Progress Note Patient:?Divina Keane Provider:?Viviana Richards DPM :1950???Age:73 Y???Sex:Female D ate:11/10/2023 Address:[address] [place] [address] [id number] Pcp:Candace Hurst MD Subjective: * Chief Complaints: * ???At Risk FootcarePainful N ail(s) aggrevated by shoes and causing difficulty standing/walking. * HPI: ???At Risk footcare:?Pt States Last PCP Visit:?Date?10/25/2023 ???Toe pain:?Location:?B/L feet.?Duration:?several years.?Course:?worse.?Aggravated by:?shoes, any pressure.?Treatments:?change in shoes.? * ROS:?General/Constitutional:?Nausea?denies.?Vomiting?denies.?Hunger Thirst?denies.?Loss appetite?denies.?Chills?denies.?Fatigue?denies.?Fever?denies.?Night Sweats?denies.?Unexplained weight loss?denies.?Unexplained weight gain?denies.?HEENTM:?Dentures?denies.?Dizziness?denies.?Glasses/contacts?admits.?Retinopathy?de nies.?Blurred/double vision?denies.?TMJ?denies.?Discharge/drainage?denies.?Implants?denies.?Sore throat?denies.?Dental implants?denies.?Hard of hearing ?admits.?Difficulty chewing/swallowing/speaking?denies.?Nose bleeds?denies.?Sore mouth?denies.?Respiratory:?On Oxygen?denies.?Pneumonia/pleurisy?denies.?Bronchitis?denies.?Emphysema?denies.?C oughing?denies.?Cough blood?denies.?Shortness of breath?denies.?Wheezing?denies.?Cardiovascular:?Pacemaker?denies.?MVP?denies.?WPW?denies.?CHF?denies.?Heart attack?denies.?Septal defect?denies.?Rapid beat?denies.?Chest pain ?denies.?Atrial Fib.?denies.?Murmur/Palpitations?denies.?Gastrointestinal:?Hemorrhoids?denies.?Stomach/Abdominal pain?denies.?Dark blood stool?denies.?Irritable bowel ?denies.?Constipation?denies.?Diarrhea?denies.?Hematology:?Swelling?admits.?Clots?denies.?Varicose Veins?denies.?Bruising?denies.?Bleeding problem?denies.?Genitourinary:?Blood urine?denies.?Frequent/Painfu/urination/bladder control?denies.?Kidney stones?denies.?Infection (UTI)?denies.?Nephropathy?denies.?sex trans dis (STD)?denies.?Prostate?denies.?Musculoskeletal:?Hammertoes?denies.?Bunions?denies.?Back Pain?denies.?Muscle Cramps/ Resting?denies.?Muscle cramps / walking?denies.?Generalized aches and pains?denies.?Weakness?denies.?Integ.:?Fofana?denies.?Scars?denies.?Corns/calluses?denies.?Ingrown nails?denies.?Painful nails?denies.?Open Sores?admits.?Rashes?denies.?Neurologic:?Difficulty sleeping?admits.?Brain disorder?denies.?Numbness?denies.?Balance trouble?admits.?Confusion?denies.?Fainting/blackouts?denies.?Tingling?denies.?Tr emors?denies.? * Medical History:? * Surgical History:? appendectomy hernia rotator cuff Surgery colonoscopy knee replacement * Hospitalization/Major Diagno stic Procedure:?No Hospitalization History. * Family History:?Mother: dece ased, diagnosed with Family history of arthritis, Other malignant neoplasm of unspecified site.?Father: , foot problems, diagnosed with Unspecified heart disease.? * Social History:?Tobacco Use:?Tobacco Use/Smoking?Are you a:?former smoker ?Additional Findings: Tobacco Non-User?Current non-smoker ?Tobacco use other than smoking?Are you an other tobacco user??No ???Drugs/Alcohol:?Drugs?Have you used drugs other than those for medical reasons in the past 12 months??No ?Alcohol Screen?Did you have a drink containing alcohol in the past year??No ?Points?0 ?Interpretation?Negative ???Miscellaneous:?Caffeine: yes, frequency:, 3-5 cups per day. ?Children: yes, 1. ?Exercise: yes, housework, walking. ?Marital status: . 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 * Medications:?TakingLisinopri l 5 MG Tablet 1 tablet Orally Once a dayBiotin B12 Iron Magnesium Multivitamin - Tablet 1 tablet Orally Once a dayDonezepil HCl-10 mg Omeprazole 20 MG Capsule Delayed Release Oral amLODIPine Besylate 10 MG Tablet Oral Sertraline HCl 50 MG Tablet Oral hydroCHLOROthiazide 12.5 MG Capsule TAKE ONE CAPSULE BY MOUTH EVERY MORNING Oral Taking Lisinopril 5 MG Tablet 1 tablet Orally Once a dayTaking Biotin Taking B12 Taking Iron Taking Magnesium Taking Multivitamin - Tablet 1 tablet Orally Once a dayTaking Donezepil HCl-10 mg Taking Omeprazole 20 MG Capsule Delayed Release Oral Taking amLODIPine Besylate 10 MG Tablet Oral Taking Sertraline HCl 50 MG Tablet Oral Taking hydroCHLOROthiazide 12.5 MG Capsule TAKE ONE CAPSULE BY MOUTH EVERY MORNING Oral Not-Taking/PRNCelecoxib 200 MG Capsule Oral Not- Taking/PRN Celecoxib 200 MG Capsule Oral UnknownDoxycycline Monohydrate 100 MG Capsule Oral Medication List reviewed and reconciled with the patientUnknown Doxycycline Monohydrate 100 MG Capsule Oral Medication List reviewed and reconciled with the patient * Allergies:?N.K.D.A.yes[Aller gies Verified] Objective: * Vitals:?Ht:5ft, Wt:139, BMI: 27.14, Shoe size:10, Ht-cm: 152.4 cm, Wt-k.05 kg. * Examination: ???Vascular: ?DP PULSES(B):? 1/4, B/L.?PT PULSES(B):? 0/4, B/L.?CAPILLARY FILL TIME:? delayed, all digits, B/L.?TROPHIC CONDITION-TEXTURE/ELASTICITY/TURGOR/HAIR GROWTH(B):? decreased, B/L.?TEMPERTURE GRADIENT(C):? decreased, cool to cool, proximal to distal, B/L.?EDEMA(C):? 2/4 B/L; coban wrap to LLE.?CLAUDICATION(C):?denies, B/L.?REST PAIN:?denies, B/L.?Nails: ?NAILS are:? Elongated, overgrown, dystrophic, lytic, greater than 3mm thick, discolored and friable with crumbly malodorous subungual debris, with pain on palpation 1-5 B/L.?Dermatologic: ?SKIN FINDINGS:?Skin exam reveals Keratotic lesion(s) located at , TA , T5 , Heel(s) , B/L.?Orthopedic: ?MUSCLE STRENGTH:?5/5 all groups in a symmetrical fashion, B/L.?DIGITAL DEFORMITIES:?Digital contracture, PIPJ, 2-5 B/L, incompl-reducible to push-up test, no over, nor underlapping, with evidence of shoe producing skin irritation.?FOOTWEAR:?worn, non-supportive, shoe gear properties exacerbate patient's foot/toe deformity.?Neurological: ?SENSORY:?Neurological exam reveals intact sensorium, pain sensation normal, vibration sensation intact, pinprick sensation is normal in the lower extremities, Pt denies, anesthesia, burning, paresthesia, tingling, B/L.?General Examination: ?GENERAL APPEARANCE:?Reveals a pleasant, alert, well nourished, well- developed, well hydrated individual,serves as own historian for office visit today.? Pt has poor podiatric hygene, feet are black with dirt on bottom.?ORIENTED:?person, place, and time.?FOOT EXAM:?Footwear Evaluation? Assessment: * Assessment: 1.?Atherosclerosis of paiute-shoshone artery of both lower extremities, with unspecified presence of clinical manifestation - I70.203?2.?Tinea unguium - B35.1?3.?Pain in right toe(s) - M79.674?4.?Pain in left toe(s) - M79.675?5.?Other hammer toe(s) (acquired), right foot - M20.41 (Primary), Chronic problem, Worse (4),Rx Management (4)?6.?Other hammer toe(s) (acquired), left foot - M20.42, Chronic problem, Worse (4),Rx Management (4)? Plan: * Treatment: * Procedures:?Debride Nail 6-10:?Nail debridement?Nail debridement performed extensively to reduce/remove overall nail length, girth, thickness, subungual debris, and necrotic tissue, by manual and electrical means through the use of a nail nipper and/or dremel, to more viable healthy nail plate or bed tissue 1-5. Silver nitrate used for any petechial bleeding as necessary. Patient chooses, no pharmaceutical tx (60997).?Keratoma Treatment:?Parring or Cutting of Benign Hyperkeratotic Lesion(s)?(-56) 2-4 Lesions - The Benign hyperkeratotic lesions, as described above were pared, and/or cut utilizing a sterile 15 blade, tissue nippers, and/or dremel - 96125.? * Procedure Codes:?99054 DEBRI DE NAIL, 6 OR MORE, Modifiers: XS 41952 TRIM SKIN LESIONS, 2 TO 4, Modifiers: XS , Q8 * Preventive Medicine:? ??Counseling:?Discussion:?-13: Office or other outpatient visit for the evaluation and management of an established patient, which required a medically appropriate history and/or examination and LOW level of DECISION MAKING for: 1 STABLE ACUTE UNCOMPLICATED PROBLEM, 2 OR MORE MINOR PROBLEMS, OR 1 STABLE CHRONIC PROBLEM, THAT POSE(S) A LOW RISK FOR MORBIDITY/MORTALITY. The visit on the day of the encounter encompassed interpreting the data and educating the patient as to the nature of their condition, treatment options available according to their individual PMH, meds, allergies, and overall health/living conditions, as well as any potential risks or complications that may occur from a failure to adhere to, and participate in, the recommended course of therapy. The discussion included a complete verbal, and/or written explanation of the examination results, any x-rays taken, the proposed diagnosis, and outline of the treatment plan. A schedule for future care needs was also explained. The patient verbalized an understanding of the instructions at this time and agreed to be an active participant in their treatment. If the patient should think of any questions or concerns after the visit, I have encouraged the patient to call the office.?Digital Treatment:?HT- I explained to the patient the possible etiologies of Hammertoes, including genetics/foot type/shoegear/activity level/exercise routine and the risks/benefits of all the different treatment options for their pain including: No treatment at all, Rest, Ice, New/supportive/wider/deeper Shoegear, Digital Padding/Strapping/Taping/Bracing/Gel protective sleeves, Foot/Ankle AFO Bracing, Stretching exercises, Deep Tissue Massage, Arch support/shoe inserts with splay metatarsal padding, and Custom orthoses. I insisted that any digital devices be removed daily and not worn overnight for safety. The patient is to carefully examine the toes daily for any skin irritation while using any splinting or padding device. The advantages and disadvantages of each option were discussed and the patients questions re: shoegear, padding, custom vs prefabricated inserts, activity level, and consistency in home treatment regimens for optimal success were answered to their verbally confirmed satisfaction.?Shoe Gear Counseling:?The patient was counseled in great detail on their muscoloskeletal foot and toe deformities which coincided with the dermatological presentations visualized on exam. We discussed how their deformities put the integrity of their feet at risk for potential pedal complications which makes the accomidative diabetic shoes and cutomizable inserts medically necessary. We discussed the different shoe and insert treatment types and options, as well as the important advantages for adhering to regularly wearing these accomidative devices daily. The patient was made aware of the fact that a failure to abide by these recommedations may be deleterious to their foot health as they are able to prevent many pedal complications such as skin irritation, skin ulceration, infection, and even loss of toe/foot/leg/or life. Time was also spent with the patient dispensing and discussing proper diabetic footcare techniques including daily skin moisturization, daily foot inspection for any interruption in skin integrity including open lesions, or sign of infection such as redness/malodor/drainage/swelling. Also discussed and recommended were procedures regarding daily shoe inspection for the presence of internal foreign bodies as well as any visualized irregular shoe or insert wear. Patient questions re: shoes, inserts, and self foot inspections were answered to their satisfaction as the patient verbally confirmed a full understanding of the above information.? * Follow Up:?2 Months * Images: * Sign off status: Completed true * Provider:Jeff Richards, DPRaúl Date:?05/2023 Generated for Lucas heath/Alistair/Dahlia on:?03/28/2024 10:38 AM EST History and Physical Notes * HPI (History of Present Illness) Category Sub-Category Detail Notes Category Not es Toe pain Location: B/L feet Duration: several years Course: worse Aggravated by: shoes, any pressure Treatments: change in shoes At Risk footcare Pt States Last PCP Visit: Date: Examination Category Sub-Category Detail Notes Category Not es Neurological SENSORY: Neurological exa m reveals intact sensorium, pain sensation normal, vibration sensation intact, pinprick sensation is normal in the lower extremities, Pt denies, anesthesia, burning, paresthesia, tingling, B/L Dermatologic SKIN FINDINGS: Skin exam reveal s Keratotic lesion(s) located at , TA , T5 , Heel(s) , B/L Orthopedic FOOTWEAR: worn, non-suppor tive, shoe gear properties exacerbate patient's foot/toe deformity DIGITAL DEFORMITIES: Digital contracture , PIPJ, 2-5 B/L, incompl-reducible to push-up test, no over, nor underlapping, with evidence of shoe producing skin irritation MUSCLE STRENGTH: 5/5 all groups in a symmetrical fashion, B/L General Examination GENERAL APPEARANCE: Reveals a pleasant, alert, well nourished, well-developed, well hydrated individual,serves as own historian for office visit today. Pt has poor podiatric hygene, feet are black with dirt on bottom FOOT EXAM: Lower Extremity Neurological Exa m performed:: Yes ORIENTED: person, place, and t siaias Footwear Evaluation Footwear Evaluation performe d:: Yes Vascular DP PULSES (B): 1/4, B/L PT PULSES (B): 0/4, B/L CAPILLARY FILL TIME: delayed, all digits , B/L TEMPERTURE GRADIENT (C): decreased, cool to cool, proximal to distal, B/L TROPHIC CONDITION-TEXTURE/ELASTICITY/TURGOR/HAIR GROWTH (B): decreased, B/L EDEMA (C): 2/4 B/L; coban wrap to LLE CLAUDICATION (C): denies, B/L REST PAIN: denies, B/L Nails NAILS are: Elongated, overg rown, dystrophic, lytic, greater than 3mm thick, discolored and friable with crumbly malodorous subungual debris, with pain on palpation 1-5 B/L
--- OUTSIDE RECORDS SUMMARY | 2024-03-28 10:39 | XMS_ITS | Encounter Summary ---
Author Organization [facility] Address [address] [place] [address] Care Team Providers Care Head Mva Reactor Operator Name Role Phone Community, Pcp Primary Care Provider Josette Bowser MD Primary Care Provider [phone] Community, Pcp Primary Care Provider Jamar leigh Encounter Details Date Type Department Care Team Description 10/03/2022 Water Resource Project Manager Report Medical Records [address] [place] [address] Abstract, Provider Social History Tobacco Use Types [...] on filedocumented in this encounter Care Teams Head Mva Reactor Operator Relationship Specialty Start Date End Date Community, Pcp PCP - General Internal Medicine 09/16/22 03/28/23 Josette Crandall MD [address] [place] [address] PCP - General Internal Medicine 03/29/23 07/25/23 Community, Pcp PCP - General Internal Medicine 07/26/23 documented as of this encounter
--- OUTSIDE RECORDS SUMMARY | 2024-03-28 10:39 | XMS_ITS | Encounter Summary ---
Author Organization [facility] Address [address] [place] [address] Care Team Providers Care Medical Information Specialist Name Role Phone Derrell Hurst MD Primary Care Provider Derrell Schulte MD Primary Care Provider Glory Ho MD Primary Care Prov ider [facility], Pcp Primary Care Provider Unavailabl e Josette Crandall MD Primary Care Provider [phone] [facility], Pcp Primary Care Provider Unavailabl e Reason for Visit * Reason Onset Date Comments er follow up 10/02/2018 Encounter Details Date Type Department Care Team Description 10/02/[address] [address] Derrell Hurst MD er follow up Social History Tobacco Use Types [...] encounter Miscellaneous Notes * Telephone Encounter - Socorro Nohemy - 10/02/2018 10:20 AM EDT ER follow-up appointment booked YES 10/12/2018 If ER or UC follow up, can be booked with [facility] or . If hospital admission follow up MUST be booked with a physician Appointment time: 8:30AM Provider visit is scheduled with: Mirna Enrique PA-C Hospital/ center patient was treated at: [facility] Date of visit: 10/01/2018 Was this only an ER/UC visit or was the patient admitted to the hospital? ER visit onlyER visit only If patient was admitted what was the date of discharge? N/A Reason/diagnosis for visit or stay: Pt fell at home- dislocated shoulder Was visit or stay related to an injury? YES If yes, what was the date of injury (DOI)? 10/01/2018 If yes, was the injury due to N/A Tests performed: Lab: NO X-ray: YES EKG: NO Other tests. If yes, what?; N/A documented in this encounter Plan of Treatment Not on file documented as of this encounter Visit Diagnoses Not on filedocumented in this encounter Care Teams Medical Information Specialist Relationship Specialty Start Date End Date Derrell Hurst MD PCP - General 10/03/07 06/24/21 Derrell Hurst MD PCP - General Internal Medicine 06/25/21 09/05/21 Glory Almaguer MD [address] [place] [address] PCP - General Internal Medicine 09/06/21 09/15/22 [facility], Cesar [address] [place] [id number] PCP - General Internal Medicine 09/16/22 03/28/23 Josette Crandall MD [address] [place] [address] PCP - General Internal Medicine 03/29/23 07/25/23 [facility], Pcp [address] [place] [address] PCP - General Internal Medicine 07/26/23 documented as of this encounter
--- OUTSIDE RECORDS SUMMARY | 2024-03-28 10:39 | XMS_ITS | Encounter Summary ---
Author Organization [facility] Address [address] [place] [address] Care Team Providers Care Web Content Specialist Name Role Phone Glory Almaguer MD Primary Care Prov ider [facility], Pcp Primary Care Provider Unavailabl e Josette Crandall MD Primary Care Provider [phone] [facility], Pcp Primary Care Provider Unavailabl e Encounter Details Date Type Department Care Team Description 08/31/2022 Studio Coordinator Report Medical Records [address] [place] [address] Abstract, Provider Social History Tobacco Use Types [...] on filedocumented in this encounter Care Teams Web Content Specialist Relationship Specialty Start Date End Date Glory Almaguer MD [address] [place] [id number] PCP - General Internal Medicine 09/06/21 09/15/22 [facility], Pcp [address] [place] [id number] PCP - General Internal Medicine 09/16/22 03/28/23 Josette Crandall MD [address] [place] [id number] PCP - General Internal Medicine 03/29/23 07/25/23 [facility], [address] [address] PCP - General Internal Medicine 07/26/23 documented as of this encounter
--- OUTSIDE RECORDS SUMMARY | 2024-03-28 10:39 | XMS_ITS | Encounter Summary ---
Author Organization [facility] Address [address] [place] [address] Care Team Providers Care Line Service Technician Name Role Phone Derrell Hurst MD Primary Care Provider Derrell Schulte MD Primary Care Provider Glory Ho MD Primary Care Prov ider [facility], Pcp Primary Care Provider Josette Bowser MD Primary Care Provider [phone] [facility], Pcp Primary Care Provider Jamar leigh Encounter Details Date Type Department Care Team Description 08/24/2017 Transfer Records Medical Records [address] [place], [place] [id number] Abstract, Provider Social History Tobacco Use Types [...] filedocumented in this encounter Care Teams Line Service Technician Relationship Specialty Start Date End Date Derrell Hurst MD PCP - General 10/03/07 06/24/21 Derrell Hurst MD PCP - General Internal Medicine 06/25/21 09/05/21 Glory Almaguer MD [address] [place] [phone] PCP - General Internal Medicine 09/06/21 09/15/22 [facility], Pcp [address] [place] [address] PCP - General Internal Medicine 09/16/22 03/28/23 Josette Crandall MD [address] [place] [phone] PCP - General Internal Medicine 03/29/23 07/25/23 [facility], Pcp [address] [place] [id number] PCP - General Internal Medicine 07/26/23 documented as of this encounter
--- OUTSIDE RECORDS SUMMARY | 2024-03-28 10:39 | XMS_ITS | Encounter Summary ---
Author Organization [facility] Address [address] [place] [address] Care Team Providers Care Scientific Associate Name Role Phone Community, Pcp Primary Care Provider Josette Bowser MD Primary Care Provider [phone] [facility], Pcp Primary Care Provider Jamar leigh Encounter Details Date Type Department Care Team Description 12/13/2022 Esol Teacher Assistant Report Medical Records [address] [place] [address] Abstract, Provider Social History Tobacco Use Types [...] on filedocumented in this encounter Care Teams Scientific Associate Relationship Specialty Start Date End Date Community, Pcp PCP - General Internal Medicine 09/16/22 03/28/23 Josette Crandall MD [address] [place] [address] PCP - General Internal Medicine 03/29/23 07/25/23 Community, Pcp PCP - General Internal Medicine 07/26/23 documented as of this encounter
--- OUTSIDE RECORDS SUMMARY | 2024-03-28 10:39 | XMS_ITS | Encounter Summary ---
Author Organization [facility] Address [address] [place] [address] Care Team Providers Care Senior Investment Manager Name Role Phone Derrell Hurst MD Primary Care Provider Derrell Schulte MD Primary Care Provider Glory Ho MD Primary Care Prov ider [facility], Pcp Primary Care Provider Josette Bowser MD Primary Care Provider [phone] [facility], Pcp Primary Care Provider Jamar leigh Encounter Details Date Type Department Care Team Description 09/21/2018 Welder Fitter Helper Report Medical Records [address] [place], [place] [id number] Jose Nazario MD Social History Tobacco Use [...] on filedocumented in this encounter Care Teams Senior Investment Manager Relationship Specialty Start Date End Date Derrell Hurst MD PCP - General 10/03/07 06/24/21 Derrell Hurst MD PCP - General Internal Medicine 06/25/21 09/05/21 Glory Almaguer MD [address] [place] [address] PCP - General Internal Medicine 09/06/21 09/15/22 [facility], Pcp [address] [place] [address] PCP - General Internal Medicine 09/16/22 03/28/23 Josette Crandall MD [address] [place] [address] PCP - General Internal Medicine 03/29/23 07/25/23 [facility], Pcp [address] [place] [address] PCP - General Internal Medicine 07/26/23 documented as of this encounter
--- OUTSIDE RECORDS SUMMARY | 2024-03-28 10:39 | XMS_ITS | Encounter Summary ---
Author Organization [facility] Address [address] [place] [address] Care Team Providers Care Scrummaster Name Role Phone Derrell Hurst MD Primary Care Provider Derrell Schulte MD Primary Care Provider Glory Ho MD Primary Care Prov ider [facility], Pcp Primary Care Provider Josette Bowser MD Primary Care Provider [phone] [facility], Pcp Primary Care Provider Jamar leigh Encounter Details Date Type Department Care Team Description 10/23/2017 Infantry Unit Leader Report Medical Records [address] [place], [place] [id number] Soledad Cabrera MD Social History Tobacco Use Types Packs/Day [...] on filedocumented in this encounter Care Teams Scrummaster Relationship Specialty Start Date End Date Derrell Hurst MD PCP - General 10/03/07 06/24/21 Derrell Hurst MD PCP - General Internal Medicine 06/25/21 09/05/21 Glory Almaguer MD [address] [place] [address] PCP - General Internal Medicine 09/06/21 09/15/22 [facility], Pcp [address] [place] [address] PCP - General Internal Medicine 09/16/22 03/28/23 Josette Crandall MD [address] [place] [address] PCP - General Internal Medicine 03/29/23 07/25/23 [facility], Pcp [address] [place] [address] PCP - General Internal Medicine 07/26/23 documented as of this encounter
--- OUTSIDE RECORDS SUMMARY | 2024-03-28 10:40 | XMS_ITS | Encounter Summary ---
Author Organization [facility] Address [address] [place] [address] Care Team Providers Care Contact Representative Name Role Phone Derrell Hurst MD Primary Care Provider Derrell Schulte MD Primary Care Provider Glory Ho MD Primary [facility] Prov ider [facility]cp Primary Care Provider Josette Bowser MD Primary Care Provider [phone] [facility], Pcp Primary Care Provider Jamar leigh Encounter Details Date Type Department Care Team Description 12/15/2009 Finger Cobbler Report Medical Records [address] [place], [place] [id number] Juanjose Almendarez MD, MD Social History Tobacco Use Types Packs/Day Years Used Date Smoking Tobacco: Former Comments:27 years Alcohol Use Standard Drinks/Week Comments [...] on filedocumented in this encounter Care Teams Contact Representative Relationship Specialty Start Date End Date Derrell Hurst MD PCP - General 10/03/07 06/24/21 Derrell Hurst MD PCP - General Internal Medicine 06/25/21 09/05/21 Glory Almaguer MD [address] [place] [address] PCP - General Internal Medicine 09/06/21 09/15/22 [facility], Pcp [address] [place] [address] PCP - General Internal Medicine 09/16/22 03/28/23 Josette Crandall MD [address] [place] [address] PCP - General Internal Medicine 03/29/23 07/25/23 [facility], Pcp [address] [place] [address] PCP - General Internal Medicine 07/26/23 documented as of this encounter
--- OUTSIDE RECORDS SUMMARY | 2024-03-28 10:40 | XMS_ITS | Encounter Summary ---
Author Organization [facility] Address [address] [place] [address] Care Team Providers Care Prototype Assembler Electronics Name Role Phone Derrell Hurst MD Primary Care Provider Derrell Schulte MD Primary Care Provider Glory Ho MD Primary Care Prov ider [facility], Pcp Primary Care Provider Josette Bowser MD Primary Care Provider [phone] [facility], Pcp Primary Care Provider Jamar leigh Encounter Details Date Type Department Care Team Description 02/20/2015 Upstairs Maid Report Medical Records [address] [place], [place] [id number] Pascual Johnson MD Social History Tobacco Use [...] on filedocumented in this encounter Care Teams Prototype Assembler Electronics Relationship Specialty Start Date End Date Derrell Hurst MD PCP - General 10/03/07 06/24/21 Derrell Hurst MD PCP - General Internal Medicine 06/25/21 09/05/21 Glory Almaguer MD [address] [place] [address] PCP - General Internal Medicine 09/06/21 09/15/22 [facility], Pcp [address] [place] [address] PCP - General Internal Medicine 09/16/22 03/28/23 Josette Crandall MD [address] [place] [address] PCP - General Internal Medicine 03/29/23 07/25/23 [facility], Pcp [address] [place] [address] PCP - General Internal Medicine 07/26/23 documented as of this encounter
--- OUTSIDE RECORDS SUMMARY | 2024-03-28 10:40 | XMS_ITS | Encounter Summary ---
Author Organization [facility] Address [address] [place] [address] Care Team Providers Care Supervisor Public Health Nursing Name Role Phone Derrell Hurst MD Primary Care Provider Derrell Schulte MD Primary Care Provider Glory Ho MD Primary Care Prov ider [facility], Pcp Primary Care Provider Josette Bowser MD Primary Care Provider [phone] [facility], Pcp Primary Care Provider Jamar leigh Encounter Details Date Type Department Care Team Description 12/05/2007 Hospital Medical Records [address] [place] [address] David Guzman Social History Tobacco Use Types Packs/Day Years [...] on filedocumented in this encounter Care Teams Supervisor Public Health Nursing Relationship Specialty Start Date End Date Derrell Hurst MD PCP - General 10/03/07 06/24/21 Derrell Hurst MD PCP - General Internal Medicine 06/25/21 09/05/21 Glory Almaguer MD [address] [place] [address] PCP - General Internal Medicine 09/06/21 09/15/22 [facility], Pcp [address] [place] [address] PCP - General Internal Medicine 09/16/22 03/28/23 Josette Crandall MD [address] [place] [address] PCP - General Internal Medicine 03/29/23 07/25/23 [facility], Pcp [address] [place] [address] PCP - General Internal Medicine 07/26/23 documented as of this encounter
--- OUTSIDE RECORDS SUMMARY | 2024-03-28 10:40 | XMS_ITS | Encounter Summary ---
Author Organization [facility] Address [address] [place] [address] Care Team Providers Care Edge Gluer Name Role Phone Derrell Hurst MD Primary Care Provider Derrell Schulte MD Primary Care Provider Glory Ho MD Primary Care Prov ider [facility], Pcp Primary Care Provider Josette Bowser MD Primary Care Provider [phone] [facility], Pcp Primary Care Provider Jamar leigh Encounter Details Date Type Department Care Team Description 02/28/2019 Loss Prevention Associate Report Medical Records [address] [place] [id number] Amber Fink Social History Tobacco Use Types Packs/Day [...] on filedocumented in this encounter Care Teams Edge Gluer Relationship Specialty Start Date End Date Derrell Hurst MD PCP - General 10/03/07 06/24/21 Derrell Hurst MD PCP - General Internal Medicine 06/25/21 09/05/21 Glory Almaguer MD [address] [place] [address] PCP - General Internal Medicine 09/06/21 09/15/22 [facility], Pcp [address] [place] [address] PCP - General Internal Medicine 09/16/22 03/28/23 Josette Crandall MD [address] [place] [address] PCP - General Internal Medicine 03/29/23 07/25/23 [facility], Pcp [address] [place] [address] PCP - General Internal Medicine 07/26/23 documented as of this encounter
--- OUTSIDE RECORDS SUMMARY | 2024-03-28 10:40 | XMS_ITS | Encounter Summary ---
Author Organization [facility] Address [address] [place] [address] Care Team Providers Care Patch Setter Name Role Phone Derrell Hurst MD Primary Care Provider Derrell Schulte MD Primary Care Provider Glory Ho MD Primary Care Prov ider [facility], Pcp Primary Care Provider Josette Bowser MD Primary Care Provider [phone] [facility], Pcp Primary Care Provider Jamar leigh Encounter Details Date Type Department Care Team Description 03/05/2019 Locomotive Driver Report Medical Records [address] [place], [place] [id number] Sunil Fink Social History Tobacco Use Types [...] on filedocumented in this encounter Care Teams Patch Setter Relationship Specialty Start Date End Date Derrell Hurst MD PCP - General 10/03/07 06/24/21 Derrell Hurst MD PCP - General Internal Medicine 06/25/21 09/05/21 Glory Almaguer MD [address] [place] [address] PCP - General Internal Medicine 09/06/21 09/15/22 [facility], Pcp [address] [place] [address] PCP - General Internal Medicine 09/16/22 03/28/23 Josette Crandall MD [address] [place] [address] PCP - General Internal Medicine 03/29/23 07/25/23 [facility], Pcp [address] [place] [address] PCP - General Internal Medicine 07/26/23 documented as of this encounter
--- OUTSIDE RECORDS SUMMARY | 2024-03-28 10:40 | XMS_ITS | Encounter Summary ---
Author Organization [facility] Address [address] [place] [address] Care Team Providers Care Hand Candy Dipper Name Role Phone Derrell Hurst MD Primary Care Provider Derrell Schulte MD Primary Care Provider Glory Ho MD Primary Care Prov ider [facility], Pcp Primary Care Provider Josette Bowser MD Primary Care Provider [phone] [facility], Pcp Primary Care Provider Jamar leigh Encounter Details Date Type Department Care Team Description 03/01/2019 Break Out Worker Report Medical Records [address] [place], [place] [id number] Sunil Fink Social History Tobacco Use Types [...] on filedocumented in this encounter Care Teams Hand Candy Dipper Relationship Specialty Start Date End Date Derrell Hurst MD PCP - General 10/03/07 06/24/21 Derrell Hurst MD PCP - General Internal Medicine 06/25/21 09/05/21 Glory Almaguer MD [address] [place] [address] PCP - General Internal Medicine 09/06/21 09/15/22 [facility], Pcp [address] [place] [address] PCP - General Internal Medicine 09/16/22 03/28/23 Josette Crandall MD [address] [place] [address] PCP - General Internal Medicine 03/29/23 07/25/23 [facility], Pcp [address] [place] [address] PCP - General Internal Medicine 07/26/23 documented as of this encounter
--- OUTSIDE RECORDS SUMMARY | 2024-03-28 10:40 | XMS_ITS | Encounter Summary ---
Author Organization [facility] Address [address] [place] [address] Care Team Providers Care Maintenance Mgr Name Role Phone Derrell Hurst MD Primary Care Provider Derrell Schulte MD Primary Care Provider Glory Ho MD Primary Care Prov ider [facility], Pcp Primary Care Provider Unavailabl e Josette Crandall MD Primary Care Provider [phone] [facility], Pcp Primary Care Provider Unavailabl e Reason for Visit * Reason Onset Date Comments APPOINTMENT 04/25/2019 Appointment laura anderson Encounter Details Date Type Department Care Team Description 04/25/2019 [address] [place] [id number] Clifford Olivia PA-C APPOINTMENT (Appointment changed) Social History Tobacco Use Types Packs/Day Years [...] encounter Miscellaneous Notes * Telephone Encounter - Clifford Olivia PA-C - 04/25/2019 7:58 AM EDT I called this patient to see if she had any areas of concern and to see if she would be willing to reschedule her appointment in 2 months because of the uncertainty Covid-19 situation. She states that she would prefer to see that happen and will contact us with any areas of concern. [facility] and set up a full skin exam in 2 months. documented in this encounter Plan of Treatment Not on file documented as of this encounter Visit Diagnoses Not on filedocumented in this encounter Care Teams Maintenance Mgr Relationship Specialty Start Date End Date Derrell Hurst MD PCP - General 10/03/07 06/24/21 Derrell Hurst MD PCP - General Internal Medicine 06/25/21 09/05/21 Glory Almaguer MD [address] [place] [address] PCP - General Internal Medicine 09/06/21 09/15/22 [facility], Pcp [address] [place] [address] PCP - General Internal Medicine 09/16/22 03/28/23 Josette Crandall MD [address] [place] [address] PCP - General Internal Medicine 03/29/23 07/25/23 [facility], Pcp [address] [place] [address] PCP - General Internal Medicine 07/26/23 documented as of this encounter
--- OUTSIDE RECORDS SUMMARY | 2024-03-28 10:40 | XMS_ITS | Encounter Summary ---
Author Organization [facility] Address [address] [place] [address] Care Team Providers Care Mold Finisher Name Role Phone Derrell Hurst MD Primary Care Provider Derrell Schulte MD Primary Care Provider Glory Ho MD Primary Care Prov ider [facility], Pcp Primary Care Provider Josette Bowser MD Primary Care Provider [phone] [facility], Pcp Primary Care Provider Jamar leigh Encounter Details Date Type Department Care Team Description 03/11/2015 Curb Machine Operator Report Medical Records [address] [place], [place] [phone] Pascual Johnson MD Social History Tobacco Use [...] on filedocumented in this encounter Care Teams Mold Finisher Relationship Specialty Start Date End Date Derrell Hurst MD PCP - General 10/03/07 06/24/21 Derrell Hurst MD PCP - General Internal Medicine 06/25/21 09/05/21 Glory Almaguer MD [address] [place] [address] PCP - General Internal Medicine 09/06/21 09/15/22 [facility], Pcp [address] [place] [address] PCP - General Internal Medicine 09/16/22 03/28/23 Josette Crandall MD [address] [place] [address] PCP - General Internal Medicine 03/29/23 07/25/23 [facility], Pcp [address] [place] [address] PCP - General Internal Medicine 07/26/23 documented as of this encounter
--- OUTSIDE RECORDS SUMMARY | 2024-03-28 10:40 | XMS_ITS ---
Author Organization [facility] Address [address] [place] [address] Care Team Providers Care Energy Conservation Technician Name Role Phone Natali MELGAR, Candace Tillman Primary Care Provider Deloris Acuna Unavailable [phone] Viviana Richards Unavailable [phone] Medications Medication SIG (Take, Route, Frequency, Duration) Notes Start Date End Date Status amLODIPine Besylate 10 MG Oral for 90 Days Active Celecoxib 200 MG Oral for 30 Days Not-Taking Sertraline HCl 50 MG Oral for 30 Days Active Doxycycline Monohydrate 100 MG Oral for 80 Days Unknown hydroCHLOROthiazide 12.5 MG TAKE ONE CAP MAMIE BY MOUTH EVERY MORNING Oral for 90 Days Active Omeprazole 20 MG Oral for 90 Days Active Donezepil HCl-10 mg Active Iron Active Multivitamin - 1 tablet Orally Once a day Active Magnesium Active B12 Active Biotin Active Encounters Encounter Location Date Provider Diagnosis [address] [address] 08/30/2023 Viviana Richards Plan Of Treatment Next Appt Details Provider Name:Viviana timmons, 04/23/2024 10:00:00 AM, [address] [place] [address], [phone], Progress Notes * Divina KEANE MDOB:[birth year] (74 yo F)Acc No.[id number]:08/30/2023 Progress Note Patient:?Divina KEANE Provider:?Viviana Richards DPM :1950???Age:73 Y???Sex:Female D ate:08/30/2023 Address:[address] [facility] Pcp:Candace Hurst MD Subjective: * Chief Complaints: * ??? * HPI: ???At Risk footcare:?Pt States Last PCP Visit:?Date?04/26/2023 * Medical History:? * Medications:?Taking Biotin , Taking B12 , Taking Iron , Taking Magnesium , Taking Multivitamin - Tablet 1 tablet Orally Once a day , Taking Donezepil HCl-10 mg , Taking Omeprazole 20 MG Capsule Delayed Release Oral , Taking amLODIPine Besylate 10 MG Tablet Oral , Taking Sertraline HCl 50 MG Tablet Oral , Taking hydroCHLOROthiazide 12.5 MG Capsule TAKE ONE CAPSULE BY MOUTH EVERY MORNING Oral , Not-Taking/PRN Celecoxib 200 MG Capsule Oral , Unknown Doxycycline Monohydrate 100 MG Capsule Oral Objective: * Vitals:? Assessment: Plan: * Treatment: * Images: * The named appointment provid er may or may not be the originator of this progress note, and it is not deemed complete until electronically signed by the appointment provider. Sign off status: Pending * Provider:?Viviana Richards DPM Date:? Generated for Lucas heath/Alistair/Dahlia on:?03/28/2024 10:39 AM EST History and Physical Notes * HPI (History of Present Illness) Category Sub-Category Detail Notes Category Not es At Risk footcare Pt States Last PCP Visit: Date: 4
--- OUTSIDE RECORDS SUMMARY | 2024-03-28 10:40 | XMS_ITS | Encounter Summary ---
Author Organization [facility] Address [address] [place] [address] Care Team Providers Care Hairspring Staker Name Role Phone Derrell Hurst MD Primary Care Provider Derrell Schulte MD Primary Care Provider Glory Ho MD Primary Care Prov ider [facility], Pcp Primary Care Provider Josette Bowser MD Primary Care Provider [phone] [facility], Pcp Primary Care Provider Jamar leigh Encounter Details Date Type Department Care Team Description 03/11/2019 Spring Assembler Report Medical Records [address] [place], [place] [id number] Soledad Cabrera MD Social History Tobacco Use [...] on filedocumented in this encounter Care Teams Hairspring Staker Relationship Specialty Start Date End Date Derrell Hurst MD PCP - General 10/03/07 06/24/21 Derrell Hurst MD PCP - General Internal Medicine 06/25/21 09/05/21 Glory Almaguer MD [address] [place] [address] PCP - General Internal Medicine 09/06/21 09/15/22 [facility], Pcp [address] [place] [address] PCP - General Internal Medicine 09/16/22 03/28/23 Josette Crandall MD [address] [place] [address] PCP - General Internal Medicine 03/29/23 07/25/23 [facility], Pcp [address] [place] [address] PCP - General Internal Medicine 07/26/23 documented as of this encounter
--- OUTSIDE RECORDS SUMMARY | 2024-03-28 10:40 | XMS_ITS | Continuity of Care Document ---
Author Organization [facility] Address [address] [place] [address] Phone Care Team Providers Care Soft Mud Molder Name Role Phone Parminder MELGAR, RASHAWN, JORDAN, [...] Providers Copied on Encounter [facility], [address] [place] [address] Dr Freeman [address], [id number], [place] tel:[phone] CVR - [place] No Information 4 Parminder MELGAR, RVT, VI Paulino. [address], [address], [place], [id number] , [place]. tel:[phone] Office/Outpt E&M Established 15 Mins [facility], [address] [place] [address] Dr Freeman [address]L[place], [id number], [place] tel:[phone] CVR - [facility] Chronic venous htn w oth comp of bilateral low extrmNon-pressu re chronic ulcer of left ankle with unsp severity 3 Aleks MELGAR FACS T [facility] Amber Barber. [address], [place] [address], [place], [address], [place]. [phone] Referring Provider: Amber Fink MD FACS T [facility], [facility] [facility], [place], [address]. tel:[phone] Office/Outpt E&M Established 15 Mins [facility], [address] [place] [address] Dr Freeman [address], [id number], [place] tel:[phone] CVR - [facility] Postproc hemor/hemtom of skin, subcu following oth procedureChroni c venous htn w oth comp of bilateral low extrm 3 Kiana Bradley . [address], [address], [facility] [place], [id number] , [place]. tel:[phone] Referring Provider: Amber Fink MD FACS RVT [facility], [address] [place] [address] [address], [place], [address]. tel:[phone] [facility], [address] [place] [address] Dr Freeman [address], [id number], [place] tel:[phone] CVR - [facility] Encntr for f/u exam aft trtmt for cond oth than malig neoplmVenous insufficiency (chronic) (peripheral) 3 Aleks MELGAR FACS RVT [facility] Amber Barber. [address], [address], [facility] [place], [address], [place]. [phone] Referring Provider: Amber Fink MD FACS RVT [facility], [facility] [address], [place], [address]. tel:[phone] 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 [address], [address], [facility] [place], [place], [id number] , [place]. [phone] Referring Provider: Amber Fink MD FACS RVT [facility], [facility], [facility] [place], [address]. tel:[phone] [facility], [address] [place] [address] [address], [place], [id number], [place] tel:[phone] [place] Venous insufficiency (chronic) (peripheral) 3 Aleks MELGAR FACS RVT VI Amber Barber. [facility], [address], [place], [address], [place]. [phone] Referring Provider: Amber Fink MD FACS RVT RP, [facility], [facility] [place], [address]. tel:[phone] [facility], [address] [place] [address] [address]L[place], [id number], [place] tel:[phone] CVR - [place] [facility] [place] Venous insufficiency (chronic) (peripheral) 3 Aleks MELGAR FACS RVT VI Amber Barber. [address], [address], [facility] [place], [address], [place]. tel:[phone] Referring Provider: Amber Fink MD FACS RVT RP, [address] [place] [address] [address], [place], [address]. tel:[phone] Office/Outpt E&M Established 15 Mins [facility], [address] [place] [address] Dr [address], [place], [id number], [place] tel:[phone] CVR - [facility] Encounter for other preprocedural examination 3 Aleks MELGAR FACS RVT RPVI Amber Sunil. [address] [place] [address], [address], [facility] [place], [address], [place]. [phone] Referring Provider: Amber Fink MD FACS RVT RP, [address] [place] [address] [facility], [place], [address]. tel:[phone] Office/Outpt E&M Established 25 Mins [facility], [address] [place] [address] Dr [address], [place], [id number], [place] tel:[phone] CVR - [facility] Chronic venous htn w inflammation of bilateral low extrm 3 Aleks MELGAR FACS RVT [facility] Amber Sunil. [address] [place] [address], Suite [facility], [facility] [place], [address], [place]. [phone] Referring Provider: Amber Fink MD FACS RVT RPVI, [address] [place] [address] [facility], [place], [address]. tel:[phone] [facility], [address] [place] [address] Dr [address], [place], [id number], [place] tel:[phone] CVR - [facility] Non-pressure chronic ulcer of left calf w fat layer exposedChronic venous htn w ulcer and inflam of bilateral low extrm Fe 3 Aleks MELGAR FACS RVT [facility] Amber Sunil. [facility] [address], [address], [place], [address], [place]. [phone] Referring Provider: Amber Fink MD FACS RVT RP, [address] [place] [address] [facility], [place], [address]. tel:[phone] Office/Outpt E&M Established 15 Mins [facility], [address] [place] [address] [address], [place], [id number], tel:[phone] [place] Body mass index (BMI) 27.0-27.9, adultChronic venous hypertension w/o comp of bilateral low extrmNon-pressu re chronic ulcer of left calf with unsp severityVaricos e veins of right lower extremity w ulcer of unsp siteChronic venous hypertension w/o comp of r low extremNon-press ure chronic ulcer of right calf with unsp severity 3 Aleks MELGAR FACS T JORDAN Barber. [address] [place] [address], [place] [address], [place], [address], [place]. tel:[phone] Referring Provider: Amber Fink MD, FACS [facility] [address] [place] [address], [place], [address]. tel:[phone] [facility], [address] [place] [address] [address], [place], [id number], [place] tel:[phone] CVR - [place] Venous insufficiency (chronic) (peripheral) 3 Aleks MELGAR FACS Kristy Barber. [address] [place] [address], [place], [address], [place]. tel:[phone] Referring Provider: Amber Fink MD FACS [facility] [address] [place] [address], [place], [address]. tel:[phone] Office/Outpt E&M Established 15 Mins [facility], [address] [place] [address] [address], [place], [id number], [place] tel:[phone] CVR - [place] Body mass index (BMI) 26.0-26.9, adultChronic venous htn w inflammation of bilateral low extrmCramp and spasmType 2 diabetes mellitus without complications 3 Aleks MELGAR FACS Kristy Barber. [address] [place] [address], [place] [address], [place], [address], [place]. tel:[phone] Referring Provider: Amber Fink MD FACS RVT VI, [address], [place], [address]. tel:[phone] Family History Family Member Type Diagnosis Age [...] Information Instructions Date Instruction Additional Infor mation Weight monitoring Related to Bod y mass index [BMI] 27.0-27.9, adult Weight-reducing diet education R elated to Body mass index [BMI] 27.0-27.9, adult Giving encouragement to exercise Related to Body mass index [BMI] 26.0-26.9, adult Dietary needs education Related to Body mass index [BMI] 26.0-26.9, adult Assessments Type Assessment Date No Information Patient Care Teams Name Effective Dates (start - stop) Status Members No Information
--- OUTSIDE RECORDS SUMMARY | 2024-03-28 10:40 | XMS_ITS | Encounter Summary ---
Author Organization [facility] Address [address] [place] [address] Care Team Providers Care Studio Designer Name Role Phone Derrell Hurst MD Primary Care Provider Derrell Schulte MD Primary Care Provider Glory Ho MD Primary Care Prov ider [facility], Pcp Primary Care Provider UnavailJosette Klein MD Primary Care Provider [phone] [facility], Pcp Primary Care Provider Jamar e Encounter Details Date Type Department Care Team Description 03/22/2019 Perinatal Educator Report Medical Records [address] [place], [place] [id number] Yvonne Fink MD Social History Tobacco Use [...] on filedocumented in this encounter Care Teams Studio Designer Relationship Specialty Start Date End Date Derrell Hurst MD PCP - General 10/03/07 06/24/21 Derrell Hurst MD PCP - General Internal Medicine 06/25/21 09/05/21 Glory Almaguer MD [address] [place] [address] PCP - General Internal Medicine 09/06/21 09/15/22 [facility], Pcp [address] [place] [address] PCP - General Internal Medicine 09/16/22 03/28/23 Josette Crandall MD [address] [place] [address] PCP - General Internal Medicine 03/29/23 07/25/23 [facility], Pcp [address] [place] [address] PCP - General Internal Medicine 07/26/23 documented as of this encounter
--- OUTSIDE RECORDS SUMMARY | 2024-03-28 10:40 | XMS_ITS | Encounter Summary ---
Author Organization [facility] Address [address] [place] [address] Care Team Providers Care Photo Engraver Name Role Phone Derrell Hurst MD Primary Care Provider Derrell Schulte MD Primary Care Provider Glory Ho MD Primary Care Prov ider [facility], Pcp Primary Care Provider Josette Bowser MD Primary Care Provider [phone] [facility], Pcp Primary Care Provider Jamar leigh Encounter Details Date Type Department Care Team Description 01/03/2012 Release of Information Medical Records [address] [place], [place] [id number] Abstract, Provider Social History Tobacco Use Types [...] on filedocumented in this encounter Care Teams Photo Engraver Relationship Specialty Start Date End Date Derrell Hurst MD PCP - General 10/03/07 06/24/21 Derrell Hurst MD PCP - General Internal Medicine 06/25/21 09/05/21 Glory Almaguer MD [address] [place] [address] PCP - General Internal Medicine 09/06/21 09/15/22 [facility], Pcp [address] [place] [address] PCP - General Internal Medicine 09/16/22 03/28/23 Josette Crandall MD [address] [place] [address] PCP - General Internal Medicine 03/29/23 07/25/23 [facility], Pcp [address] [place] [address] PCP - General Internal Medicine 07/26/23 documented as of this encounter
--- OUTSIDE RECORDS SUMMARY | 2024-03-28 10:40 | XMS_ITS | Clinical Summary ---
Author Organization Unknown Care Team Providers Care Fuel Conversion Technician Name Role Phone SCOTT MELGAR, CARLOS PHILLIPS Unavailable Unavailable AN RN, ADMISSION NURSE, ROSALBA Unavail able Unavailable NEHEMIAS RN, AMOS Unavailable Unavailable NINO HEAD KILN OPERATOR, KASHMIR Unavailable Unavailable AMMY CARRERA FOLLOW UP MANAGER, DEISY Unavailable Unavai lable Payers Payer Name Policy Type Policy Number Effective Date Expira tion Date MEDICARE - [facility] [facility]GM [id number] SELF PAY Problems Condition Name Condition Details [...] FAT LAYER EXPOSED Active 02-06 00:00: 00 NON-PRS CHRONIC ULCER OTH PRT L LOW LEG WITH OTH SEVERITY Active 02-06 00:00: 00 TYPE 2 DIABETES [...] OF NICOTINE DEPENDENCE Active 02-06 00:00: 00 SKILLED NURSING (CURRENT) USE OF SYSTEMIC STEROIDS Active 02-06 00:00: 00 Allergies, Adverse Reactions, [...] 2022-02 00:00: 00 11-14 23:59 :00 No [id number] Per instruc tions EVERY DAY FOR 7 DAYS Per instructio ns EVERY DAY FOR 7 DAYS (route: oral) Med Classific ation: Anti-Infe ctive Agents hydrochloro thiazide 12.5 mg capsule 10-28 00:00: 00 02-09 23:59 :00 No [id number] Per instruc tions EVERY Per instructio ns EVERY (route: oral) Med Classific ation: Cardiovas cular Therapy Agents gabapentin 100 mg capsule 11 00:00: 00 08-06 23:59 :00 No [id number] Per instruc tions THREE TIMES A DAY Per instructio ns THREE TIMES A DAY (route: oral) Med Classific ation: Central Nervous System Agents hydrocodone 5 mg-acetamin ophen 300 mg tablet 2022-02 0-13 00:00: 00 02-09 00:00 :00 No [id number] 1-2 tablet NEEDED 1-2 tablet NEEDED (route: oral) Med Classific ation: Analgesic , Anti-infl ammatory or Antipyret ic amlodipine 10 mg tablet 02-09 00:00: 00 12-19 23:59 :00 No [id number] 1 tablet DAILY 1 tablet DAILY (route: oral) Med Classific ation: Cardiovas cular Therapy Agents Celebrex 200 mg capsule 02-09 00:00: 00 12-24 23:59 :00 No [id number] 1 capsule DAILY 1 capsule DAILY (route: oral) Med Classific ation: Analgesic , Anti-infl ammatory or Antipyret ic cyanocobala min (vit B-12) 1,000 mcg tablet 02-09 00:00: 00 Yes [id number] 1 tablet DAILY 1 tablet DAILY (route: oral) Med Classific ation: Electroly te Balance-N utritiona l Products donepezil 10 mg tablet 02-09 00:00: 00 Yes [id number] 1 tablet DAILY 1 tablet DAILY (route: oral) Med Classific ation: Cognitive Disorder Therapy magnesium 250 mg tablet 02-09 00:00: 00 Yes [id number] 1 tablet DAILY 1 tablet DAILY (route: oral) Med Classific ation: Electroly te Balance-N utritiona l Products multivitami n tablet 02-09 00:00: 00 Yes [id number] 1 tablet DAILY 1 tablet DAILY (route: oral) Med Classific ation: Electroly te Balance-N utritiona l Products omeprazole 20 mg capsule,del ayed release 02-09 00:00: 00 Yes [id number] 1 capsule DAILY 1 capsule DAILY (route: oral) Med Classific ation: Gastroint estinal Therapy Agents oxycodone 5 mg tablet 02-09 00:00: 00 Yes [id number] 1 tablet EVERY 8 HOURS 1 tablet EVERY 8 HOURS (route: oral) Med Classific ation: Analgesic , Anti-infl ammatory or Antipyret ic sertraline 50 mg tablet 02-09 00:00: 00 08-06 23:59 :00 No [id number] 1 tablet DAILY 1 tablet DAILY (route: oral) Med Classific ation: Central Nervous System Agents trazodone 50 mg tablet 1-04 00:00: 00 Yes [id number] 25 mg BEDTIME 25 mg BEDTIME (route: oral) Med Classific ation: Central Nervous System Agents sertraline 100 mg tablet -02 00:00: 00 Yes [id number] 1 tablet DAILY 1 tablet DAILY (route: oral) Med Classific ation: Central Nervous System Agents lisinopril 5 mg tablet 7-14 00:00: 00 12-24 23:59 :00 No [id number] 1 tablet DAILY 1 tablet DAILY (route: oral) Med Classific ation: Cardiovas cular Therapy Agents betamethaso ne valerate 0.1 % topical cream 2023-02 0- 00:00: 00 Yes [id number] Per instruc tions 2 TIMES A WEEK Per instructio ns 2 TIMES A WEEK (route: topical) Med Classific ation: Dermatolo gical amoxicillin 875 mg-potassiu m clavulanate 125 mg tablet 2023-02- 00:00: 00 12-15 23:59 :00 No [id number] 1 tablet 2 TIMES DAILY 1 tablet 2 TIMES DAILY (route: oral) Med Classific ation: Anti-Infe ctive Agents doxycycline monohydrate 100 mg capsule 2023-02 00:00: 00 12-15 23:59 :00 No [id number] 1 capsule 2 TIMES DAILY 1 capsule 2 TIMES DAILY (route: oral) Med Classific ation: Anti-Infe ctive Agents lisinopril 10 mg tablet 2023-02-18 00:00: 00 Yes [id number] 1 tablet DAILY 1 tablet DAILY (route: oral) Med Classific ation: Cardiovas cular Therapy Agents Augmentin 500 mg-125 mg tablet 2023-02-17 00:00: 00 01-29 23:59 :00 No [id number] 1 tablet EVERY 12 HOURS 1 tablet EVERY 12 HOURS (route: oral) Med Classific ation: Anti-Infe ctive Agents gabapentin 100 mg capsule 2023-02 2-13 00:00: 00 Yes [id number] 1 capsule 3 TIMES DAILY 1 capsule 3 TIMES DAILY (route: oral) Med Classific ation: Central Nervous System Agents Vital Signs Vital Name Observation Time Observation Value Commen ts Temperature 2024-03-27 09:00:00.000 97.4 [degF] Temperature 2024-03-25 09:01:00.000 97.3 [degF] Temperature 2024-03-22 09:17:00.000 97.3 [degF] Temperature 2024-03-20 12:58:00.000 98.6 [degF] Temperature 2024-03-18 19:04:00.000 97 [degF] Temperature 2024-03-14 17:19:00.000 98 [degF] Temperature 2024-03-12 16:52:00.000 97.3 [degF] Temperature 2024-03-10 09:55:00.000 97.2 [degF] Temperature 2024-03-07 13:50:00.000 98 [degF] Temperature 2024-03-06 08:56:00.000 97.3 [degF] Temperature 2024-03-04 08:12:00.000 97.7 [degF] Temperature 2024-03-01 12:23:00.000 98.6 [degF] Temperature 2024-02-27 09:55:00.000 97.6 [degF] Temperature 2024-02-23 09:07:00.000 97.4 [degF] Temperature 2024-02-21 14:39:00.000 97.2 [degF] Temperature 2024-02-19 08:34:00.000 98 [degF] Temperature 2024-02-16 15:43:00.000 97.6 [degF] Temperature 2024-02-14 18:12:00.000 98 [degF] Temperature 2024 08:12:00.000 97.6 [degF] Temperature 2024-02-08 09:26:00.000 98.3 [degF] Temperature 2024-02-05 16:03:00.000 98 [degF] BMI (%) 2024-02-14 09:12:58.000 24 kg/m2 Height 2024-02-14 09:12:50.000 63 [in_us] Pulse 2024-03-27 09:00:00.000 82 /min Pulse 2024-03-22 09:17:00.000 90 /min Pulse 2024-03-20 12:58:00.000 87 /min Pulse 2024-03-18 19:04:00.000 70 /min Pulse 2024-03-14 17:19:00.000 70 /min Pulse 2024-03-12 16:52:00.000 80 /min Pulse 2024-03-10 09:55:00.000 82 /min Pulse 2024-03-07 13:50:00.000 78 /min Pulse 2024-03-06 08:56:00.000 80 /min Pulse 2024-03-04 08:12:00.000 76 /min Pulse 2024-03-01 12:23:00.000 81 /min Pulse 2024-02-27 09:55:00.000 82 /min Pulse 2024-02-23 09:07:00.000 82 /min Pulse 2024-02-21 14:39:00.000 82 /min Pulse 2024-02-19 08:34:00.000 78 /min Pulse 2024-02-16 15:43:00.000 86 /min Pulse 2024-02-14 18:12:00.000 70 /min Pulse 2024 08:12:00.000 92 /min Pulse 2024-02-08 09:26:00.000 93 /min Pulse 2024-02-05 16:03:00.000 70 /min O2 Saturation (%) 2024-03-27 09:00:00.000 97 % O2 Saturation (%) 2024-03-25 09:01:00.000 97 % O2 Saturation (%) 2024-03-22 09:17:00.000 98 % O2 Saturation (%) 2024-03-20 12:58:00.000 97 % O2 Saturation (%) 2024-03-18 19:04:00.000 97 % O2 Saturation (%) 2024-03-14 17:19:00.000 97 % O2 Saturation (%) 2024-03-12 16:52:00.000 99 % O2 Saturation (%) 2024-03-10 09:55:00.000 98 % O2 Saturation (%) 2024-03-07 13:50:00.000 96 % O2 Saturation (%) 2024-03-06 08:56:00.000 98 % O2 Saturation (%) 2024-03-04 08:12:00.000 97 % O2 Saturation (%) 2024-03-01 12:23:00.000 98 % O2 Saturation (%) 2024-02-27 09:55:00.000 99 % O2 Saturation (%) 2024-02-23 09:07:00.000 99 % O2 Saturation (%) 2024-02-21 14:39:00.000 98 % O2 Saturation (%) 2024-02-19 08:34:00.000 96 % O2 Saturation (%) 2024-02-16 15:43:00.000 98 % O2 Saturation (%) 2024-02-14 18:12:00.000 97 % O2 Saturation (%) 2024 08:12:00.000 98 % O2 Saturation (%) 2024-02-08 09:26:00.000 95 % O2 Saturation (%) 2024-02-05 16:03:00.000 97 % Respirations 2024-03-27 09:00:00.000 18 /min Respirations 2024-03-25 09:01:00.000 18 /min Respirations 2024-03-22 09:17:00.000 18 /min Respirations 2024-03-20 12:58:00.000 18 /min Respirations 2024-03-18 19:04:00.000 18 /min Respirations 2024-03-14 17:19:00.000 18 /min Respirations 2024-03-12 16:52:00.000 18 /min Respirations 2024-03-10 09:55:00.000 18 /min Respirations 2024-03-07 13:50:00.000 19 /min Respirations 2024-03-06 08:56:00.000 18 /min Respirations 2024-03-04 08:12:00.000 18 /min Respirations 2024-03-01 12:24:00.000 20 /min Respirations 2024-02-27 09:55:00.000 16 /min Respirations 2024-02-23 09:07:00.000 16 /min Respirations 2024-02-19 08:34:00.000 18 /min Respirations 2024-02-16 15:43:00.000 18 /min Respirations 2024-02-14 18:12:00.000 18 /min Respirations 2024-02-08 09:26:00.000 16 /min Respirations 2024-02-05 16:03:00.000 18 /min Weight (lbs) 2024-02-14 09:12:58.000 140 [lb_av] Systolic Blood Pressure 2024-03-27 09:00:00.000 120 mm [Hg] Systolic Blood Pressure 2024-03-25 09:01:00.000 142 mm [Hg] Systolic Blood Pressure 2024-03-22 09:17:00.000 142 mm [Hg] Systolic Blood Pressure 2024-03-20 12:58:00.000 148 mm [Hg] Systolic Blood Pressure 2024-03-18 19:04:00.000 142 mm [Hg] Systolic Blood Pressure 2024-03-14 17:19:00.000 142 mm [Hg] Systolic Blood Pressure 2024-03-12 16:52:00.000 140 mm [Hg] Systolic Blood Pressure 2024-03-10 09:55:00.000 142 mm [Hg] Systolic Blood Pressure 2024-03-07 13:50:00.000 142 mm [Hg] Systolic Blood Pressure 2024-03-06 08:56:00.000 130 mm [Hg] Systolic Blood Pressure 2024-03-04 08:12:00.000 138 mm [Hg] Systolic Blood Pressure 2024-03-01 12:23:00.000 140 mm [Hg] Systolic Blood Pressure 2024-02-27 09:55:00.000 142 mm [Hg] Systolic Blood Pressure 2024-02-23 09:14:00.000 152 mm [Hg] Systolic Blood Pressure 2024-02-21 14:39:00.000 142 mm [Hg] Systolic Blood Pressure 2024-02-19 08:34:00.000 138 mm [Hg] Systolic Blood Pressure 2024-02-16 15:43:00.000 142 mm [Hg] Systolic Blood Pressure 2024-02-14 18:12:00.000 134 mm [Hg] Systolic Blood Pressure 2024 08:12:00.000 152 mm [Hg] Systolic Blood Pressure 2024-02-08 09:26:00.000 112 mm [Hg] Systolic Blood Pressure 2024-02-05 16:03:00.000 134 mm [Hg] Diastolic Blood Pressure 2024-03-27 09:00:00.000 62 mm [Hg] Diastolic Blood Pressure 2024-03-25 09:01:00.000 70 mm [Hg] Diastolic Blood Pressure 2024-03-22 09:17:00.000 80 mm [Hg] Diastolic Blood Pressure 2024-03-20 12:58:00.000 70 mm [Hg] Diastolic Blood Pressure 2024-03-18 19:04:00.000 74 mm [Hg] Diastolic Blood Pressure 2024-03-14 17:19:00.000 76 mm [Hg] Diastolic Blood Pressure 2024-03-12 16:52:00.000 72 mm [Hg] Diastolic Blood Pressure 2024-03-10 09:55:00.000 80 mm [Hg] Diastolic Blood Pressure 2024-03-07 13:50:00.000 74 mm [Hg] Diastolic Blood Pressure 2024-03-06 08:56:00.000 72 mm [Hg] Diastolic Blood Pressure 2024-03-04 08:12:00.000 74 mm [Hg] Diastolic Blood Pressure 2024-03-01 12:23:00.000 80 mm [Hg] Diastolic Blood Pressure 2024-02-27 09:55:00.000 80 mm [Hg] Diastolic Blood Pressure 2024-02-23 09:14:00.000 80 mm [Hg] Diastolic Blood Pressure 2024-02-21 14:39:00.000 80 mm [Hg] Diastolic Blood Pressure 2024-02-19 08:34:00.000 70 mm [Hg] Diastolic Blood Pressure 2024-02-16 15:43:00.000 80 mm [Hg] Diastolic Blood Pressure 2024-02-14 18:12:00.000 78 mm [Hg] Diastolic Blood Pressure 2024 08:12:00.000 70 mm [Hg] Diastolic Blood Pressure 2024-02-08 09:26:00.000 78 mm [Hg] Diastolic Blood Pressure 2024-02-05 [...] COVER WITH DRY CLEAN DSG THEN TUBI PROFESSOR OF PSYCHOLOGY 3X/WEEK BY OR THE CLINIC AND PRN [...] COVER WITH DRY CLEAN DSG THEN TUBI PROFESSOR OF PSYCHOLOGY 3X/WEEK BY OR THE CLINIC AND PRN [...] MAINTAIN SITUATIONAL AWARENESS AND WILL NOTIFY CLINICAL KINDERGARTEN TUTOR AND PHYSICIAN/PROVIDER WITH ANY CHANGE IN CONDITION. [code = SKILLED NURSE TO PERFORM ENVIRONMENTAL SAFETY RISK ASSESSMENT AND FALL RISK ASSESSMENT AND PROVIDE INSTRUCTION TO IMPLEMENT ENVIRONMENTAL SAFETY AND FALL PREVENTION STRATEGIES THROUGHOUT THE CERTIFICATION PERIOD. SKILLED NURSE WILL MAINTAIN SITUATIONAL AWARENESS AND WILL NOTIFY CLINICAL KINDERGARTEN TUTOR AND PHYSICIAN/PROVIDER WITH ANY CHANGE IN CONDITION.] [...] OF NEUROPATHY AND METHODS TO MANAGE.] Goal Patient Goal - WOUNDS TO HEA L! Goal 2023-04-06 Patient Goal - WOUNDS TO HEA L Goal 2023-06-05 Patient Goal - WOUNDS TO HEA L Goal 2023-08-07 Patient Goal - WOUNDS TO HEA L Goal 2023-10-02 Patient Goal - WOUNDS TO HEA L Goal 2023-12-04 Patient Goal - WOUNDS TO HEA L Goal 2023-12-09 Patient Goal - WOUNDS TO HEA L Goal 2024-02-14 Patient Goal - WOUNDS TO HEA L Goal 2024-02-02 Patient Goal - WOUNDS TO HEA L Goal Provider Goal - A PLAN OF CARE WILL BE ESTABLISHED THAT MEETS PATIENT'S NURSING HOME NEEDS AND INCLUDES PATIENT GOAL FOR HOME [...] <paragraph>[Visit Date: 2024 by DEISY CARRERA LPN]:</paragraph><paragraph>SNV 2/19 ABNORMAL VITALS: WITHIN ESTABLISHED PARAMETERS FALLS: NO FALLS, USES WALKER OBSERVATION AND ASSESSMENT PROVIDED: PATIENT IS ALERT AND ORIENTED X4 COOPERATIVE DURING VISIT. PT SAW WOUND CLINIC YESTERDAY, NEW ORDERS FOR FOR TRIAD CREAM. VSS, AFEBRILE, TR EDEMA LLE, NAD NOTED. NO ISSUES WITH BOWELS OR BLADDER. APPETITE ADEQUATE. WOUND HEALING STALLED. MODERATE SS DRAINAGE FROM BOTH WOUND. NO S/OF INFECTION. WOUND CARE PROVIDED. PT TOLERATED WELL EDUCATION: IMPORTANCE OF CONSISTENT USE OF COMPRESSION DURING THE DAY, INFECTION PREVENTION INTERVENTIONS NEEDED AT NEXT VISIT: ASSESSMENT WOUND CARE COMMUNICATION WITH MD: NOT NEEDED AT THIS VISIT NEXT MD APPOINTMENT: WOUND CLINIC 04/02 PT AND CAREGIVER INSTRUCTED TO CALL [facility] WITH ANY QUESTIONS OR CONCERNS AND/OR CHANGES IN CONDITION, STATE UNDERSTANDING</paragraph> <paragraph>[Visit Date: 2024 by DEISY CARRERA LPN]:</paragraph><paragraph>SNV 03/27/24 ABNORMAL VITALS: WITHIN ESTABLISHED PARAMETERS FALLS: NO RECENT FALLS MEDICATION CHANGES: OBSERVATION AND ASSESSMENT PROVIDED: EDUCATION: INTERVENTIONS NEEDED AT NEXT VISIT: ASSESSMENT, WOUND CARE COMMUNICATION WITH MD: NOT NEEDED AT THIS VISIT NEXT APPOINTMENT: WOUND CLINIC SUNDAY 04/02 PT AND CAREGIVER INSTRUCTED TO CALL [facility] WITH ANY QUESTIONS OR CONCERNS AND/OR CHANGES IN CONDITION, STATE UNDERSTANDING</paragraph> <paragraph>[Visit Date: 2024 by DEISY CARRERA LPN]:</paragraph><paragraph>SNV 03/25/24 ABNORMAL VITALS: WITHIN PARAMETERS FALLS: NO FALLS OBSERVATION AND ASSESSMENT PROVIDED: PATIENT IS ALERT AND ORIENTED X4, [place]PP[place], PLEASANT COOPERATIVE DURING VISIT. 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 VSS, AFEBRILE, +1 EDEMA RLE. PATIENT COMMUNICATES IN FULL SENTENCES, NAD. REGULAR BOWELS AND BLADDER. APPETITE ADEQUATE. WOUND CARE PROVIDED TO LLE. SEROUS DRAINAGE NOTED. REDNESS TO PERIWOUND. PATIENT TOLERATED WELL. PT HAS WOUND CLINIC VISIT TOMORROW. EDUCATION: INFECTION PREVENTION, LEG ELEVATION INTERVENTIONS NEEDED AT NEXT VISIT: ASSESSMENT, WOUND CARE COMMUNICATION WITH MD: NOT NEEDED AT THIS VISIT NEXT MD APPOINTMENT: WOUND CLINIC 03/26 PT AND CAREGIVER INSTRUCTED TO CALL [facility] WITH ANY QUESTIONS OR CONCERNS AND/OR CHANGES IN CONDITION, STATE UNDERSTANDING</paragraph> <paragraph>[Visit Date: 2024 by DEISY CARRERA LPN]:</paragraph><paragraph>SNV 03/22 ABNORMAL VITALS: WITHIN PARAMETERS FALLS: NO FALLS, USES WALKER MEDICATION CHANGES:NONE OBSERVATION AND ASSESSMENT PROVIDED: PT ALERT ORIENTEDX 4, PLEASANT COOPERATIVE DURING VISIT. PT REPORTS FEELING WELL, NO NEW COMPLAINTS OR CONCERNS. VSS, AFEBRILE, TR EDEMA BLE, PATIENT SPEAKS IN FULL SENTENCES, NO S/S OF RESP DISTRESS NOTED. NO ISSUES WITH BOWELS OR BLADDER. APPETITE IS ADEQUATE WOUND CARE PROVIDED TO LLE, LARGE AMOUNT OF SEROSANGUINEOUS DRAINAGE. NO SIGNS OR SYMPTOMS OF INFECTION. PATIENT TOLERATED WELL. COMPRESSIONS APPLIED EDUCATION: INFECTION PREVENTION, HIGH PROTEIN DIET FOR WOUND HEALING INTERVENTIONS NEEDED AT NEXT VISIT: ASSESSMENT WOUND CARE COMMUNICATION WITH MD: NOT NEEDED AT THIS VISIT NEXT MD APPOINTMENT: WOUND CLINIC NEXT WEEK PT AND CAREGIVER INSTRUCTED TO CALL [facility] WITH ANY QUESTIONS OR CONCERNS AND/OR CHANGES IN CONDITION, STATE UNDERSTANDING</paragraph> Encounters Start Date/Time End Date/Time Encounter Type Admission Type Attending Clinicians Care Facility Care Department Encounter ID Discharge Date Discharge Status Discharge Condition Discharge Reason Percent Goals Met 2023-02-09 00:00:00 2024-04-03 00:00:00 Outpatient RECERTIFIC ATION [facility] [id number] 65.85
--- OUTSIDE RECORDS SUMMARY | 2024-03-28 10:40 | XMS_ITS | Encounter Summary ---
Author Organization [facility] Address [address] [place] [address] Care Team Providers Care Bioengineer Name Role Phone Derrell Hurst MD Primary Care Provider Derrell Schulte MD Primary Care Provider Glory Ho MD Primary Care Prov ider [facility], Pcp Primary Care Provider UnavailJosette Klein MD Primary Care Provider [phone] [facility], Pcp Primary Care Provider Jamar leigh Encounter Details Date Type Department Care Team Description 01/24/2019 Orders Only Lab - [place] [address] [place] [id number] Mirna Enrique PA [address] [place] [id number] Social History Tobacco Use Types Packs/Day Years [...] on filedocumented in this encounter Care Teams Bioengineer Relationship Specialty Start Date End Date Derrell Hurst MD PCP - General 10/03/07 06/24/21 Derrell Hurst MD PCP - General Internal Medicine 06/25/21 09/05/21 Glory Almaguer MD [address] [place] [id number] PCP - General Internal Medicine 09/06/21 09/15/22 [facility], Pcp [address] [place] [id number] PCP - General Internal Medicine 09/16/22 03/28/23 Josette Crandall MD [address] [place], [place] [id number] PCP - General Internal Medicine 03/29/23 07/25/23 [facility], Pcp [address] [place] [address] PCP - General Internal Medicine 07/26/23 documented as of this encounter
--- OUTSIDE RECORDS SUMMARY | 2024-03-28 10:41 | XMS_ITS | Encounter Summary ---
Author Organization [facility] Address [address] [place] [address] Care Team Providers Care Dent Remover Name Role Phone Derrell Hurst MD Primary Care Provider Derrell Schulte MD Primary Care Provider Glory Ho MD Primary Care Prov ider [facility], Pcp Primary Care Provider Unavailabl e Josette Crandall MD Primary Care Provider [phone] [facility], Pcp Primary Care Provider Unavailabl e Encounter Details Date Type Department Care Team Description 07/15/2019 Refill Gastroenterology - [address] [place] [address] Merissa Stafford MD [address] [place] [address] Social History Tobacco Use Types Packs/Day Years [...] on filedocumented in this encounter Care Teams Dent Remover Relationship Specialty Start Date End Date Derrell Hurst MD PCP - General 10/03/07 06/24/21 Derrell Hurst MD PCP - General Internal Medicine 06/25/21 09/05/21 Glory Almaguer MD [address] [place] [phone] PCP - General Internal Medicine 09/06/21 09/15/22 [facility], Pcp [address] [place] [address] PCP - General Internal Medicine 09/16/22 03/28/23 Josette Crandall MD [address] [place] [address] PCP - General Internal Medicine 03/29/23 07/25/23 [facility], Pcp [address] [place] [address] PCP - General Internal Medicine 07/26/23 documented as of this encounter
--- OUTSIDE RECORDS SUMMARY | 2024-03-28 10:41 | XMS_ITS | Encounter Summary ---
Author Organization [facility] Address [address] [place] [address] Care Team Providers Care Surveying Teacher Name Role Phone Derrell Hurst MD Primary Care Provider Derrell Schulte MD Primary Care Provider Glory Ho MD Primary Care Prov ider [facility], Pcp Primary Care Provider Josette Bowser MD Primary Care Provider [phone] [facility], Pcp Primary Care Provider Jamar leigh Encounter Details Date Type Department Care Team Description 04/20/2021 Orders Only Radiology - [address] [id number] Radiology, Authorizing Social History Tobacco Use Types Packs/Day Years [...] on filedocumented in this encounter Care Teams Surveying Teacher Relationship Specialty Start Date End Date Derrell Hurst MD PCP - General 10/03/07 06/24/21 Derrell Hurst MD PCP - General Internal Medicine 06/25/21 09/05/21 Glory Almaguer MD [address] [place] [address] [id number] PCP - General Internal Medicine 09/06/21 09/15/22 [facility], Pcp [address] [place] [address] PCP - General Internal Medicine 09/16/22 03/28/23 Josette Crandall MD [address] [place] [id number] PCP - General Internal Medicine 03/29/23 07/25/23 [facility], Pcp [address] [place] [address] PCP - General Internal Medicine 07/26/23 documented as of this encounter
--- OUTSIDE RECORDS SUMMARY | 2024-03-28 10:41 | XMS_ITS | Encounter Summary ---
Author Organization [facility] Address [address] [place] [address] Care Team Providers Care Medical Facilities Section Director Name Role Phone Derrell Hurst MD Primary Care Provider Derrell Schulte MD Primary Care Provider Glory Ho MD Primary Care Prov ider [facility], Pcp Primary Care Provider Unavailabl e Josette Crandall MD Primary Care Provider [phone] [facility], [facility] Primary Care Provider Unavailabl e Reason for Visit * Reason Onset Date Comments Testing 04/13/2021 DXA BONE DENSITY STUDY 1+ SITS AXIAL SKEL Encounter Details Date Type Department Care Team Description 04/13/2021 Telephone Adult Medicine [address] [address] Derrell Hurst MD Testing (DXA BONE DENSITY STUDY 1+ SITS AXIAL SKEL ) Social History Tobacco Use Types Packs/Day Years [...] or suspected to have Coronavirus / COVID-19? Unable to assess 03/17/2021 8:08 AM EST documented as of this encounter Miscellaneous Notes * Telephone Encounter - Maykel Ruiz M.A. - 04/13/2021 2:50 PM EST Letter mailed. * Telephone Encounter - Derrell Hurst - 04/13/2021 12:33 PM EST She should still have it done * Telephone Encounter - Maykel Ruiz M.A. - 04/13/2021 10:38 AM EST DXA BONE DENSITY STUDY 1+ SITS AXIAL SKEL was ordered by Deepa Aponte who isn't here anymore, would you like to cancel or complete the order? documented in this encounter Plan of Treatment Not on file documented as of this encounter Visit Diagnoses Not on filedocumented in this encounter Care Teams Medical Facilities Section Director Relationship Specialty Start Date End Date Derrell Hurst MD PCP - General 10/03/07 06/24/21 Derrell Hurst MD PCP - General Internal Medicine 06/25/21 09/05/21 Glory Almaguer MD [address] [place] [id number] PCP - General Internal Medicine 09/06/21 09/15/22 [facility], Pcp [address] [place] [id number] PCP - General Internal Medicine 09/16/22 03/28/23 Josette Crandall MD [address] [place] [id number] PCP - General Internal Medicine 03/29/23 07/25/23 [facility], Pcp [address] [place] [id number] PCP - General Internal Medicine 07/26/23 documented as of this encounter
--- OUTSIDE RECORDS SUMMARY | 2024-03-28 10:41 | XMS_ITS | Encounter Summary ---
Author Organization [facility] Address [address] [place] [address] Care Team Providers Care Ship Worker Name Role Phone Derrell Hurst MD Primary Care Provider Derrell Schulte MD Primary Care Provider Glory Ho MD Primary Care Prov ider [facility], Pcp Primary Care Provider UnavailJosette Klein MD Primary Care Provider [phone] [facility], Pcp Primary Care Provider Jamar e Encounter Details Date Type Department Care Team Description 08/25/2010 Geography Faculty Member Report Medical Records [address] [place] [address] Kerry Hansen MD [address] [place] [address] [address] [place] [address] Social History Tobacco Use Types Packs/Day Years [...] on filedocumented in this encounter Care Teams Ship Worker Relationship Specialty Start Date End Date Derrell Hurst MD PCP - General 10/03/07 06/24/21 Derrell Hurst MD PCP - General Internal Medicine 06/25/21 09/05/21 Glory Almaguer MD [address] [place] [address] PCP - General Internal Medicine 09/06/21 09/15/22 [facility], Pcp [address] [place] [address] PCP - General Internal Medicine 09/16/22 03/28/23 Josette Crandall MD [address] [place] [address] PCP - General Internal Medicine 03/29/23 07/25/23 [facility], Pcp [address] [place] [address] PCP - General Internal Medicine 07/26/23 documented as of this encounter
--- OUTSIDE RECORDS SUMMARY | 2024-03-28 10:41 | XMS_ITS | Encounter Summary ---
Author Organization [facility] Address [address] [place] [address] Care Team Providers Care Marketing Development Manager Name Role Phone Derrell Hurst MD Primary Care Provider Derrell Schulte MD Primary Care Provider Glory Ho MD Primary Care Prov ider [facility], Pcp Primary Care Provider Josette Bowser MD Primary Care Provider [phone] [facility], Pcp Primary Care Provider Jamar leigh Encounter Details Date Type Department Care Team Description 06/05/2017 Ship Erector Report Medical Records [address] [place], [place] [id number] Cade Rocha Social History Tobacco Use Types Packs/Day Years [...] on filedocumented in this encounter Care Teams Marketing Development Manager Relationship Specialty Start Date End Date Derrell Hurst MD PCP - General 10/03/07 06/24/21 Derrell Hurst MD PCP - General Internal Medicine 06/25/21 09/05/21 Glory Almaguer MD [address] [place] [address] PCP - General Internal Medicine 09/06/21 09/15/22 [facility], Pcp [address] [place] [address] PCP - General Internal Medicine 09/16/22 03/28/23 Josette Crandall MD [address] [place] [address] PCP - General Internal Medicine 03/29/23 07/25/23 [facility], Pcp [address] [place] [address] PCP - General Internal Medicine 07/26/23 documented as of this encounter
--- OUTSIDE RECORDS SUMMARY | 2024-03-28 10:41 | XMS_ITS | Encounter Summary ---
Author Organization [facility] Address [address] [place] [address] Care Team Providers Care Compensation Coordinator Name Role Phone Derrell Hurst MD Primary Care Provider Derrell Schulte MD Primary Care Provider Glory Ho MD Primary Care Prov ider [facility], Pcp Primary Care Provider Unavailabl e Josette Crandall MD Primary Care Provider [phone] [facility], Pcp Primary Care Provider Unavailabl e Reason for Visit * Reason Onset Date Comments medication problems 04/29/2021 PLEASE CALL ON 04/30/2021 AFTER 8:30 AM. Encounter Details Date Type Department Care Team Description 04/29/2021 Telephone Adult [address] [address] Derrell Hurst MD medication problems (PLEASE CALL ON 04/30/2021 AFTER 8:30 AM.) Social History Tobacco Use Types Packs/Day Years [...] encounter Miscellaneous Notes * Telephone Encounter - Luz England R.N. - 05/06/2021 4:16 PM EDT I called patient [phone] - recording stated that this number is not receiving calls, unable toleave a message. * Telephone Encounter - Dilshad Barrientos - 05/03/2021 2:57 PM EDT Patient calling back * Telephone Encounter - Amarilys Jay R.N. - 04/30/2021 10:33 AM EDT Call to the number given, call blocked unable to LM * Telephone Encounter - Madina Kris Jessica - 04/29/2021 3:14 PM EDT PLEASE CALL ON Monday04/30/2021 AFTER 8:30 AM. Symptoms patient is presenting: PATIENT IS CALLING TO GET A REFILL OF TRAZODONE. PATIENT RECEIVED MEDICATION AT [facility] TO HELP HER SLEEP. For ALL patients calling to schedule any appointment (routine, sick visit, follow up, consult, etc.) in the outpatient setting please ask the following questions: ?? Do you have fever of higher than 101, sore throat with difficulty swallowing or severe shortnessof breath? NO If YES to any of these above symptoms, send a message to triage and do not book. Red dot. If no, an audio or video visit should be booked. ?? Have you had close contact with someone with Coronavirus in the last 14 days? NO ?? Have you traveled abroad? NO ?? Have you traveled recently to another state outside of [place], [place], [place], [place], [place], [place], [place]? NO o If yes, did you quarantine for 14 days or have a negative covid test? NO If yes to any of the above, patient is not to be scheduled in office until after 14 day quarantine or negative covid test. If pain or injury related was it due to an accident at work or from a motor vehicle accident? NO If yes, gather 3rd libertarian insurance information Date of accident/Injury: How long has patient had these symptoms?: PCP: Derrell Hurst Payor: YESENIA/HEYDI POS / Plan: FEP STANDARD $25 / Product Type: PPO [id number] documented in this encounter Plan of Treatment Not on file documented as of this encounter Visit Diagnoses Not on filedocumented in this encounter Care Teams Compensation Coordinator Relationship Specialty Start Date End Date Derrell Hurst MD PCP - General 10/03/07 06/24/21 Derrell Hurst MD PCP - General Internal Medicine 06/25/21 09/05/21 Glory Almaguer MD [address] [place] [address] PCP - General Internal Medicine 09/06/21 09/15/22 [facility], Pcp [address] [place] [address] PCP - General Internal Medicine 09/16/22 03/28/23 Josette Crandall MD [address] [place] [address] PCP - General Internal Medicine 03/29/23 07/25/23 [facility], Pcp [address] [place] [address] PCP - General Internal Medicine 07/26/23 documented as of this encounter
--- OUTSIDE RECORDS SUMMARY | 2024-03-28 10:41 | XMS_ITS | Encounter Summary ---
Author Organization [facility] Address [address] [place] [address] Care Team Providers Care Software Test Engineer Name Role Phone Derrell Hurst MD Primary Care Provider Derrell Schulte MD Primary Care Provider Glory Ho MD Primary Care Prov ider [facility], Pcp Primary Care Provider Josette Bowser MD Primary Care Provider [phone] [facility], Pcp Primary Care Provider Jamar leigh Encounter Details Date Type Department Care Team Description 09/15/2010 Enrollment Processor Report Medical Records [address] [place], [place] [id number] Cade Rocha Social History Tobacco Use Types [...] on filedocumented in this encounter Care Teams Software Test Engineer Relationship Specialty Start Date End Date Derrell Hurst MD PCP - General 10/03/07 06/24/21 Derrell Hurst MD PCP - General Internal Medicine 06/25/21 09/05/21 Glory Almaguer MD [address] [place] [address] PCP - General Internal Medicine 09/06/21 09/15/22 [facility], Pcp [address] [place] [address] PCP - General Internal Medicine 09/16/22 03/28/23 Josette Crandall MD [address] [place] [address] PCP - General Internal Medicine 03/29/23 07/25/23 [facility], Pcp [address] [place] [address] PCP - General Internal Medicine 07/26/23 documented as of this encounter
--- OUTSIDE RECORDS SUMMARY | 2024-03-28 10:41 | XMS_ITS | Encounter Summary ---
Author Organization [facility] Address [address] [place] [address] Care Team Providers Care Lead Carpenter Name Role Phone Derrell Hurst MD Primary Care Provider Derrell Schulte MD Primary Care Provider Glory Ho MD Primary Care Prov ider [facility], Pcp Primary Care Provider UnavailJosette Klein MD Primary Care Provider [phone] [facility], Pcp Primary Care Provider Jamar e Encounter Details Date Type Department Care Team Description 08/07/2019 Webmethods Architect Report Medical Records [address] [place], [place] [id number] Yvonne Fink MD Social History Tobacco Use [...] filedocumented in this encounter Care Teams Lead Carpenter Relationship Specialty Start Date End Date Derrell Hurst MD PCP - General 10/03/07 06/24/21 Derrell Hurst MD PCP - General Internal Medicine 06/25/21 09/05/21 Glory Almaguer MD [address] [place] [address] PCP - General Internal Medicine 09/06/21 09/15/22 [facility], Pcp [address] [place] [address] PCP - General Internal Medicine 09/16/22 03/28/23 Josette Crandall MD [address] [place] [address] PCP - General Internal Medicine 03/29/23 07/25/23 [facility], Pcp [address] [place] [address] PCP - General Internal Medicine 07/26/23 documented as of this encounter
--- OUTSIDE RECORDS SUMMARY | 2024-03-28 10:41 | XMS_ITS | Patient Health Record ---
Author Organization [facility] Address [address] [facility] [place] [address] Care Team Providers Care Contact Center Director Name Role Phone Natali MELGAR, Candace Tillman Primary Care Provider Deloris Acuna Unavailable [phone] Black, Casi Unavailable [phone] Maurice Viviana Unavailable [phone] Allergies No Known Allergies Reason For Referral No Information Medications Medication SIG (Take, Route, Frequency, Duration) Notes Start Date End Date Status Magnesium Active amLODIPine Besylate 10 MG Oral for 90 Days Not-Taking Omeprazole 20 MG Oral for 90 Days Active Donezepil HCl-10 mg Active Multivitamin - 1 tablet Orally Once a day Active Biotin Active Doxycycline Monohydrate 100 MG Oral for 80 Days Unknown Lisinopril 10 MG 1 tablet Orally Once a day Active Celecoxib 200 MG Oral for 30 Days Not-Taking Gabapentin Active hydroCHLOROthiazide 12.5 MG TAKE ONE CAP MAMIE BY MOUTH EVERY MORNING Oral for 90 Days Active Sertraline HCl 50 MG Oral for 30 Days Active Amoxicillin-Pot Clavulanate 500-125 MG 1 tablet Orally every 12 hrs for 7 day(s) 01/22/2024 Active Iron Active B12 Active Social History Tobacco Use: [...] Are you an other tobacco user? No Problems Problem Type SNOMED Code ICD Code Onset Dates Problem Status W/U Status Risk Notes Problem Acquired hammer toe of right foot (30771232699 37850) Other hammer toe(s) (acquired), right foot (M20.41) Active confirmed Problem Acquired hammer toe of left foot (72709177843 ) Other hammer toe(s) (acquired), left foot (M20.42) Active confirmed Problem Atherosclerosis of cantwell artery of both lower extremities, with unspecified presence of clinical manifestation (I70.203) Active confirmed Q7(A), Q8(2B), Q9(1B,2C ) Vital Signs Height 5ft in 11/10/2023 Weight 139 lbs 11/10/2023 BMI 27.14 kg/m2 11/10/2023 Procedures Procedure Date Ordered Date Performed Result Body Sit e 03237-GANNWPO NAIL, 6 OR MORE 01/22/2024 N/A 55313-NHYV SKIN LESIONS, 2 TO 4 01/22/2024 N/A Encounters Encounter Location Date Provider Diagnosis [address] [address] 06/20/2023 Viviana Richards Atherosclerosis of cantwell artery of both lower extremities, with unspecified presence of clinical manifestation I70.203 ; Tinea unguium B35.1 ; Pain in right toe(s) M79.674 ; Pain in left toe(s) M79.675 ; Other hammer toe(s) (acquired), right foot M20.41 and Other hammer toe(s) (acquired), left foot M20.[address] [address] 11/10/2023 Viviana Richards Atherosclerosis of cantwell artery of both lower extremities, with unspecified presence of clinical manifestation I70.203 ; Tinea unguium B35.1 ; Pain in right toe(s) M79.674 ; Pain in left toe(s) M79.675 ; Other hammer toe(s) (acquired), right foot M20.41 and Other hammer toe(s) (acquired), left foot M20.[address] [address] 01/22/2024 Deloris Funes Cellulitis of foot, left L03.116 ; Atherosclerosis of cantwell artery of both lower extremities, with unspecified presence of clinical manifestation I70.203 ; Tinea unguium B35.1 ; Pain in right toe(s) M79.674 and Pain in left toe(s) M79.675 [facility] [address] [address] 04/03/2023 Viviana Richards [facility] [address] 08/30/2023 Viviana Richards Assessments Encounter Date Diagnosis (ICD Code) Assessment Notes Treatment Notes Treatment Clinical Notes Section Notes 06/20/2023 Atherosclerosis of cantwell artery of both lower extremities, with unspecified presence of clinical manifestation (ICD-10 - I70.203) 11/10/2023 Atherosclerosis of cantwell artery of both lower extremities, with unspecified presence of clinical manifestation (ICD-10 - I70.203) 01/22/2024 Cellulitis of foot, left (ICD-10 - L03.116) 01/22/2024 Atherosclerosis of cantwell artery of both lower extremities, with unspecified presence of clinical manifestation (ICD-10 - I70.203) Q7(A), Q8(2B), Q9(1B,2C) 01/22/2024 Tinea unguium (ICD-10 - B35.1) 11/10/2023 Tinea unguium (ICD-10 - B35.1) 06/20/2023 Tinea unguium (ICD-10 - B35.1) 06/20/2023 Pain in right toe(s) (ICD-10 - M79.674) 11/10/2023 Pain in right toe(s) (ICD-10 - M79.674) 01/22/2024 Pain in right toe(s) (ICD-10 - M79.674) 01/22/2024 Pain in left toe(s) (ICD-10 - M79.675) 06/20/2023 Pain in left toe(s) (ICD-10 - M79.675) 11/10/2023 Pain in left toe(s) (ICD-10 - M79.675) 11/10/2023 Other hammer toe(s) (acquired), right foot (ICD-10 - M20.41) 06/20/2023 Other hammer toe(s) (acquired), right foot (ICD-10 - M20.41) 06/20/2023 Other hammer toe(s) (acquired), left foot (ICD-10 - M20.42) 11/10/2023 Other hammer toe(s) (acquired), left foot (ICD-10 - M20.42) Plan Of Treatment Pending Test Test Name Order Date [id number] NAIL, 6 OR MORE 01/22/2024 54526-KVNW SKIN LESIONS, 2 TO 4 01/22/20 24 Next Appt Details Provider Name:Viviana timmons, 04/23/2024 10:00:00 AM, [address] [facility], [place], [address], Insurance Providers Payer Name Payer Address Payer Phone Subscriber Number Group Number Insured Name Patient Relationship to Insured Coverage Start Date Coverage End Date Medicare National [employer] [address] [facility] [place] [address] [id number] Divina Keane Self - patient is the insured [address] [place] [address] [address] [place] [address] [id number] Divina Keane Self - patient is the insured Medical (General) History Medical History History ICD Code Anxiety Arthritis Back,Hip,and Knee pain High blood pressure Measles Chicken pox Surgical History Surgery Date(Month/Year) appendectomy hernia rotator cuff Surgery colonoscopy knee replacement
--- OUTSIDE RECORDS SUMMARY | 2024-03-28 10:41 | XMS_ITS | Encounter Summary ---
Author Organization [facility] Address [address] [place] [address] Care Team Providers Care Sign Painter Name Role Phone Derrell Hurst MD Primary Care Provider Derrell Schulte MD Primary Care Provider Glory Ho MD Primary Care Prov ider [facility], Pcp Primary Care Provider Josette Bowser MD Primary Care Provider [facility], Pcp Primary Care Provider Jamar leigh Encounter Details Date Type Department Care Team Description 10/24/2016 Welding Estimator Report Medical Records [address] [place], [place] [address] Soledad Cabrera MD Social History Tobacco Use [...] on filedocumented in this encounter Care Teams Sign Painter Relationship Specialty Start Date End Date Derrell Hurst MD PCP - General 10/03/07 06/24/21 Derrell Hurst MD PCP - General Internal Medicine 06/25/21 09/05/21 Glory Almaguer MD [address] [place] [address] PCP - General Internal Medicine 09/06/21 09/15/22 [facility], Pcp [address] [place] [address] PCP - General Internal Medicine 09/16/22 03/28/23 Josette Crandall MD [address] [place] [address] PCP - General Internal Medicine 03/29/23 07/25/23 [facility], Pcp [address] [place] [address] PCP - General Internal Medicine 07/26/23 documented as of this encounter
--- OUTSIDE RECORDS SUMMARY | 2024-03-28 10:41 | XMS_ITS | Encounter Summary ---
Author Organization [facility] Address [address] [place] [address] Care Team Providers Care Certified Corporate Travel Executive Name Role Phone Derrell Hurst MD Primary Care Provider Derrell Schulte MD Primary Care Provider Glory Ho MD Primary Care Prov ider [facility], Pcp Primary Care Provider Unavailabl e Josette Crandall MD Primary Care Provider [phone] Pending [facility], Pcp Primary Care Provider Unavailabl e Reason for Visit * Reason Onset Date Comments Pneumatic System Conveyor Operator Feedback 05/16/2017 [facility] Encounter Details Date Type Department Care Team Description 05/16/2017 [place] Adult [address] [address] Derrell Hurst MD Pneumatic System Conveyor Operator Feedback ([facility]) Social History Tobacco Use Types Packs/Day Years [...] encounter Miscellaneous Notes * Telephone Encounter - Tita England - 05/16/2017 11:39 AM EDT Images sent to orthopacs. * Telephone Encounter - Gabe Finch - 05/16/2017 11:12 AM EDT Please when able, push thru to ortho PAX X-ray from 05-08-2017 and 05-16-2017 MRI once completed for an upcoming appt with John Crain documented in this encounter Plan of Treatment Not on file documented as of this encounter Visit Diagnoses Not on filedocumented in this encounter Care Teams Certified Corporate Travel Executive Relationship Specialty Start Date End Date Derrell Hurst MD PCP - General 10/03/07 06/24/21 Derrell Hurst MD PCP - General Internal Medicine 06/25/21 09/05/21 Divya Johnson, Glory Cardona MD [address] [place], [place] [address] PCP - General Internal Medicine 09/06/21 09/15/22 Pending [facility] To [facility], Pcp [address] [place], [place] [address] PCP - General Internal Medicine 09/16/22 03/28/23 Josette Crandall MD [address] [place] [address] PCP - General Internal Medicine 03/29/23 07/25/23 Pending [facility] To [facility], Pcp [address] [place] [address] PCP - General Internal Medicine 07/26/23 documented as of this encounter
--- OUTSIDE RECORDS SUMMARY | 2024-03-28 10:41 | XMS_ITS | Encounter Summary ---
Author Organization [facility] Address [address] [place] [address] Care Team Providers Care Manager Environmental Health And Safety Name Role Phone Derrell Hurst MD Primary Care Provider Derrell Schulte MD Primary Care Provider Glory Ho MD Primary Care Prov ider [facility], Pcp Primary Care Provider Josette Bowser MD Primary Care Provider [phone] [facility], Pcp Primary Care Provider Jamar leigh Encounter Details Date Type Department Care Team Description 10/27/2020 Cargo Inspector Report Medical Records [address] [place] [address] Soledad Cabrera MD Social History Tobacco Use [...] have Coronavirus / COVID-19? No / Unsure 10/13/2020 8:50 AM EDT documented as of this encounter Plan of Treatment Not on file documented as of this encounter Visit Diagnoses Not on filedocumented in this encounter Care Teams Manager Environmental Health And Safety Relationship Specialty Start Date End Date Derrell Hurst MD PCP - General 10/03/07 06/24/21 Derrell Hurst MD PCP - General Internal Medicine 06/25/21 09/05/21 Glory Almaguer MD [address] [place] [address] PCP - General Internal Medicine 09/06/21 09/15/22 [facility], Pcp [address] [place] [address] PCP - General Internal Medicine 09/16/22 03/28/23 Josette Crandall MD [address] [place] [address] PCP - General Internal Medicine 03/29/23 07/25/23 [facility], Pcp [address] [place] [address] PCP - General Internal Medicine 07/26/23 documented as of this encounter
--- OUTSIDE RECORDS SUMMARY | 2024-03-28 10:41 | XMS_ITS | Data Portability ---
Author Organization [facility] [id number] Address [address] [place] [address] Care Team Providers Care Home Care Scheduler Name Role Phone [facility] Care Provider Assessment No assessment recorded. Plan of Treatment Reminders Order Date Submit Date Provider Last Modified By Organization Details Last Modified Time Details Appointments None recorded. Lab None recorded. Referral None recorded. Procedures None recorded. Surgeries None recorded. Imaging None recorded. Medication Orders cephalexin 500 mg capsule 2022 023 [facility], [address] [place] [address], [phone], 18:55:12 mupirocin 2 % topical ointment 2022 023 [facility], [address] [place] [address], [id number], 18:55:13 Patient TargetsNo targets recorded. Patient Instructions Encounter Date Encounter Id Patient Instructions Last Modified By Organization Details Last Modified Time 02/09/2022 [id number] cellulitis: care instructions Not available 02/09/2022 18:55:49 learning about stitches and jaya removal Not available 02/09/2022 18:14:26 Reason for Referral None Reported. Problems Name Problem SNOMED Code Status Onset Date Resolution Date Notes Provider Name and Address Organization Details Recorded Time Gastroesophage al reflux disease 522258463 Active 2022 [facility] 18:08:10 Hypertensive disorder 49056741 Active 2022 DEISY DEPINTO null, PA - [facility] 18:08:15 Anxiety 12668802 Active 2022 DEISY DEPINTO null, PA - [facility] 18:08:20 Problem Notes None recorded. Procedures Surgical History Date Name Laterality Status Provider Name and Address Organization Details Recorded Time 02/06/18 82 hysterectomy completed DEISY DEPINTO PA - [facility] 02/09/2022 18:09:01 Appendectomy completed DEISY DEPINTO PA - [facility] 02/09/2022 18:09:05 total knee replacement completed DEISY DEPINTO PA - [facility] 02/09/2022 18:09:16 partial repair of rotator cuff completed DEISY DEPINTO PA - [facility] 02/09/2022 18:09:21 Imaging Results None recorded. Procedure Notes None recorded. Medical Equipment None Reported. Allergies No known drug allergies Medications Name Sig Start Date Stop Date Status Note LastModified by Organization Details LastModified Time celecoxib 200 mg capsule TAKE ONE CAPSULE BY MOUTH TWICE A DAY NEEDED FOR PAIN active Not Available Not Available No t Available amoxicillin 500 mg capsule 02/09 completed Not Available Not Available Not Available donepezil 10 mg tablet TAKE ONE TABLET BY MOUTH EVERY DAY AFTER MEALS active Not Available Not Available No t Available naltrexone 50 mg tablet TAKE ONE TABLET BY MOUTH EVERY DAY 02/09 completed Not Available Not Available Not Available fluorouraci l 5 % topical cream APPLY TO RED, SCALY LESIONS TWO TIMES A DAY FOR 3 WEEKS NEEDED. EXPECT REDNESS AND IRRITATIO N. 02/09 completed Not Available Not Available Not Available sertraline 100 mg tablet TAKE ONE TABLET BY MOUTH EVERY MORNING active Not Available Not Available No t Available hydroxyzine pamoate 50 mg capsule active Not Available Not Available N ot Available bacitracin 500 unit/gram topical ointment APPLY TOPICALLY TWO TIMES A DAY active Not Available Not Available No t Available amlodipine 5 mg tablet TAKE ONE TABLET BY MOUTH EVERY DAY active Not Available Not Available No t Available tramadol 50 mg tablet TAKE 1 TABLET BY MOUTH EVERY 4 TO 6 HOURS NEEDED active Not Available Not Available No t Available cyanocobala min (vit B-12) 500 mcg tablet TAKE ONE TABLET BY MOUTH EVERY DAY active Not Available Not Available No t Available ascorbic acid (vitamin C) 250 mg tablet TAKE ONE TABLET BY MOUTH EVERY DAY (TAKE WITH IRON ON AN EMPTY STOMACH) 02/09 completed Not Available Not Available Not Available hydrocortis one 1 % topical cream APPLY TOPICALLY TO AFFECTED AREA(S) DAILY active Not Available Not Available No t Available cephalexin 500 mg capsule Take 1 capsule 3 times a day by oral route for 10 days. 2022 active Not Available Not Available Not Avai lable hydrochloro thiazide 12.5 mg capsule TAKE ONE CAPSULE BY MOUTH EVERY MORNING active Not Available Not Available No t Available lisinopril 30 mg tablet TAKE ONE TABLET BY MOUTH EVERY DAY active Not Available Not Available No t Available omeprazole 20 mg capsule,del ayed release TAKE ONE CAPSULE BY MOUTH ONCE DAILY active Not Available Not Available No t Available hydroxyzine HCl 25 mg tablet TAKE ONE TABLET BY MOUTH EVERY 8 HOURS NEEDED FOR ANXIETY active Not Available Not Available No t Available mupirocin 2 % topical ointment APPLY A SMALL AMOUNT TO THE AFFECTED AREA BY TOPICAL ROUTE 3 TIMES PER DAY 2022 active Not Available Not Available Not Avai lable zolpidem 5 mg tablet TAKE ONE TABLET BY MOUTH AT BEDTIME active Not Available Not Available No t Available sertraline 50 mg tablet active Not Available Not Available Not Available hydroxyzine pamoate 25 mg capsule active Not Available Not Available N ot Available acamprosate 333 mg tablet,gregorio yed release TAKE TWO TABLETS BY MOUTH THREE TIMES A DAY 02/09 completed Not Available Not Available Not Available diclofenac 1 % topical gel APPLY 1-3 GRAMS TO AFFECTED AREA 3-4 TIMES A DAY 02/09 completed Not Available Not Available Not Available Slow Release Iron 168 mg (50 mg iron) tablet,exte nded release TAKE ONE TABLET BY MOUTH EVERY DAY ON AN EMPTY STOMACH active Not Available Not Available No t Available Vitals Date Recorded Body height Body mass index (BMI) Body weight Pain severity - 0-10 verbal numeric rating [Score] - Reported Body temperature Oxygen saturation Oxygen saturation in Arterial blood by Pulse oximetry Heart rate Respiratory rate Systolic blood pressure Diastolic blood pressure Provider Name and Address Organization Details Last Updated DateTime 3 154.94 cm 26.8 kg/m2 79156.1 2 g 0 98.2 [degF] 98 % 98 % 74 /min 18 /min 142 mm[Hg] 74 mm[Hg] DEISY DEPINTO PA - [facility] 18:10:34 Social History Question Answer Notes LastModified by Organizat ion Details LastModified Time Tobacco Smoking Status Never Smoker DEISY DEPINTO null, PA - [facility] 02/09/2022 18:05:23 What Is Your Level Of Alcohol Consumption? Occasional Information not available 02/09/2022 How Many Times Per Week Do You Consume Alcohol? 1-2 Times Per Week Information not available 02/09/2022 Do You Use Any Illicit Or Recreational Drugs? No Information not available 02/09/2022 Have You Recently Traveled Abroad? No Information not available 02/09/2022 Sex: Unknown Functional Status None recorded. Mental Status None recorded. Family History Relationship Description Onset Age of this Age Resolved Age Notes LastModified by Organization Details LastModified Time Father No current problems or disability Not available 02/09 18:05:08 Mother No current problems or disability Not available 02/09 18:05:08 Medical History No medical history recorded. Gynecological HistoryNo gynecological history recorded. Obstetrics History GPAL:G 0 P 0 0 0 0 Immunizations Vaccine Type Date Status Note Provider Nam e and Address Organization Details Recorded Time zoster recombinant 8 completed DEISY DEPINTO null, PA - [facility] 02/09/2022 18:04:10 Influenza, high-dose, quadrivalent, PF 0 completed DEISY DEPINTO null, PA - [facility] 02/09/2022 18:04:10 Influenza, split virus, trivalent, preservative 4 completed DEISY DEPINTO null, PA - [facility] 02/09/2022 18:04:10 Influenza, split virus, trivalent, preservative 9 completed DEISY DEPINTO null, PA - [facility] 02/09/2022 18:04:10 Tdap 9 completed DEISY DEPINTO null, PA - [facility] 02/09/2022 18:04:10 Influenza, adjuvanted, trivalent, PF 9 completed DEISY DEPINTO null, PA - [facility] 02/09/2022 18:04:10 Influenza, split virus, trivalent, preservative 8 completed DEISY DEPINTO null, PA - [facility] 02/09/2022 18:04:10 Pneumococcal conjugate PCV 13 7 completed DEISY DEPINTO null, PA - [facility] 02/09/2022 18:04:10 Td (adult), 5 Lf tetanus toxoid, preservative free, adsorbed 7 completed DEISY DEPINTO null, PA - [facility] 02/09/2022 18:04:10 COVID-19, mRNA, LNP-S, bivalent, PF, 30 mcg/0.3 mL dose 2 completed DEISY DEPINTO null, PA - [facility] 02/09/2022 18:04:10 Influenza, split virus, trivalent, preservative 2 completed DEISY DEPINTO null, PA - [facility] 02/09/2022 18:04:10 pneumococcal conjugate PCV 7 8 completed DEISY DEPINTO null, PA - [facility] 02/09/2022 18:04:10 Influenza, high-dose, trivalent, PF 7 completed DEISY DEPINTO null, PA - [facility] 02/09/2022 18:04:10 Influenza, split virus, trivalent, preservative 6 completed DEISY DEPINTO null, PA - [facility] 02/09/2022 18:04:10 Influenza, split virus, trivalent, preservative 0 completed DEISY DEPINTO null, PA - [facility] 02/09/2022 18:04:10 Influenza, adjuvanted, quadrivalent, PF 1 completed DEISY DEPINTO null, PA - [facility] 02/09/2022 18:04:10 COVID-19, mRNA, LNP-S, PF, 30 mcg/0.3 mL dose 1 completed DEISY DEPINTO null, PA - [facility] 02/09/2022 18:04:10 zoster recombinant 8 completed DEISY DEPINTO null, PA - [facility] 02/09/2022 18:04:10 Td (adult), 2 Lf tetanus toxoid, preservative free, adsorbed 9 completed DEISY DEPINTO null, PA - [facility] 02/09/2022 18:04:10 Pneumococcal conjugate PCV 13 7 completed DEISY DEPINTO null, PA - [facility] 02/09/2022 18:04:10 pneumococcal polysaccharide PPV23 8 completed DEISY DEPINTO null, PA - [facility] 02/09/2022 18:04:10 Influenza, high-dose, trivalent, PF 2 completed DEISY DEPINTO null, PA - [facility] 02/09/2022 18:04:10 COVID-19, mRNA, LNP-S, PF, 100 mcg/0.5mL dose or 50 mcg/0.25mL dose 2 completed DEISY DEPINTO null, PA - [facility] 02/09/2022 18:04:10 Influenza, high-dose, trivalent, PF 8 completed DEISY DEPINTO null, PA - [facility] 02/09/2022 18:04:10 Past Encounters Encounter ID Performer Location Encounter Start Date Encounter Closed Date Diagnosis/Indication Diagnosis SNOMED-CT Code Diagnosis ICD10 Code Diagnosis Note [id number] [address] [place] [phone] 11/25/2019 08:49:16 11/25/2019 10:56:56 [id number] [address] [place] [address] [phone] 12/18/2017 14:50:06 12/18/2017 15:44:15 [id number] Ross Contreras [place] [address] [place] [phone] [id number] 02/09/2022 17:27:36 02/09/2022 18:58:00 Laceration of right knee [id number] 5178759 S81.011D Here for wound check and suture removal Cellulitis 181781639 L03 .90 Knee is red hot and swollen, and concerned for cellulitis . Health Concerns Section Related Observation LastModified by Organization Detai ls LastModified Time None Recorded Concern Status LastModified by Organization Details LastModified Time None Recorded Advance Directives Directive None Recorded Payers Encounter Date Sequence Insurance Name Policy Number Policy De Los Santos Covered Member ID De Los Santos Member ID Guarantor Name 12/18/2017 1 [facility] [employer] [id number] Divina Keane [id number] Divina Keane 11/25/2019 1 [facility] [employer] [id number] Divina Keane [id number] Divina Keane 02/09/2022 1 [facility] [employer] 104 Divina Keane [id number] Divina Keane Notes Date Note Type Note Provider Name and Address Organization Details Recorded Time 02/09/2022 text/html Suture/Staple removalReported bypatient.Context:sut ures Location:legs; right Quality:not bleeding; much improved; non tender Duration:11 days EMERALD Associated Symptoms:no drainage; no ecchymosis; no fever; no redness; no warmth Ross Contreras MD [address] [place], [place] [address], [id number], PA - [facility] 02/09/2022 18:57:29 OBGyn Episode No OBEpisode recorded.
--- OUTSIDE RECORDS SUMMARY | 2024-03-28 10:41 | XMS_ITS ---
Author Organization [facility] Address [address] [place] [address] Care Team Providers Care Bridge Engineer Name Role Phone Natali MELGAR, Candace Tillman Primary Care Provider Deloris Acuna Unavailable [phone] Allergies No Known Allergies REASON FOR VISIT Skin problem(s), At Risk Footcare, Painful Nail(s) aggravated by shoes and causing difficulty standing/walking. Medications Medication SIG (Take, Route, Frequency, Duration) Notes Start Date End Date Status Doxycycline Monohydrate 100 MG Oral for 80 Days Unknown Celecoxib 200 MG Oral for 30 Days Not-Taking hydroCHLOROthiazide 12.5 MG TAKE ONE CAP MAMIE BY MOUTH EVERY MORNING Oral for 90 Days Active Sertraline HCl 50 MG Oral for 30 Days Active Amoxicillin-Pot Clavulanate 500-125 MG 1 tablet Orally every 12 hrs for 7 day(s) 01/22/2024 Active amLODIPine Besylate 10 MG Oral for 90 Days Not-Taking Omeprazole 20 MG Oral for 90 Days Active Donezepil HCl-10 mg Active Multivitamin - 1 tablet Orally Once a day Active Magnesium Active Biotin Active Lisinopril 10 MG 1 tablet Orally Once a day Active Gabapentin Active Iron Active B12 Active Procedures Procedure Date Ordered Date Performed Result Body Sit e 36856-BRPOPQB NAIL, 6 OR MORE 01/22/2024 N/A 64073-JTQP SKIN LESIONS, 2 TO 4 01/22/2024 N/A Encounters Encounter Location Date Provider Diagnosis [facility] [address] [place] [address] 01/22/2024 Deloris Funes Cellulitis of foot, left L03.116 ; Atherosclerosis of shoalwater artery of both lower extremities, with unspecified presence of clinical manifestation I70.203 ; Tinea unguium B35.1 ; Pain in right toe(s) M79.674 and Pain in left toe(s) M79.675 Assessments Encounter Date Diagnosis (ICD Code) Assessment Notes Treatment Notes Treatment Clinical Notes Section Notes 01/22/2024 Cellulitis of foot, left (ICD-10 - L03.116) 01/22/2024 Atherosclerosis of shoalwater artery of both lower extremities, with unspecified presence of clinical manifestation (ICD-10 - I70.203) Q7(A), Q8(2B), Q9(1B,2C) 01/22/2024 Tinea unguium (ICD-10 - B35.1) 01/22/2024 Pain in right toe(s) (ICD-10 - M79.674) 01/22/2024 Pain in left toe(s) (ICD-10 - M79.675) Plan Of Treatment Medication Medication Name Sig Start Date Stop Date Notes Amoxicillin-Pot Clavulanate 500-125 MG 1 tablet Orally every 12 hrs for 7 day(s) 01/22/2024 Pending Test Test Name Order Date 71114-ECQHMMP NAIL, 6 OR MORE 01/22/2024 27535-BWCP SKIN LESIONS, 2 TO 4 01/22/20 24 Next Appt Details Follow Up: 1 Week, Reason: Provider Name:Viviana timmons, 04/23/2024 10:00:00 AM, [address] [place] [address], [id number], Procedure Notes * Category Sub-Category Detail Notes Debride Nail 6-10 Nail debridement Due to the cl inical pathology outlined in the exam findings, performance of this nail treatment is medically necessary as its management by an unskilled/untrained nonprofessional would put this patients foot and overall health at risk. Therefore, debridement to affected nail(s), as described in exam (TA, T1, T2, T3, T4, T5, T6, T7, T8, T9 ), was performed exclusively by the physician of record to reduce/remove overall nail length, girth, thickness, subungual debris, and necrotic tissue, by manual and/or electrical means through the use of a nail nipper and/or dremel-type pocket grinder operator, to a more viable healthy nail plate or bed tissue 6-10 nails in total. Silver nitrate was used for any petechial bleeding as necessary. Definitive antifungal treatment options, both pharmaceutical and surgical, have been reviewed and discussed with the patient. The patient solely prefers the use of intermittent/as needed professional debridement services for their nail condition and understands the need for additional periodic treatments to maintain effectiveness in symptomatic relief - 08018 Keratoma Treatment Parring or Cutting o f Benign Hyperkeratotic Lesion(s) (-56) 2-4 Lesions - Due to the at risk nature of the patients medical condition as documented in the exam findings, performance of this keratoderma treatment is medically necessary as its management by an unskilled/untrained nonprofessional would put this patients foot and overall health at risk. Therefore, the benign hyperkeratotic lesions, ( 2 ) in total, locations as stated and described in the exam ( plantar heels B/L), were pared, and/or cut utilizing a sterile 15 blade, tissue nippers, and/or power dremel instrumentation by the physician of record - 40986, Q8 Progress Notes * Divina KEANE MDOB:[birth year] (73 yo F)Acc No.[id number]:01/22/2024 Progress Note Patient:?Divina KEANE M Provider:?Deloris Funes DPM :1950???Age:73 Y???Sex:Female D ate:01/22/2024 Address:[address] [place] [address] Pcp:Candace Hurst MD Subjective: * Chief Complaints: * ???Skin problem(s)At Risk Fo otcarePainful Nail(s) aggravated by shoes and causing difficulty standing/walking. * HPI: ???Skin problems:?Nature:?redness , swelling , tender.?Location:?Ankle, Left.?Duration:?unknown, wound care nurse noticed this morning during dressing change.?Course:?worse.?Treatments:?none.?At Risk footcare:?Pt States Last PCP Visit:?Date?10/25/2023 * ROS:?General/Constitutional:?Nausea?denies.?Vomiting?denies.?Hunger Thirst?denies.?Loss appetite?denies.?Chills?denies.?Fatigue?denies.?Fever?denies.?Night Sweats?denies.?Unexplained weight loss?denies.?Unexplained [...] colonoscopy knee replacement * Hospitalization/Major Diagno stic Procedure:?Denies Past Hospitalization * Family History:?Mother: dece ased, diagnosed with Other malignant neoplasm of unspecified site, Family history of arthritis.?Father: , foot problems, diagnosed with Unspecified heart disease.? * Medications:?TakingGabapenti n Lisinopril 10 MG Tablet 1 tablet Orally Once a day Biotin B12 Iron Magnesium Multivitamin - Tablet 1 tablet Orally Once a day Donezepil HCl-10 mg Omeprazole 20 MG Capsule Delayed Release Oral Sertraline HCl 50 MG Tablet Oral hydroCHLOROthiazide 12.5 MG Capsule TAKE ONE CAPSULE BY MOUTH EVERY MORNING Oral Taking Gabapentin Taking Lisinopril 10 MG Tablet 1 tablet Orally Once a day Taking Biotin Taking B12 Taking Iron Taking Magnesium Taking Multivitamin - Tablet 1 tablet Orally Once a day Taking Donezepil HCl-10 mg Taking Omeprazole 20 MG Capsule Delayed Release Oral Taking Sertraline HCl 50 MG Tablet Oral Taking hydroCHLOROthiazide 12.5 MG Capsule TAKE ONE CAPSULE BY MOUTH EVERY MORNING Oral Not-Taking/PRNamLODIPine Besylate 10 MG Tablet Oral Celecoxib 200 MG Capsule Oral Not-Taking/PRN amLODIPine Besylate 10 MG Tablet Oral Not-Taking/PRN Celecoxib 200 MG Capsule Oral UnknownDoxycycline Monohydrate 100 MG Capsule Oral Medication List reviewed and reconciled with the patientUnknown Doxycycline Monohydrate 100 MG Capsule Oral Medication List reviewed and reconciled with the patient * Allergies:?N.K.D.A.yes[Aller gies Verified] Objective: * Vitals:? * Examination: ???General Examination: ?GENERAL APPEARANCE:?Reveals a pleasant, alert, well nourished, well- developed, well hydrated individual,serves as own historian for office visit today.? She denies?fever, chills, malaise, lymphadenopathy.?ORIENTED:?person, place, and time , person, place, and time.?Vascular: ?DP PULSES(B):? 1/4, B/L.?PT PULSES(B):? 0/4, B/L.?CAPILLARY FILL TIME:? delayed, all digits, B/L.?TROPHIC CONDITION-TEXTURE/ELASTICITY/TURGOR/HAIR GROWTH(B):? decreased, B/L.?TEMPERTURE GRADIENT(C):? decreased, cool to cool, proximal to distal, B/L.?EDEMA(C):?2/4 B/L, Ankle(s), Foot.?CLAUDICATION(C):?denies, B/L.?REST PAIN:?denies, B/L.?Dermatologic: ?SKIN FINDINGS:?Skin shows sign(s) of, localized cellulitis without lymphangitis extending proximally to the level of?mid tibia, two full thickness punched out ulcerations just proximal to medial and lateral malleoli- wounds are currently managed by wound care center. Wound base is fibrotic. No malodor.Skin exam reveals Keratotic lesion(s) located at , plantar?Heel(s) , B/L.?Nails: ?NAILS are:?Elongated, overgrown, dystrophic, lytic, greater than 3mm thick, discolored and friable with crumbly malodorous subungual debris, with pain on palpation?, TA, T1, T2, T3, T4, T5, T6, T7, T8, T9.?Orthopedic: ?MUSCLE STRENGTH:?5/5 all groups in a symmetrical fashion, B/L , 5/5 all groups in a symmetrical fashion, B/L.?DIGITAL DEFORMITIES:?Digital contracture, PIPJ, 2-5 B/L, incompl-reducible to push-up test, no over, nor underlapping, with evidence of shoe producing skin irritation.?FOOTWEAR:?worn, non-supportive, shoe gear properties exacerbate patient's foot/toe deformity.?Neurological: ?SENSORY:?Neurological exam reveals intact sensorium, pain sensation normal, vibration sensation intact, pinprick sensation is normal in the lower extremities, Pt denies, anesthesia, burning, paresthesia, tingling, B/L.? Assessment: * Assessment: 1.?Cellulitis of foot, left - L03.116 (Primary)???Specify :Acute problem, Complicated w/ Multiple Tx Options(4),Dx New problem, Prognosis Uncertain (4),Rx Management (4)???2.?Atherosclerosis of shoalwater artery of both lower extremities, with unspecified presence of clinical manifestation - I70.203???Notes :Q7(A), Q8(2B), Q9(1B,2C)???3.?Tinea unguium - B35.1???4.?Pain in right toe(s) - M79.674???5.?Pain in left toe(s) - M79.675??? Plan: * Treatment: 2.?Atherosclerosis of shoalwater artery of both lower extremities, with unspecified presence of clinical manifestation?Procedure: 84812-GTPX SKIN LESIONS, 2 TO 4 3.?Tinea unguium?Procedure: 21059-FLOYAIB NAIL, 6 OR MORE * Procedures:?Debride Nail 6-10:?Nail debridement?Due to the clinical pathology outlined in the exam findings, performance of this nail treatment is medically necessary as its management by an unskilled/untrained nonprofessional would put this patients foot and overall health at risk. Therefore, debridement to affected nail(s), as described in exam (TA, T1, T2, T3, T4, T5, T6, T7, T8, T9 ), was performed exclusively by the physician of record to reduce/remove overall nail length, girth, thickness, subungual debris, and necrotic tissue, by manual and/or electrical means through the use of a nail nipper and/or dremel-type pocket grinder operator, to a more viable healthy nail plate or bed tissue 6- 10 nails in total. Silver nitrate was used for any petechial bleeding as necessary. Definitive antifungal treatment options, both pharmaceutical and surgical, have been reviewed and discussed with the patient. The patient solely prefers the use of intermittent/as needed professional debridement services for their nail condition and understands the need for additional periodic treatments to maintain effectiveness in symptomatic relief - 34385.?Keratoma Treatment:?Parring or Cutting of Benign Hyperkeratotic Lesion(s)?(-56) 2-4 Lesions - Due to the at risk nature of the patients medical condition as documented in the exam findings, performance of this keratoderma treatment is medically necessary as its management by an unskilled/untrained nonprofessional would put this patients foot and overall health at risk. Therefore, the benign hyperkeratotic lesions, ( 2 ) in total, locations as stated and described in the exam ( plantar heels B/L), were pared, and/or cut utilizing a sterile 15 blade, tissue nippers, and/or power dremel instrumentation by the physician of record - 55218, Q8.? * Procedure Codes:?64021 DEBRI DE NAIL, 6 OR MORE, Modifiers: XS 39788 TRIM SKIN LESIONS, 2 TO 4, Modifiers: XS * Preventive Medicine:? ??Counseling:?Discussion:?-14: Office or other outpatient visit for the evaluation and management of an established patient, which required a medically appropriate history and/or examination and MODERATE level of DECISION MAKING for: 1 OR MORE CHRONIC PROBLEM(S) THATS WORSENING, 2 STABLE CHRONIC PROBLEMS, A NEWLY DIAGNOSED PROBLEM WITH UNCERTAIN PROGNOSIS, AN ACUTE COMPLICATED INJURY WITH MULTIPLE TREATMENT OPTIONS, OR AN ACUTE PROBLEM WITH ACCOMPANYING SYSTEMIC SYMPTOMS, THAT POSE(S) A MODERATE RISK OF MORBIDITY. THIS CONDITION MAY ALSO INCLUDE RX DRUG MANAGEMENT, OR A DECISON FOR MINOR SURGERY. The visit on the day of the [...] have encouraged the patient to call the office.?Cellulitis/Lymphangitis?The patient was counseled on the diagnosis, etiology, treatment options, and importance for adherence to recommendations regarding the treatment for Cellulitis. Abx were Rxed to address the cellulitis. The advantages and disadvantages of an antibiotic medication, along with its side effects, were discussed with the patient to their comprehended satisfaction. Patient questions re: use, dosage, and possible pharmacutical interactions were reviewed and the answers clearly understood. If the condition should worsen while taking the antibiotics as directed, it was recommeded that the patient call the office immediately or seek emergency medical care. The patient verbally confirmed a full understanding of the above information. The erythema on patient leg was marked this morning by patient nurse- advised patient if redness extends pass these lines she should proceed to the ED. Patient wounds are currently managed by wound care center, however, she has not been able to get in touch to them today since cellulitis began. I prescribed patient Augmentin as she has tolerated this well in the past- I encouraged patient to continue attempting to get in contact with wound care center. Patient nurse will re-evaluate wounds on Monday and call the office with update..? * Follow Up:?1 Week * Images: * Sign off status: Completed true * Provider:?Deloris Funes DPM Date:?1 03/24/2023 Generated for Lucas heath/Alistair/Dahlia on:?03/28/2024 10:40 AM EST History and Physical Notes * HPI (History of Present Illness) Category Sub-Category Detail Notes Category Not es Skin problems Nature: redness , swelling , tender Location: Ankle, Left Duration: unknown, wound care nurse noticed this morning during dressing change Course: worse Treatments: none At Risk footcare Pt States Last PCP Visit: Date: Examination Category Sub-Category Detail Notes Category Not es Neurological SENSORY: Neurological exa m reveals intact sensorium, pain sensation normal, vibration sensation intact, pinprick sensation is normal in the lower extremities, Pt denies, anesthesia, burning, paresthesia, tingling, B/L Dermatologic SKIN FINDINGS: Skin shows sign( s) of, localized cellulitis without lymphangitis extending proximally to the level of mid tibia, two full thickness punched out ulcerations just proximal to medial and lateral malleoli- wounds are currently managed by wound care center. Wound base is fibrotic. No malodor.Skin exam reveals Keratotic lesion(s) located at , plantar Heel(s) , B/L Orthopedic FOOTWEAR: worn, non-suppor tive, shoe gear properties exacerbate patient's foot/toe deformity DIGITAL DEFORMITIES: Digital contracture , PIPJ, 2-5 B/L, incompl-reducible to push-up test, no over, nor underlapping, with evidence of shoe producing skin irritation MUSCLE STRENGTH: 5/5 all groups in a symmetrical fashion, B/L , 5/5 all groups in a symmetrical fashion, B/L General Examination GENERAL APPEARANCE: Reveals a pleasant, alert, well nourished, well-developed, well hydrated individual,serves as own historian for office visit today. She denies fever, chills, malaise, lymphadenopathy ORIENTED: person, place, and t isaias , person, place, and time Vascular DP PULSES (B): 1/4, B/L PT PULSES (B): 0/4, B/L CAPILLARY FILL TIME: delayed, all digits , B/L TEMPERTURE GRADIENT (C): decreased, cool to cool, proximal to distal, B/L TROPHIC CONDITION-TEXTURE/ELASTICITY/TURGOR/HAIR GROWTH (B): decreased, B/L EDEMA (C): 2/4 B/L, Ankle(s), F oot CLAUDICATION (C): denies, B/L REST PAIN: denies, B/L Nails NAILS are: Elongated, overg rown, dystrophic, lytic, greater than 3mm thick, discolored and friable with crumbly malodorous subungual debris, with pain on palpation , TA, T1, T2, T3, T4, T5, T6, T7, T8, T9
--- OUTSIDE RECORDS SUMMARY | 2024-03-28 10:41 | XMS_ITS | Encounter Summary ---
Author Organization [facility] Address [address] [place] [address] Care Team Providers Care Associate Professor Of Media Arts Name Role Phone Derrell Hurst MD Primary Care Provider Derrell Schulte MD Primary Care Provider Glory Ho MD Primary Care Prov ider [facility], Pcp Primary Care Provider Josette Bowser MD Primary Care Provider [phone] [facility], Pcp Primary Care Provider Jamar leigh Encounter Details Date Type Department Care Team Description 06/24/2019 Telephone Dermatology [address] [place] [id number] Clifford Olivia PA-C Social History Tobacco Use Types Packs/Day Years [...] Telephone Encounter - Clifford Olivia PA-C - 06/24/2019 7:21 AM EDT Please reschedule this nonessential full skin exam unless the patient has a concern ..... thanks documented in this encounter Plan of Treatment Not on file documented as of this encounter Visit Diagnoses Not on filedocumented in this encounter Care Teams Associate Professor Of Media Arts Relationship Specialty Start Date End Date Derrell Hurst MD PCP - General 10/03/07 06/24/21 Derrell Hurst MD PCP - General Internal Medicine 06/25/21 09/05/21 Glory Almaguer MD [address] [place] [address] PCP - General Internal Medicine 09/06/21 09/15/22 [facility], Pcp [address] [place] [address] PCP - General Internal Medicine 09/16/22 03/28/23 Josette Crandall MD [address] [place] [address] PCP - General Internal Medicine 03/29/23 07/25/23 [facility], Pcp [address] [place] [address] PCP - General Internal Medicine 07/26/23 documented as of this encounter
--- OUTSIDE RECORDS SUMMARY | 2024-03-28 10:42 | XMS_ITS | Encounter Summary ---
Author Organization [facility] Address [address] [place] [address] Care Team Providers Care Gold Beater Name Role Phone Josette Crandall MD Primary Care Provider [phone] [facility], Pcp Primary Care Provider Unavailabl e Encounter Details Date Type Department Care Team Description 06/06/2023 Orders Only Medical Records [address] [place], [place] [id number] Derrell Hurst MD Social History Tobacco Use [...] on file documented as of this encounter Procedures Procedure Name Priority Date/Time Associated Diagnosis Comments OUTSIDE MAMMO Routine 06/01/2023 documented in this encounter Results * OUTSIDE MAMMO (06/01/2023) eDrrell Hurst MD RADIOLOGY documented in this encounter Visit Diagnoses Not on filedocumented in this encounter Care Teams Gold Beater Relationship Specialty Start Date End Date Josette Crandall MD [address] [place] [address] PCP - General Internal Medicine 03/29/23 07/25/23 [facility], Pcp [address] [place], [place] [phone] PCP - General Internal Medicine 07/26/23 documented as of this encounter
--- OUTSIDE RECORDS SUMMARY | 2024-03-28 10:42 | XMS_ITS | Encounter Summary ---
Author Organization [facility] Address [address] [place] [address] Care Team Providers Care Police Inspector Name Role Phone Derrell Hurst MD Primary Care Provider Derrell Schulte MD Primary Care Provider Glory Ho MD Primary Care Prov ider [facility], Pcp Primary Care Provider Unavailabl e Josette Crandall MD Primary Care Provider [phone] [facility], Pcp Primary Care Provider Unavailabl e Reason for Visit * Reason Onset Date Comments refill request 05/03/2021 Encounter Details Date Type Department Care Team Description 05/03/2021 Refill Adult Medicine [address] [address] Derrell Hurst MD refill request Social History Tobacco Use Types Packs/Day Years Used Date Smoking Tobacco: Former Smokeless Tobacco: Never Comments:27 years Alcohol Use Standard Drinks/Week Comments No 0 (1 standard drink = 0.6 oz pur e alcohol) Sex Assigned at Date Recorded Not on file Job Start Date Occupation Industry Not on file Not on file Not on file COVID-19 Exposure Response Date Recorded In the last 10 days, have yo u been in contact with someone who was confirmed or suspected to have Coronavirus/COVID-19? No / Unsure 05/03/2021 5:32 PM EDT documented as of this encounter Miscellaneous Notes * Telephone Encounter - Vicky Squires M.A. - 05/05/2021 10:10 AM EDT Last office visit 03/17/21 Next office visit 10/04/21 * Telephone Encounter - Dilshad Floyd - 05/03/2021 3:00 PM EDT Patient would like script to be: E-PRESCRIBED/FAXED TO PHARMACY WHEN WAS THE PATIENT'S LAST APPOINTMENT IN ADULT MEDICINE? 03/17/21 WHEN WAS THE LAST TIME THE PATIENT SAW THEIR PCP? Same as above Does patient have an upcoming appointment? Yes 10/04/21 (THE MEDICATION REQUESTED IS ON THE MED [...] N/A Patients current insurance carrier is: Payor: -DC/PPO POS / Plan: FEP STANDARD $25 / Product Type: PPO [id number] documented in this encounter Plan of Treatment Not on file documented as of this encounter Visit Diagnoses Not on filedocumented in this encounter Care Teams Police Inspector Relationship Specialty Start Date End Date Derrell Hurst MD PCP - General 10/03/07 06/24/21 Derrell Hurst MD PCP - General Internal Medicine 06/25/21 09/05/21 Glory Almaguer MD [address] [place] [address] PCP - General Internal Medicine 09/06/21 09/15/22 [facility], Pcp [address] [place] [address] PCP - General Internal Medicine 09/16/22 03/28/23 Josette Crandall MD [address] [place] [address] PCP - General Internal Medicine 03/29/23 07/25/23 [facility], Pcp [address] [place] [address] PCP - General Internal Medicine 07/26/23 documented as of this encounter
--- OUTSIDE RECORDS SUMMARY | 2024-03-28 10:42 | XMS_ITS | Encounter Summary ---
Author Organization [facility] Address [address] [place] [address] Care Team Providers Care Manager Life Insurance Name Role Phone Josette Crandall MD Primary Care Provider [phone] [facility], Pcp Primary Care Provider Unavailabl e Reason for Visit * Reason Onset Date Comments Faxed Order 05/26/2023 Encounter Details Date Type Department Care Team Description 05/26/2023 Telephone Adult Medicine [address] [address] Josette Crandall MD [address] [place] [address] Faxed Order Social History Tobacco Use Types [...] encounter Miscellaneous Notes * Telephone Encounter - Angeli Covington - 05/26/2023 8:40 AM EDT Faxed orders received from Adrian Mott [id number], [id number], [phone] placed in providers box. documented in this encounter Plan of Treatment Not on file documented as of this encounter Visit Diagnoses Not on filedocumented in this encounter Care Teams Manager Life Insurance Relationship Specialty Start Date End Date Josette Crandall MD [address] [place] [address] PCP - General Internal Medicine 03/29/23 07/25/23 [facility], Pcp [address] [place] [address] PCP - General Internal Medicine 07/26/23 documented as of this encounter
--- OUTSIDE RECORDS SUMMARY | 2024-03-28 10:42 | XMS_ITS | Clinical Summary ---
Author Organization [facility] Address [address] [facility] [place] [address] Care Team Providers Care Juice Packaging Machines Setter Name Role Phone Community, Pcp Primary Care Provider Unavailabl e Allergies Active Allergy Reactions Severity Noted Date Comments Nabumetone 10/09/2007 Prednisone 10/09/2007 Could not sleep when took 20 years ago, tried dose within last two months x 5 days and tolerated ok Medications Medication Sig Dispensed Refills Start Date End Date Status acetaminophen (TYLENOL) 650 MG CR tabletIndications:Sk in lump of leg, right Take 650 mg by mouth every morning. 0 Active Multiple Vitamin (MULTI VITAMIN DAILY) Tab Take 1 tablet by mouth daily. 1 tablet daily 0 Active IRON CR OR Take 1 tablet by mouth daily. 1 tablet daily 0 Active BIOTIN 5000 OR Take by mouth daily. 0 Active ondansetron (ZOFRAN) 4 MG tablet TAKE ONE TABLET BY MOUTH EVERY 8 HOURS NEEDED FOR NAUSEA 30 Tab 0 10/31/2019 Active donepezil (Aricept) 10 MG tablet Take 1 tablet by mouth at bedtime. 30 tablet 0 11/16/2020 Active Ferrous Sulfate Dried (Slow Release Iron) 160 (50 Fe) MG Tab CR Take 50 mg by mouth daily. Take on empty stomach 30 tablet 5 03/17/2021 Active sertraline (ZOLOFT) 100 MG tablet Take 1 Tablet by mouth every morning. 90 Tablet 0 09/17/2021 Active omeprazole (PRILOSEC) 20 MG capsule TAKE ONE CAPSULE BY MOUTH ONCE DAILY 30 Capsule 0 11/01/2021 Active Cyanocobalamin (B-12) 500 MCG Tab Take 1 Tablet by mouth daily for 180 days. 90 Tablet 1 11/12/2021 Active hydrochlorothiazide (MICROZIDE) 12.5 MG capsule Take 1 Capsule by mouth every morning. 90 Capsule 1 12/07/2021 Active cephALEXin (Keflex) 500 MG capsule Take 1 Capsule by mouth 3 times daily (with meals). 21 Capsule 0 03/11/2022 Active hydrOXYzine (ATARAX) 25 MG tablet TAKE ONE TABLET BY MOUTH EVERY 8 HOURS NEEDED FOR ANXIETY 90 Tablet 0 07/07/2022 Active celecoxib (CELEBREX) 200 MG capsule TAKE ONE CAPSULE BY MOUTH TWICE A DAY NEEDED FOR PAIN 180 Capsule 0 07/07/2022 Active amlodipine (NORVASC) 10 MG tablet TAKE ONE TABLET BY MOUTH ONCE DAILY 30 Tablet 0 09/05/2022 Active Active Problems Patient Care Coordination No te Formatting of this note is d ifferent from the original. Checking Your Blood Sugars Your Blood Sugar Goals Pre Meal: 90-130 2 hours after meals: 110-160 Bedtime: 110-150 Use the Results ?? Bring your glucometer to every appointment ?? Write your fingerstick blood sugars down on a log sheet or record book. Bring them to your appointment ?? Look for patterns in the numbers. The results help you and your provider make decisions about your diabetes treatment plan. Your Results and your Goals Your Result / Date of Completion Your Goal / How Often to Assess Component Value Date HGBA1C 5.6 02/14/2014 Less than 7% --- 2-4 times per year BP Readings from Last 1 Encounters: 01/04/16 154/80 Less than 140/90 --- once per year Component Value Date MALBCR 5.5 02/14/2014 Less than 30 --- once per year Component Value Date LDL 40 02/14/2014 Less than 100 --- once per year Wt Readings from Last 1 Encounters: 01/04/16 139 lb (63.05 kg) Your goal weight by next visit: 137 --- reassess 2-4 times a year Health Maintenance Due Topic Date Due ? ? Pneumococcal Vaccine (#1 of 2 - Dose 1 = PCV13, Dose 2 = PPSV23) 2014 ? ? Diabetes: Blood Sugar Control Test (Hgba1c) 06/14/2014 ? ? Diabetes: Annual Eye Exam 01/20/2015 ? ? Diabetes: Annual Foot Exam 01/31/2015 ? ? Diabetes: Annual Care Plan 01/31/2015 ? ? Diabetes/heart Disease: Annual Cholesterol (Ldl) 02/14/2015 ? ? Diabetes: Annual Urine Protein Test (Microalbumin) 02/14/2015 ? ? Bone Density Screening 09/07/2015 ? ? Influenza (#1 of 1) 10/08/2015 Your Action Plan Your diabetes is well controlled and no changes are required to your current plan. Continue to work on weight loss with a goal of losing 2-4 pounds per month Increase physical activity Contact me if you experience any barriers to care such as inability to purchase your medication, difficulty getting to your appointments or difficulty understanding your care plan Please get your pneumonia shot Please get your yearly flu shot When to Call your Healthcare Provider If your blood sugar falls below 70 and you do not know why or you become unconscious If you are sick and unable to take liquids because or nausea or vomiting If you have a fever over 101 If your blood sugar is 300 or higher on greater than 3 separate occasions during the same week If you are just unsure what to do Educational Resources [place] Diabetes Association (www.diabetes.org) Centers for Disease Control and Prevention (www.cdc.gov/diabetes) This care plan was created in collaboration with Divina Keane on 01/04/2016 Problem Noted Date Alcoholism 10/13/2020 Overview: Multiple admission in past. Follows with Dr. Mendenhall at on Naltraxone. COVID-19 02/03/2020 Peripheral vascular disease, unspecified 06/11/2019 Major depressive disorder 06/11/2019 Overview: Admitted 07/08/20-07/15/20 [facility] w/ suicidal ideation Heart murmur 08/29/2018 Overview: Mild aortic insufficiency, trace mitral regurgitation, trace to mild tricuspid regirgitation per echo on 09/07/18 Varicose veins with pain 02/23/2018 History of actinic keratoses 10/16/2017 Overview: Actinic keratoses History of basal cell carcinoma 09/04/19 16 Overview: BCC 08/21 right clavicle (nodular) 09/18 left tolliver (nodular, ulcerated) History of squamous cell carcinoma 01/27 Overview: SCC 09/24 right tolliver (well-differentiated, invasive) 01/20 right tolliver (well-differentiated, keratoacanthoma type) Cataracts, bilateral 01/31/2014 S/P gastric bypass 02/28/2011 Leg edema 10/26/2009 Overview: With chronic stasis dermatitis 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 thomas Vitiligo 10/06/2008 Essential hypertension, benign 8 Type 2 diabetes mellitus with vascular d isease 10/09/2007 Degenerative arthritis of knee 8 Resolved Problems Problem Noted Date Resolved Date AK (actinic keratosis) 09/03/2014 5 Immunizations Name Administration Dates Next Due COVID-19 (Moderna) 02/08/2021 COVID-19 (Pfizer) 04/30/2020 COVID-19 (Pfizer) Pt Reported 04/30/2020 Covid-19 Bivalent (Pfizer) 10/27/2021 Influenza (> 6 Months) 10/17/2019,2018,01/04/2016,01/31,11/06/2011,10/26/2009,11/09/2008 ,11/24/2007 Influenza Flu (PT Reported) 10/20/2017,1 ,11/04/2014,11/10 Influenza vaccine high dose age 65 and over 11/15/2021,10/23/2020,10/19/2019,10/16,10/20/2017,12/05/2016,01/04/2016 ,01/31/2014,11/06/2011,10/26/2009,05/2008,11/24/2007 Pneumoccoccal(Adult) Polysac charide PPSV23 12/22/2017 Pneumococcal Conjugate PCV-13 12/05/2016, 017 Pneumococcal(Pedi) Conjugate PCV-7 06/16/2017 Shingrix (Patient reported) 08/18/2017, 8 Shingrix (Recombinant zoster vaccine) 08/18/2017 ,06/16/2017 TD (STATE SUPPLIED FOR ADULT S AND CHILDREN) 11/07/2018,11/06/2016 Td, Adsorbed, Preservative F ree, Adult Use, Lf Unspecified 11/07/2018 Tdap 10/06/2008 Family History Medical History Relation Name Comments myocardial infarction Father a t age 76. No diabetes 86, question diabetes Mother dx'd age 58 CA Breast Mother dx'd age 58 CA Colon Negative Hx CA Ovarian Negative Hx Relation Name Status Comments Father Mother dx'd age 58 Social History Tobacco Use Types Packs/Day Years Used Date Smoking Tobacco: Former Smokeless Tobacco: Never Tobacco Cessation:Counseling Given: Not Answered Comments:27 years Alcohol Use Standard Drinks/Week Comments No 0 (1 standard drink = 0.6 oz pur e alcohol) Sex Assigned at Date Recorded Not on file Job Start Date Occupation Industry Not on file Not on file Not on file Last Filed Vital Signs Vital Sign Reading Time Taken Comments Blood Pressure 124/70 03/11/2022 4:05 PM EST C Pulse 72 03/11/2022 4:05 PM EST Temperature 36.6 ??C (97.9 ??F) 03/29/2022 8:36 AM ES T Respiratory Rate 16 02/16/2022 9:32 AM EST Oxygen Saturation 97% 12/01/2021 4:48 PM EDT Inhaled Oxygen Concentration - - Weight 64.4 kg (142 lb) 03/29/2022 8:36 AM EST Height 154.9 cm (5' 1 ) 03/11/2022 4:05 PM EST Body Mass Index 26.83 03/11/2022 4:05 PM EST Plan of Treatment Health Maintenance Due Date Last Done Comments BONE DENSITY SCREENING 09/06/2018 09/06/2013 DIABETES: ANNUAL EYE EXAM 06/06/20202019 (External Completion of test per patient (Patient reports normal results)), 01/20/2014 (External Completion), 11/22/2012 (External Completion of test per patient (Patient reports normal results)), Additional history exists DIABETES: BLOOD SUGAR CONTRO L TEST (HGBA1C) 08/19/2020 05/20/2020, 11/15/2019, 01/24/2019, Additional history exists DIABETES: ANNUAL FOOT EXAM 05/06/202105/06 (Completed), 05/06/2020, 01/31/2014, Additional history exists DIABETES/HEART DISEASE: OMER MCKEON CHOLESTEROL (LDL) 05/20/2021 05/20/2020, 01/24/2019, 03/03/2017, Additional history exists DIABETES: ANNUAL URINE PROTE IN TEST (MICROALBUMIN) 05/20/2021 05/20/2020, 01/24/2019, 01/04/2016, Additional history exists DEPRESSION SCREEN 02/16/2023 02/16/2022 (Completed) FALL RISK ASSESSMENT 02/16/2023 02/16/2022, 05/21/19 21 Covid-19 Vaccine (2022-03 4 season) 2023 10/27/2021, 02/08/2021, 04/30/2020, Additional history exists INFLUENZA (#1) 2023 11/15/2021, 10/07, 10/19/2019, Additional history exists BMI CHECK/ADVISE 02/07/2024 03/29/2022, 04/2022, 11/27/2019, Additional history exists MAMMOGRAM 05/31/2024 06/01/2023, 04/07, 04/23/2020, Additional history exists DTAP/TDAP/TD (5 - Td or Tdap) 11/07/2028, 11/07/2018, 11/06/2016, Additional history exists HEPATITIS C SCREENING Completed 08/02/2012 SHINGLES VACCINE Completed 08/18/2017, , 06/16/2017, Additional history exists PNEUMOCOCCAL VACCINE Completed 12/22/2017, 12/05/2016, 11/05/2016 Care Teams Juice Packaging Machines Setter Relationship Specialty Start Date End Date [facility], Pcp PCP - General Internal Medicine 07/26/23
--- OUTSIDE RECORDS SUMMARY | 2024-03-28 10:42 | XMS_ITS | Encounter Summary ---
Author Organization [facility] Address [address] [place] [address] Care Team Providers Care Seismic Observer Name Role Phone Derrell Hurst MD Primary Care Provider Glory Ho MD Primary Care Prov ider [facility], Pcp Primary Care Provider Unavailabl e Josette Crandall MD Primary Care Provider [phone] [facility], Pcp Primary Care Provider Unavaillashay e Reason for Visit * Reason Comments E-prescribe Rx Request Encounter Details Date Type Department Care Team Description 07/13/2021 Refill Adult Medicine [address] [address] Derrell Hurst MD E-prescribe Rx Request Social [...] encounter Miscellaneous Notes * Telephone Encounter - Minoo Sy M.A. - 07/14/2021 3:11 PM EDT Lab Results Component Value Date NA 140 10/13/2020 K 5.7 11/02/2020 CO2 31 10/13/2020 CL 106 10/13/2020 BUN 23 10/13/2020 CREAT 0.64 10/13/2020 GLU 91 10/13/2020 CA 9.2 10/13/2020 GFR > 60 10/13/2020 CHRISTOPHER 03/17/21 - due in 4 months, will you refill? NOV 10/27/21 - with NEW PCP * Telephone Encounter - Martha Oneill - 07/14/2021 2:48 PM EDT Patient would like script to be: E-PRESCRIBED/FAXED TO PHARMACY WHEN WAS THE PATIENT'S LAST APPOINTMENT IN ADULT MEDICINE? 03/17/21 WHEN WAS THE LAST TIME THE PATIENT SAW THEIR PCP? Same as above Does patient have an upcoming appointment? Yes 10/27/21 (THE MEDICATION REQUESTED IS ON THE MED [...] FEP STANDARD $25 / Product Type: PPO [id number] documented in this encounter Plan of Treatment Not on file documented as of this encounter Visit Diagnoses Not on filedocumented in this encounter Care Teams Seismic Observer Relationship Specialty Start Date End Date Derrell Hurst MD PCP - General Internal Medicine 06/25/21 09/05/21 Divya Johnson, Glory Cardona MD [address] [place] [id number] PCP - General Internal Medicine 09/06/21 09/15/22 [facility], Pcp [address] [place] [phone] PCP - General Internal Medicine 09/16/22 03/28/23 Josette Crandall MD [address] [place] [id number] PCP - General Internal Medicine 03/29/23 07/25/23 [facility], Pcp [address] [place] [id number] PCP - General Internal Medicine 07/26/23 documented as of this encounter
--- OUTSIDE RECORDS SUMMARY | 2024-03-28 10:42 | XMS_ITS | Encounter Summary ---
Author Organization [facility] Address [address] [place] [address] Care Team Providers Care Postie Name Role Phone Josette Crandall MD Primary Care Provider [facility], Pcp [facility] Encounter Details Date Type Department Care Team Description 06/09/2023 Home Health Certification Medical Records [address] [place] [address] Adrian Mott Social History Tobacco Use Types [...] on filedocumented in this encounter Care Teams Postie Relationship Specialty Start Date End Date Josette Crandall MD [address] [place] [address] [id number] PCP - General Internal Medicine 03/29/23 07/25/23 [facility], Pcp [address] [place], [place] [phone] PCP - General Internal Medicine 07/26/23 documented as of this encounter
--- OUTSIDE RECORDS SUMMARY | 2024-03-28 10:42 | XMS_ITS | Encounter Summary ---
Author Organization [facility] Address [address] [place] [address] Care Team Providers Care Psychological Science Professor Name Role Phone Derrell Hurst MD Primary Care Provider Derrell Schulte MD Primary Care Provider Glory Ho MD Primary Care Prov ider [facility], Pcp Primary Care Provider Josette Bowser MD Primary Care Provider [phone] [facility], Pcp Primary Care Provider Jamar leigh Encounter Details Date Type Department Care Team Description 05/13/2019 Orders Only Radiology - [address] [phone] Derrell Hurst MD Social History Tobacco Use [...] on filedocumented in this encounter Care Teams Psychological Science Professor Relationship Specialty Start Date End Date Derrell Hurst MD PCP - General 10/03/07 06/24/21 Derrell Hurst MD PCP - General Internal Medicine 06/25/21 09/05/21 Glory Almaguer MD [address] [place] [address] [id number] PCP - General Internal Medicine 09/06/21 09/15/22 [facility], Pcp [address] [place] [phone] PCP - General Internal Medicine 09/16/22 03/28/23 Josette Crandall MD [address] [place] [phone] PCP - General Internal Medicine 03/29/23 07/25/23 [facility], Pcp [address] [place] [id number] PCP - General Internal Medicine 07/26/23 documented as of this encounter
--- OUTSIDE RECORDS SUMMARY | 2024-03-28 10:42 | XMS_ITS | Encounter Summary ---
Author Organization [facility] Address [address] [place] [address] Care Team Providers Care Flaker Operator Name Role Phone Josette Crandall MD Primary Care Provider [phone] [facility], Pcp [facility] Encounter Details Date Type Department Care Team Description 06/08/2023 Home Health Certification Medical Records [address] [place] [address] Adrian Mott Social History Tobacco Use Types [...] on filedocumented in this encounter Care Teams Flaker Operator Relationship Specialty Start Date End Date Josette Crandall MD [address] [place] [address] [phone] PCP - General Internal Medicine 03/29/23 07/25/23 [facility], Pcp [address] [place], [place] [phone] PCP - General Internal Medicine 07/26/23 documented as of this encounter
== END 2024-03-28 10:08 | disposition home or self-care (01) ==
PROVIDERS: PCP Internal Medicine; Visit Provider Anesthesiology
DX: F10.229 Alcohol dependence with intoxication, unspecified (principal); G89.4 Chronic pain syndrome
CPT/HCPCS: 99213

== ENCOUNTER → 2024-03-28 09:49 | Outpatient (BNVA) | payer MEDICARE, BC, SELFPAY | PROVIDERS: PCP Internal Medicine; Visit Provider Anesthesiology | DX: F10.229 Alcohol dependence with intoxication, unspecified (principal); G89.4 Chronic pain syndrome | CPT/HCPCS: 99212 ==

== ENCOUNTER 2024-10-01 12:04 | Outpatient (AMB) | payer MEDICARE, BC, SELFPAY ==
--- OUTSIDE RECORDS SUMMARY | 2023-02-12 20:00 | XMS_ITS | Continuity of Care Document ---
Author Organization [facility] Address [address] [place] [address] Phone Care Team Providers Care Echocardiologist Name Role Phone Parminder MELGAR, RASHAWN, JORDAN, Paulino Unavailable U navailable Allergies, Adverse Reactions, Alerts Substance Reaction Status Criticality No Known Allergies Active No Inform ation Medications Medication Instructions Dosage Effective Dates (start - stop) Status Comments doxycycline monohydrate 100 mg capsule take1 tablet by mouth 2 twice a day for 24 hours starting the day of procedures. - Active amlodipine 5 mg tablet - Active sertraline 50 mg tablet - Active donepezil 10 mg tablet take 1 tablet by oral route every day in the evening 10 MG - Active Procedures Procedure Date Office/Outpt E&M Established 15 Mins Sep Office/Outpt E&M Established 15 Mins Aug Duplex Scan-extrem Veins; Uni/ Phleb Veins - Extrem - To 20 Varithena, Single Truncal Vein Endovenous Laser, 1st Vein Endovenous laser vein addon Office/Outpt E&M Established 15 Mins June Office/Outpt E&M Established 25 Mins Apr Carla subq tissue add-on Office/Outpt E&M Established 15 Mins Mar Duplex Scan-extrem Veins; Comp Office/Outpt E&M Established 15 Mins Mar Advance Directives Directive Yes / No Effective Date File Name No Information Encounters Encounter Description Practice Location Reason(s) For Visit Diagnoses Date Provider Providers Copied on Encounter [facility], [address] [place] [address] Dr Freeman [address], [id number], [place] tel:[phone] [facility] - [place] No Information 4 Parminder MELGAR, RVT, VI Paulino. [address], [address], [place], [id number] , [place]. tel:[phone] Office/Outpt E&M Established 15 Mins [facility], [address] [place] [address] Dr Freeman [address], [id number], [place] tel:[phone] CVR - [facility] Chronic venous htn w oth comp of bilateral low extrmNon-pressu re chronic ulcer of left ankle with unsp severity 3 Aleks MELGAR FACS [facility] Amber Barber. [address], [place] [address], [place], [address], [place]. [phone] Referring Provider: Amber Fink MD FACS T [facility], [facility] Suite [facility], [place], [address]. tel:[phone] Office/Outpt E&M Established 15 Mins [place] [facility], [address] [place] [address] Dr Freeman [address], [id number], [place] tel:[phone] [facility] - [facility] Postproc hemor/hemtom of skin, subcu following oth procedureChroni c venous htn w oth comp of bilateral low extrm 3 Kiana Bradley . [address], [address], [facility] [place], [id number] , [place]. tel:[phone] Referring Provider: Amber Fink MD FACS RVT [facility], [address] [place] [address] [address], [place], [address]. tel:[phone] [facility], [address] [place] [address] Dr Freeman [address], [id number], [place] tel:[phone] [facility] - [facility] Encntr for f/u exam aft trtmt for cond oth than malig neoplmVenous insufficiency (chronic) (peripheral) 3 Aleks MELGAR FACS [facility] Amber Barber. [address], [address], [place], [address], [place]. [phone] Referring Provider: Amber Fink MD FACS RVT [facility], [facility], [place], [address]. tel:[phone] 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 [address], [address], [facility] [place], [place], [id number] , [place]. tel:[phone] Referring Provider: Amber Fink MD FACS RVT [facility], [facility], [place], [address]. tel:[phone] [facility], [address] [place] [address] [address], [place], [id number], [place] tel:[phone] [facility] [place] Venous insufficiency (chronic) (peripheral) 3 Aleks MELGAR FACS RVT VI Amber Barber. [facility], [address], [place], [address], [place]. [phone] Referring Provider: Amber Fink MD FACS RVT RP, [facility], [place], [address]. tel:[phone] [facility], [address] [place] [address] [address], [id number], [place] tel:[phone] [facility] - [place] Venous insufficiency (chronic) (peripheral) 3 Aleks MELGAR FACS RVT VI Amber Barber. [address], [address], [facility] [place], [address], [place]. tel:[phone] Referring Provider: Amber Fink MD FACS RVT RP, [address] [place] [address] [address], [place], [address]. tel:[phone] Office/Outpt E&M Established 15 Mins [facility], [address] [place] [address] Dr [address], [place], [id number], [place] tel:[phone] CV[facility] - [facility] Encounter for other preprocedural examination 3 Aleks MELGAR FACS RVT RPVI Amber Sunil. [address] [place] [address], [address], [place], [address], [place]. tel:[phone] Referring Provider: Amber Fink MD FACS RVT RP, [address] [place] [address] Suite [facility], [place], [address]. tel:[phone] Office/Outpt E&M Established 25 Mins [facility], [address] [place] [address] Dr [address], [place], [id number], [place] tel:[phone] CVR - [facility] Chronic venous htn w inflammation of bilateral low extrm 3 Aleks MELGAR FACS RVT RPVI Amber Sunil. [address] [place] [address], Suite [facility], [facility], [address], [place]. [phone] Referring Provider: Amber Fink MD FACS RVT [facility]I, [address] [place] [address] Suite [facility], [place], [address]. tel:[phone] [place] [facility], [address] [place] [address] Dr [address], [place], [id number], [place] tel:[phone] CVR - [facility] Non-pressure chronic ulcer of left calf w fat layer exposedChronic venous htn w ulcer and inflam of bilateral low extrm Fe 3 Aleks MELGAR FACS RVT RPVI Amber Sunil. [facility], [address], [place], [address], [place]. [phone] Referring Provider: Amber Fink MD FACS RVT RP, [address] [place] [address] Suite [facility], [place], [address]. tel:[phone] Office/Outpt E&M Established 15 Mins [facility], [address] [place] [address] [address], [place], [id number], tel:[phone] [facility] - [place] Body mass index (BMI) 27.0-27.9, adultChronic venous hypertension w/o comp of bilateral low extrmNon-pressu re chronic ulcer of left calf with unsp severityVaricos e veins of right lower extremity w ulcer of unsp siteChronic venous hypertension w/o comp of r low extremNon-press ure chronic ulcer of right calf with unsp severity 3 Aleks MELGAR FACS T JORDAN Barber. [address] [place] [address], [place] [address], [place], [address], [place]. tel:[phone] Referring Provider: Amber Fink MD, FACS [facility], [address] [place] [address], [place], [address]. tel:[phone] [facility], [address] [place] [address] [address], [place], [id number], [place] tel:[phone] CV[facility] - [place] Venous insufficiency (chronic) (peripheral) 3 Aleks MELGAR FACS Kristy Barber. [address] [place] [address], [place], [address], [place]. tel:[phone] Referring Provider: Amber Fink MD FACS [facility], [address] [place] [address], [place], [address]. tel:[phone] Office/Outpt E&M Established 15 Mins [facility], [address] [place] [address] [address], [place], [id number], [place] tel:[phone] [facility] - [place] Body mass index (BMI) 26.0-26.9, adultChronic venous htn w inflammation of bilateral low extrmCramp and spasmType 2 diabetes mellitus without complications 3 Aleks MELGAR FACS Kristy Barber. [address] [place] [address], [place] [address], [place], [address], [place]. tel:[phone] Referring Provider: Amber Fink MD FACS RVT VI, [address], [facility] [place], [address]. tel:[phone] Family History Family Member Type Diagnosis Age At Onset No Information Payers Payer name Insurance type Covered green party ID Authoriza tion(s) No Information Social History Type Description Quantity Date Captured Comments Sex Female Smoking Status No Information Chief Complaint And Reason For Visit No Information Reason For Referral Reason For Referral No Information Plan Of Treatment Date Type Action Status Goal Tobacco cessation counseling completed Goal Tobacco cessation counseling completed Goal Weight-reducing diet educati on completed Goal Tobacco cessation counseling completed History Of Present Illness Encounter Date Complaint History Of Prese nt Illness No Information Functional Status Date Functional Assessmen t No Information Instructions Date Instruction Additional Infor mation Weight-reducing diet education R elated to Body mass index [BMI] 27.0-27.9, adult Weight monitoring Related to Bod y mass index [BMI] 27.0-27.9, adult Dietary needs education Related to Body mass index [BMI] 26.0-26.9, adult Giving encouragement to exercise Related to Body mass index [BMI] 26.0-26.9, adult Assessments Type Assessment Date No Information Patient Care Teams Name Effective Dates (start - stop) Status Members No Information
--- OUTSIDE RECORDS SUMMARY | 2024-07-08 09:45 | XMS_ITS ---
Author Organization [facility] Address [address] [place] [id number] Care Team Providers Care Sandblast Carver Name Role Phone Natali MELGAR, Candace Tillman Primary Care Provider Deloris Acuna [phone] Encounters Encounter Location Date Provider Diagnosis [address] [phone] 07/08/2024 Deloris Funes Plan Of Treatment Next Appt Details Provider Name:Deloris manning, 10/21/2024 03:45:00 PM, [address] [place] [address], [phone], Progress Notes * Divina KEANE MDOB:[birth year] (74 yo F)Acc No.[id number]:07/08/2024 Progress Note Patient: Divina RASHID Raúl Provider: Davidson Fnues DPM :1950 A ge:74 Y S ex:Female Date:07/08/2024 Address: [address] [id number] Pcp:Candace Hurst MD Subjective: * Chief Complaints: * * Medical History: Objective: * Vitals: Assessment: Plan: * Treatment: * Images: * The named appointment provid er may or may not be the originator of this progress note, and it is not deemed complete until electronically signed by the appointment provider. Sign off status: Pending * Provider: Davidson Funes DPM Date: 07/08/2024 Generated for Lucas heath/Alistair/eTransmitting on: 0 10/01/2024 12:58 PM EDT
--- OUTSIDE RECORDS SUMMARY | 2024-07-11 07:30 | XMS_ITS ---
Author Organization [facility] Address [address] [place] [phone] Care Team Providers Care Molder Trimmer Name Role Phone Natali MELGAR, Candace Tillman Primary Care Provider Deloris Acuna [phone] Vega Encounters Encounter Location Date Provider Diagnosis [address] [phone] 07/11/2024 Deloris Funes Plan Of Treatment Next Appt Details Provider Name:Deloris manning, 10/21/2024 03:45:00 PM, [address] [place] [address], [phone], Progress Notes * Divina KEANE MDOB:[birth year] (74 yo F)Acc No.[id number]:07/11/2024 Progress Note Patient: Divina RASHID Provider: Davidson Funes DPM :1950 A ge:74 Y S ex:Female Date:07/11/2024 Address: [address] [id number] Pcp:Candace Hurst MD Subjective: * Chief Complaints: * [address] Vega. * Medical History: Objective: * Vitals: Assessment: Plan: * Treatment: * Images: * The named appointment provid er may or may not be the originator of this progress note, and it is not deemed complete until electronically signed by the appointment provider. Sign off status: Pending * Provider: Davidson Funes DPM Date: 0 07/11/2024 Generated for Lucas heath/Alistair/Yasmineitting on: 0 10/01/2024 12:58 PM EDT
--- NOTE | 2024-10-01 12:10 | MHC.OFFVIS ---
Intake Visit Reasons: Follow up Allergies No Known Allergies (No Known Allergies*) Allergy (Verified 03/28/24 09:53) Medication List - Last Reconciled 10/01/24 by Deepti Cabrera MD amlodipine 5 mg PO DAILY calcium carbonate-vitamin D3 600 mg-5 mcg (200 unit) 1 tab PO DAILY donepezil 1 tab PO DAILY 30 days ferrous sulfate 325 mg PO DAILY gabapentin 600 mg PO TID 30 days hydrochlorothiazide 1 cap PO DAILY 30 days hydroxyzine HCl 25 mg PO DAILY PRN lisinopril 10 mg PO DAILY magnesium chloride 400 mg PO DAILY multivitamin 1 tab PO DAILY omeprazole 20 mg PO DAILY 30 days sertraline 100 mg PO DAILY HPI Comments Details: She gets around with a walker. She says she is managing. Feels depressed. She has 2 cats . 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 Memory stable, forgetful at times. Watches TV in bedroom. Does not sleep well. Keep swaking up. Seeing a therapist x1. Has a lot to keep track of and needs to write things down. Walking with walker. Still dealing with non-healing LLE ulcer, going to [facility] wound care. Has [facility] and [facility] services 3 days/week. Does not use zolpidem. Had to declare bankruptcy. Had bilateral TKR. Has hearing loss and balance is off. Follow up MRI 08/22/18 shows no change in right acoustic neuroma 8x4mm intracanalicular. chronic angiopathy. Punctate microhemorrhage in left frontal lobe. passed in end of September 2017. In 2004 she suddenly lost her hearing in the right ear and at that time was also found to have an acoustic neuroma on the right, which was probably treated by gamma knife therapy. [facility] Medical History Ulcer of lower extremity Neuropathy Cognitive impairment Hypertension Depression Alcoholism Surgical History History of rotator cuff surgery History of bilateral knee replacement Hx of gastric bypass (~2011) Social History Household Members: None Housing: Condominium Do you presently have visiting nurse or other home services: Yes Alcohol intake: current Alcohol intake frequency: holidays/special occasions only Comment: [facility] Patient Tobacco Use Status: Former Tobacco user Advance Directives Date on File: 11/11/22 service: No Sexual orientation: Straight/Heterosexual Review of Systems Const Details: General/Constitutional:? Change in appetitedenies.? Chillsdenies.? Fatiguedenies.? Feverdenies.? Weight gaindenies.? Weight lossdenies. ???Sleep:? Difficulty getting to sleepadmits.? Difficulty maintaining sleepadmits.? Urge to move legsdenies.? Teeth grindingdenies.? Shouting or Kicking during sleepdenies.? Abnormal behavior during sleepdenies.? Excessive sleepdenies.? Snoringdenies.? Daytime sleepinessdenies. ???Respiratory:? Shortness of breathdenies.? Chest paindenies.? Coughdenies. ???Cardiovascular:? Chest pain at restdenies.? Chest pain with exertiondenies.? Claudicationdenies.? Dizzinessdenies.? Fluid accumulation in the legsdenies.? Irregular heartbeatdenies.? Palpitationsdenies. ???Gastrointestinal:? Abdominal paindenies.? Constipationdenies.? Diarrheadenies.? Difficulty swallowingdenies.? Heartburndenies.? Nauseadenies.? Rectal bleedingdenies. ???Genitourinary:? Frequent urinationdenies.? Urgencydenies.? Incontinencedenies.? Erectile Dysfunctiondenies. ???Musculoskeletal:? Neck paindenies.? Back paindenies.? Muscle achesdenies.? Painful jointsdenies.? Sciaticadenies.? Weaknessdenies. ???Neurologic:? Difficulty swallowingdenies.? Balance difficultydenies.? Coordinationnormal.? Difficulty speakingdenies.? Dizzinessdenies.? Faintingdenies.? Gait abnormalitydenies.? Headachedenies.? Loss of strengthdenies.? Loss of use of extremitydenies.? Low back paindenies.? Memory lossadmits.? Seizuresdenies.? Ticsdenies.? Tingling/Numbnessdenies.? Transient loss of visiondenies.? Tremordenies. ???Psychiatric:? Anxietyadmits.? Auditory/visual hallucinationsdenies.? Delusionsdenies.? Depressed moodadmits.? Stressorsadmits.? Substance abusedenies.? Suicidal thoughtsdenies. Physical Exam Neuro Other: Neurological: Abnormal neurological findings:??MMS 25/30, walking with walker.?Mental Status:??alert and oriented X 3,?Normal attention, orientation, memory and affect.?Cranial Nerves:??Pupils are equal, round and reactive to light. Fundoscopy shows normal disc bilaterally. External occular muscles are intact. Visual armendariz are full, no ptosis. Face is symmetrical, no facial weakness or droop. Facial sensations are normal. Tongue protrudes in midline. Palate elevates symmetrically. Shoulder shrugging is normal..?Motor Examination:??Normal muscle tone, bulk and strength,?No atrophy or fasciculations,?No drift of the extended upper extremities,?Deep tendon reflexes are 2+?,?Plantars are flexor?.?Straight Leg Raising:??90 degrees.?Sensory Exam:??Normal light touch, temperature, pinprick, vibration and joint-position sensations?,?Rhomberg sign is absent.?Coordination:??no ataxia,?no titubation,?vdobxp-me-womy, zshc-ugsq-rokm test and rapid alternating movements were normal.?Gait Exam:??walking with walker.Cerebellar Signs:??Vcxmea-cl-cogb and qfjo-bc-pvrh is normal,?no dysdiadochokinesia?.?Extrapyramidal System:??No tremor, rigidity with normal facial expressions,?No bradykinesia, no bradyphrenia. Normal arm swing and posture. No propulsion or retropulsion.?Speech:??Normal,?no dysphasia or dysarthria..? Mini Mental Status Exam: Level of Consciousness:??Alert.?Orientation:??Knows correct year, month, date, day and season,?Knows correct city, county and state. Knows correct location and floor.?Registration:??Able to register 3 objects.?Attention:??Serial 7's performed accurately to 93.?Recall:??Able to recall?1 out of 3 objects.?Language:??Normal spontaneous speech, fluency, repetition,naming, comprehension, reading and writing.?Total Score:??25/30.? General Examination: GENERAL APPEARANCE:??normal,?in no acute distress.?HEART:??S1, S2 normal,?no murmurs.?LUNGS:??clear anteriorly and posteriorly.?MUSCULOSKELETAL:??normal.?EXTREMITIES:??no edema.?PSYCH:??alert, oriented,? Assessment & Plan Assessment & Plan (1) MCI (mild cognitive impairment) with memory loss: Code(s): G31.84 - Mild cognitive impairment of uncertain or unknown etiology Category: Medical Plan Continue Donepezil and add Memantine Medications: New memantine (Namenda) 10 mg PO BID 60 tabs 5RF 30 days Changed From donepezil 1 tab PO DAILY 30 days 30 tabs 0RF To donepezil 10 mg PO DAILY 30 tabs 5RF 30 days Coding Level of Care Code Est Pt Level 4 (24429) Diagnoses MCI (mild cognitive impairment) with memory loss G31.84
--- OUTSIDE RECORDS SUMMARY | 2024-10-01 12:57 | XMS_ITS | Encounter Summary ---
Author Organization [facility] Address [address] [place] [address] Care Team Providers Care Computational Chemist Name Role Phone Derrell Hurst MD Primary Care Provider Derrell Schulte MD Primary Care Provider Glory Ho MD Primary Care Prov ider [facility], Pcp Primary Care Provider Josette Bowser MD Primary Care Provider [phone] [facility], Pcp Primary Care Provider Jamar leigh Encounter Details Date Type Department Care Team Description 10/15/2020 [facility] Medical Records [address] [place] [address] Eliot Larson MD Social History Tobacco Use [...] on filedocumented in this encounter Care Teams Computational Chemist Relationship Specialty Start Date End Date Derrell Hurst MD PCP - General 10/03/07 06/24/21 Derrell Hurst MD PCP - General Internal Medicine 06/25/21 09/05/21 Glory Almaguer MD [address] [place] [address] PCP - General Internal Medicine 09/06/21 09/15/22 [facility], Pcp [address] [place] [address] PCP - General Internal Medicine 09/16/22 03/28/23 Josette Crandall MD [address] [place] [address] PCP - General Internal Medicine 03/29/23 07/25/23 [facility], Pcp [address] [place] [address] PCP - General Internal Medicine 07/26/23 documented as of this encounter
--- OUTSIDE RECORDS SUMMARY | 2024-10-01 12:57 | XMS_ITS | Encounter Summary ---
Author Organization [facility] Address [address] [place] [address] Care Team Providers Care Employee Operations Examiner Name Role Phone Derrell Hurst MD Primary Care Provider Derrell Schulte MD Primary Care Provider Glory Ho MD Primary Care Prov ider [facility], Pcp Primary Care Provider Josette Bowser MD Primary Care Provider [phone] [facility], Pcp Primary Care Provider Jamar leigh Encounter Details Date Type Department Care Team Description 09/21/2018 [facility] Outreach Worker Report Medical Records [address] [place], [place] [id number] Jose Nazario MD Social History Tobacco Use [...] on filedocumented in this encounter Care Teams Employee Operations Examiner Relationship Specialty Start Date End Date Derrell Hurst MD PCP - General 10/03/07 06/24/21 Derrell Hurst MD PCP - General Internal Medicine 06/25/21 09/05/21 Glory Almaguer MD [address] [place] [address] PCP - General Internal Medicine 09/06/21 09/15/22 [facility], Pcp [address] [place] [address] PCP - General Internal Medicine 09/16/22 03/28/23 Josette Crandall MD [address] [place] [address] PCP - General Internal Medicine 03/29/23 07/25/23 [facility], Pcp [address] [place] [address] PCP - General Internal Medicine 07/26/23 documented as of this encounter
--- OUTSIDE RECORDS SUMMARY | 2024-10-01 12:57 | XMS_ITS | Encounter Summary ---
Author Organization [facility] Address [address] [place] [address] Care Team Providers Care Carpet Weaver Name Role Phone Derrell Hurst MD Primary Care Provider Derrell Schulte MD Primary Care Provider Glory Ho MD Primary Care Prov ider [facility], Pcp Primary Care Provider UnavailJosette Klein MD Primary Care Provider [phone] [facility], Pcp Primary Care Provider Jamar e Encounter Details Date Type Department Care Team Description 12/22/2008 [facility] Medical Records [address] [place] [address] Gabe Naranjo MD [address] [place] [id number] Social History Tobacco Use Types Packs/Day Years [...] on filedocumented in this encounter Care Teams Carpet Weaver Relationship Specialty Start Date End Date Derrell Hurst MD PCP - General 10/03/07 06/24/21 Derrell Hurst MD PCP - General Internal Medicine 06/25/21 09/05/21 Glory Almaguer MD [address] [place] [address] PCP - General Internal Medicine 09/06/21 09/15/22 [facility], Pcp [address] [place] [address] PCP - General Internal Medicine 09/16/22 03/28/23 Josette Crandall MD [address] [place] [address] PCP - General Internal Medicine 03/29/23 07/25/23 [facility], Pcp [address] [place] [address] PCP - General Internal Medicine 07/26/23 documented as of this encounter
--- OUTSIDE RECORDS SUMMARY | 2024-10-01 12:57 | XMS_ITS | Encounter Summary ---
Author Organization [facility] Address [address] [place] [address] Care Team Providers Care Machine Lacer Name Role Phone Derrell Hurst MD Primary Care Provider Derrell Schulte MD Primary Care Provider Glory Ho MD Primary Care Prov ider [facility], Pcp Primary Care Provider UnavailJosette Klein MD Primary Care Provider [phone] [facility], Pcp Primary Care Provider Jamar e Encounter Details Date Type Department Care Team Description 09/11/2018 Orders Only Medical Records [address] [place] [address] Derrell Hurst MD Social History Tobacco Use [...] Name Priority Date/Time Associated Diagnosis Comments OUTSIDE ECHO Routine 09/07/2018 documented in this encounter Results * OUTSIDE ECHO (09/07/2018) Derrell Hurst MD CARDIOLOGY documented in this encounter Visit Diagnoses Not on filedocumented in this encounter Care Teams Machine Lacer Relationship Specialty Start Date End Date Derrell Hurst MD PCP - General 10/03/07 06/24/21 Derrell Hurst MD PCP - General Internal Medicine 06/25/21 09/05/21 Glory Almaguer MD [address] [place], [place] [id number] PCP - General Internal Medicine 09/06/21 09/15/22 [facility], Pcp [address] [place] [address] PCP - General Internal Medicine 09/16/22 03/28/23 Josette Crandall MD [address] [place] [address] PCP - General Internal Medicine 03/29/23 07/25/23 [facility], Pcp [address] [place], [place] [phone] PCP - General Internal Medicine 07/26/23 documented as of this encounter
--- OUTSIDE RECORDS SUMMARY | 2024-10-01 12:57 | XMS_ITS | Encounter Summary ---
Author Organization [facility] Address [address] [place] [address] Care Team Providers Care Housing Court Judge Name Role Phone Josette Crandall MD Primary Care Provider [phone] [facility], Pcp Primary Care Provider Unavailabl e Reason for Visit * Reason Onset Date Comments TEST RESULTS 03/29/2023 Encounter Details Date Type Department Care Team Description 03/29/2023 Telephone Adult Medicine [address] [address] Josette Crandall MD [address] [place] [address] TEST RESULTS Social History Tobacco Use Types [...] there is a urine result done at [facility] labs 03/27/23 result states labswere ordered by [...] nurse for assistance and patient agreed. Message forwarded to nurse. documented in this encounter Plan of Treatment Not on file documented as of this encounter Visit Diagnoses Not on filedocumented in this encounter Care Teams Housing Court Judge Relationship Specialty Start Date End Date Josette Crandall MD [address] [place] [address] PCP - General Internal Medicine 03/29/23 07/25/23 [facility], [address] [place] [address] PCP - General Internal Medicine 07/26/23 documented as of this encounter
--- OUTSIDE RECORDS SUMMARY | 2024-10-01 12:57 | XMS_ITS | Encounter Summary ---
Author Organization [facility] Address [address] [place] [address] Care Team Providers Care Termite Exterminator Name Role Phone [facility], Pcp Primary Care Provider Josette Bowser MD Primary Care Provider [phone] [facility], Pcp Primary Care Provider Jamar leigh Encounter Details Date Type Department Care Team Description 11/29/2022 Accounts Specialist Report Medical Records [address] [place] [address] Abstract, Provider Social History Tobacco Use Types [...] on filedocumented in this encounter Care Teams Termite Exterminator Relationship Specialty Start Date End Date [facility], Pcp PCP - General Internal Medicine 09/16/22 03/28/23 Josette Crandall MD [address] [place] [address] PCP - General Internal Medicine 03/29/23 07/25/23 [facility], Pcp PCP - General Internal Medicine 07/26/23 documented as of this encounter
--- OUTSIDE RECORDS SUMMARY | 2024-10-01 12:57 | XMS_ITS | Encounter Summary ---
Author Organization [facility] Address [address] [place] [address] Care Team Providers Care Supervisor Nurse Name Role Phone [facility], Pcp Primary Care Provider Josette Bowser MD Primary Care Provider [phone] [facility], Pcp Primary Care Provider Jamar leigh Encounter Details Date Type Department Care Team Description 12/13/2022 Livestock Laborer Report Medical Records [address] [place] [address] Abstract, Provider Social History Tobacco Use Types [...] filedocumented in this encounter Care Teams Supervisor Nurse Relationship Specialty Start Date End Date [facility], Pcp PCP - General Internal Medicine 09/16/22 03/28/23 Josette Crandall MD [address] [place] [address] PCP - General Internal Medicine 03/29/23 07/25/23 [facility], Pcp PCP - General Internal Medicine 07/26/23 documented as of this encounter
--- OUTSIDE RECORDS SUMMARY | 2024-10-01 12:57 | XMS_ITS | Encounter Summary ---
Author Organization [facility] Address [address] [place] [address] Care Team Providers Care Boilerhouse Mechanic Name Role Phone Derrell Hurst MD Primary Care Provider Derrell Schulte MD Primary Care Provider Glory Ho MD Primary Care Prov ider [facility], Pcp Primary Care Provider Josette Bowser MD Primary Care Provider [phone] [facility], Pcp Primary Care Provider Jamar leigh Encounter Details Date Type Department Care Team Description 07/08/2020 [facility] Medical Records [address] [place] [id number] Eliot Larson MD Social History Tobacco Use [...] on filedocumented in this encounter Care Teams Boilerhouse Mechanic Relationship Specialty Start Date End Date Derrell Hurst MD PCP - General 10/03/07 06/24/21 Derrell Hurst MD PCP - General Internal Medicine 06/25/21 09/05/21 Glory Almaguer MD [address] [place] [address] PCP - General Internal Medicine 09/06/21 09/15/22 [facility], Pcp [address] [place] [address] PCP - General Internal Medicine 09/16/22 03/28/23 Josette Crandall MD [address] [place] [address] PCP - General Internal Medicine 03/29/23 07/25/23 [facility], Pcp [address] [place] [address] PCP - General Internal Medicine 07/26/23 documented as of this encounter
--- OUTSIDE RECORDS SUMMARY | 2024-10-01 12:57 | XMS_ITS | Encounter Summary ---
Author Organization [facility] Address [address] [place] [address] Care Team Providers Care Haul Cane Brakeman Name Role Phone Josette Crandall MD Primary Care Provider [facility], Pcp Primary Care Provider Unavailabl e Encounter Details Date Type Department Care Team Description 03/29/2023 Orders Only Medical Records [address] [place], [place] [id number] Derrell Hurst MD Social History Tobacco Use [...] Name Priority Date/Time Associated Diagnosis Comments OUTSIDE LAB Routine 03/27/2023 documented in this encounter Results * OUTSIDE LAB (03/27/2023) Derrell Hurst MD LAB documented in this encounter Visit Diagnoses Not on filedocumented in this encounter Care Teams Haul Cane Brakeman Relationship Specialty Start Date End Date Josette Crandall MD [address] [place] [address] PCP - General Internal Medicine 03/29/23 07/25/23 [facility], Pcp [address] [place] [address] PCP - General Internal Medicine 07/26/23 documented as of this encounter
--- OUTSIDE RECORDS SUMMARY | 2024-10-01 12:57 | XMS_ITS | Encounter Summary ---
Author Organization [facility] Address [address] [place] [address] Care Team Providers Care Optical Manager Name Role Phone Derrell Hurst MD Primary Care Provider Derrell Schulte MD Primary Care Provider Glory Ho MD Primary Care Prov ider [facility], Pcp Primary Care Provider Josette Bowser MD Primary Care Provider [phone] [facility], Pcp Primary Care Provider Jamar leigh Encounter Details Date Type Department Care Team Description 10/18/2018 Supervisor Screen Making Report Medical Records [address] [place], [place] [id number] Adria Thornton Social History Tobacco Use Types [...] on filedocumented in this encounter Care Teams Optical Manager Relationship Specialty Start Date End Date Derrell Hurst MD PCP - General 10/03/07 06/24/21 Derrell Hurst MD PCP - General Internal Medicine 06/25/21 09/05/21 Glory Almaguer MD [address] [place] [address] PCP - General Internal Medicine 09/06/21 09/15/22 [facility], Pcp [address] [place] [address] PCP - General Internal Medicine 09/16/22 03/28/23 Josette Crandall MD [address] [place] [address] PCP - General Internal Medicine 03/29/23 07/25/23 [facility], Pcp [address] [place], [place] [phone] PCP - General Internal Medicine 07/26/23 documented as of this encounter
--- OUTSIDE RECORDS SUMMARY | 2024-10-01 12:57 | XMS_ITS | Encounter Summary ---
Author Organization [facility] Address [address] [place] [address] Care Team Providers Care Record Press Operator Name Role Phone Derrell Hurst MD Primary Care Provider Derrell Schulte MD Primary Care Provider Glory Ho MD Primary Care Prov ider [facility], Pcp Primary Care Provider Unavailabl e Josette Crandall MD Primary Care Provider [phone] [facility], Pcp Primary Care Provider Unavailabl e Reason for Visit * Reason Onset Date Comments LAB WORK 06/12/2020 Encounter Details Date Type Department Care Team Description 06/12/[address] [address] Derrell Hurst MD LAB WORK Social History Tobacco Use Types Packs/Day Years [...] encounter Miscellaneous Notes * Telephone Encounter - Varsha Hays R.N. - 06/12/2020 4:32 PM EDT Melany- I do not know the next step for this patient. She had her ct. Her symptoms continue. Should we refer her to GI? I have pended a referral if you agree * Telephone Encounter - Varsha Hays R.N. - 06/12/2020 4:22 PM EDT Called Divina- first time she answered and said hello and then hung up. Second time I called and left a message * Telephone Encounter - [facility] C.M.AVinh - 06/12/2020 3:40 PM EDT Called pt and gave results of ct scan. States she has trouble keeping food down, stomach pains and cramps along with diarrhea. Would like to speak to nurse an see if sh needs to come in. * Telephone Encounter - Shelby Crow - 06/12/2020 3:17 PM EDT Caller requesting call back from provider: Is the caller the patient? YES If caller is not the patient, what is the callers name? N/A Callers relationship to patient? N/A If person calling is not the patient themselves, is there a verbal release in FYI or permanent comments for this person: NO Reason for call back: Patient is calling to find out the results of their ct scan Caller offered to speak with the nurse for assistance: YES Response: Patient offered to speak with nurse for assistance and patient agreed. Message forwarded to nurse. documented in this encounter Plan of Treatment Not on file documented as of this encounter Visit Diagnoses Not on filedocumented in this encounter Care Teams Record Press Operator Relationship Specialty Start Date End Date Derrell Hurst MD PCP - General 10/03/07 06/24/21 Derrell Hurst MD PCP - General Internal Medicine 06/25/21 09/05/21 Glory Almaguer MD [address] [place] [address] PCP - General Internal Medicine 09/06/21 09/15/22 [facility], Pcp [address] [place] [address] PCP - General Internal Medicine 09/16/22 03/28/23 Josette Crandall MD [address] [place] [address] PCP - General Internal Medicine 03/29/23 07/25/23 [facility], Pcp [address] [place], [place] [phone] PCP - General Internal Medicine 07/26/23 documented as of this encounter
--- OUTSIDE RECORDS SUMMARY | 2024-10-01 12:57 | XMS_ITS | Encounter Summary ---
Author Organization [facility] Address [address] [place] [address] Care Team Providers Care Sequencing Machine Operator Name Role Phone Derrell Hurst MD Primary Care Provider Derrell Schulte MD Primary Care Provider Glory Ho MD Primary Care Prov ider [facility], Pcp Primary Care Provider UnavailJosette Klein MD Primary Care Provider [phone] [facility], Pcp Primary Care Provider Jamar e Encounter Details Date Type Department Care Team Description 06/02/2018 Threader Operator Report Medical Records [address] [place], [place] [id number] Dilshad Gaona MD Social History Tobacco Use [...] on filedocumented in this encounter Care Teams Sequencing Machine Operator Relationship Specialty Start Date End Date Derrell Hurst MD PCP - General 10/03/07 06/24/21 Derrell Hurst MD PCP - General Internal Medicine 06/25/21 09/05/21 Glory Almaguer MD [address] [place] [address] PCP - General Internal Medicine 09/06/21 09/15/22 [facility], Pcp [address] [place] [address] PCP - General Internal Medicine 09/16/22 03/28/23 Josette Crandall MD [address] [place] [address] PCP - General Internal Medicine 03/29/23 07/25/23 [facility], Pcp [address] [place] [address] PCP - General Internal Medicine 07/26/23 documented as of this encounter
--- OUTSIDE RECORDS SUMMARY | 2024-10-01 12:57 | XMS_ITS | Encounter Summary ---
Author Organization [facility] Address [address] [place] [address] Care Team Providers Care Manager Hospital Name Role Phone Derrell Hurst MD Primary Care Provider Derrell Schulte MD Primary Care Provider Glory Ho MD Primary Care Prov ider [facility], Pcp Primary Care Provider Josette Bowser MD Primary Care Provider [phone] [facility], Pcp Primary Care Provider Jamar leigh Encounter Details Date Type Department Care Team Description 07/19/2018 Behavioral Consultant Report Medical Records [address] [place], [place] [id number] Jose Nazario MD Social History Tobacco Use [...] filedocumented in this encounter Care Teams Manager Hospital Relationship Specialty Start Date End Date Derrell Hurst MD PCP - General 10/03/07 06/24/21 Derrell Hurst MD PCP - General Internal Medicine 06/25/21 09/05/21 Glory Almaguer MD [address] [place] [address] PCP - General Internal Medicine 09/06/21 09/15/22 [facility], Pcp [address] [place] [address] PCP - General Internal Medicine 09/16/22 03/28/23 Josette Crandall MD [address] [place] [address] PCP - General Internal Medicine 03/29/23 07/25/23 [facility], Pcp [address] [place] [address] PCP - General Internal Medicine 07/26/23 documented as of this encounter
--- OUTSIDE RECORDS SUMMARY | 2024-10-01 12:57 | XMS_ITS | Encounter Summary ---
Author Organization [facility] Address [address] [place] [address] Care Team Providers Care Program Aide Name Role Phone Derrell Hurst MD Primary Care Provider Derrell Schulte MD Primary Care Provider Glory Ho MD Primary Care Prov ider [facility], Pcp Primary Care Provider Josette Bowser MD Primary Care Provider [phone] [facility], Pcp Primary Care Provider Jamar leigh Encounter Details Date Type Department Care Team Description 08/24/2018 Hospital Medical Records [address] [place], [place] [id number] Chanel Crandall Social History Tobacco Use Types [...] on filedocumented in this encounter Care Teams Program Aide Relationship Specialty Start Date End Date Derrell Hurst MD PCP - General 10/03/07 06/24/21 Derrell Hurst MD PCP - General Internal Medicine 06/25/21 09/05/21 Glory Almaguer MD [address] [place] [address] PCP - General Internal Medicine 09/06/21 09/15/22 [facility], Pcp [address] [place] [address] PCP - General Internal Medicine 09/16/22 03/28/23 Josette Crandall MD [address] [place] [address] PCP - General Internal Medicine 03/29/23 07/25/23 [facility], Pcp [address] [place] [address] PCP - General Internal Medicine 07/26/23 documented as of this encounter
--- OUTSIDE RECORDS SUMMARY | 2024-10-01 12:57 | XMS_ITS | Encounter Summary ---
Author Organization [facility] Address [address] [place] [address] Care Team Providers Care Disability Advocate Name Role Phone Derrell Hurst MD Primary Care Provider Derrell Schulte MD Primary Care Provider Glory Ho MD Primary Care Prov ider [facility], Pcp Primary Care Provider Unavailabl e Josette Crandall MD Primary Care Provider [phone] [facility], Pcp Primary Care Provider Unavailabl e Reason for Visit * Reason Onset Date Comments REFERRAL 07/12/2018 Encounter Details Date Type Department Care Team Description 07/12/2018 Telephone Vascular Surgery - [address] [place] [phone] Natanael José MD REFERRAL Social History [...] was given * Telephone Encounter - Elisabeth Carter - 07/30/2018 1:44 PM EDT Pt Is wondering if there was a appt Scheduled with dr hooper * Telephone Encounter - Loretta Dillon M.A. - 07/12/2018 10:23 AM EDT PT HAS BLUE CROSS OF IN, LOOKING FOR AN APPT TO DR VANN. WE DON'T TAKE THIS INSURANCE FOR SPECIALPROCEDURES documented in this encounter Plan of Treatment Not on file documented as of this encounter Visit Diagnoses Not on filedocumented in this encounter Care Teams Disability Advocate Relationship Specialty Start Date End Date Derrell Hurst MD PCP - General 10/03/07 06/24/21 Derrell Hurst MD PCP - General Internal Medicine 06/25/21 09/05/21 Glory Almaguer MD [address] [place] [address] PCP - General Internal Medicine 09/06/21 09/15/22 [facility], Pcp [address] [place] [address] PCP - General Internal Medicine 09/16/22 03/28/23 Josette Crandall MD [address] [place] [address] PCP - General Internal Medicine 03/29/23 07/25/23 [facility], Pcp [address] [place] [address] PCP - General Internal Medicine 07/26/23 documented as of this encounter
--- OUTSIDE RECORDS SUMMARY | 2024-10-01 12:57 | XMS_ITS | Encounter Summary ---
Author Organization [facility] Address [address] [place] [address] Care Team Providers Care Tube Handler Name Role Phone [facility], Pcp Primary Care Provider Josette Bowser MD Primary Care Provider [facility], Pcp Primary Care Provider Jamar leigh Encounter Details Date Type Department Care Team Description 12/21/2022 Quitline Counselor Report Medical Records [address] [place] [address] Abstract, Provider Social History Tobacco Use Types [...] on filedocumented in this encounter Care Teams Tube Handler Relationship Specialty Start Date End Date [facility], Pcp PCP - General Internal Medicine 09/16/22 03/28/23 oJsette Crandall MD [address] [place] [address] PCP - General Internal Medicine 03/29/23 07/25/23 [facility], Pcp PCP - General Internal Medicine 07/26/23 documented as of this encounter
--- OUTSIDE RECORDS SUMMARY | 2024-10-01 12:57 | XMS_ITS | Encounter Summary ---
Author Organization [facility] Address [address] [place] [address] Care Team Providers Care Technical Publications Writer Name Role Phone [facility], Pcp Primary Care Provider Josette Bowser MD Primary Care Provider [phone] [facility], Pcp Primary Care Provider Jamar leigh Encounter Details Date Type Department Care Team Description 02/14/2023 Wire Weaving Loom Setter Report Medical Records [address] [place] [address] Abstract, Provider Social History Tobacco Use Types [...] on filedocumented in this encounter Care Teams Technical Publications Writer Relationship Specialty Start Date End Date [facility], Pcp PCP - General Internal Medicine 09/16/22 03/28/23 Josette Crandall MD [address] [place] [address] PCP - General Internal Medicine 03/29/23 07/25/23 [facility], Pcp PCP - General Internal Medicine 07/26/23 documented as of this encounter
--- OUTSIDE RECORDS SUMMARY | 2024-10-01 12:57 | XMS_ITS | Encounter Summary ---
Author Organization [facility] Address [address] [place] [address] Care Team Providers Care Evaporator Supervisor Name Role Phone Derrell Hurst MD Primary Care Provider Derrell Schulte MD Primary Care Provider Glory Ho MD Primary Care Prov ider [facility], Pcp Primary Care Provider Josette Bowser MD Primary Care Provider [phone] [facility], Pcp Primary Care Provider Jamar leigh Encounter Details Date Type Department Care Team Description 01/16/2020 Medicare Sales Executive Report Medical Records [address] [place] [address] Social History Tobacco Use Types Packs/Day Years [...] on filedocumented in this encounter Care Teams Evaporator Supervisor Relationship Specialty Start Date End Date Derrell Hurst MD PCP - General 10/03/07 06/24/21 Derrell Hurst MD PCP - General Internal Medicine 06/25/21 09/05/21 Glory Almaguer MD [address] [place] [address] PCP - General Internal Medicine 09/06/21 09/15/22 [facility], Pcp [address] [place] [address] PCP - General Internal Medicine 09/16/22 03/28/23 Josette Crandall MD [address] [place], [place] [phone] PCP - General Internal Medicine 03/29/23 07/25/23 [facility], Pcp [address] [place] [address] PCP - General Internal Medicine 07/26/23 documented as of this encounter
--- OUTSIDE RECORDS SUMMARY | 2024-10-01 12:57 | XMS_ITS | Encounter Summary ---
Author Organization [facility] Address [address] [place] [address] Care Team Providers Care Nurse Practitioner Adult Name Role Phone [facility], Pcp Primary Care Provider Josette Bowser MD Primary Care Provider [phone] [facility], Pcp Primary Care Provider Jamar leigh Encounter Details Date Type Department Care Team Description 02/09/2023 Recreation Specialist Report Medical Records [address] [place] [address] Lamont Cardoso Social History Tobacco Use Types [...] on filedocumented in this encounter Care Teams Nurse Practitioner Adult Relationship Specialty Start Date End Date Community, Pcp PCP - General Internal Medicine 09/16/22 03/28/23 Josette Crandall MD [address] [place] [address] PCP - General Internal Medicine 03/29/23 07/25/23 [facility], Pcp PCP - General Internal Medicine 07/26/23 documented as of this encounter
--- OUTSIDE RECORDS SUMMARY | 2024-10-01 12:57 | XMS_ITS | Encounter Summary ---
Author Organization [facility] Address [address] [place] [address] Care Team Providers Care Maintenance Superintendent Name Role Phone Derrell Hurst MD Primary Care Provider Derrell Schulte MD Primary Care Provider Glory Ho MD Primary Care Prov ider [facility], Pcp Primary Care Provider UnavailJosette Klein MD Primary Care Provider [phone] [facility], Pcp Primary Care Provider Unavaillashay e Encounter Details Date Type Department Care Team Description 06/04/2018 Refill Adult Medicine [address] [id number] Derrell Hurst MD Social History Tobacco Use [...] filedocumented in this encounter Care Teams Maintenance Superintendent Relationship Specialty Start Date End Date Derrell Hurst MD PCP - General 10/03/07 06/24/21 Derrell Hurst MD PCP - General Internal Medicine 06/25/21 09/05/21 Glory Almaguer MD [address] [place] [phone] PCP - General Internal Medicine 09/06/21 09/15/22 [facility], Pcp [address] [place] [address] PCP - General Internal Medicine 09/16/22 03/28/23 Josette Crandall MD [address] [place] [address] PCP - General Internal Medicine 03/29/23 07/25/23 [facility], Pcp [address] [place] [address] PCP - General Internal Medicine 07/26/23 documented as of this encounter
--- OUTSIDE RECORDS SUMMARY | 2024-10-01 12:58 | XMS_ITS | Encounter Summary ---
Author Organization [facility] Address [address] [place] [address] Care Team Providers Care Environmental Manager Name Role Phone Derrell Hurst MD Primary Care Provider Derrell Schulte MD Primary Care Provider Glory Ho MD Primary Care Prov ider [facility], Pcp Primary Care Provider Josette Bowser MD Primary Care Provider [phone] [facility], Pcp Primary Care Provider Jamar leigh Encounter Details Date Type Department Care Team Description 11/20/2019 [facility] Medical Records [address] [place] [address] Scot Beyer Social History Tobacco Use Types [...] filedocumented in this encounter Care Teams Environmental Manager Relationship Specialty Start Date End Date Derrell Hurst MD PCP - General 10/03/07 06/24/21 Derrell Hurst MD PCP - General Internal Medicine 06/25/21 09/05/21 Glory Almaguer MD [address] [place] [address] PCP - General Internal Medicine 09/06/21 09/15/22 [facility], Pcp [address] [place] [address] PCP - General Internal Medicine 09/16/22 03/28/23 Josette Crandall MD [address] [place], [place] [phone] PCP - General Internal Medicine 03/29/23 07/25/23 [facility], Pcp [address] [place] [address] PCP - General Internal Medicine 07/26/23 documented as of this encounter
--- OUTSIDE RECORDS SUMMARY | 2024-10-01 12:58 | XMS_ITS | Encounter Summary ---
Author Organization [facility] Address [address] [place] [address] Care Team Providers Care Foreign Language Interpreter Name Role Phone [facility], Pcp Primary Care Provider Josette Bowser MD Primary Care Provider [phone] [facility], Pcp Primary Care Provider Jamar leigh Encounter Details Date Type Department Care Team Description 10/03/2022 Retail Merchandiser Report Medical Records [address] [place] [address] Abstract, Provider Social History Tobacco Use Types [...] on filedocumented in this encounter Care Teams Foreign Language Interpreter Relationship Specialty Start Date End Date Community, Pcp PCP - General Internal Medicine 09/16/22 03/28/23 Josette Crandall MD [address] [place] [address] PCP - General Internal Medicine 03/29/23 07/25/23 [facility], Pcp PCP - General Internal Medicine 07/26/23 documented as of this encounter
--- OUTSIDE RECORDS SUMMARY | 2024-10-01 12:58 | XMS_ITS | Encounter Summary ---
Author Organization [facility] Address [address] [place] [address] Care Team Providers Care Conductor Freight Name Role Phone Derrell Hurst MD Primary Care Provider Derrell Schulte MD Primary Care Provider Glory Ho MD Primary Care Prov ider [facility], Pcp Primary Care Provider UnavailJosette Klein MD Primary Care Provider [phone] [facility], Pcp Primary Care Provider Jamar e Encounter Details Date Type Department Care Team Description 12/14/2017 Machine Binder Stripper Report Medical Records [address] [place], [place] [phone] Dilshad Gaona MD Social History Tobacco Use [...] on filedocumented in this encounter Care Teams Conductor Freight Relationship Specialty Start Date End Date Derrell Hurst MD PCP - General 10/03/07 06/24/21 Derrell Hurst MD PCP - General Internal Medicine 06/25/21 09/05/21 Glory Almaguer MD [address] [place] [address] PCP - General Internal Medicine 09/06/21 09/15/22 [facility], Pcp [address] [place] [address] PCP - General Internal Medicine 09/16/22 03/28/23 Josette Crandall MD [address] [place] [address] PCP - General Internal Medicine 03/29/23 07/25/23 [facility], Pcp [address] [place] [address] PCP - General Internal Medicine 07/26/23 documented as of this encounter
--- OUTSIDE RECORDS SUMMARY | 2024-10-01 12:58 | XMS_ITS | Encounter Summary ---
Author Organization [facility] Address [address] [place] [address] Care Team Providers Care Art Therapy Specialist Name Role Phone Derrell Hurst MD Primary Care Provider Derrell Schulte MD Primary Care Provider Glory Ho MD Primary Care Prov ider [facility], Pcp Primary Care Provider UnavailJosette Klein MD Primary Care Provider [phone] [facility], Pcp Primary Care Provider Jamar leigh Encounter Details Date Type Department Care Team Description 02/11/2011 Hospital Medical Records [address] [place] [address] Kerry Hansen MD [address] [place] [address] [address] [place] [address] Social History Tobacco Use Types Packs/Day Years [...] on filedocumented in this encounter Care Teams Art Therapy Specialist Relationship Specialty Start Date End Date Derrell Hurst MD PCP - General 10/03/07 06/24/21 Derrell Hurst MD PCP - General Internal Medicine 06/25/21 09/05/21 Glory Almaguer MD [address] [place] [address] PCP - General Internal Medicine 09/06/21 09/15/22 [facility], Pcp [address] [place] [address] PCP - General Internal Medicine 09/16/22 03/28/23 Josette Crandall MD [address] [place] [address] PCP - General Internal Medicine 03/29/23 07/25/23 [facility], Pcp [address] [place] [address] PCP - General Internal Medicine 07/26/23 documented as of this encounter
--- OUTSIDE RECORDS SUMMARY | 2024-10-01 12:58 | XMS_ITS | Encounter Summary ---
Author Organization [facility] Address [address] [place] [address] Care Team Providers Care Door Liner Helper Name Role Phone Glory Almaguer MD Primary Care Prov ider [facility], Pcp Primary Care Provider Unavailabl e Josette Crandall MD Primary Care Provider [phone] [facility], Pcp Primary Care Provider Unavailabl e Encounter Details Date Type Department Care Team Description 02/16/2022 SC[facility] [address] [facility] [address] [place] [address] Lizy Perez APRN Social History Tobacco Use Types Packs/Day Years [...] suspected to have Coronavirus/COVID-19? No / Unsure 02/16/2022 9:28 AM EST documented as of this encounter Plan of Treatment Not on file documented as of this encounter Visit Diagnoses Not on filedocumented in this encounter Care Teams Door Liner Helper Relationship Specialty Start Date End Date Glory Almaguer MD [address] [place] [phone] PCP - General Internal Medicine 09/06/21 09/15/22 [facility], Pcp [address] [place] [address] PCP - General Internal Medicine 09/16/22 03/28/23 Josette Crandall MD [address] [place] [address] PCP - General Internal Medicine 03/29/23 07/25/23 [facility], Pcp [address] [place] [address] PCP - General Internal Medicine 07/26/23 documented as of this encounter
--- OUTSIDE RECORDS SUMMARY | 2024-10-01 12:58 | XMS_ITS | Encounter Summary ---
Author Organization [facility] Address [address] [place] [address] Care Team Providers Care Electro Mechanical Designer Name Role Phone Derrell Hurst MD Primary Care Provider Derrell Schulte MD Primary Care Provider Glory Ho MD Primary Care Prov ider [facility], Pcp Primary Care Provider Unavailabl e Josette Crandall MD Primary Care Provider [phone] [facility], Pcp Primary Care Provider Unavailabl e Reason for Visit * Reason Onset Date Comments Faxed Order 12/03/2019 Encounter Details Date Type Department Care Team Description 12/03/[address] [address] Derrell Hurst MD Faxed Order Social History [...] 12/03/2019 1:05 PM EDT Fax orders from [facility], please sign and fax back. documented in this encounter Plan of Treatment Not on file documented as of this encounter Visit Diagnoses Not on filedocumented in this encounter Care Teams Electro Mechanical Designer Relationship Specialty Start Date End Date Derrell Hurst MD PCP - General 10/03/07 06/24/21 Derrell Hurst MD PCP - General Internal Medicine 06/25/21 09/05/21 Glory Almaguer MD [address] [place] [address] PCP - General Internal Medicine 09/06/21 09/15/22 [facility], Pcp [address] [place] [address] PCP - General Internal Medicine 09/16/22 03/28/23 Josette Crandall MD [address] [place] [address] PCP - General Internal Medicine 03/29/23 07/25/23 [facility], Pcp [address] [place] [address] PCP - General Internal Medicine 07/26/23 documented as of this encounter
--- OUTSIDE RECORDS SUMMARY | 2024-10-01 12:58 | XMS_ITS | Encounter Summary ---
Author Organization [facility] Address [address] [place] [address] Care Team Providers Care Cashier And Salesperson Name Role Phone Derrell Hurst MD Primary Care Provider Derrell Schulte MD Primary Care Provider Glory Ho MD Primary Care Prov ider [facility], Pcp Primary Care Provider Josette Bowser MD Primary Care Provider [phone] [facility], Pcp Primary Care Provider Jamar leigh Encounter Details Date Type Department Care Team Description 08/24/2017 Transfer Records Medical Records [address] [place], [place] [id number] Abstract, Provider Social History Tobacco Use Types [...] on filedocumented in this encounter Care Teams Cashier And Salesperson Relationship Specialty Start Date End Date Derrell Hurst MD PCP - General 10/03/07 06/24/21 Derrell Hurst MD PCP - General Internal Medicine 06/25/21 09/05/21 Glory Almaguer MD [address] [place] [address] PCP - General Internal Medicine 09/06/21 09/15/22 [facility], Pcp [address] [place] [address] PCP - General Internal Medicine 09/16/22 03/28/23 Josette Crandall MD [address] [place] [address] PCP - General Internal Medicine 03/29/23 07/25/23 [facility], Pcp [address] [place] [address] PCP - General Internal Medicine 07/26/23 documented as of this encounter
--- OUTSIDE RECORDS SUMMARY | 2024-10-01 12:58 | XMS_ITS | Encounter Summary ---
Author Organization [facility] Address [address] [place] [address] Care Team Providers Care Computer Laboratory Technician Name Role Phone Derrell Hurst MD Primary Care Provider Derrell Schulte MD Primary Care Provider Glory Ho MD Primary Care Prov ider [facility], Pcp Primary Care Provider Josette Bowser MD Primary Care Provider [phone] [facility], Pcp Primary Care Provider Jamar leigh Encounter Details Date Type Department Care Team Description 11/20/2019 [facility] Medical Records [address] [place] [address] Scot Beyer Social History Tobacco Use Types [...] on filedocumented in this encounter Care Teams Computer Laboratory Technician Relationship Specialty Start Date End Date Derrell Hurst MD PCP - General 10/03/07 06/24/21 Derrell Hurst MD PCP - General Internal Medicine 06/25/21 09/05/21 Glory Almaguer MD [address] [place] [address] PCP - General Internal Medicine 09/06/21 09/15/22 [facility], Pcp [address] [place] [address] PCP - General Internal Medicine 09/16/22 03/28/23 Josette Crandall MD [address] [place], [place] [phone] PCP - General Internal Medicine 03/29/23 07/25/23 [facility], Pcp [address] [place] [address] PCP - General Internal Medicine 07/26/23 documented as of this encounter
--- OUTSIDE RECORDS SUMMARY | 2024-10-01 12:58 | XMS_ITS | Encounter Summary ---
Author Organization [facility] Address [address] [place] [address] Care Team Providers Care Women'S Lacrosse Coach Name Role Phone Derrell Hurst MD Primary Care Provider Derrell Schulte MD Primary Care Provider Glory Ho MD Primary Care Prov ider [facility], Pcp Primary Care Provider Josette Bowser MD Primary Care Provider [phone] [facility], Pcp Primary Care Provider Jamar leigh Encounter Details Date Type Department Care Team Description 12/15/2009 Live In Housekeeper Report Medical Records [address] [place], [place] [id number] Juanjose Almendarez MD, MD Social History Tobacco [...] on filedocumented in this encounter Care Teams Women'S Lacrosse Coach Relationship Specialty Start Date End Date Derrell Hurst MD PCP - General 10/03/07 06/24/21 Derrell Hurst MD PCP - General Internal Medicine 06/25/21 09/05/21 Glory Almaguer MD [address] [place] [address] PCP - General Internal Medicine 09/06/21 09/15/22 [facility], Pcp [address] [place] [address] PCP - General Internal Medicine 09/16/22 03/28/23 Josette Crandall MD [address] [place] [address] PCP - General Internal Medicine 03/29/23 07/25/23 [facility], Pcp [address] [place] [address] PCP - General Internal Medicine 07/26/23 documented as of this encounter
--- OUTSIDE RECORDS SUMMARY | 2024-10-01 12:58 | XMS_ITS | Encounter Summary ---
Author Organization [facility] Address [address] [place] [address] Care Team Providers Care Framing Mill Supervisor Name Role Phone Derrell Hurst MD Primary Care Provider Derrell Schulte MD Primary Care Provider Glory Ho MD Primary Care Prov ider [facility], Pcp Primary Care Provider UnavailJosette Klein MD Primary Care Provider [facility], Pcp Primary Care Provider Jamar e Encounter Details Date Type Department Care Team Description 02/15/2010 Roustabout Crew Leader Report Medical Records [address] [place] [address] Kerry Hansen MD [address] [place] [address] [address] [place] [address] Social History Tobacco Use Types Packs/Day Years [...] on filedocumented in this encounter Care Teams Framing Mill Supervisor Relationship Specialty Start Date End Date Derrell Hurst MD PCP - General 10/03/07 06/24/21 Derrell Hurst MD PCP - General Internal Medicine 06/25/21 09/05/21 Glory Almaguer MD [address] [place] [address] PCP - General Internal Medicine 09/06/21 09/15/22 [facility], Pcp [address] [place] [address] PCP - General Internal Medicine 09/16/22 03/28/23 Josette Crandall MD [address] [place] [address] PCP - General Internal Medicine 03/29/23 07/25/23 [facility], Pcp [address] [place] [address] PCP - General Internal Medicine 07/26/23 documented as of this encounter
--- OUTSIDE RECORDS SUMMARY | 2024-10-01 12:58 | XMS_ITS | Encounter Summary ---
Author Organization [facility] Address [address] [place] [address] Care Team Providers Care Combination Presser Name Role Phone Derrell Hurst MD Primary Care Provider Derrell Schulte MD Primary Care Provider Glory Ho MD Primary Care Prov ider [facility], Pcp Primary Care Provider Josette Bowser MD Primary Care Provider [phone] [facility], Pcp Primary Care Provider Jamar leigh Encounter Details Date Type Department Care Team Description 09/25/2019 Fire Boss Report Medical Records [address] [place] [address] Amber Fink Social History Tobacco Use Types [...] on filedocumented in this encounter Care Teams Combination Presser Relationship Specialty Start Date End Date Derrell Hurst MD PCP - General 10/03/07 06/24/21 Derrell Hurst MD PCP - General Internal Medicine 06/25/21 09/05/21 Glory Almaguer MD [address] [place] [address] PCP - General Internal Medicine 09/06/21 09/15/22 [facility], Pcp [address] [place] [address] PCP - General Internal Medicine 09/16/22 03/28/23 Josette Crandall MD [address] [place] [address] PCP - General Internal Medicine 03/29/23 07/25/23 [facility], Pcp [address] [place] [address] PCP - General Internal Medicine 07/26/23 documented as of this encounter
--- OUTSIDE RECORDS SUMMARY | 2024-10-01 12:58 | XMS_ITS | Encounter Summary ---
Author Organization [facility] Address [address] [place] [address] Care Team Providers Care Ice Guard Inspector Name Role Phone Glory Almaguer MD Primary Care Prov ider [facility], Pcp Primary Care Provider Unavailabl e Josette Crandall MD Primary Care Provider [phone] [facility], Pcp Primary Care Provider Unavailabl e Encounter Details Date Type Department Care Team Description 07/25/2022 Data Capture Clerk Report Medical Records [address] [place] [address] Abstract, Provider Social History Tobacco Use Types [...] on filedocumented in this encounter Care Teams Ice Guard Inspector Relationship Specialty Start Date End Date Glory Almaguer MD [address] [place] [address] PCP - General Internal Medicine 09/06/21 09/15/22 [facility], Pcp [address] [place] [address] PCP - General Internal Medicine 09/16/22 03/28/23 Josette Crandall MD [address] [place] [address] [phone] PCP - General Internal Medicine 03/29/23 07/25/23 [facility], [address] [address] PCP - General Internal Medicine 07/26/23 documented as of this encounter
--- OUTSIDE RECORDS SUMMARY | 2024-10-01 12:58 | XMS_ITS | Encounter Summary ---
Author Organization [facility] Address [address] [place] [address] Care Team Providers Care Business Programmer Name Role Phone Derrell Hurst MD Primary Care Provider Derrell Schulte MD Primary Care Provider Glory Ho MD Primary Care Prov ider [facility], Pcp Primary Care Provider Josette Bowser MD Primary Care Provider [phone] [facility], Pcp Primary Care Provider Jamar leigh Encounter Details Date Type Department Care Team Description 03/11/2019 Superintendent Pressure Report Medical Records [address] [place] [address] Soledad Cabrera MD Social History Tobacco Use [...] on filedocumented in this encounter Care Teams Business Programmer Relationship Specialty Start Date End Date Derrell Hurst MD PCP - General 10/03/07 06/24/21 Derrell Hurst MD PCP - General Internal Medicine 06/25/21 09/05/21 Glory Almaguer MD [address] [place] [address] PCP - General Internal Medicine 09/06/21 09/15/22 [facility], Pcp [address] [place] [address] PCP - General Internal Medicine 09/16/22 03/28/23 Josette Crandall MD [address] [place] [address] PCP - General Internal Medicine 03/29/23 07/25/23 [facility], Pcp [address] [place] [address] PCP - General Internal Medicine 07/26/23 documented as of this encounter
--- OUTSIDE RECORDS SUMMARY | 2024-10-01 12:58 | XMS_ITS | Encounter Summary ---
Author Organization [facility] Address [address] [place] [address] Care Team Providers Care Early Childhood Educator Aide Name Role Phone Derrell Hurst MD Primary Care Provider Derrell Schulte MD Primary Care Provider Glory oH MD Primary Care Prov ider [facility], Pcp Primary Care Provider Unavailabl e Josette Crandall MD Primary Care Provider [phone] [facility], Pcp Primary Care Provider Unavailabl e Reason for Visit * Reason Onset Date Comments TEST RESULTS 01/24/2018 Encounter Details Date Type Department Care Team Description 01/24/2018 Telephone General Surgery - [address] [place] [address] Corinne Enrique MD [address] [place] [address] [phone] TEST RESULTS Social History Tobacco Use Types [...] on filedocumented in this encounter Care Teams Early Childhood Educator Aide Relationship Specialty Start Date End Date Derrell Hurst MD PCP - General 10/03/07 06/24/21 Derrell Hurst MD PCP - General Internal Medicine 06/25/21 09/05/21 Glory Almaguer MD [address] [place] [address] PCP - General Internal Medicine 09/06/21 09/15/22 [facility], Pcp [address] [place] [address] PCP - General Internal Medicine 09/16/22 03/28/23 Josette Crandall MD [address] [place] [address] PCP - General Internal Medicine 03/29/23 07/25/23 [facility], Pcp [address] [place] [address] PCP - General Internal Medicine 07/26/23 documented as of this encounter
--- OUTSIDE RECORDS SUMMARY | 2024-10-01 12:58 | XMS_ITS | Encounter Summary ---
Author Organization [facility] Address [address] [place] [address] Care Team Providers Care Head Host/Hostess Name Role Phone Derrell Hurst MD Primary Care Provider Derrell Schulte MD Primary Care Provider Glory Ho MD Primary Care Prov ider [facility], Pcp Primary Care Provider Unavailabl e Josette Crandall MD Primary Care Provider [phone] [facility], Pcp Primary Care Provider Unavailabl e Reason for Visit * Reason Onset Date Comments Call-returning From Provider 03/26/2019 Encounter Details Date Type Department Care Team Description 03/26/2019 Telephone Adult Medicine [address] [address] Carlos Enrique PA [address] [place] [address] Call-returning From Provider Social History Tobacco Use Types Packs/Day [...] Miscellaneous Notes * Telephone Encounter - Keeley De La Garza M.A. - 03/26/2019 9:47 AM EST Read message to Pt. She understands. * Telephone Encounter - CAROLINA Soto - 03/26/2019 9:08 AM EST Recent BMP showed mildly low sodium and calcium. Please have her return to the office this week forrepeat testing. * Telephone Encounter - Cheyenne Scott M.A. - 03/26/2019 8:56 AM EST Carlos FIGUEROA did you call this pt ? * Telephone Encounter - Martha Oneill - 03/26/2019 8:52 AM EST Patient states CARLOS ENRQIUE called her. documented in this encounter Plan of Treatment Not on file documented as of this encounter Results * (ABNORMAL) BASIC METABOLIC PANEL (03/27/2019 9:19 AM EST) GLUCOSE 106(H) 70 - 100 mg/dL 03/27/2019 1:05 PM EST [facility] Comment:Reference range appl icable to fasting specimens only Blood Urea Nitrogen 18 5 - 25 mg/dL 03/27/2019 1:05 PM EST [facility] CREAT 0.60 0.5 - 1.1 mg/dL 03/27/2019 1:05 PM EST [facility] GLOMERULAR FILTRATION RATE > 60 03/27/2019 1:05 PM EST [facility] Comment: If patient is -Belarusian, multiply result by 1.21 Chronic Kidney Disease: < 60 ml/min/1.73 square meters Kidney Failure: < 15 ml/min/1.73 square meters NA 138 135 - 145 mEq/L 03/27/2019 1:05 PM EST [facility] K 4.9 3.5 - 5.5 mmol/L 03/27/2019 1:05 PM EST [facility] CL 103 96 - 110 mmol/L 03/27/2019 1:05 PM EST [facility] CARBON DIOXIDE (CO2) 29 21 - 32 mmol/L 03/27/2019 1:05 PM EST [facility] ANION GAP 6 3 - 11 03/27/2019 1:05 PM EST [facility] CALCIUM 9.2 8.5 - 10.5 mg/dL 03/27/2019 1:05 PM EST [facility] 03/27/2019 9:19 AM EST 03/27/2019 9:20 AM EST Carlos FIGUEROA [facility] documented in this encounter Visit Diagnoses Diagnosis Low serum sodium- Primary Low calcium levels Hypocalcemia documented in this encounter Care Teams Head Host/Hostess Relationship Specialty Start Date End Date Derrell Hurst MD PCP - General 10/03/07 06/24/21 Derrell Hurst MD PCP - General Internal Medicine 06/25/21 09/05/21 Glory Almaguer MD [address] [place] [address] PCP - General Internal Medicine 09/06/21 09/15/22 [facility], Pcp [address] [place] [address] PCP - General Internal Medicine 09/16/22 03/28/23 Josette Crandall MD [address] [place] [address] PCP - General Internal Medicine 03/29/23 07/25/23 [facility], Pcp [address] [place] [address] PCP - General Internal Medicine 07/26/23 documented as of this encounter
--- OUTSIDE RECORDS SUMMARY | 2024-10-01 12:58 | XMS_ITS | Encounter Summary ---
Author Organization [facility] Address [address] [place] [address] Care Team Providers Care Tarper Name Role Phone Derrell Hurst MD Primary Care Provider Derrell Schulte MD Primary Care Provider Glory Ho MD Primary Care Prov ider [facility], Pcp Primary Care Provider Unavailabl e Josette Crandall MD Primary Care Provider [phone] [facility], Pcp Primary Care Provider Unavailabl e Reason for Visit * Reason Onset Date Comments TEST RESULTS 06/12/2020 Encounter Details Date Type Department Care Team Description 06/12/[address] [address] Derrell Hurst MD TEST RESULTS Social History Tobacco Use Types [...] Miscellaneous Notes * Telephone Encounter - Caleb Woods - 06/12/2020 3:11 PM EDT Inform patient: ANY URGENT OR ABNORMAL RESULTS WIILL RESULT IN A CALL BACK TO THE PATIENT KELVIN. SAW MY CHARTMESSAGE LEFT FOR PATIENT AFTER WE GOT OFF THE PHONE. ATTEMPTED TO CALL BACK WITHIN A FEW MINS TO RELAY THE MSG BUT PT DISCONNECTED WITHOUT SAYING ANYTHING AFTER I ASKED FOR ROSANGELA. Type of test: :CT abd Date test was performed: 06/10/20 Where was the test performed: [facility] Who ordered this test?: Melany Grider Is the doctor here today?: NO Can the message wait until the doctor returns?: YES IF PATIENT'S PCP IS NOT IN INSTRUCT PATIENT THAT THEY WILL RECEIVE A CALL BACK WHEN THE PCP IS IN THE OFFICE NEXT. documented in this encounter Plan of Treatment Not on file documented as of this encounter Visit Diagnoses Not on filedocumented in this encounter Care Teams Tarper Relationship Specialty Start Date End Date Derrell Hurst MD PCP - General 10/03/07 06/24/21 Derrell Hurst MD PCP - General Internal Medicine 06/25/21 09/05/21 Glory Almaguer MD [address] [place] [address] PCP - General Internal Medicine 09/06/21 09/15/22 [facility], Pcp [address] [place] [address] PCP - General Internal Medicine 09/16/22 03/28/23 Josette Crandall MD [address] [place] [address] PCP - General Internal Medicine 03/29/23 07/25/23 [facility], Pcp [address] [place] [address] PCP - General Internal Medicine 07/26/23 documented as of this encounter
--- OUTSIDE RECORDS SUMMARY | 2024-10-01 12:58 | XMS_ITS | Encounter Summary ---
Author Organization [facility] Address [address] [place] [address] Care Team Providers Care Route Inspector Name Role Phone Derrell Hurst MD Primary Care Provider Derrell Schulte MD Primary Care Provider Glory Ho MD Primary Care Prov ider [facility], Pcp Primary Care Provider Josette Bowser MD Primary Care Provider [phone] [facility], Pcp Primary Care Provider Jamar leigh Encounter Details Date Type Department Care Team Description 09/15/2010 Car Checker Report Medical Records [address] [place], [place] [id number] Cade Rocha Social History Tobacco Use Types [...] on filedocumented in this encounter Care Teams Route Inspector Relationship Specialty Start Date End Date Derrell Hurst MD PCP - General 10/03/07 06/24/21 Derrell Hurst MD PCP - General Internal Medicine 06/25/21 09/05/21 Glory Almaguer MD [address] [place] [address] PCP - General Internal Medicine 09/06/21 09/15/22 [facility], Pcp [address] [place] [address] PCP - General Internal Medicine 09/16/22 03/28/23 Josette Crandall MD [address] [place] [address] PCP - General Internal Medicine 03/29/23 07/25/23 [facility], Pcp [address] [place] [address] PCP - General Internal Medicine 07/26/23 documented as of this encounter
--- OUTSIDE RECORDS SUMMARY | 2024-10-01 12:58 | XMS_ITS | Encounter Summary ---
Author Organization [facility] Address [address] [place] [address] Care Team Providers Care Stock Preparation Supervisor Name Role Phone Glory Almaguer MD Primary Care Prov ider [facility], Pcp Primary Care Provider Unavailabl e Josette Crandall MD Primary Care Provider [phone] [facility], Pcp Primary Care Provider Unavailabl e Encounter Details Date Type Department Care Team Description 08/15/2022 Water Quality Technician Report Medical Records [address] [place] [address] Abstract, Provider Social History Tobacco Use Types [...] on filedocumented in this encounter Care Teams Stock Preparation Supervisor Relationship Specialty Start Date End Date Glory Almaguer MD [address] [place] [address] PCP - General Internal Medicine 09/06/21 09/15/22 [facility], Pcp [address] [place] [address] PCP - General Internal Medicine 09/16/22 03/28/23 Josette Crandall MD [address] [place] [address] [phone] PCP - General Internal Medicine 03/29/23 07/25/23 [facility], [address] [address] PCP - General Internal Medicine 07/26/23 documented as of this encounter
--- OUTSIDE RECORDS SUMMARY | 2024-10-01 12:58 | XMS_ITS | Encounter Summary ---
Author Organization [facility] Address [address] [place] [address] Care Team Providers Care Gear Machine Operator Name Role Phone Derrell Hurst MD Primary Care Provider Derrell Schulte MD Primary Care Provider Glory Ho MD Primary Care Prov ider [facility], Pcp Primary Care Provider Josette Bowser MD Primary Care Provider [phone] [facility], Pcp Primary Care Provider Jamar leigh Encounter Details Date Type Department Care Team Description 02/28/2019 Senior Enlisted Advisor Report Medical Records [address] [place] [address] Amber Fink Social History Tobacco Use Types [...] on filedocumented in this encounter Care Teams Gear Machine Operator Relationship Specialty Start Date End Date Derrell Hurst MD PCP - General 10/03/07 06/24/21 Derrell Hurst MD PCP - General Internal Medicine 06/25/21 09/05/21 Glory Almaguer MD [address] [place] [address] PCP - General Internal Medicine 09/06/21 09/15/22 [facility], Pcp [address] [place] [address] PCP - General Internal Medicine 09/16/22 03/28/23 Josette Crandall MD [address] [place] [address] PCP - General Internal Medicine 03/29/23 07/25/23 [facility], Pcp [address] [place] [address] PCP - General Internal Medicine 07/26/23 documented as of this encounter
--- OUTSIDE RECORDS SUMMARY | 2024-10-01 12:58 | XMS_ITS | Encounter Summary ---
Author Organization [facility] Address [address] [place] [address] Care Team Providers Care Plate Finisher Name Role Phone Derrell Hurst MD Primary Care Provider Derrell Schulte MD Primary Care Provider Glory Ho MD Primary Care Prov ider [facility], Pcp Primary Care Provider Josette Bowser MD Primary Care Provider [phone] [facility], Pcp Primary Care Provider Jamar leigh Encounter Details Date Type Department Care Team Description 04/18/2016 Dolly Pusher Report Medical Records [address] [place] [address] Soledad Cabrera MD Social History Tobacco Use [...] on filedocumented in this encounter Care Teams Plate Finisher Relationship Specialty Start Date End Date Derrell Hurst MD PCP - General 10/03/07 06/24/21 Derrell Hurst MD PCP - General Internal Medicine 06/25/21 09/05/21 Glory Almaguer MD [address] [place] [address] PCP - General Internal Medicine 09/06/21 09/15/22 [facility], Pcp [address] [place] [address] PCP - General Internal Medicine 09/16/22 03/28/23 Josette Crandall MD [address] [place] [address] PCP - General Internal Medicine 03/29/23 07/25/23 [facility], Pcp [address] [place] [address] PCP - General Internal Medicine 07/26/23 documented as of this encounter
--- OUTSIDE RECORDS SUMMARY | 2024-10-01 12:58 | XMS_ITS | Encounter Summary ---
Author Organization [facility] Address [address] [place] [address] Care Team Providers Care Butcher All Round Name Role Phone Derrell Hurst MD Primary Care Provider Derrell Schulte MD Primary Care Provider Glory Ho MD Primary Care Prov ider [facility], Pcp Primary Care Provider Unavailabl e Josette Crandall MD Primary Care Provider [phone] [facility], Pcp Primary Care Provider Unavailabl e Reason for Visit * Reason Comments E-prescribe Rx Request Encounter Details Date Type Department Care Team Description 04/23/2019 Refill Adult Medicine [address] [phone] Billie Jones MD [address] [place] [address] [phone] E-prescribe Rx Request Social History Tobacco Use [...] Telephone Encounter - Caleb Feng M.A. - 04/24/2019 4:51 PM EDT Faxed to pharmacy * Telephone Encounter - Minoo Sy M.A. - 04/24/2019 3:44 PM EDT Lab Results Component Value Date NA 138 03/27/2019 K 4.9 03/27/2019 CO2 29 03/27/2019 CL 103 03/27/2019 BUN 18 03/27/2019 CREAT 0.60 03/27/2019 GLU 106 03/27/2019 CA 9.2 03/27/2019 GFR > 60 03/27/2019 * Telephone Encounter - Socorro Wheat - 04/23/2019 8:40 AM EDT Patient would like script to be: E-PRESCRIBED/FAXED TO PHARMACY WHEN WAS THE PATIENT'S LAST APPOINTMENT IN ADULT MEDICINE? 03/20/19 WHEN WAS THE LAST TIME THE PATIENT SAW THEIR PCP? 03/12/19 Does patient have an upcoming appointment? Yes 06/11/19 (THE MEDICATION REQUESTED IS ON THE MED [...] N/A Patients current insurance carrier is: Payor: [employer] POS / Plan: FEP STANDARD $25 / Product Type: PPO [id number] documented in this encounter Plan of Treatment Not on file documented as of this encounter Visit Diagnoses Not on filedocumented in this encounter Care Teams Butcher All Round Relationship Specialty Start Date End Date Derrell Hurts MD PCP - General 10/03/07 06/24/21 Derrell Hurst MD PCP - General Internal Medicine 06/25/21 09/05/21 Glory Almaguer MD [address] [place] [address] PCP - General Internal Medicine 09/06/21 09/15/22 [facility], Pcp [address] [place] [address] PCP - General Internal Medicine 09/16/22 03/28/23 Josette Crandall MD [address] [place] [address] PCP - General Internal Medicine 03/29/23 07/25/23 [facility], Pcp [address] [place] [address] PCP - General Internal Medicine 07/26/23 documented as of this encounter
--- OUTSIDE RECORDS SUMMARY | 2024-10-01 12:58 | XMS_ITS | Encounter Summary ---
Author Organization [facility] Address [address] [place] [address] Care Team Providers Care General Foundry Worker Name Role Phone Derrell uHrst MD Primary Care Provider Derrell Schulte MD Primary Care Provider Glory Ho MD Primary Care Prov ider [facility], Pcp Primary Care Provider Unavailabl e Josette Crandall MD Primary Care Provider [phone] [facility], Pcp Primary Care Provider Unavailabl e Reason for Visit * Reason Onset Date Comments Solid Center Winder Feedback 05/16/2017 [facility] Encounter Details Date Type Department Care Team Description 05/16/2017 [place] Adult [address] [address] Derrell Hurst MD Solid Center Winder Feedback ([facility]) Social History Tobacco Use Types [...] on filedocumented in this encounter Care Teams General Foundry Worker Relationship Specialty Start Date End Date Derrell Hurst MD PCP - General 10/03/07 06/24/21 Derrell Hurst MD PCP - General Internal Medicine 06/25/21 09/05/21 Divya Johnson, Glory Cardona MD [address] [place], [place] [phone] PCP - General Internal Medicine 09/06/21 09/15/22 [facility], Pcp [address] [place], [place] [phone] PCP - General Internal Medicine 09/16/22 03/28/23 Josette Crandall MD [address] [place] [address] PCP - General Internal Medicine 03/29/23 07/25/23 [facility], Pcp [address] [place] [address] PCP - General Internal Medicine 07/26/23 documented as of this encounter
--- OUTSIDE RECORDS SUMMARY | 2024-10-01 12:58 | XMS_ITS | Encounter Summary ---
Author Organization [facility] Address [address] [place] [address] Care Team Providers Care Ceiling Insulation Blower Name Role Phone Derrell Hurst MD Primary Care Provider Derrell Schulte MD Primary Care Provider Glory Ho MD Primary Care Prov ider [facility], Pcp Primary Care Provider Unavailabl e Josette Crandall MD Primary Care Provider [phone] [facility], Pcp Primary Care Provider Unavailabl e Reason for Visit * Reason Onset Date Comments medication problems 04/10/2017 Encounter Details Date Type Department Care Team Description 04/10/[address] [address] Derrell Hurst MD medication problems Social History Tobacco Use Types Packs/Day Years [...] Miscellaneous Notes * Telephone Encounter - Varsha Lyons M.A. - 04/10/2017 3:42 PM EST Faxed to pharmacy * Telephone Encounter - Derrell Hurst - 04/10/2017 1:08 PM EST Please set up the med. She may have problems with insurrance for cost but she should be on it * Telephone Encounter - Maria Esther Lofton M.A. - 04/10/2017 11:34 AM EST Called and spoke to patient she believes she was only given 30 days back in February. I called the pharmacy and they have it documented they dispensed her a 90 day supply. There not sure if something was miscalcuated but as far as there inventory and documenation its showing a 90 day supply was given. Please review and advise what you would like to do, patient is saying she only has a few pills left * Telephone Encounter - Maria Esther Lofton M.A. - 04/10/2017 11:00 AM EST Called patient and left vm message to call office back, when patient calls back contact pod [phone] * Telephone Encounter - Jennifer Del Cid - 04/10/2017 8:38 AM EST Who is calling? The patient Name of the medication lisinopril (PRINIVIL,ZESTRIL) 10 MG tablet What is the specific problem or interaction? The pt states she didn't get this script in February [facility] pharmacy, the pharmacy did receive the script and state the pt was given it already the pt cannot get her medication and needs to speak to nurse If the patient is having a problem with taking the med - how long has the problem been going on? N/A documented in this encounter Plan of Treatment Not on file documented as of this encounter Visit Diagnoses Not on filedocumented in this encounter Care Teams Ceiling Insulation Blower Relationship Specialty Start Date End Date Derrell Hurst MD PCP - General 10/03/07 06/24/21 Derrell Hurst MD PCP - General Internal Medicine 06/25/21 09/05/21 Glory Almaguer MD [address] [place] [address] PCP - General Internal Medicine 09/06/21 09/15/22 [facility], Pcp [address] [place] [address] PCP - General Internal Medicine 09/16/22 03/28/23 Josette Crandall MD [address] [place] [address] PCP - General Internal Medicine 03/29/23 07/25/23 [facility], Pcp [address] [place] [address] PCP - General Internal Medicine 07/26/23 documented as of this encounter
--- OUTSIDE RECORDS SUMMARY | 2024-10-01 12:58 | XMS_ITS | Encounter Summary ---
Author Organization [facility] Address [address] [place] [address] Care Team Providers Care Drivers License Examiner Name Role Phone Derrell Hurst MD Primary Care Provider Derrell Schulte MD Primary Care Provider Glory Ho MD Primary Care Prov ider [facility], Pcp Primary Care Provider Josette Bowser MD Primary Care Provider [phone] [facility], Pcp Primary Care Provider Jamar leigh Encounter Details Date Type Department Care Team Description 04/27/2018 [place] [facility] [address] [id number] Derrell Hurst MD Social History Tobacco Use [...] on filedocumented in this encounter Care Teams Drivers License Examiner Relationship Specialty Start Date End Date Derrell Hurst MD PCP - General 10/03/07 06/24/21 Derrell Hurst MD PCP - General Internal Medicine 06/25/21 09/05/21 Glory Almaguer MD [address] [place] [id number] PCP - General Internal Medicine 09/06/21 09/15/22 [facility], Pcp [address] [place] [address] PCP - General Internal Medicine 09/16/22 03/28/23 Josette Crandall MD [address] [place] [address] PCP - General Internal Medicine 03/29/23 07/25/23 [facility], Pcp [address] [place] [address] PCP - General Internal Medicine 07/26/23 documented as of this encounter
--- OUTSIDE RECORDS SUMMARY | 2024-10-01 12:58 | XMS_ITS | Encounter Summary ---
Author Organization [facility] Address [address] [place] [address] Care Team Providers Care Software Sales Name Role Phone Derrell Hurst MD Primary Care Provider Derrell Schulte MD Primary Care Provider Glory Ho MD Primary Care Prov ider [facility], [facility]cp Primary Care Provider Unavailabl e Josette Crandall MD Primary Care Provider [phone] [facility], Pcp Primary Care Provider Unavailabl e Reason for Visit * Reason Comments E-prescribe Rx Request Encounter Details Date Type Department Care Team Description 12/24/2019 Refill Adult Medicine [address] [address] Derrell Hurst MD E-prescribe Rx Request Social [...] FEP STANDARD $25 / Product Type: PPO [id number] documented in this encounter Plan of Treatment Not on file documented as of this encounter Visit Diagnoses Not on filedocumented in this encounter Care Teams Software Sales Relationship Specialty Start Date End Date Derrell Hurst MD PCP - General 10/03/07 06/24/21 Derrell Hurst MD PCP - General Internal Medicine 06/25/21 09/05/21 Glory Almaguer MD [address] [place] [address] PCP - General Internal Medicine 09/06/21 09/15/22 [facility]cp [address] [place] [address] PCP - General Internal Medicine 09/16/22 03/28/23 Josette Crandall MD [address] [place] [address] PCP - General Internal Medicine 03/29/23 07/25/23 [facility] Pcp [address] [place] [address] PCP - General Internal Medicine 07/26/23 documented as of this encounter
--- OUTSIDE RECORDS SUMMARY | 2024-10-01 12:58 | XMS_ITS | Encounter Summary ---
Author Organization [facility] Address [address] [place] [address] Care Team Providers Care Full Stack Developer Name Role Phone Derrell Hurst MD Primary Care Provider Derrell Schulte MD Primary Care Provider Glory Ho MD Primary Care Prov ider [facility], Pcp Primary Care Provider Josette Bowser MD Primary Care Provider [phone] [facility], Pcp Primary Care Provider Jamar leigh Encounter Details Date Type Department Care Team Description 05/10/2018 V Belt Mold Assembler And Curer Report Medical Records [address] [place], [place] [id number] Jose Nazario MD Social History Tobacco Use [...] on filedocumented in this encounter Care Teams Full Stack Developer Relationship Specialty Start Date End Date Derrell Hurst MD PCP - General 10/03/07 06/24/21 Derrell Hurst MD PCP - General Internal Medicine 06/25/21 09/05/21 Glory Almaguer MD [address] [place] [address] PCP - General Internal Medicine 09/06/21 09/15/22 [facility], Pcp [address] [place] [address] PCP - General Internal Medicine 09/16/22 03/28/23 Josette Crandall MD [address] [place] [address] PCP - General Internal Medicine 03/29/23 07/25/23 [facility], Pcp [address] [place] [address] PCP - General Internal Medicine 07/26/23 documented as of this encounter
--- OUTSIDE RECORDS SUMMARY | 2024-10-01 12:58 | XMS_ITS | Encounter Summary ---
Author Organization [facility] Address [address] [place] [address] Care Team Providers Care Household Refrigerator Mechanic Name Role Phone Derrell Hurst MD Primary Care Provider Derrell Schulte MD Primary Care Provider Glory Ho MD Primary Care Prov ider [facility], Pcp Primary Care Provider Josette Bowser MD Primary Care Provider [phone] [facility], Pcp Primary Care Provider Jamar leigh Encounter Details Date Type Department Care Team Description 02/20/2015 Environmental Services Technician Report Medical Records [address] [place], [place] [id number] Pascual Johnson MD Social History Tobacco Use [...] on filedocumented in this encounter Care Teams Household Refrigerator Mechanic Relationship Specialty Start Date End Date Derrell Hurst MD PCP - General 10/03/07 06/24/21 Derrell Hurst MD PCP - General Internal Medicine 06/25/21 09/05/21 Glory Almaguer MD [address] [place] [address] PCP - General Internal Medicine 09/06/21 09/15/22 [facility], Pcp [address] [place] [address] PCP - General Internal Medicine 09/16/22 03/28/23 Josette Crandall MD [address] [place] [address] PCP - General Internal Medicine 03/29/23 07/25/23 [facility], Pcp [address] [place] [address] PCP - General Internal Medicine 07/26/23 documented as of this encounter
--- OUTSIDE RECORDS SUMMARY | 2024-10-01 12:58 | XMS_ITS | Encounter Summary ---
Author Organization [facility] Address [address] [place] [address] Care Team Providers Care Metal Tester Name Role Phone Glory Almaguer MD Primary Care Prov ider [facility], Pcp Primary Care Provider Unavailabl e Josette Crandall MD Primary Care Provider [phone] [facility], Pcp Primary Care Provider Unavailabl e Encounter Details Date Type Department Care Team Description 07/11/2022 Trim Die Maker Report Medical Records [address] [place] [address] Mercedes Selby Social History Tobacco Use Types Packs/Day Years [...] on filedocumented in this encounter Care Teams Metal Tester Relationship Specialty Start Date End Date Glory Almaguer MD [address] [place] [address] PCP - General Internal Medicine 09/06/21 09/15/22 [facility], Pcp [address] [place] [address] PCP - General Internal Medicine 09/16/22 03/28/23 Josette Crandall MD [address] [place] [address] PCP - General Internal Medicine 03/29/23 07/25/23 [facility], Pcp [address] [place] [address] PCP - General Internal Medicine 07/26/23 documented as of this encounter
--- OUTSIDE RECORDS SUMMARY | 2024-10-01 12:58 | XMS_ITS | Encounter Summary ---
Author Organization [facility] Address [address] [place] [address] Care Team Providers Care Cannery Tender Engineer Name Role Phone Derrell Hurst MD Primary Care Provider Derrell Schulte MD Primary Care Provider Glory Ho MD Primary Care Prov ider [facility], Pcp Primary Care Provider UnavailJosette Klein MD Primary Care Provider [phone] [facility], Pcp Primary Care Provider Jamar e Encounter Details Date Type Department Care Team Description 02/01/2011 Bedspread Cutter Report Medical Records [address] [place] [id number] Kerry Hansen MD [address] [place] [address] [address] [place] [address] Social History Tobacco Use Types Packs/Day Years [...] filedocumented in this encounter Care Teams Cannery Tender Engineer Relationship Specialty Start Date End Date Derrell Hurst MD PCP - General 10/03/07 06/24/21 Derrell Hurst MD PCP - General Internal Medicine 06/25/21 09/05/21 Glory Almaguer MD [address] [place] [address] PCP - General Internal Medicine 09/06/21 09/15/22 [facility], Pcp [address] [place] [address] PCP - General Internal Medicine 09/16/22 03/28/23 Josette Crandall MD [address] [place] [address] PCP - General Internal Medicine 03/29/23 07/25/23 [facility], Pcp [address] [place] [address] PCP - General Internal Medicine 07/26/23 documented as of this encounter
--- OUTSIDE RECORDS SUMMARY | 2024-10-01 12:58 | XMS_ITS | Encounter Summary ---
Author Organization [facility] Address [address] [place] [address] Care Team Providers Care Popcorn Machine Operator Name Role Phone Glory Almaguer MD Primary Care Prov ider [facility], Pcp Primary Care Provider Unavailabl e Josette Crandall MD Primary Care Provider [phone] [facility], Pcp Primary Care Provider Unavailabl e Encounter Details Date Type Department Care Team Description 08/31/2022 Stone Cleaner Report Medical Records [address] [place] [address] Abstract, Provider Social History Tobacco Use Types [...] on filedocumented in this encounter Care Teams Popcorn Machine Operator Relationship Specialty Start Date End Date Glory Almaguer MD [address] [place] [address] PCP - General Internal Medicine 09/06/21 09/15/22 [facility], Pcp [address] [place] [address] PCP - General Internal Medicine 09/16/22 03/28/23 Josette Crandall MD [address] [place] [phone] PCP - General Internal Medicine 03/29/23 07/25/23 [facility], [address] [address] PCP - General Internal Medicine 07/26/23 documented as of this encounter
--- OUTSIDE RECORDS SUMMARY | 2024-10-01 12:58 | XMS_ITS | Encounter Summary ---
Author Organization [facility] Address [address] [place] [address] Care Team Providers Care Process Project Engineer Name Role Phone Derrell Hurst MD Primary Care Provider Derrell Schulte MD Primary Care Provider Glory Ho MD Primary Care Prov ider [facility]cp Primary Care Provider UnavailJosette Klein MD Primary Care Provider [phone] [facility], Pcp Primary Care Provider Jamar e Encounter Details Date Type Department Care Team Description 12/17/2019 Home Health Certification Medical Records [address] [place] [address] Home, [facility] [place] [address] Social History Tobacco Use Types Packs/Day Years [...] have Coronavirus / COVID-19? No / Unsure 12/13/2019 2:43 PM EST documented as of this encounter Plan of Treatment Not on file documented as of this encounter Visit Diagnoses Not on filedocumented in this encounter Care Teams Process Project Engineer Relationship Specialty Start Date End Date Derrell Hurst MD PCP - General 10/03/07 06/24/21 Derrell Hurst MD PCP - General Internal Medicine 06/25/21 09/05/21 Glory Almaguer MD [address] [place], [place] [phone] PCP - General Internal Medicine 09/06/21 09/15/22 [facility], Pcp [address] [place] [address] PCP - General Internal Medicine 09/16/22 03/28/23 Josette Crandall MD [address] [place] [address] PCP - General Internal Medicine 03/29/23 07/25/23 [facility], Pcp [address] [place], [place] [phone] PCP - General Internal Medicine 07/26/23 documented as of this encounter
--- OUTSIDE RECORDS SUMMARY | 2024-10-01 12:58 | XMS_ITS | Encounter Summary ---
Author Organization [facility] Address [address] [place] [address] Care Team Providers Care Destination Specialist Name Role Phone Derrell Hurst MD Primary Care Provider Derrell Schulte MD Primary Care Provider Glory Ho MD Primary Care Prov ider [facility], Pcp Primary Care Provider Josette Bowser MD Primary Care Provider [phone] [facility], Pcp Primary Care Provider Jamar leigh Encounter Details Date Type Department Care Team Description 01/03/2012 Release of Information Medical Records [address] [place], [place] [id number] Abstract, Provider Social History Tobacco Use Types [...] on filedocumented in this encounter Care Teams Destination Specialist Relationship Specialty Start Date End Date Derrell Hurst MD PCP - General 10/03/07 06/24/21 Derrell Hurst MD PCP - General Internal Medicine 06/25/21 09/05/21 Glory Almaguer MD [address] [place] [address] PCP - General Internal Medicine 09/06/21 09/15/22 [facility], Pcp [address] [place] [address] PCP - General Internal Medicine 09/16/22 03/28/23 Josette Crandall MD [address] [place] [address] PCP - General Internal Medicine 03/29/23 07/25/23 [facility], Pcp [address] [place] [address] PCP - General Internal Medicine 07/26/23 documented as of this encounter
--- OUTSIDE RECORDS SUMMARY | 2024-10-01 12:58 | XMS_ITS | Clinical Summary ---
Author Organization [address] Address [address] [place] [phone] Phone Care Team Providers Care Athletic Coach Name Role Phone Unavailable Primary Care Provider Unavailabl e Allergies Active Allergy Reactions Criticality Noted Date [...] Problems Problem Noted Date Diagnosed Date Alcoholism ([facility] V24, [facility] V28) 10/13/2020 Overview (02/09/2024): Multiple admission in past. Follows with Dr. Mendenhall at on [place]. 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 thomas Vitiligo 10/06/2008 Degenerative arthritis of knee 10/09/2007 Essential hypertension, benign 10/09/2007 Type 2 diabetes mellitus wit h vascular disease ([facility] V24, [facility] V28) 10/09/2007 Encounters Date Type Department Care Team Description 07/03/2024 Lab Requisition [facility] - Main Lab [address] [facility] [place] [address] Nadnie Boles MD Anemia, unspecified; Type 2 diabetes mellitus without complications ([facility] V24, [facility] V28) from Last 3 Months Immunizations Name Administration [...] HISTORICAL TUBAL LIGATION GASTRIC BYPASS 02/11/2011 PROCEDURE: MT GASTRIC RSTCV W/BYP W/SM INT RCNSTJ LIMIT ABSRPJ; COMMENT: Dr. estrada SECTION PROCEDURE: HISTORICAL DELIVERY TOTAL KNEE ARTHROPLASTY 03/2018 Right PROCEDURE: MT ARTHRP KNE CONDYLE&PLATU MEDIAL&LAT COMPARTMENTS OTHER SURGICAL HISTORY PROCEDURE: HISTORICAL CA BASAL CELL; COMMENT: BCC 08/21 right clavicle (nodular) 8 left tolliver (nodular, ulcerated) OTHER SURGICAL HISTORY PROCEDURE: HISTORICAL SQUAMOUS CELL CA; COMMENT: SCC 09/24 right tolliver (well-differentiated, invasive) 01/20 right tolliver (well-differentiated, keratoacanthoma type) Medical History Medical History Date Comments Essential hypertension, benign 10/09/2007 D X:Essential hypertension, benign Degenerative arthritis of knee 10/09/2007 D X:Degenerative arthritis of knee Historical Medical DX 10/09/2007 DX:Tubal l igation Acoustic neuroma ([facility] V2 4, [facility]/HCC V28) 10/06/2008 DX:Acoustic neuroma ([facility]) History of squamous cell carcinoma 01/27/2015 DX:History of squamous cell carcinoma; COMMENT: SCC 09/24 right tolliver (well-differentiated, invasive) 01/20 right tolliver (well-differentiated, keratoacanthoma type) History of basal cell carcinoma DX:History of basal cell carcinoma; COMMENT: BCC 08/21 right clavicle (nodular) 09/18 left tolliver (nodular, ulcerated) History of actinic keratoses DX: History of actinic keratoses Alcoholism ([facility]/HCC V24, [facility] /HCC V28) 10/13/2020 DX:Alcoholism ([facility]); COMMENT : Multiple admission in past. Follows with Dr. Mendenhall at on [place]. Cataracts, bilateral 01/31/2014 DX:Cataract s, bilateral Covid-19 02/03/2020 DX:COVID-19 Heart murmur 08/29/2018 DX:Heart murmur; COMMENT: Mild aortic insufficiency, trace mitral regurgitation, trace to mild tricuspid regirgitation per echo on 09/07/18 Leg edema 10/26/2009 DX:Leg edema; CO MMENT: With chronic stasis dermatitis Major depressive disorder 06/11/2019 DX:[place] or depressive disorder; COMMENT: [facility] Peripheral vascular disease, unspecified ([facility] V24) 06/11/2019 DX:Peripheral vascular disea se, unspecified ([facility]) S/P gastric bypass 02/28/2011 DX:S/P gastri c bypass 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 DX:Schamberg d isease Varicose veins with pain 02/23/2018 DX:Vari cose veins with pain Vitiligo 10/06/2008 DX:Vitiligo Type 2 diabetes mellitus wit h vascular disease ([facility] V24, [facility] V28) 10/09/2007 DX:Type 2 diabetes mellitus with vascular disease ([facility]) Family History Medical History Relation Name Comments [...] 1960 Diabetes: Annual Retina Eye Exam 1960 Hepatitis A Vaccines (1 of 2 - Risk 2-dose series) 02/11/1968 Falls Risk Assessment 01/15/2022 Medicare Annual Wellness Visit 01/15/2022 Osteoporosis Screening (Bone Density Screening) 01/15/2022 Social Influencers of Health Screening 01/15/2022 Diabetes: Annual Urine Albumin-Creatinine Ratio (uACR) 01/22/2022 05/20/2020 COVID-19 Vaccine ( season) 2023 01/16/2023, 10/27/2021, 02/08/2021, Additional history exists Depression Screening 02/07/2024 RSV Immunization Adult Patients (1 - 1-dose 75+ series) 02/11/2024 Influenza Vaccine (#1) 2024 , 11/15/2021, 10/23/2020, Additional history exists Diabetes: Blood Sugar Control Test (HGBA1C) 12/25/2024 06/24/2024, 05/20/2020 Cholesterol Screening (Lipid Panel) 05/20/2025 05/20/2020 Diabetes: Annual GFR (Glomerular Filtration Rate) 07/03/2025 07/03/2024, 06/24/2024, 05/20/2020 Hypertension/CHF/CAD Annual BMP Blood Test 07/03/2025 07/03/2024, 06/24/2024, 05/20/2020 DTaP,Tdap,and Td Vaccines (4 - Td [...] age to complete this topic Meningococcal B Vaccine Aged Out No l onger eligible based on patient's age to complete this topic RSV Immunization Patients Under 20 months Aged Out No longer eligible based on patient's age to complete this topic Varicella Vaccines Aged Out No longer eligible based on patient's age to complete this topic Procedures Procedure Name Priority Date/Time Associated Diagnosis Comments CBC WITH AUTO DIFFERENTIAL Routine 07/03/2024 5:12 AM EDT Anemia, unspecified Type 2 diabetes mellitus without complications ([facility]/HCC V24, [facility] V28) BASIC METABOLIC PANEL Routine 07/03/2024 5:12 AM EDT Anemia, unspecified Type 2 diabetes mellitus without complications ([facility] V24, [facility]/H[facility] V28) CBC AND DIFFERENTIAL Routine 07/03/2024 5:12 AM EDT Anemia, unspecified Type 2 diabetes mellitus without complications ([facility]/HCC V24, [facility] V28) HEMOGLOBIN A1C Routine 06/24/2024 5:33 AM EDT Type 2 diabetes mellitus without complications ([facility]/HCC V24, [facility]/HCC V28) Cellulitis, unspecified Peripheral vascular disease, unspecified ([facility]/HCC V24) SCREENING MAMMOGRAPHY BI 2-VIEW BREAST INC CAD Routine 05/03/2021 5:41 PM EDT Encounter for screening mammogram for malignant neoplasm of breast URINE ALBUMIN CREATININE RATIO Routine 05/20/2020 LIPID PANEL Routine 05/20/2020 COLONOSCOPY Routine 08/13/2019 HEPATITIS C SCREENING Routine 08/02/2012 from Last 3 Months or Most Recently Relevant to Health Maintenance Results * (ABNORMAL) CBC auto differential (07/03/2024 5:12 AM EDT) WBC 5.1 4.8 - 10.8 K/[facility] LAB HEMETOLOGY METHOD 07/03/2024 11:43 AM EDT [facility] RBC 3.50(L) 3.80 - 4.80 M/mcL LAB HEMETOLOGY METHOD 07/03/2024 11:43 AM [facility] Hemoglobin 11.1(L) 11.5 - 16.0 g/dL LAB HEMETOLOGY METHOD 07/03/2024 11:43 AM [facility] Hematocrit 34.6(L) 35.0 - 47.0 % LAB HEMETOLOGY METHOD 07/03/2024 11:43 AM [facility] MCV 99.1(H) 79.0 - 98.0 FL LAB HEMETOLOGY METHOD 07/03/2024 11:43 AM [facility] MCH 31.8 27.0 - 32.0 pcg LAB HEMETOLOGY METHOD 07/03/2024 11:43 AM [facility] MCHC 32.1 32.0 - 37.0 g/dL LAB HEMETOLOGY METHOD 07/03/2024 11:43 AM [facility] RDW 14.3 11.0 - 15.0 % LAB HEMETOLOGY METHOD 07/03/2024 11:43 AM [facility] Platelets 160 130 - 400 K/mcL LAB HEMETOLOGY METHOD 07/03/2024 11:43 AM [facility] MPV 8.8 7.0 - 11.0 FL LAB HEMETOLOGY METHOD 07/03/2024 11:43 AM [facility] NRBC 0.0 <1.0 % LAB HEMETOLOGY METHOD 07/03/2024 11:43 AM [facility] NRBC Absolute 0.00 <0.10 K/mcL LAB HEMETOLOGY METHOD 07/03/2024 11:43 AM [facility] Neutrophils Relative 73.0 % LAB HEMETOLOGY METHOD 07/03/2024 11:43 AM [facility] Lymphocytes Relative 14.3 % LAB HEMETOLOGY METHOD 07/03/2024 11:43 AM [facility] Monocytes Relative 9.1 % LAB HEMETOLOGY METHOD 07/03/2024 11:43 AM [facility] Eosinophils Relative 2.0 % LAB HEMETOLOGY METHOD 07/03/2024 11:43 AM [facility] Basophils Relative 1.2 % LAB HEMETOLOGY METHOD 07/03/2024 11:43 AM [facility] Immature Granulocytes Relative 0.4 % LAB HEMETOLOGY METHOD 07/03/2024 11:43 AM [facility] Neutrophils Absolute 3.69 1.50 - 7.00 K/mcL LAB HEMETOLOGY METHOD 07/03/2024 11:43 AM [facility] Lymphocytes Absolute 0.72(L) 1.00 - 5.00 K/mcL LAB HEMETOLOGY METHOD 07/03/2024 11:43 AM [facility] Monocytes Absolute 0.46 0.20 - 1.00 K/mcL LAB HEMETOLOGY METHOD 07/03/2024 11:43 AM [facility] Eosinophils Absolute 0.10 0.00 - 0.50 K/mcL LAB HEMETOLOGY METHOD 07/03/2024 11:43 AM [facility] Basophils Absolute 0.06 0.00 - 0.20 K/mcL LAB HEMETOLOGY METHOD 07/03/2024 11:43 AM [facility] Immature Granulocytes Absolute 0.02 0.00 - 0.03 K/mcL LAB HEMETOLOGY METHOD 07/03/2024 11:43 AM [facility] Blood Venous blood specimen / Unknown Venipuncture / Unknown 07/03/2024 5:12 AM EDT 07/03/2024 10:38 AM EDT us Nadine Boles MD LAB BLOOD ORDERABLES Final Resu lt [facility] [address] [place] [address], [place] [phone] * (ABNORMAL) Basic metabolic panel (07/03/2024 5:12 AM EDT) Sodium 139 133 - 145 mmol/L LAB CHEMISTRY METHOD 07/03/2024 2:57 PM EDT [facility] Potassium 3.9 3.5 - 5.5 mmol/L LAB CHEMISTRY METHOD 07/03/2024 2:57 PM T [facility] Chloride 106 96 - 110 mmol/L LAB CHEMISTRY METHOD 07/03/2024 2:57 PM [facility] CO2 22 21 - 32 mmol/L LAB CHEMISTRY METHOD 07/03/2024 2:57 PM [facility] Anion Gap 11 3 - 11 LAB CHEMISTRY METHOD 07/03/2024 2:57 PM [facility] Glucose 56(L) 70 - 100 mg/dL LAB CHEMISTRY METHOD 07/03/2024 2:57 PM [facility] BUN 23 5 - 25 mg/dL LAB CHEMISTRY METHOD 07/03/2024 2:57 PM [facility] Creatinine 0.54 0.50 - 1.10 mg/dL LAB CHEMISTRY METHOD 07/03/2024 2:57 PM T [facility] eGFR 96 >=60 mL/min/1. 73m2 LAB CHEMISTRY METHOD 07/03/2024 2:57 PM [facility] Comment:Calculation based on the Chronic Kidney Disease Epidemiology Collaboration (CKD-EPI) equation refit without adjustment for race. BUN/Creatinine Ratio 42.6 LAB CHEMISTRY METHOD 07/03/2024 2:57 PM [facility] Calcium 8.6 8.5 - 10.5 mg/dL LAB CHEMISTRY METHOD 07/03/2024 2:57 PM EDT [facility] Blood Venous blood specimen / Unknown Venipuncture / Unknown 07/03/2024 5:12 AM EDT 07/03/2024 10:38 AM EDT us Nadine Boles MD LAB BLOOD ORDERABLES Final Resu lt Performing Organization Address [facility]/ZIP Co de Phone Number [facility] [address] [place] [address], [place] [phone] * Hemoglobin A1c (06/24/2024 5:33 AM EDT) Hemoglobin A1C 5.1 <6.5 % LAB CHEMISTRY METHOD 06/24/2024 1:51 PM EDT [facility] Mean Bld Glu Estim. 100 mg/dL LAB CHEMISTRY METHOD 06/24/2024 1:51 PM EDT [facility] Blood Venous blood specimen / Unknown Venipuncture / Unknown 06/24/2024 5:33 AM EDT 06/24/2024 9:30 AM EDT us Varsha FIGUEROA LAB BLOOD ORDERABLES Final Re sult Performing Organization Address [facility] Co de Phone Number [facility] [address] [place] [address], [place] [phone] * SCREENING MAMMOGRAPHY BI 2-VIEW BREAST INC [...] Routine screening. No current breast complaints. Family history of breast cancer in mother Comparison: [...] typically benign parenchymal asymmetries IMPRESSION: : 1. No mammographic evidence of [...] IMG XR PROCEDURES Final Resul t * HM Urine Albumin Creatinine Ratio (05/20/2020) Urine Albumin Creatinine Ratio Abstracted [facility] Provider HEALTH MAINTENANCE Final Result * Lipid panel (05/20/2020) LDL/HDL Ratio 2 0 - 4 Triglycerides 53 0 - 150 mg/dL Cholesterol 143 0 - 200 mg/dL HDL 93 >=40 mg/dL LDL Cholesterol 40 0 - 100 mg/dL Blood Venous blood specimen / Unknown Historical Provider LAB BLOOD ORDERABLES Della l Result * Colonoscopy (08/13/2019) Colonoscopy No Interpretation , Abstracted Anatomical Region Laterality Modality Other Historical Provider HEALTH MAINTENANCE Final Result * Hepatitis C Screening (08/02/2012) Hepatitis C Screening Abstracted Historical Provider HEALTH MAINTENANCE Final Result from Last 3 Months or Most Recently Relevant to Health Maintenance Insurance MEDICARE [facility]
--- OUTSIDE RECORDS SUMMARY | 2024-10-01 12:58 | XMS_ITS | Encounter Summary ---
Author Organization [facility] Address [address] [place] [address] Care Team Providers Care Gas Analyst Name Role Phone Derrell Hurst MD Primary Care Provider Derrell Schulte MD Primary Care Provider Glory Ho MD Primary Care Prov ider [facility], Pcp Primary Care Provider Josette Bowser MD Primary Care Provider [phone] [facility], Pcp Primary Care Provider Jamar leigh Encounter Details Date Type Department Care Team Description 10/16/2018 Heavy Rail Train Operator Report Medical Records [address] [place], [place] [id number] Sunil Fink Social History Tobacco Use Types [...] on filedocumented in this encounter Care Teams Gas Analyst Relationship Specialty Start Date End Date Derrell Hurst MD PCP - General 10/03/07 06/24/21 Derrell Hurst MD PCP - General Internal Medicine 06/25/21 09/05/21 Glory Almaguer MD [address] [place] [address] PCP - General Internal Medicine 09/06/21 09/15/22 [facility], Pcp [address] [place] [address] PCP - General Internal Medicine 09/16/22 03/28/23 Josette Crandall MD [address] [place] [address] PCP - General Internal Medicine 03/29/23 07/25/23 [facility], Pcp [address] [place] [id number] PCP - General Internal Medicine 07/26/23 documented as of this encounter
--- OUTSIDE RECORDS SUMMARY | 2024-10-01 12:59 | XMS_ITS | Encounter Summary ---
Author Organization [facility] Address [address] [place] [address] Care Team Providers Care Lease Administrator Name Role Phone Derrell Hurst MD Primary Care Provider Derrell Schulte MD Primary Care Provider Glory Ho MD Primary Care Prov ider [facility], Pcp Primary Care Provider UnavailJosette Klein MD Primary Care Provider [phone] [facility], Pcp Primary Care Provider Jamar e Encounter Details Date Type Department Care Team Description 08/07/2019 Pad Machine Offbearer Report Medical Records [address] [place] [id number] Yvonne Fink MD Social History Tobacco Use [...] on filedocumented in this encounter Care Teams Lease Administrator Relationship Specialty Start Date End Date Derrell Hurst MD PCP - General 10/03/07 06/24/21 Derrell Hurst MD PCP - General Internal Medicine 06/25/21 09/05/21 Glory Almaguer MD [address] [place] [address] PCP - General Internal Medicine 09/06/21 09/15/22 [facility], Pcp [address] [place] [id number] PCP - General Internal Medicine 09/16/22 03/28/23 Josette Crandall MD [address] [place] [address] PCP - General Internal Medicine 03/29/23 07/25/23 [facility], Pcp [address] [place] [address] PCP - General Internal Medicine 07/26/23 documented as of this encounter
--- OUTSIDE RECORDS SUMMARY | 2024-10-01 12:59 | XMS_ITS | Encounter Summary ---
Author Organization [facility] Address [address] [place] [address] Care Team Providers Care Soil And Plant Scientist Name Role Phone Josette Crandall MD Primary Care Provider [facility], [facility], Pcp Primary Care Provider Unavailabl e Reason for Visit * Reason Onset Date Comments Faxed Order 05/26/2023 Encounter Details Date Type Department Care Team Description 05/26/2023 Telephone Adult Medicine [address] [phone] Josette Crandall MD [address] [place] [phone] Faxed Order Social History Tobacco Use Types [...] EDT Faxed orders received from Adrian Mott [id number], [id number] placed in providers box. documented in this encounter Plan of Treatment Not on file documented as of this encounter Visit Diagnoses Not on filedocumented in this encounter Care Teams Soil And Plant Scientist Relationship Specialty Start Date End Date Josette Crandall MD [address] [place] [address] PCP - General Internal Medicine 03/29/23 07/25/23 [facility], Pcp [address] [place] [address] PCP - General Internal Medicine 07/26/23 documented as of this encounter
--- OUTSIDE RECORDS SUMMARY | 2024-10-01 12:59 | XMS_ITS | Encounter Summary ---
Author Organization [facility] Address [address] [place] [address] Care Team Providers Care Press Technician Name Role Phone Unavailable Primary Care Provider Unavailabl e Encounter Details Date Type Department Care Team (Late st Contact Info) Description 06/24/2024 Lab Requisition [facility] - Main Lab [address] [facility] [place] [address] Varsha Lopez PA [address] [place] [phone] Type 2 diabetes mellitus without complications (CMS/HCC V24, CMS/HCC V28); Cellulitis, unspecified; Peripheral vascular disease, unspecified (CMS/HCC V24) Social History Tobacco Use Types Packs/Day Years Used Date Smoking Tobacco: Former Smokeless Tobacco: Never Alcohol Use Standard Drinks/Week Comments No 0 (1 standard drink = 0.6 oz pur e alcohol) Comments Unknown Sex and Gender Information Value Date Recorded Sex Assigned at Not on file Legal Sex Female 5:46 AM EST Gender Identity Not on file Sexual Orientation Not on file documented as of this encounter Plan of Treatment Not on file documented as of this encounter Procedures Procedure Name Priority Date/Time Associated Diagnosis Comments COMPLETE BLOOD COUNT Routine 06/24/2024 5:33 AM EDT Type 2 diabetes mellitus without complications (CMS/HCC V24, CMS/HCC V28) Cellulitis, unspecified Peripheral vascular disease, unspecified (CMS/HCC V24) HEMOGLOBIN A1C Routine 06/24/2024 5:33 AM EDT Type 2 diabetes mellitus without complications ([facility] [place]24, [facility] V28) Cellulitis, unspecified Peripheral vascular disease, unspecified ([facility] V24) BASIC METABOLIC PANEL Routine 06/24/2024 5:33 AM EDT Type 2 diabetes mellitus without complications ([facility] V24, [facility] V28) Cellulitis, unspecified Peripheral vascular disease, unspecified ([facility] V24) documented in this encounter Results * Hemoglobin A1c (06/24/2024 5:33 AM EDT) [facility] Hemoglobin A1C 5.1 <6.5 % LAB CHEMISTRY METHOD 06/24/2024 1:51 PM EDT [facility] Mean Bld Glu Estim. 100 mg/dL LAB CHEMISTRY METHOD 06/24/2024 1:51 PM EDT [facility] Blood Venous blood specimen / Unknown Venipuncture / Unknown 06/24/2024 5:33 AM EDT 06/24/2024 9:30 AM EDT us Varsha FIGUEROA LAB BLOOD ORDERABLES Final Re sult [facility] [address] [place] [address], * Basic metabolic panel (06/24/2024 5:33 AM EDT) [facility] Sodium 140 133 - 145 mmol/L LAB CHEMISTRY METHOD 06/24/2024 11:17 AM EDT [facility] Potassium 4.4 3.5 - 5.5 mmol/L LAB CHEMISTRY METHOD 06/24/2024 11:17 AM EDT [facility] Chloride 101 96 - 110 mmol/L LAB CHEMISTRY METHOD 06/24/2024 11:17 AM EDT [facility] CO2 29 21 - 32 mmol/L LAB [facility] An[facility] Gap 10 3 - 11 LAB CHEMISTRY METHOD 06/24/2024 11:17 AM [facility] Glucose 92 70 - 100 mg/dL LAB CHEMISTRY METHOD 06/24/2024 11:17 AM [facility] BUN 12 5 - 25 mg/dL LAB CHEMISTRY METHOD 06/24/2024 11:17 AM [facility] Creatinine 0.75 0.50 - 1.10 mg/dL LAB CHEMISTRY METHOD 06/24/2024 11:17 AM [facility] eGFR 83 >=60 mL/min/1. 73m2 LAB CHEMISTRY METHOD 06/24/2024 11:17 AM [facility] Comment:Calculation based on the Chronic Kidney Disease Epidemiology Collaboration (CKD-EPI) equation refit without adjustment for race. BUN/Creatinine Ratio 16.0 LAB CHEMISTRY METHOD 06/24/2024 11:17 AM [facility] Calcium 8.7 8.5 - 10.5 mg/dL LAB CHEMISTRY METHOD 06/24/2024 11:17 AM [facility] Blood Venous blood specimen / Unknown Venipuncture / Unknown 06/24/2024 5:33 AM EDT 06/24/2024 9:30 AM EDT us Varsha FIGUEROA LAB BLOOD ORDERABLES Final Re sult [facility] [address] [place] [address], * (ABNORMAL) Complete blood count (06/24/2024 5:33 AM EDT) WBC 5.6 4.8 - 10.8 K/mcL LAB HEMETOLOGY METHOD 06/24/2024 10:59 AM [facility] RBC 3.70(L) 3.80 - 4.80 M/mcL LAB HEMETOLOGY METHOD 06/24/2024 10:59 AM [facility] Hemoglobin 11.4(L) 11.5 - 16.0 g/dL LAB HEMETOLOGY METHOD 06/24/2024 10:59 AM [facility] Hematocrit 36.6 35.0 - 47.0 % LAB HEMETOLOGY METHOD 06/24/2024 10:59 AM [facility] MCV 100.3(H) 79.0 - 98.0 FL LAB HEMETOLOGY METHOD 06/24/2024 10:59 AM [facility] MCH 31.2 27.0 - 32.0 pcg LAB HEMETOLOGY METHOD 06/24/2024 10:59 AM [facility] MCHC 31.1(L) 32.0 - 37.0 g/dL LAB HEMETOLOGY METHOD 06/24/2024 10:59 AM [facility] RDW 14.8 11.0 - 15.0 % LAB HEMETOLOGY METHOD 06/24/2024 10:59 AM [facility] Platelets 228 130 - 400 K/mcL LAB HEMETOLOGY METHOD 06/24/2024 10:59 AM [facility] MPV 8.8 7.0 - 11.0 FL LAB HEMETOLOGY METHOD 06/24/2024 10:59 AM [facility] NRBC 0.0 <1.0 % LAB HEMETOLOGY METHOD 06/24/2024 10:59 AM [facility] NRBC Absolute 0.00 <0.10 K/mcL LAB HEMETOLOGY METHOD 06/24/2024 10:59 AM [facility] Blood Venous blood specimen / Unknown Venipuncture / Unknown 06/24/2024 5:33 AM EDT 06/24/2024 9:30 AM EDT Varsha FIGUEROA LAB BLOOD ORDERABLES Final Re sult [facility] [address] [place] [address], documented in this encounter Visit Diagnoses Diagnosis Type 2 diabetes mellitus without complications ([facility] V24, [facility] V28) Cellulitis, unspecified Peripheral vascular disease, unspecified ([facility] V24) Peripheral vascular disease, unspecified documented in this encounter
--- OUTSIDE RECORDS SUMMARY | 2024-10-01 12:59 | XMS_ITS | Encounter Summary ---
Author Organization [facility] Address [address] [place] [address] Care Team Providers Care Podiatric Assistant Name Role Phone Derrell Hurst MD Primary Care Provider Derrell Schulte MD Primary Care Provider Glory Ho MD Primary Care Prov ider Count Includes [facility], Pcp Primary Care Provider Unavailabl e Josette Crandall MD Primary Care Provider [phone] Count Includes [facility], Pcp Primary Care Provider Unavailabl e Reason for Visit * Reason Onset Date Comments medication problems 04/29/2021 PLEASE CALL ON 04/30/2021 AFTER 8:30 AM. Encounter Details Date Type Department Care Team Description 04/29/2021 Telephone Adult [address] [address] Derrell Hurst MD medication problems (PLEASE CALL [...] 05/06/2021 4:16 PM EDT I called patient [phone] - recording stated that this number is [...] OF TRAZODONE. PATIENT RECEIVED MEDICATION AT [facility] TO HELP HER SLEEP. For ALL [...] traveled recently to another state outside of [place], [place], [place], [place], [place], [place], [place]? NO o If yes, did you [...] vehicle accident? NO If yes, gather 3rd democrat insurance information Date of accident/Injury: How long has patient had these symptoms?: PCP: Derrell Hurst Payor: YESENIA/HEYDI POS / Plan: FEP STANDARD $25 / Product Type: PPO [id number] documented in this encounter Plan of Treatment Not on file documented as of this encounter Visit Diagnoses Not on filedocumented in this encounter Care Teams Podiatric Assistant Relationship Specialty Start Date End Date Derrell Hurst MD PCP - General 10/03/07 06/24/21 Derrell Hurst MD PCP - General Internal Medicine 06/25/21 09/05/21 Glory Almaguer MD [address] [place] [address] PCP - General Internal Medicine 09/06/21 09/15/22 Count Includes [facility], Pcp [address] [place] [address] PCP - General Internal Medicine 09/16/22 03/28/23 Josette Crandall MD [address] [place] [address] PCP - General Internal Medicine 03/29/23 07/25/23 Count Includes [facility], Pcp [address] [place] [address] PCP - General Internal Medicine 07/26/23 documented as of this encounter
--- OUTSIDE RECORDS SUMMARY | 2024-10-01 12:59 | XMS_ITS | Encounter Summary ---
Author Organization [facility] Address [address] [place] [address] Care Team Providers Care Pastry Wrapper Name Role Phone Derrell Hurst MD Primary Care Provider Derrell Schulte MD Primary Care Provider Glory Ho MD Primary Care Prov ider [facility], Pcp Primary Care Provider Josette Bowser MD Primary Care Provider [phone] [facility], Pcp Primary Care Provider Jamar leigh Encounter Details Date Type Department Care Team Description 10/24/2016 Emergency Medical Technician/Driver Report Medical Records [address] [place] [address] Soledad Cabrera MD Social History Tobacco Use [...] on filedocumented in this encounter Care Teams Pastry Wrapper Relationship Specialty Start Date End Date Derrell Hurst MD PCP - General 10/03/07 06/24/21 Derrell Hurst MD PCP - General Internal Medicine 06/25/21 09/05/21 Glory Almaguer MD [address] [place] [address] PCP - General Internal Medicine 09/06/21 09/15/22 [facility], Pcp [address] [place] [address] PCP - General Internal Medicine 09/16/22 03/28/23 Josette Crandall MD [address] [place] [address] PCP - General Internal Medicine 03/29/23 07/25/23 [facility], Pcp [address] [place] [address] PCP - General Internal Medicine 07/26/23 documented as of this encounter
--- OUTSIDE RECORDS SUMMARY | 2024-10-01 12:59 | XMS_ITS | Encounter Summary ---
Author Organization [facility] Address [address] [place] [address] Care Team Providers Care Wastewater Engineer Name Role Phone Derrell Hurst MD Primary Care Provider Derrell Schulte MD Primary Care Provider Glory Ho MD Primary Care Prov ider [facility], Pcp Primary Care Provider Unavailabl e Josette Crandall MD Primary Care Provider [phone] [facility], Pcp Primary Care Provider Unavailabl e Reason for Visit * Reason Onset Date Comments Testing 04/13/2021 DXA BONE DENSITY STUDY 1+ SITS AXIAL SKEL Encounter Details Date Type Department Care Team Description 04/13/2021 Telephone Adult Medicine [address] [address] Derrell Hurst MD Testing (DXA BONE DENSITY [...] on filedocumented in this encounter Care Teams Wastewater Engineer Relationship Specialty Start Date End Date Derrell Hurst MD PCP - General 10/03/07 06/24/21 Derrell Hurst MD PCP - General Internal Medicine 06/25/21 09/05/21 Glory Almaguer MD [address] [place] [address] PCP - General Internal Medicine 09/06/21 09/15/22 [facility], Pcp [address] [place] [address] PCP - General Internal Medicine 09/16/22 03/28/23 Josette Crandall MD [address] [place] [address] PCP - General Internal Medicine 03/29/23 07/25/23 [facility], Pcp [address] [place] [address] PCP - General Internal Medicine 07/26/23 documented as of this encounter
--- OUTSIDE RECORDS SUMMARY | 2024-10-01 12:59 | XMS_ITS | Encounter Summary ---
Author Organization [facility] Address [address] [place] [address] Care Team Providers Care Applications Systems Engineer Name Role Phone Derrell Hurst MD Primary Care Provider Glory Ho MD Primary Care Prov ider [facility], Pcp Primary Care Provider Unavailabl e Josette Crandall MD Primary Care Provider [phone] [facility], Pcp Primary Care Provider Unavaillashay e Reason for Visit * Reason Comments E-prescribe Rx Request Encounter Details Date Type Department Care Team Description 07/13/2021 Refill Adult Medicine [address] [address] Derrell Hurst MD E-prescribe Rx Request Social [...] FEP STANDARD $25 / Product Type: PPO [id number] documented in this encounter Plan of Treatment Not on file documented as of this encounter Visit Diagnoses Not on filedocumented in this encounter Care Teams Applications Systems Engineer Relationship Specialty Start Date End Date Derrell Hurst MD PCP - General Internal Medicine 06/25/21 09/05/21 Divya Johnson, Glory Cardona MD [address] [place] [address] PCP - General Internal Medicine 09/06/21 09/15/22 [facility], Pcp [address] [place] [address] PCP - General Internal Medicine 09/16/22 03/28/23 Josette Crandall MD [address] [place] [phone] PCP - General Internal Medicine 03/29/23 07/25/23 [facility], Pcp [address] [place] [address] PCP - General Internal Medicine 07/26/23 documented as of this encounter
--- OUTSIDE RECORDS SUMMARY | 2024-10-01 12:59 | XMS_ITS | Encounter Summary ---
Author Organization [facility] Address [address] [place] [address] Care Team Providers Care Electroencephalograph Technologist Name Role Phone Derrell Hurst MD Primary Care Provider Derrell Schulte MD Primary Care Provider Glory Ho MD Primary Care Prov ider [facility], Pcp Primary Care Provider Josette Bowser MD Primary Care Provider [facility], Pcp Primary Care Provider Jamar leigh Encounter Details Date Type Department Care Team Description 04/20/2021 Orders Only Radiology - [address] [phone] Radiology, Authorizing Social History Tobacco Use Types [...] on filedocumented in this encounter Care Teams Electroencephalograph Technologist Relationship Specialty Start Date End Date Derrell Hurst MD PCP - General 10/03/07 06/24/21 Derrell Hurst MD PCP - General Internal Medicine 06/25/21 09/05/21 Glory Almaguer MD [address] [place] [phone] PCP - General Internal Medicine 09/06/21 09/15/22 [facility], Pcp [address] [place] [address] PCP - General Internal Medicine 09/16/22 03/28/23 Josette Crandall MD [address] [place] [address] PCP - General Internal Medicine 03/29/23 07/25/23 [facility], Pcp [address] [place] [address] PCP - General Internal Medicine 07/26/23 documented as of this encounter
--- OUTSIDE RECORDS SUMMARY | 2024-10-01 12:59 | XMS_ITS | Patient Health Record ---
Author Organization [facility] Address [address] [place] [address] Care Team Providers Care Greenhouse Superintendent Name Role Phone Natali MELGAR, Candace Tillman Primary Care Provider Deloris Acuna Unavailable [phone] Viviana Richards Unavailable [phone] Allergies No Known Allergies Reason For Referral No Information Medications Medication SIG (Take, Route, Frequency, Duration) Notes Start Date End Date Status Gabapentin Active Lisinopril 10 MG 1 tablet Orally Once a day Not-Taking amLODIPine Besylate 5 MG 1 tablet Orally Once a day Active Amoxicillin-Pot Clavulanate 500-125 MG 1 tablet Orally every 12 hrs; Duration: 7 day(s) 01/22/2024 Active B12 Active Doxycycline Monohydrate 100 MG Oral; Duration: 80 Days Not-Taking Biotin Active Celecoxib 200 MG Oral; Duration: 30 Days Not-Taking Magnesium Active Iron Active Donezepil HCl-10 mg Active Multivitamin - 1 tablet Orally Once a day Active Omeprazole 20 MG Oral; Duration: 90 Days Active hydroCHLOROthiazide 12.5 MG TAKE ONE CAP MAMIE BY MOUTH EVERY MORNING Oral; Duration: 90 Days Active Sertraline HCl 50 MG Oral; Duration: 30 Days Active Immunizations Vaccine Route Administration Date Status Comme nts Influenza Unknown 11/07/2023 Administered Social History Tobacco Use: Social History Observation Description Date Details (start date - stop date) Never Smoker NA - NA Tobacco use other than smoking: Question Answer Notes Are you an other tobacco user? No Tobacco Control (Standard) Question Answer Notes Tobacco use: Nonsmoker Additional Findings: Tobacco non-user Current no nsmoker AUDIT-C (Standard) Question Answer Notes Did you have a drink containing alcohol in the p ast year? No Points 0 Interpretation Negative Problems Problem Type SNOMED Code ICD Code Onset Dates Problem Status W/U Status Risk Notes Problem Acquired hammer toe of right foot (93064108908 06595) Other hammer toe(s) (acquired), right foot (M20.41) Active confirmed Problem Acquired hammer toe of left foot (10276243930 40407) Other hammer toe(s) (acquired), left foot (M20.42) Active confirmed Problem Atherosclerosis of [place] artery of both lower extremities, with unspecified presence of clinical manifestation (I70.203) Active confirmed Q7(A), Q8(2B), Q9(1B,2C ) Vital Signs Blood pressure diastolic 65 mm Hg 07/24/2024 Height 5ft in 07/24/2024 Blood pressure systolic 128 mm Hg 07/24/2024 Weight 145 lbs 07/24/2024 BMI 28.32 kg/m2 07/24/2024 Procedures Procedure Date Ordered Date Performed Result Body Sit e 47580-VEARDQE NAIL, 6 OR MORE 01/22/2024 N/A 65919-ZZHA SKIN LESIONS, 2 TO 4 01/22/2024 N/A Encounters Encounter Location Date Provider Diagnosis [address] [address] 11/10/2023 Viviana Richards Atherosclerosis of [place] artery of both lower extremities, with unspecified presence of clinical manifestation I70.203 ; Tinea unguium B35.1 ; Pain in right toe(s) M79.674 ; Pain in left toe(s) M79.675 ; Other hammer toe(s) (acquired), right foot M20.41 and Other hammer toe(s) (acquired), left foot M20.[address] [address] 01/22/2024 Deloris Funes Cellulitis of foot, left L03.116 ; Atherosclerosis of [place] artery of both lower extremities, with unspecified presence of clinical manifestation I70.203 ; Tinea unguium B35.1 ; Pain in right toe(s) M79.674 and Pain in left toe(s) M79.[address] [address] 04/23/2024 Viviana Perica Atherosclerosis of [place] artery of both lower extremities, with unspecified presence of clinical manifestation I70.203 ; Tinea unguium B35.1 ; Pain in right toe(s) M79.674 and Pain in left toe(s) M79.[address] [address] 07/24/2024 Deloris Funes Atherosclerosis of [place] artery of both lower extremities, with unspecified presence of clinical manifestation I70.203 ; Tinea unguium B35.1 ; Pain in right toe(s) M79.674 and Pain in left toe(s) M79.[address] [address] 07/05/2024 Deloris Funes Assessments Encounter Date Diagnosis (ICD Code) Assessment Notes Treatment Notes Treatment Clinical Notes Section Notes 11/10/2023 Atherosclerosis of [place] artery of both lower extremities, with unspecified presence of clinical manifestation (ICD-10 - I70.203) 01/22/2024 Cellulitis of foot, left (ICD-10 - L03.116) 01/22/2024 Atherosclerosis of [place] artery of both lower extremities, with unspecified presence of clinical manifestation (ICD-10 - I70.203) Q7(A), Q8(2B), Q9(1B,2C) 04/23/2024 Tinea unguium (ICD-10 - B35.1) 04/23/2024 Atherosclerosis of [place] artery of both lower extremities, with unspecified presence of clinical manifestation (ICD-10 - I70.203) Q7(A), Q8(2B), Q9(1B,2C) 07/24/2024 Tinea unguium (ICD-10 - B35.1) 07/24/2024 Atherosclerosis of [place] artery of both lower extremities, with unspecified presence of clinical manifestation (ICD-10 - I70.203) Q7(A), Q8(2B), Q9(1B,2C) 07/24/2024 Pain in right toe(s) (ICD-10 - M79.674) 04/23/2024 Pain in right toe(s) (ICD-10 - M79.674) 01/22/2024 Tinea unguium (ICD-10 - B35.1) 11/10/2023 Tinea unguium (ICD-10 - B35.1) 11/10/2023 Pain in right toe(s) (ICD-10 - M79.674) 04/23/2024 Pain in left toe(s) (ICD-10 - M79.675) 01/22/2024 Pain in right toe(s) (ICD-10 - M79.674) 07/24/2024 Pain in left toe(s) (ICD-10 - M79.675) 01/22/2024 Pain in left toe(s) (ICD-10 - M79.675) 11/10/2023 Pain in left toe(s) (ICD-10 - M79.675) 11/10/2023 Other hammer toe(s) (acquired), right foot (ICD-10 - M20.41) 11/10/2023 Other hammer toe(s) (acquired), left foot (ICD-10 - M20.42) Plan Of Treatment Pending Test Test Name Order Date [id number] NAIL, 6 OR MORE 01/22/2024 55769-UCKA SKIN LESIONS, 2 TO 4 01/22/20 24 Next Appt Details Provider Name:Deloris Salazar kerri, 10/21/2024 03:45:00 PM, [address] [place], [address], Insurance Providers Payer Name Payer Address Payer Phone Subscriber Number Group Number Insured Name Patient Relationship to Insured Coverage Start Date Coverage End Date Medicare National [employer] [address] [place] [address] [id number] Divina Keane Self - patient is the insured [address] [place] [address] [address] [place] [address] [id number] Divina Keane Self - patient is the insured Medical (General) History Medical History History ICD Code Anxiety Arthritis Back,Hip,and Knee pain High blood pressure Measles Chicken pox Surgical History Surgery Date(Month/Year) appendectomy hernia rotator cuff Surgery colonoscopy knee replacement Hospitalization History Reason Date(Month/Year) left leg ulcers, wound care once a week
--- OUTSIDE RECORDS SUMMARY | 2024-10-01 12:59 | XMS_ITS | Encounter Summary ---
Author Organization [facility] Address [address] [place] [address] Care Team Providers Care Mathematical Sciences Professor Name Role Phone Josette Crandall MD Primary Care Provider [phone] [facility], Pcp Primary Care Provider Unavailabl e Reason for Visit * Reason Onset Date Comments Faxed Order 06/06/2023 Encounter Details Date Type Department Care Team Description 06/06/2023 Telephone Adult Medicine [address] [address] Josette Crandall MD [address] [place] [phone] Faxed Order Social History Tobacco Use Types [...] * Telephone Encounter - Angeli Covington - 06/06/2023 10:10 AM EDT Faxed order received from Adrian Mott [id number] placed in providers box. documented in this encounter Plan of Treatment Not on file documented as of this encounter Visit Diagnoses Not on filedocumented in this encounter Care Teams Mathematical Sciences Professor Relationship Specialty Start Date End Date Josette Crandall MD [address] [place] [address] PCP - General Internal Medicine 03/29/23 07/25/23 [facility], Pcp [address] [place] [address] PCP - General Internal Medicine 07/26/23 documented as of this encounter
--- OUTSIDE RECORDS SUMMARY | 2024-10-01 12:59 | XMS_ITS | Encounter Summary ---
Author Organization [facility] Address [address] [place] [address] Care Team Providers Care Help Desk Technician Name Role Phone Josette Crandall MD Primary Care Provider [phone] [facility], Pcp [facility] Encounter Details Date Type Department Care Team Description 06/09/2023 Home Health Certification Medical Records [address] [place] [address] Adrian Mott Social History Tobacco Use Types [...] on filedocumented in this encounter Care Teams Help Desk Technician Relationship Specialty Start Date End Date Josette Crandall MD [address] [place] [id number] PCP - General Internal Medicine 03/29/23 07/25/23 [facility] License [facility], Pcp [address] [place], [place] [phone] PCP - General Internal Medicine 07/26/23 documented as of this encounter
--- OUTSIDE RECORDS SUMMARY | 2024-10-01 12:59 | XMS_ITS | Encounter Summary ---
Author Organization [facility] Address [address] [place] [address] Care Team Providers Care Railroad Hand Name Role Phone Unavailable Primary Care Provider Unavailabl e Encounter Details Date Type Department Care Team (Latest Contact Info) Description 07/03/[address] [facility] Lab [address] [facility] [place] [address] Nadine Boles MD [address] [place] [id number] Anemia, unspecified; Type 2 diabetes mellitus without complications (CMS/HCC V24, CMS/HCC V28) Social History Tobacco Use Types Packs/Day Years [...] mellitus without complications (CMS/HCC V24, CMS/HCC V28) BASIC METABOLIC PANEL Routine 07/03/2024 5:12 AM EDT Anemia, unspecified Type 2 diabetes mellitus without complications ([facility]/HCC V24, CMS/[facility] V28) documented in this encounter Results * (ABNORMAL) CBC auto differential (07/03/2024 5:12 AM EDT) [facility] WBC 5.1 4.8 - 10.8 K/mcL LAB HEMETOLOGY METHOD 07/03/2024 11:43 AM [facility] RBC 3.50(L) 3.80 - 4.80 M/mcL LAB HEMETOLOGY METHOD 07/03/2024 11:43 AM [facility] Hemoglobin 11.1(L) 11.5 - 16.0 g/dL LAB HEMETOLOGY METHOD 07/03/2024 11:43 AM [facility] Hematocrit 34.6(L) 35.0 - 47.0 % LAB HEMETOLOGY METHOD 07/03/2024 11:43 AM [facility] MCV 99.1(H) 79.0 - 98.0 FL LAB HEMETOLOGY METHOD 07/03/2024 11:43 AM [facility] MCH 31.8 27.0 - 32.0 pcg LAB HEMETOLOGY METHOD 07/03/2024 11:43 AM [facility] MCHC 32.1 32.0 - 37.0 g/dL LAB HEMETOLOGY METHOD 07/03/2024 11:43 AM [facility] RDW 14.3 11.0 - 15.0 % LAB HEMETOLOGY METHOD 07/03/2024 11:43 AM [facility] Platelets 160 130 - 400 K/mcL LAB HEMETOLOGY METHOD 07/03/2024 11:43 AM [facility] MPV 8.8 7.0 - 11.0 FL LAB HEMETOLOGY METHOD 07/03/2024 11:43 AM [facility] NRBC 0.0 <1.0 % LAB HEMETOLOGY METHOD 07/03/2024 11:43 AM [facility] NRBC Absolute 0.00 <0.10 K/mcL LAB HEMETOLOGY METHOD 07/03/2024 11:43 AM [facility] Neutrophils Relative 73.0 % LAB HEMETOLOGY METHOD 07/03/2024 11:43 AM [facility] Lymphocytes Relative 14.3 % LAB HEMETOLOGY METHOD 07/03/2024 11:43 AM [facility] Monocytes Relative 9.1 % LAB HEMETOLOGY METHOD 07/03/2024 11:43 AM [facility] Eosinophils Relative 2.0 % LAB HEMETOLOGY METHOD 07/03/2024 11:43 AM [facility] Basophils Relative 1.2 % LAB HEMETOLOGY METHOD 07/03/2024 11:43 AM [facility] Immature Granulocytes Relative 0.4 % LAB HEMETOLOGY METHOD 07/03/2024 11:43 AM [facility] Neutrophils Absolute 3.69 1.50 - 7.00 K/mcL LAB HEMETOLOGY METHOD 07/03/2024 11:43 AM [facility] Lymphocytes Absolute 0.72(L) 1.00 - 5.00 K/mcL LAB HEMETOLOGY METHOD 07/03/2024 11:43 AM [facility] Monocytes Absolute 0.46 0.20 - 1.00 K/mcL LAB HEMETOLOGY METHOD 07/03/2024 11:43 AM [facility] Eosinophils Absolute 0.10 0.00 - 0.50 K/mcL LAB HEMETOLOGY METHOD 07/03/2024 11:43 AM [facility] Basophils Absolute 0.06 0.00 - 0.20 K/mcL LAB HEMETOLOGY METHOD 07/03/2024 11:43 AM EDT [facility] Immature Granulocytes Absolute 0.02 0.00 - 0.03 K/[facility] LAB HEMETOLOGY METHOD 07/03/2024 11:43 AM EDT [facility] Blood Venous blood specimen / Unknown Venipuncture / Unknown 07/03/2024 5:12 AM EDT 07/03/2024 10:38 AM EDT us Nadine Boles MD LAB BLOOD ORDERABLES Final Resu lt [facility] [address] [place] [address], [place] [phone] * (ABNORMAL) Basic metabolic panel (07/03/2024 5:12 AM EDT) Sodium 139 133 - 145 mmol/L LAB CHEMISTRY METHOD 07/03/2024 2:57 PM [facility] Potassium 3.9 3.5 - 5.5 mmol/L LAB CHEMISTRY METHOD 07/03/2024 2:57 PM [facility] Chloride 106 96 - 110 mmol/L LAB CHEMISTRY METHOD 07/03/2024 2:57 PM [facility] CO2 22 21 - 32 mmol/L LAB CHEMISTRY METHOD 07/03/2024 2:57 PM [facility] Anion Gap 11 3 - 11 LAB CHEMISTRY METHOD 07/03/2024 2:57 PM [facility] Glucose 56(L) 70 - 100 mg/dL LAB CHEMISTRY METHOD 07/03/2024 2:57 PM [facility] BUN 23 5 - 25 mg/dL LAB CHEMISTRY METHOD 07/03/2024 2:57 PM [facility] Creatinine 0.54 0.50 - 1.10 mg/dL LAB CHEMISTRY METHOD 07/03/2024 2:57 PM EDT [facility] eGFR 96 >=60 mL/min/1. 73m2 LAB CHEMISTRY METHOD 07/03/2024 2:57 PM EDT [facility] Comment:Calculation based on the Chronic Kidney Disease Epidemiology Collaboration (CKD-EPI) equation refit without adjustment for race. BUN/Creatinine Ratio 42.6 LAB CHEMISTRY METHOD 07/03/2024 2:57 PM EDT [facility] Calcium 8.6 8.5 - 10.5 mg/dL LAB CHEMISTRY METHOD 07/03/2024 2:57 PM EDT [facility] Blood Venous blood specimen / Unknown Venipuncture / Unknown 07/03/2024 5:12 AM EDT 07/03/2024 10:38 AM EDT us Nadine Boles MD LAB BLOOD ORDERABLES Final Resu lt [facility] [address] [place] [address], [place] [phone] documented in this encounter Visit Diagnoses Diagnosis Anemia, unspecified Type 2 diabetes mellitus without complications (CMS/HCC V24, CMS/HCC V28) documented in this encounter
--- OUTSIDE RECORDS SUMMARY | 2024-10-01 12:59 | XMS_ITS | Clinical Summary ---
Author Organization [facility] Address [address] [facility] [place] [address] Care Team Providers Care Engine Wiper Name Role Phone Community, Pcp Primary Care [...] meals: 110-160 Bedtime: 110-150 Use the Results Bring your glucometer to every appointment Write your fingerstick blood sugars down on a log sheet or record book. Bring them to your appointment Look for patterns in the numbers. The [...] year Health Maintenance Due Topic Date Due Pneumococcal Vaccine (#1 of 2 - Dose 1 = PCV13, Dose 2 = PPSV23) 2014 Diabetes: Blood Sugar Control Test (Hgba1c) 06/14/2014 Diabetes: Annual Eye Exam 01/20/2015 Diabetes: Annual Foot Exam 01/31/2015 Diabetes: Annual Care Plan 01/31/2015 Diabetes/heart Disease: Annual Cholesterol (Ldl) 02/14/2015 Diabetes: Annual Urine Protein Test (Microalbumin) 02/14/2015 Bone Density Screening 09/07/2015 Influenza (#1 of 1) 10/08/2015 Your Action [...] just unsure what to do Educational Resources [employer] (www.diabetes.org) Centers for Disease Control and Prevention (www.cdc.gov/diabetes) This care plan was created in collaboration with Divina Keane on 01/04/2016 Problem Noted Date Alcoholism 10/13/2020 Overview: Multiple admission in past. Follows with Dr. Mendenhall at on [place]rax[place]. COVID-19 02/03/2020 Peripheral vascular disease, unspecified 06/11/2019 Major depressive disorder 06/11/2019 Overview: Admitted 07/08/20-07/15/20 [facility] w/ suicidal ideation Heart murmur [...] 72 03/11/2022 4:05 PM EST Temperature 36.6 C (97.9 F) 03/29/2022 8:36 AM EST Respiratory Rate 16 02/16/2022 9:32 AM EST [...] ASSESSMENT 02/16/2023 02/16/2022, 05/21/19 21 Covid-19 Vaccine ( - 2022-2 4 season) 2023 10/27/2021, 02/08/2021, 04/30/2020, Additional history exists BMI CHECK/ADVISE 02/07/2024 03/29/2022, 04/2022, 11/27/2019, Additional history exists MAMMOGRAM 05/31/2024 06/01/2023, 04/07, 04/23/2020, Additional history exists INFLUENZA (#1) 2024 11/15/2021, 10/07, 10/19/2019, Additional history exists DTAP/TDAP/TD (5 - Td or Tdap) 11/07/2028, 11/07/2018, 11/06/2016, Additional history exists HEPATITIS C SCREENING Completed 08/02/2012 SHINGLES VACCINE Completed 08/18/2017, , 06/16/2017, Additional history exists PNEUMOCOCCAL VACCINE Completed 12/22/2017, 12/05/2016, 11/05/2016 Care Teams Engine Wiper Relationship Specialty Start Date End Date Community, Pcp PCP - General Internal Medicine 07/26/23
--- OUTSIDE RECORDS SUMMARY | 2024-10-01 12:59 | XMS_ITS | Encounter Summary ---
Author Organization [facility] Address [address] [place] [address] Care Team Providers Care Hand Carver Name Role Phone Derrell Hurst MD Primary Care Provider Derrell Schulte MD Primary Care Provider Glory Ho MD Primary Care Prov ider [facility], Pcp Primary Care Provider UnavailJosette Klein MD Primary Care Provider [phone] [facility], Pcp Primary Care Provider Jamar e Encounter Details Date Type Department Care Team Description 08/25/2010 [facility] Report Medical Records [address] [place] [id number] Kerry Hansen MD [address] [place] [address] [address] [place] [address] Social History Tobacco Use Types Packs/Day Years [...] filedocumented in this encounter Care Teams Hand Carver Relationship Specialty Start Date End Date Derrell Hurst MD PCP - General 10/03/07 06/24/21 Derrell Hurst MD PCP - General Internal Medicine 06/25/21 09/05/21 Glory Almaguer MD [address] [place] [id number] PCP - General Internal Medicine 09/06/21 09/15/22 [facility], Pcp [address] [place] [address] PCP - General Internal Medicine 09/16/22 03/28/23 Josette Crandall MD [address] [place] [id number] PCP - General Internal Medicine 03/29/23 07/25/23 [facility], Pcp [address] [place] [id number] PCP - General Internal Medicine 07/26/23 documented as of this encounter
== END 2024-10-01 13:04 | disposition home or self-care (01) ==
PROVIDERS: PCP Internal Medicine; Visit Provider Psychiatry & Neurology Neurology
DX: G31.84 Mild cognitive impairment of uncertain or unknown etiology (principal)
CPT/HCPCS: 99214

== ENCOUNTER → 2024-10-01 12:04 | Outpatient (BNVA) | payer MEDICARE, BC, SELFPAY | PROVIDERS: PCP Internal Medicine; Visit Provider Psychiatry & Neurology Neurology | DX: G31.84 Mild cognitive impairment of uncertain or unknown etiology (principal) | CPT/HCPCS: 99212 ==